=== PATIENT | female | born 1975 | race African-American/Black ===

== ENCOUNTER 2017-04-26 13:58 | Emergency (ER) | payer OTHER ==
[2017-04-26] MEDS ORDERED: amLODIPine 10 MG TAB PO STA (14:19)
[2017-04-26 14:25] VITALS: RESP 18
--- NOTE | 2017-04-26 14:42 | ED ---
General Adult HPI - General Chief complaint: Recheck/Abnormal Lab/Rx Stated complaint: High BP Time Seen by Provider: 04/26/17 14:15 Source: patient, RN notes reviewed Mode of arrival: ambulatory Limitations: no limitations - History of Present Illness Initial comments: 41-year-old female presented for dysuria and medication refill. Patient states she is out of her blood pressure medication states that she has not taken it in several weeks she states that she only takes hydrochlorothiazide, Norvasc and bends it broke. Patient denies chest pain, headache, dizziness, fever, chills. She states she developed dysuria last night with urinary frequency. She feels that she has a UTI. Denies flank pain. - Related Data Home Medications Medication Instructions Recorded Confirmed Enalapril [Vasotec] 20 mg PO DAILY 04/26/17 04/26/17 Hydrochlorothiazide 50 mg PO DAILY 04/26/17 04/26/17 Previous Rx's Medication Instructions Recorded Ciprofloxacin HCl [Cipro] 500 mg PO Q12HR #14 tablet 04/26/17 Fluconazole [Diflucan] 150 mg PO ONCE #2 tab 04/26/17 Phenazopyridine [Pyridium] 200 mg PO TID #6 tablet 04/26/17 amLODIPine [Norvasc] 10 mg PO DAILY #14 tab 04/26/17 Allergies Allergy/AdvReac Type Severity Reaction Status Date / Time No Known Allergies Allergy Verified 04/26/17 14:13 Review of Systems ROS Statement: Those systems with pertinent positive or pertinent negative responses have been documented in the HPI. ROS Other: All systems not noted in ROS Statement are negative. Past Medical History Past Medical History: Hypertension History of Any Multi-Drug Resistant Organisms: None Reported Past Surgical History: No Surgical Hx Reported Past Psychological History: No Psychological Hx Reported Smoking Status: Current every day smoker Past Alcohol Use History: Occasional Past Drug Use History: None Reported General Exam Limitations: no limitations General appearance: alert, in no apparent distress Head exam: Present: atraumatic, normocephalic, normal inspection Eye exam: Present: normal appearance, PERRL, EOMI. Absent: scleral icterus, conjunctival injection, periorbital swelling Neck exam: Present: normal inspection. Absent: tenderness, meningismus, lymphadenopathy Respiratory exam: Present: normal lung sounds bilaterally. Absent: respiratory distress, wheezes, rales, rhonchi, stridor Cardiovascular Exam: Present: regular rate, normal rhythm, normal heart sounds. Absent: systolic murmur, diastolic murmur, rubs, gallop, clicks GI/Abdominal exam: Present: soft, normal bowel sounds. Absent: distended, tenderness, guarding, rebound, rigid Back exam: Absent: CVA tenderness (L) Course Vital Signs 04/26/17 04/26/17 14:02 14:22 Temperature 97.4 F L Pulse Rate 96 89 Respiratory 17 18 Rate Blood Pressure 185/100 162/103 O2 Sat by Pulse 100 98 Oximetry Medical Decision Making - Medical Decision Making 41-year-old female presented emergency department for UTI symptoms and medication refill. He is mentally refill patient be treated for UTI with ciprofloxacin, Diflucan and Pyridium. Return parameters were discussed. Patient has a follow-up appointment in 8 days for medications. - Lab Data Lab Results 04/26/17 04/26/17 Range/Units 14:19 14:19 Urine Color Yellow Urine Appearance Turbid H (Clear) Urine pH 6.0 (5.0-8.0) Ur Specific [place] 1.025 (1.001-1.035) Urine Protein 1+ H (Negative) Urine Glucose (UA) Negative (Negative) Urine Ketones Negative (Negative) Urine Blood Negative (Negative) Urine Nitrite Negative (Negative) Urine Bilirubin Negative (Negative) Urine Urobilinogen 3.0 (<2.0) mg/dL Ur Leukocyte Esterase Large H (Negative) Urine RBC 7 H (0-5) /hpf Urine WBC 152 H (0-5) /hpf Ur Squamous Epith Cells 24 H (0-4) /hpf Urine Mucus Many H (None) /hpf Urine HCG, Qual Not Detected (Not Detectd) Disposition Clinical Impression: Hypertension, Encounter for medication refill, UTI (urinary tract infection) Disposition: HOME SELF-CARE Condition: Stable Instructions: Urinary Tract Infection in Women (ED) Additional Instructions: Please return to the Emergency Department if symptoms worsen or any other concerns. Prescriptions: amLODIPine [Norvasc] 10 mg PO DAILY #14 tab Ciprofloxacin HCl [Cipro] 500 mg PO Q12HR #14 tablet Fluconazole [Diflucan] 150 mg PO ONCE #2 tab Phenazopyridine [Pyridium] 200 mg PO TID #6 tablet Referrals: None,Stated [REFERRING] - 1-2 days Time of Disposition: 15:05
[2017-04-26 14:59] LABS: Appearance,Urine Turbid (Clear); Bilirubin,Urine Negative (Negative); Glucose,Urine (UA) Negative (Negative); Ketones,Urine Negative (Negative); Leukocyte Esterase,Urine Large (Negative); Mucus,Urine Many /hpf; Nitrite,Urine Negative (Negative); Particle Count 16674; Protein,Urine 1+ (Negative); RBC,Urine 7 /hpf (0-5); Specific Gravity,Urine 1.025 (1.001-1.035); Squamous Epithelial Cell,Urine 24 /hpf (0-4); UA Billing (MACRO vs. MICRO) MICRO; WBC,Urine 152 /hpf (0-5)
[2017-04-26 15:28] VITALS: BP 144/88; PULSE 81; TEMP 97.8
== END 2017-04-26 15:29 | disposition home or self-care (01) ==
LOC: EC 13:58
DX: I10 Essential (primary) hypertension (principal); N39.0 Urinary tract infection, site not specified; Z76.0 Encounter for issue of repeat prescription; F17.200 Nicotine dependence, unspecified, uncomplicated; Z79.899 Other long term (current) drug therapy
CPT/HCPCS: 81001; 81025; 87077; 87086; 87186; 99283

== ENCOUNTER 2017-06-07 20:22 | Emergency (ER) | payer SELFPAY ==
[2017-06-07] MEDS ORDERED: diphenhydrAMINE 25 MG CAP PO STA ×2 (20:30→20:41)
--- NOTE | 2017-06-07 20:47 | ED ---
Allergic Reaction HPI - General Chief complaint: Allergic Reaction Stated complaint: Allergic reaction/Tongue Time Seen by Provider: 06/07/17 20:29 Source: patient, RN notes reviewed Mode of arrival: ambulatory Limitations: no limitations - History of Present Illness Initial Comments: This is a 41-year-old female who presents to the emergency department with chief complaint of ALLERGIC reaction. Patient states that prior to arrival she ate a piece of shrimp. She says that she has a shellfish ALLERGY. She normally will eat shellfish and has Benadryl at home that she takes to prevent an ALLERGIC reaction. When she went to get her Benadryl the box was empty. Patient stated that it was closer to come to the emergency department than to her friend's house or the pharmacy. Patient states that she has some tingling of her lips and tongue. Denies any swelling or difficulty breathing. Denies any fevers or chills. - Related Data Home Medications Medication Instructions Recorded Confirmed Enalapril [Vasotec] 20 mg PO DAILY 04/26/17 04/26/17 Hydrochlorothiazide 50 mg PO DAILY 04/26/17 04/26/17 Previous Rx's Medication Instructions Recorded Ciprofloxacin HCl [Cipro] 500 mg PO Q12HR #14 tablet 04/26/17 Fluconazole [Diflucan] 150 mg PO ONCE #2 tab 04/26/17 Phenazopyridine [Pyridium] 200 mg PO TID #6 tablet 04/26/17 amLODIPine [Norvasc] 10 mg PO DAILY #14 tab 04/26/17 Allergies Allergy/AdvReac Type Severity Reaction Status Date / Time shellfish derived [Shellfish] Allergy Unknown Verified 06/07/17 20:27 Review of Systems ROS Statement: Those systems with pertinent positive or pertinent negative responses have been documented in the HPI. ROS Other: All systems not noted in ROS Statement are negative. Past Medical History Past Medical History: Hypertension History of Any Multi-Drug Resistant Organisms: None Reported Past Surgical History: No Surgical Hx Reported Past Psychological History: No Psychological Hx Reported Smoking Status: Current every day smoker Past Alcohol Use History: Occasional Past Drug Use History: None Reported General Exam - General Exam Comments Initial Comments: General: Awake and alert, well-developed; in no apparent distress. HEENT: Head atraumatic, normocephalic. No facial swelling noted. Pupils are equal, round and reactive to light. Extraocular movements intact. Oropharynx moist without erythema or exudate. No swelling of the tongue, lips or oropharynx. Neck: Supple. Normal ROM. Cardiovascular: Regular rate and rhythm. No murmurs, rubs or gallops. Chest symmetrical. Respiratory: Lungs clear to auscultation bilaterally. No wheezes, rales or rhonchi. Normal respiratory effort with no use of accessory muscles. Musculoskeletal: Normal ROM, no tenderness bilateral upper and lower extremities. Ambulating normally. Skin: [place], warm and dry without rashes or lesions. Neurological: Alert and oriented x3. CN II-XII grossly intact. Speech is fluent and answers are appropriate. No focal neuro deficits. Psychiatric: Normal mood and affect. No overt signs of depression or anxiety noted. Limitations: no limitations Course Vital Signs 06/07/17 20:24 Temperature 97.6 F Pulse Rate 101 H Respiratory 18 Rate Blood Pressure 194/99 O2 Sat by Pulse 99 Oximetry Medical Decision Making - Medical Decision Making This is a 41-year-old female who presents to the emergency department with request for Benadryl. Patient has a shellfish ALLERGY and ate a piece of shrimp prior to arrival. She did not have any Benadryl at home so presented to the emergency department. Informed patient that she should not be eating foods that she is ALLERGIC to. Patient denies any swelling or difficulty breathing. She is in no acute distress at this time. Patient will be discharged home. Disposition Clinical Impression: Food allergy Disposition: HOME SELF-CARE Condition: Good Instructions: Food Allergy (ED) Additional Instructions: Please do not continue to eat foods you're ALLERGIC to. Please follow up with primary care provider within 1-2 days. Return to emergency department if symptoms should worsen or any concerns arise. Referrals: Lico Bañuelos MD [Primary Care Provider] - 1-2 days Time of Disposition: 20:47
[2017-06-07 23:37] VITALS: BP 194/99; PULSE 101; RESP 18; TEMP 97.6
== END 2017-06-07 20:53 | disposition home or self-care (01) ==
LOC: EC 20:22
DX: L27.2 Dermatitis due to ingested food (principal); I10 Essential (primary) hypertension; F17.200 Nicotine dependence, unspecified, uncomplicated; Z79.899 Other long term (current) drug therapy; Z91.013 Allergy to seafood
CPT/HCPCS: 99282

== ENCOUNTER 2017-08-27 10:16 | Emergency (ER) | payer OTHER ==
[2017-08-27 10:28] VITALS: TEMP 98
[2017-08-27 11:31] LABS: Basophils % (A) 0 %; Eosinophils # (A) 0.2 k/uL (0-0.7); Eosinophils % (A) 2 %; HCT 36.1 % (34.0-46.0); HGB 11.6 gm/dL (11.4-16.0); Hypochromasia Slight; Lymphocytes # (A) 1.6 k/uL (1.0-4.8); Lymphocytes % (A) 14 %; MCH 25.8 pg (25.0-35.0); MCHC 32.2 g/dL (31.0-37.0); MCV 80.1 fL (80.0-100.0); Mean Platelet Volume 6.3; Monocytes # (A) 0.3 k/uL (0-1.0); Monocytes % (A) 3 %; Neutrophils # (A) 9.2 k/uL (1.3-7.7); Neutrophils % (A) 79 %; Platelet Count 290 k/uL (150-450); RDW 15.5 % (11.5-15.5); WBC 11.7 k/uL (3.8-10.6)
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
[2017-08-27 11:43] LABS: ALT 29 U/L (9-52); AST 20 U/L (14-36); Acetaminophen <10.0 ug/mL; Albumin 4.5 g/dL (3.5-5.0); Alkaline Phosphatase 51 U/L (38-126); Amylase 111 U/L (30-110); Anion Gap 18 mmol/L; Blood Urea Nitrogen 16 mg/dL (7-17); Calcium 9.6 mg/dL (8.4-10.2); Carbon Dioxide 19 mmol/L (22-30); Chloride 111 mmol/L (98-107); Cholesterol 184 mg/dL (<200); Glucose 63 mg/dL (74-99); HDL Cholesterol 78 mg/dL (40-60); LDL Cholesterol,Calculated 92 mg/dL (0-99); Lipase 435 U/L (23-300); Magnesium 1.9 mg/dL (1.6-2.3); Potassium 4.4 mmol/L (3.5-5.1); Sodium 148 mmol/L (137-145); Total Bilirubin 0.3 mg/dL (0.2-1.3); Triglycerides 71 mg/dL (<150)
--- NOTE | 2017-08-27 11:49 | XR ---
EXAMINATION TYPE: XR chest 2V DATE OF EXAM ORDERED: 08/27/2017 HISTORY: cough. REFERENCE: None. FINDINGS: The lungs are clear. Pleural spaces are clear. Heart size is normal. IMPRESSION: NORMAL CHEST.
[2017-08-27 11:58] LABS: Creatine Kinase MB 0.4 ng/mL (0.0-2.4)
--- NOTE | 2017-08-27 11:58 | CT ---
EXAMINATION TYPE: CT brain wo con DATE OF EXAM: 08/27/2017 COMPARISON: Previous study dated 04/29/2017 HISTORY: Dizziness, DOE CT DLP: 1106 mGycm Automated exposure control for dose reduction was used. FINDINGS: Central structures are midline. There is no evidence of hydrocephalus. No acute focal lesion, mass ef fect or midline shift is seen. I do not see evidence of intracranial blood. The visualized portions of the paranasal sinuses and mastoids are clear. The bony calvarium is intact . IMPRESSION: NO ACUTE INTRACRANIAL ABNORMALITY.
[2017-08-27 11:59] LABS: Alcohol 294 mg/dL
[2017-08-27 12:02] LABS: Ammonia <9 umol/L (<30)
[2017-08-27 12:05] LABS: Lactic Acid, Venous 2.8 mmol/L (0.7-2.0)
[2017-08-27] MEDS ORDERED: SODIUM CHLORIDE 0.9% 1,000 ML IV STA (12:14)
[2017-08-27 13:06] VITALS: RESP 18
[2017-08-27 14:09] VITALS: BP 118/68; PULSE 95
== END 2017-08-27 14:08 | disposition home or self-care (01) ==
LOC: EC 10:16
DX: F10.120 Alcohol abuse with intoxication, uncomplicated (principal); E86.0 Dehydration; R00.0 Tachycardia, unspecified; M54.5 Low back pain; G89.29 Other chronic pain; F17.200 Nicotine dependence, unspecified, uncomplicated; Z91.013 Allergy to seafood
CPT/HCPCS: 36415; 70450; 71046; 80053; 80061; 80320; 82140; 82150; 82550; 82553; 83520; 83605; 83690; 83735; 84443; 85025; 85379; 93005; 96360; 99285

== ENCOUNTER 2017-10-16 21:52 | Emergency (ER) | payer OTHER ==
--- NOTE | 2017-10-16 22:25 | ED ---
Chest Pain HPI - General Chief Complaint: Chest Pain Stated Complaint: chest pain Time Seen by Provider: 10/16/17 22:14 Source: patient, family Mode of arrival: ambulatory Limitations: no limitations - History of Present Illness Initial Comments: This patient's a 41-year-old woman who presents to be evaluated for substernal chest pain. She states the symptom is started this morning. She indicates the substernal area, and states that it feels like a squeezing. The pain is intermittent and she states when it comes on it lasts for about 10 seconds at a time before resolving. Earlier today she bought some aspirin, took that but states that it made no difference in the pain. She has not noted any other worsening or relieving factors. She states the pain gets up to moderate intensity when it is there. Is currently not there. She also did have some vomiting earlier today. Patient reports that she has been somewhat anxious related to the symptoms, and she has some tingling in both of her hands now. She does have history of anxiety. Denies any other associated symptoms. MD Complaint: chest pain -: hour(s) Onset: during rest Pain Location: substernal Pain Radiation: none Severity: moderate Quality: tightness Consistency: intermittent Improves With: nothing Worsens With: nothing Anginal Symptoms: vomiting Treatments Prior to Arrival: none - Related Data Home Medications Medication Instructions Recorded Confirmed Hydrochlorothiazide [Hydrodiuril] 25 mg PO DAILY 10/16/17 10/16/17 amLODIPine BESYLATE [Norvasc] 2.5 mg PO DAILY 10/16/17 10/16/17 Previous Rx's Medication Instructions Recorded Magnesium Oxide [Mag-Ox] 400 mg PO DAILY #20 tablet 10/16/17 Allergies Allergy/AdvReac Type Severity Reaction Status Date / Time shellfish derived [Shellfish] Allergy Unknown Verified 10/16/17 22:38 Review of Systems ROS Statement: Those systems with pertinent positive or pertinent negative responses have been documented in the HPI. ROS Other: All systems not noted in ROS Statement are negative. Constitutional: Denies: fever, chills Respiratory: Denies: cough, dyspnea Cardiovascular: Reports: as per HPI, chest pain. Denies: palpitations, orthopnea, edema, syncope Gastrointestinal: Reports: as per HPI, nausea, vomiting. Denies: abdominal pain , diarrhea, constipation, hematemesis Genitourinary: Denies: dysuria, hematuria Musculoskeletal: Denies: back pain Skin: Denies: rash Neurological: Reports: as per HPI, paresthesias. Denies: headache, weakness, numbness EKG Findings - EKG Results: EKG: interpreted by BELKYS BURNHAM, sinus rhythm (With sinus arrhythmia, rate 89 bpm) , normal axis, normal QRS, normal ST/T, no acute changes - OR, Pacemaker, Normal: Normal tracing: normal tracing Past Medical History Past Medical History: Hypertension History of Any Multi-Drug Resistant Organisms: None Reported Past Surgical History: No Surgical Hx Reported Past Psychological History: Anxiety Smoking Status: Current every day smoker Past Alcohol Use History: Occasional Past Drug Use History: None Reported General Exam Limitations: no limitations General appearance: alert, in no apparent distress Head exam: Present: atraumatic, normocephalic Eye exam: Present: normal appearance. Absent: scleral icterus, conjunctival injection Respiratory exam: Present: normal lung sounds bilaterally. Absent: respiratory distress, wheezes, rales, rhonchi, stridor, chest wall tenderness, accessory muscle use, decreased breath sounds, prolonged expiratory Cardiovascular Exam: Present: regular rate, normal rhythm, normal heart sounds. Absent: systolic murmur, diastolic murmur, rubs, gallop GI/Abdominal exam: Present: soft. Absent: distended, tenderness, guarding, rebound, rigid, mass, pulsatile mass, hernia Extremities exam: Present: normal inspection, normal capillary refill. Absent: pedal edema, calf tenderness Back exam: Present: normal inspection. Absent: CVA tenderness (R), CVA tenderness (L) Neurological exam: Present: alert Skin exam: Present: warm, dry, intact, normal color. Absent: rash Course Vital Signs 10/16/17 22:02 Temperature 100.4 F H Pulse Rate 104 H Respiratory 20 Rate Blood Pressure 155/67 O2 Sat by Pulse 100 Oximetry Disposition Clinical Impression: Chest pain, Hypomagnesemia Disposition: HOME SELF-CARE Condition: Good Instructions: Chest Pain (ED), Hypomagnesemia (ED) Prescriptions: Magnesium Oxide [Mag-Ox] 400 mg PO DAILY #20 tablet Is patient prescribed a controlled substance at d/c from ED?: No Referrals: Lico Bañuelos MD [Primary Care Provider] - 1-2 days
--- NOTE | 2017-10-16 23:19 | XR ---
EXAMINATION TYPE: XR chest 2V DATE OF EXAM: 10/16/2017 COMPARISON: 08/27/2017 HISTORY: Chest pain TECHNIQUE: Frontal and lateral views of the chest are obtained. FINDINGS: Heart and mediastinum are normal. Lungs are clear. Diaphragm is normal. Bony thorax is nor mal. There are chest leads. IMPRESSION: Normal chest. No change.
[2017-10-16 23:26] LABS: Basophils % (A) 0 %; Eosinophils # (A) 0.2 k/uL (0-0.7); Eosinophils % (A) 3 %; HCT 34.1 % (34.0-46.0); HGB 10.6 gm/dL (11.4-16.0); Hypochromasia Slight; Lymphocytes # (A) 0.9 k/uL (1.0-4.8); Lymphocytes % (A) 15 %; MCH 25.1 pg (25.0-35.0); MCV 80.7 fL (80.0-100.0); Mean Platelet Volume 7.5; Monocytes # (A) 0.3 k/uL (0-1.0); Monocytes % (A) 5 %; Neutrophils # (A) 4.8 k/uL (1.3-7.7); Neutrophils % (A) 75 %; Platelet Count 231 k/uL (150-450); RBC 4.23 m/uL (3.80-5.40); RDW 14.9 % (11.5-15.5); WBC 6.4 k/uL (3.8-10.6)
[2017-10-16 23:40] LABS: ALT 61 U/L (9-52); AST 54 U/L (14-36); Albumin 4.5 g/dL (3.5-5.0); Alkaline Phosphatase 52 U/L (38-126); Anion Gap 15 mmol/L; Blood Urea Nitrogen 18 mg/dL (7-17); Calcium 9.6 mg/dL (8.4-10.2); Carbon Dioxide 26 mmol/L (22-30); Chloride 96 mmol/L (98-107); Glucose 78 mg/dL (74-99); Magnesium 1.2 mg/dL (1.6-2.3); Potassium 3.8 mmol/L (3.5-5.1); Sodium 137 mmol/L (137-145); Total Bilirubin 0.7 mg/dL (0.2-1.3); Total Protein 7.6 g/dL (6.3-8.2)
[2017-10-16] MEDS ORDERED: MAGNESIUM SULFATE-D5W PMX 1 GM in DEXTROSE/WATER 1 100ML.BAG IVPB ONE (23:58)
[2017-10-17 00:31] VITALS: RESP 18
[2017-10-17 01:43] VITALS: BP 142/87; PULSE 87; TEMP 98
== END 2017-10-17 01:43 | disposition home or self-care (01) ==
LOC: EC 21:52
DX: E83.42 Hypomagnesemia (principal); R07.2 Precordial pain; R11.10 Vomiting, unspecified; I10 Essential (primary) hypertension; F17.200 Nicotine dependence, unspecified, uncomplicated; Z79.899 Other long term (current) drug therapy; Z91.013 Allergy to seafood
CPT/HCPCS: 36415; 93005; 80053; 83735; 84484; 85025; 71046; 99285; 96365; J3475

== ENCOUNTER 2017-12-19 12:36 | Emergency (ER) | payer OTHER ==
[2017-12-19] MEDS ORDERED: MAG HYDROX/AL HYDROX/SIMETH 30 ML CUP PO STA (14:12)
[2017-12-19] MEDS ORDERED: SODIUM CHLORIDE 0.9% 500 ML IV STA (14:12)
--- NOTE | 2017-12-19 14:20 | ED ---
General Adult HPI - General Chief complaint: Chest Pain Stated complaint: chest pain/NVD Time Seen by Provider: 12/19/17 14:03 Source: patient, EMS Mode of arrival: EMS Limitations: no limitations - History of Present Illness Initial comments: Cindi female with past medical history of hypertension who presents to the emergency department today for evaluation of nausea, vomiting and development of epigastric and retrosternal discomfort. Patient reports that she was in her usual state of health yesterday, she made cheeseburgers for dinner which her and her family ate. She reports that she slept well throughout the night but woke this morning feeling nauseated. Patient reports that she had 6 episodes of nonbloody nonbilious emesis. Patient subsequently developed some discomfort in the epigstrum and retrosternal area. Patient reports she told her friend of her discomfort and was told to come to the ER for evaluation. Patient states that symptoms began approximately 2 hours prior to coming to the ER and resolved completely prior to arrival. Patient denies any lightheadedness, diaphoresis or shortness of breath associated with the chest pressure sensation. She denies any known cardiac history. She denies any family history of early cardiac disease. Upon initial evaluation in the ER the patient states that her primary cause of discomfort is that she is very thirsty and hasn't had anything to eat or drink since she vomited this morning. - Related Data Home Medications Medication Instructions Recorded Confirmed Hydrochlorothiazide [Hydrodiuril] 25 mg PO DAILY 10/16/17 12/19/17 amLODIPine [Norvasc] 10 mg PO DAILY 12/19/17 12/19/17 Previous Rx's Medication Instructions Recorded Ondansetron Odt [Zofran Odt] 4 mg PO Q8HR PRN #12 tab 12/19/17 Allergies Allergy/AdvReac Type Severity Reaction Status Date / Time shellfish derived [Shellfish] Allergy Unknown Verified 12/19/17 13:33 Review of Systems ROS Statement: Those systems with pertinent positive or pertinent negative responses have been documented in the HPI. ROS Other: All systems not noted in ROS Statement are negative. Constitutional: Reports: fever (subjective warmness yesterda) ENT: Denies: throat pain Respiratory: Denies: cough, dyspnea Cardiovascular: Reports: chest pain (pressure in retrosternal area after vomiting). Denies: palpitations, dyspnea on exertion, orthopnea, edema, syncope Endocrine: Denies: fatigue Gastrointestinal: Reports: nausea, vomiting. Denies: abdominal pain, diarrhea, constipation Genitourinary: Denies: urgency, dysuria, abnormal menses (LMP last week) Musculoskeletal: Denies: back pain Skin: Denies: rash Neurological: Denies: headache, weakness Psychiatric: Denies: anxiety Hematological/Lymphatic: Denies: easy bleeding, easy bruising Past Medical History Past Medical History: Hypertension History of Any Multi-Drug Resistant Organisms: None Reported Past Surgical History: No Surgical Hx Reported Past Psychological History: Anxiety Smoking Status: Current some day smoker Past Alcohol Use History: Occasional Past Drug Use History: None Reported General Exam Limitations: no limitations General appearance: alert, in no apparent distress Head exam: Present: atraumatic, normocephalic Eye exam: Present: normal appearance, PERRL ENT exam: Present: normal exam, mucous membranes dry Neck exam: Present: normal inspection Respiratory exam: Absent: respiratory distress Cardiovascular Exam: Present: regular rate, normal rhythm GI/Abdominal exam: Present: soft. Absent: distended, tenderness, guarding, rebound, rigid Rectal exam: Present: deferred Back exam: Present: normal inspection Neurological exam: Present: alert, oriented X3 Psychiatric exam: Present: normal affect, normal mood Skin exam: Present: warm, dry Course Vital Signs 12/19/17 12/19/17 12/19/17 12:46 14:26 16:28 Temperature 98.1 F Pulse Rate 62 80 85 Respiratory 18 17 18 Rate Blood Pressure 132/83 160/103 160/96 O2 Sat by Pulse 97 100 100 Oximetry 12/19/17 18:04 Temperature 97.9 F Pulse Rate 80 Respiratory 16 Rate Blood Pressure 159/92 O2 Sat by Pulse 96 Oximetry - Reevaluation(s) Reevaluation #1: The patient was reevaluated, still complaining of some discomfort in her abdomen , declined any pain medications, states she feels somewhat woozy but does not want any nausea medication. Patient was updated on plan for ultrasound to evaluate gallbladder pathology. 12/19/17 16:02 EKG Findings - EKG Comments: EKG Findings:: EKG at 1440 rate is 83, sinus rhythm, normal axis, prolonged QTC , there are no acute ST elevations or depressions. There is no evidence of acute ischemia or infarction. Medical Decision Making - Medical Decision Making The patient was seen and evaluated, history was obtained from the patient Patient woke with nausea and had 6 episodes of nonbloody nonbilious emesis, subsequently developed discomfort in the epigastrium and retrosternal area described as a pressure and burning. The sensation resolved prior to arrival. Heart score is 1 for risk factors of hypertension and smoking Labs and imaging were ordered Maalox was ordered Labs with elvated lipase and transaminases, US of gallbladder was ordered for evaluation Patient continued to have mild nausea and generalized feeling of being unwell but declined any medications or further intervention. IV fluids were infusing. Ultrasound with no acute abnormalities Results were discussed with the patient who expresses relief that there is no abnormalities identified. At this time patient states she like to be discharged home. I will prescribe by mouth Zofran. I do suspect that the patient's lab abnormalities are secondary to excessive vomiting this morning. I advised follow-up with primary care physician. I discussed with the patient that if she does not feel like eating solid foods it is okay but she needs to maintain oral hydration with either water or a sugar salt solution such as Gatorade or Powerade. Patient expressed understanding of this. Patient was advised that she has any worsening pain or discomfort call 911 or return to the ER for reevaluation. All questions pertaining to care were answered best my ability patient was discharged home in stable condition. - Lab Data Result diagrams: 12/19/17 13:35 12/19/17 13:35 Lab Results 12/19/17 12/19/17 12/19/17 Range/Units 13:35 13:35 13:35 WBC 6.1 (3.8-10.6) k/uL RBC 4.24 (3.80-5.40) m/uL Hgb 10.6 L (11.4-16.0) gm/dL Hct 33.9 L (34.0-46.0) % MCV 80.0 (80.0-100.0) fL MCH 25.0 (25.0-35.0) pg MCHC 31.2 (31.0-37.0) g/dL RDW 16.4 H (11.5-15.5) % Plt Count 265 (150-450) k/uL Neutrophils % 86 % Lymphocytes % 8 % Monocytes % 3 % Eosinophils % 1 % Basophils % 0 % Neutrophils # 5.2 (1.3-7.7) k/uL Lymphocytes # 0.5 L (1.0-4.8) k/uL Monocytes # 0.2 (0-1.0) k/uL Eosinophils # 0.1 (0-0.7) k/uL Basophils # 0.0 (0-0.2) k/uL Hypochromasia Moderate Anisocytosis Slight PT 10.2 (9.0-12.0) sec INR 1.0 (<1.2) APTT 20.4 L (22.0-30.0) sec Sodium 139 (137-145) mmol/L Potassium 3.8 (3.5-5.1) mmol/L Chloride 101 (98-107) mmol/L Carbon Dioxide 21 L (22-30) mmol/L Anion Gap 17 mmol/L BUN 10 (7-17) mg/dL Creatinine 0.70 (0.52-1.04) mg/dL Est GFR (CKD-EPI)AfAm >90 (>60 ml/min/1.73 sqM) Est GFR (CKD-EPI)NonAf >90 (>60 ml/min/1.73 sqM) Glucose 61 L (74-99) mg/dL Calcium 8.8 (8.4-10.2) mg/dL Magnesium 1.4 L (1.6-2.3) mg/dL Total Bilirubin 0.7 (0.2-1.3) mg/dL AST 239 H (14-36) U/L ALT 103 H (9-52) U/L Alkaline Phosphatase 74 (38-126) U/L Troponin I (0.000-0.034) ng/mL Total Protein 7.6 (6.3-8.2) g/dL Albumin 4.5 (3.5-5.0) g/dL Lipase 334 H (23-300) U/L // Range/Units 13:35 WBC (3.8-10.6) k/uL RBC (3.80-5.40) m/uL Hgb (11.4-16.0) gm/dL Hct (34.0-46.0) % MCV (80.0-100.0) fL MCH (25.0-35.0) pg MCHC (31.0-37.0) g/dL RDW (11.5-15.5) % Plt Count (150-450) k/uL Neutrophils % % Lymphocytes % % Monocytes % % Eosinophils % % Basophils % % Neutrophils # (1.3-7.7) k/uL Lymphocytes # (1.0-4.8) k/uL Monocytes # (0-1.0) k/uL Eosinophils # (0-0.7) k/uL Basophils # (0-0.2) k/uL Hypochromasia Anisocytosis PT (9.0-12.0) sec INR (<1.2) APTT (22.0-30.0) sec Sodium (137-145) mmol/L Potassium (3.5-5.1) mmol/L Chloride (98-107) mmol/L Carbon Dioxide (22-30) mmol/L Anion Gap mmol/L BUN (7-17) mg/dL Creatinine (0.52-1.04) mg/dL Est GFR (CKD-EPI)AfAm (>60 ml/min/1.73 sqM) Est GFR (CKD-EPI)NonAf (>60 ml/min/1.73 sqM) Glucose (74-99) mg/dL Calcium (8.4-10.2) mg/dL Magnesium (1.6-2.3) mg/dL Total Bilirubin (0.2-1.3) mg/dL AST (14-36) U/L ALT (9-52) U/L Alkaline Phosphatase (38-126) U/L Troponin I <0.012 (0.000-0.034) ng/mL Total Protein (6.3-8.2) g/dL Albumin (3.5-5.0) g/dL Lipase (23-300) U/L Disposition Clinical Impression: Nausea and vomiting, Elevated transaminase level, Elevated lipase Disposition: HOME SELF-CARE Condition: Good Instructions: Acute Nausea and Vomiting (ED) Prescriptions: Ondansetron Odt [Zofran Odt] 4 mg PO Q8HR PRN #12 tab PRN Reason: Nausea Is patient prescribed a controlled substance at d/c from ED?: No Referrals: Jackelin Gallagher DO [Primary Care Provider] - 1-2 days Time of Disposition: 17:45
[2017-12-19 14:42] LABS: Anisocytosis Slight; Basophils % (A) 0 %; Eosinophils # (A) 0.1 k/uL (0-0.7); Eosinophils % (A) 1 %; HCT 33.9 % (34.0-46.0); HGB 10.6 gm/dL (11.4-16.0); Hypochromasia Moderate; Lymphocytes # (A) 0.5 k/uL (1.0-4.8); Lymphocytes % (A) 8 %; MCHC 31.2 g/dL (31.0-37.0); Mean Platelet Volume 7.6; Monocytes # (A) 0.2 k/uL (0-1.0); Monocytes % (A) 3 %; Neutrophils # (A) 5.2 k/uL (1.3-7.7); Neutrophils % (A) 86 %; Platelet Count 265 k/uL (150-450); RBC 4.24 m/uL (3.80-5.40); RDW 16.4 % (11.5-15.5); WBC 6.1 k/uL (3.8-10.6)
[2017-12-19 14:58] LABS: ALT 103 U/L (9-52); AST 239 U/L (14-36); Albumin 4.5 g/dL (3.5-5.0); Alkaline Phosphatase 74 U/L (38-126); Anion Gap 17 mmol/L; Blood Urea Nitrogen 10 mg/dL (7-17); Calcium 8.8 mg/dL (8.4-10.2); Carbon Dioxide 21 mmol/L (22-30); Chloride 101 mmol/L (98-107); Glucose 61 mg/dL (74-99); Lipase 334 U/L (23-300); Magnesium 1.4 mg/dL (1.6-2.3); Potassium 3.8 mmol/L (3.5-5.1); Sodium 139 mmol/L (137-145); Total Bilirubin 0.7 mg/dL (0.2-1.3); Total Protein 7.6 g/dL (6.3-8.2)
--- NOTE | 2017-12-19 15:03 | XR ---
EXAMINATION TYPE: XR chest 2V DATE OF EXAM: 12/19/2017 COMPARISON: Prior chest 10/16/2017 HISTORY: Substernal chest pain, vomiting and nausea TECHNIQUE: Frontal and lateral views of the chest are obtained. FINDINGS: There is no focal air space opacity, pleural effusion, or pneumothorax seen. The cardiac silhouette size is within normal limits. There are overlying cardiac leads. The osseous structures a re intact. IMPRESSION: No acute cardiopulmonary process.
[2017-12-19 15:04] LABS: Prothrombin Time 10.2 sec (9.0-12.0)
[2017-12-19 15:15] LABS: Partial Thromboplastin Time 20.4 sec (22.0-30.0)
--- NOTE | 2017-12-19 16:44 | US ---
EXAMINATION TYPE: US gallbladder DATE OF EXAM: 12/19/2017 COMPARISON: NONE CLINICAL HISTORY: Pain. EXAM MEASUREMENTS: Liver Length: 15.8 cm Gallbladder Wall: 0.2 cm CBD: 0.2 cm Right Kidney: 9.9 x 4.0 x 5.3 cm Pancreas: wnl Liver: mild increased attenuation Gallbladder: wnl Evidence for sonographic Rutledge's sign: no CBD: wnl Right Kidney: wnl IMPRESSION: No gallstones or dilated ducts. There is probably some fatty infiltration of the liver.
[2017-12-19 18:05] VITALS: BP 159/92; PULSE 80; RESP 16; TEMP 97.9
== END 2017-12-19 18:04 | disposition home or self-care (01) ==
LOC: EC 12:36
DX: R11.2 Nausea with vomiting, unspecified (principal); R74.0 Nonspecific elevation of levels of transaminase and lactic acid dehydrogenase [LDH]; R74.8 Abnormal levels of other serum enzymes; I10 Essential (primary) hypertension; F17.200 Nicotine dependence, unspecified, uncomplicated; Z79.899 Other long term (current) drug therapy; Z91.013 Allergy to seafood
CPT/HCPCS: 36415; 71046; 76705; 80053; 83690; 83735; 84484; 85025; 85610; 85730; 93005; 96360; 99285

== ENCOUNTER 2018-05-02 00:10 | Emergency (ER) | payer OTHER ==
[2018-05-02 00:20] VITALS: TEMP 98.2
[2018-05-02] MEDS ORDERED: MORPHINE SULFATE 2 MG/ML SYRINGE IVP STA (01:36)
[2018-05-02] MEDS ORDERED: KETOROLAC 30 MG/ML 1 ML VIAL IVP STA (01:36)
[2018-05-02 01:55] LABS: Anisocytosis Slight; Basophils % (A) 0 %; Eosinophils # (A) 0.3 k/uL (0-0.7); Eosinophils % (A) 3 %; HCT 32.8 % (34.0-46.0); HGB 10.3 gm/dL (11.4-16.0); Hypochromasia Moderate; Lymphocytes # (A) 1.9 k/uL (1.0-4.8); Lymphocytes % (A) 20 %; MCH 23.8 pg (25.0-35.0); MCHC 31.4 g/dL (31.0-37.0); MCV 75.9 fL (80.0-100.0); Mean Platelet Volume 6.5; Microcytosis Slight; Monocytes # (A) 0.5 k/uL (0-1.0); Monocytes % (A) 5 %; Neutrophils # (A) 6.7 k/uL (1.3-7.7); Neutrophils % (A) 69 %; Platelet Count 273 k/uL (150-450); RBC 4.32 m/uL (3.80-5.40); RDW 16.2 % (11.5-15.5); WBC 9.7 k/uL (3.8-10.6)
[2018-05-02 02:05] LABS: ALT 23 U/L (9-52); AST 26 U/L (14-36); Albumin 4.1 g/dL (3.5-5.0); Alkaline Phosphatase 83 U/L (38-126); Anion Gap 12 mmol/L; Blood Urea Nitrogen 22 mg/dL (7-17); Carbon Dioxide 18 mmol/L (22-30); Chloride 107 mmol/L (98-107); Creatine Kinase 98 U/L (30-135); Glucose 90 mg/dL (74-99); Sodium 137 mmol/L (137-145); Total Bilirubin 0.4 mg/dL (0.2-1.3); Total Protein 7.6 g/dL (6.3-8.2)
[2018-05-02 02:12] LABS: Potassium 4.1 mmol/L (3.5-5.1)
--- NOTE | 2018-05-02 03:12 | US ---
EXAMINATION TYPE: US venous doppler duplex LE LT DATE OF EXAM: 05/02/2018 2:48 AM COMPARISON: NONE CLINICAL HISTORY: Pain. Left calf pain and swelling. SIDE PERFORMED: Left TECHNIQUE: The lower extremity deep venous system is examined utilizing real time linear array sonog wagner with graded compression, doppler sonography and color-flow sonography. VESSELS IMAGED: External Iliac Vein (EIV) Common Femoral Vein Deep Femoral Vein Greater Saphenous Vein * Femoral Vein Popliteal Vein Small Saphenous Vein * Proximal Calf Veins (* superficial vessels) Left Leg: Negative for DVT Fluid seen posterior medial and lateral around the knee. Largest pocket lateral 5.1 x 1.4 x 2.1cm. At calf area of pain medial a hypoechoic area seen measuring 5.2 x 1.3 x 3.9cm. IMPRESSION: No evidence of deep venous thrombosis. There is a popliteal cyst. There is a oval-shaped complex mass in the calf that could be an intramuscular hematoma with blood c lot..
--- NOTE | 2018-05-02 03:50 | ED ---
Lower Extremity Injury HPI - General Chief Complaint: Extremity Injury, Lower Stated Complaint: Knee Swelling/Pain Time Seen by Provider: 05/02/18 01:04 Source: patient Mode of arrival: ambulatory Limitations: no limitations - History of Present Illness Initial Comments: 42-year-old female patient presents to the emergency department today for evaluation of bilateral lower extremity swelling. Patient states this is worse on the left side. Patient states she is also having left knee pain especially to the posterior knee into the proximal calf. Patient states that this started approximately one week ago over the last 24 hours the pain and swelling in the left leg has worsened significantly. Patient states she did take ibuprofen but it did not seem to help. Patient denies any numbness or tingling to the legs. She denies any shortness of breath, chest pain, or palpitations. She states that she does have a history of hypertension but denies any other chronic medical conditions. Denies any hematuria, dysuria, urinary frequency, urinary urgency. Denies any injury to the legs or new physical regimen. She denies any recent travel, use of oral contraceptives, or oral hormone therapy. Patient denies any recent rash, fever, chills, nausea, vomiting, diarrhea, constipation, back pain, dizziness, weakness, hematuria, dysuria, headache, visual changes, or any other complaints. - Related Data Home Medications Medication Instructions Recorded Confirmed Hydrochlorothiazide [Hydrodiuril] 25 mg PO DAILY 10/16/17 12/19/17 amLODIPine [Norvasc] 10 mg PO DAILY 12/19/17 12/19/17 Previous Rx's Medication Instructions Recorded Ondansetron Odt [Zofran Odt] 4 mg PO Q8HR PRN #12 tab 12/19/17 Hydrocodone/Acetaminophen [Menan 1 tab PO Q6HR PRN #12 tab 05/02/18 5-325] Allergies Allergy/AdvReac Type Severity Reaction Status Date / Time shellfish derived [Shellfish] Allergy Unknown Verified 05/02/18 00:20 Review of Systems ROS Statement: Those systems with pertinent positive or pertinent negative responses have been documented in the HPI. ROS Other: All systems not noted in ROS Statement are negative. Past Medical History Past Medical History: Hypertension History of Any Multi-Drug Resistant Organisms: None Reported Past Surgical History: No Surgical Hx Reported Past Psychological History: Anxiety Smoking Status: Current some day smoker Past Alcohol Use History: Occasional Past Drug Use History: None Reported General Exam Limitations: no limitations General appearance: alert, in no apparent distress, other (This is a well- developed, well-nourished adult female patient in no acute distress. Vital signs upon presentation are temperature 98.2F, pulse 86, respirations 18, blood pressure 163/103, pulse ox 98% on room air.) Respiratory exam: Present: normal lung sounds bilaterally. Absent: respiratory distress, wheezes, rales, rhonchi, stridor Cardiovascular Exam: Present: regular rate, normal rhythm, normal heart sounds. Absent: systolic murmur, diastolic murmur, rubs, gallop, clicks GI/Abdominal exam: Present: soft, normal bowel sounds. Absent: distended, tenderness, guarding, rebound, rigid Extremities exam: Present: full ROM, tenderness (Tenderness over the left posterior knee and proximal calf), normal capillary refill, other (Patient has nonpitting edema to the bilateral lower extremities. This is worse over the left. Patient has swelling surrounding the left knee joint particularly to the posterior knee and over the proximal calf. Skin is warm and dry. Cap refills less than 3 seconds. Pedal pulses are 2+ and equal bilaterally.). Absent: normal inspection, pedal edema, joint swelling, calf tenderness Neurological exam: Present: alert, oriented X3, CN II-XII intact Psychiatric exam: Present: normal affect, normal mood Skin exam: Present: warm, dry, intact, normal color. Absent: rash Course Vital Signs 05/02/18 05/02/18 00:16 04:06 Temperature 98.2 F 98.2 F Pulse Rate 86 89 Respiratory 18 16 Rate Blood Pressure 163/103 156/97 O2 Sat by Pulse 98 89 L Oximetry Medical Decision Making - Medical Decision Making 42-year-old female patient presents to the emergency department today for complaints of lower extremity swelling and significant pain to the left knee and calf. Physical examination did reveal nonpitting edema to the bilateral lower extremities, this is worse on the left. Labs reviewed and are unremarkable. White blood cell count is normal. Renal function is normal. Ultrasound of the left leg was obtained and did show swelling surrounding the left knee as well as a fluid collection to the proximal calf is a hypoechoic area consistent with hematoma possible clot. There is concerned for ruptured Bakers cyst. Patient will be given Rajesh wrap. She'll be given pain medication. She is instructed to follow-up with orthopedics for recheck as soon as possible. She'll be provided with a recommendation. Return parameters discussed in detail. She verbalizes understanding and agrees with this plan. - Lab Data Result diagrams: 05/02/18 01:40 05/02/18 01:40 Lab Results 05/02/18 05/02/18 05/02/18 Range/Units 01:40 01:40 01:40 WBC 9.7 (3.8-10.6) k/uL RBC 4.32 (3.80-5.40) m/uL Hgb 10.3 L (11.4-16.0) gm/dL Hct 32.8 L (34.0-46.0) % MCV 75.9 L (80.0-100.0) fL MCH 23.8 L (25.0-35.0) pg MCHC 31.4 (31.0-37.0) g/dL RDW 16.2 H (11.5-15.5) % Plt Count 273 (150-450) k/uL Neutrophils % 69 % Lymphocytes % 20 % Monocytes % 5 % Eosinophils % 3 % Basophils % 0 % Neutrophils # 6.7 (1.3-7.7) k/uL Lymphocytes # 1.9 (1.0-4.8) k/uL Monocytes # 0.5 (0-1.0) k/uL Eosinophils # 0.3 (0-0.7) k/uL Basophils # 0.0 (0-0.2) k/uL Hypochromasia Moderate Anisocytosis Slight Microcytosis Slight Sodium 137 (137-145) mmol/L Potassium 4.1 (3.5-5.1) mmol/L Chloride 107 (98-107) mmol/L Carbon Dioxide 18 L (22-30) mmol/L Anion Gap 12 mmol/L BUN 22 H (7-17) mg/dL Creatinine 0.64 (0.52-1.04) mg/dL Est GFR (CKD-EPI)AfAm >90 (>60 ml/min/1.73 sqM) Est GFR (CKD-EPI)NonAf >90 (>60 ml/min/1.73 sqM) Glucose 90 (74-99) mg/dL Calcium 10.0 (8.4-10.2) mg/dL Total Bilirubin 0.4 (0.2-1.3) mg/dL AST 26 (14-36) U/L ALT 23 (9-52) U/L Alkaline Phosphatase 83 (38-126) U/L Creatine Kinase 98 (30-135) U/L NT-Pro-B Natriuret Pep 42 pg/mL Total Protein 7.6 (6.3-8.2) g/dL Albumin 4.1 (3.5-5.0) g/dL - Radiology Data Radiology results: report reviewed US venous Doppler duplex of the left lower extremity was obtained. Report was reviewed in its entirety. The left leg is negative for DVT. There is fluid seen posterior to the medial lateral around the knee. The largest pocket laterally is 5.1 x 1.4 x 2.1 cm. At the Area of pain medial a hypoechoic area seen measuring 5.2 x 1.3 x 3.[address] Sapp shows no evidence of deep venous thrombosis. There is popliteal cyst. There is an oval- shaped complex mass in the Could be an intramuscular hematoma with blood clot. Disposition Clinical Impression: Knee swelling, Intramuscular hematoma Disposition: HOME SELF-CARE Condition: Good Instructions: Leg Edema (ED), Hematoma (ED) Additional Instructions: Take medication as directed. Follow up with orthopedics for recheck as soon as possible. Return immediately for any new, worsening, or concerning symptoms. Prescriptions: Hydrocodone/Acetaminophen [Menan 5-325] 1 tab PO Q6HR PRN #12 tab PRN Reason: Pain Is patient prescribed a controlled substance at d/c from ED?: Yes When asked, does pt state using other controlled substances?: No If prescribed controlled substance>3 days was MAPS reviewed?: Prescribed <3 Days If opioid is for acute pain is fill amount 7 days or less?: Yes If Rx opioid, was Start Talking consent form obtained?: Yes Referrals: Lico Bañuelos MD [Primary Care Provider] - 1-2 days Mahendra Padron DO [Doctor of Osteopathic Medicine] - 1-2 days Time of Disposition: 03:49
[2018-05-02 04:08] VITALS: BP 156/97; PULSE 89; RESP 16
== END 2018-05-02 04:06 | disposition home or self-care (01) ==
LOC: EC 00:10
DX: M25.462 Effusion, left knee (principal); M25.461 Effusion, right knee; M79.81 Nontraumatic hematoma of soft tissue; I10 Essential (primary) hypertension; F17.200 Nicotine dependence, unspecified, uncomplicated; Z79.899 Other long term (current) drug therapy; Z91.013 Allergy to seafood
CPT/HCPCS: 36415; 83880; 80053; 82550; 85025; 93971; 99284; 96374; 96375; J1885; J2270

== ENCOUNTER 2019-05-28 15:25 | Emergency (ER) | payer OTHER ==
--- NOTE | 2019-05-28 16:23 | ED ---
General Adult HPI - General Chief complaint: Arrhythmia/Palpitations Stated complaint: Heart palpations Time Seen by Provider: 05/28/19 15:52 Source: patient Mode of arrival: ambulatory Limitations: no limitations - History of Present Illness Initial comments: Patient presents to the ED complaining of having rapid heart palpitations since about noon today. Patient states her palpitations have currently improved. Patient states that she has also had associated nausea, and she states that she has vomited once. Patient states that she has had a mild headache as well. Patient states that she "partied hard" last night, and she states that she may have drank too much. She denies drinking any alcohol today, and she denies any illicit drug use or medication abuse/overdose. Patient denies trauma or injury, sudden onset of headache, LOC, neck pain or stiffness, fever or chills, focal numbness/weakness/neuro deficit, visual changes, speech difficulty, chest pain, dyspnea, dizziness, syncope, abdominal pain, diarrhea, bloody or melanotic stool, hematemesis, dysuria or urinary symptoms, leg or calf swelling or pain, or any other symptoms or complaints. - Related Data Home Medications Medication Instructions Recorded Confirmed Hydrochlorothiazide [Hydrodiuril] 25 mg PO DAILY 10/16/17 12/19/17 amLODIPine [Norvasc] 10 mg PO DAILY 12/19/17 12/19/17 Previous Rx's Medication Instructions Recorded Ondansetron Odt [Zofran Odt] 4 mg PO Q8HR PRN #12 tab 12/19/17 Hydrocodone/Acetaminophen [[place] 1 tab PO Q6HR PRN #12 tab 05/02/18 5-325] Allergies Allergy/AdvReac Type Severity Reaction Status Date / Time shellfish derived [Shellfish] Allergy Unknown Verified 05/02/18 00:20 Review of Systems ROS Statement: Those systems with pertinent positive or pertinent negative responses have been documented in the HPI. ROS Other: All systems not noted in ROS Statement are negative. Past Medical History Past Medical History: Hypertension History of Any Multi-Drug Resistant Organisms: None Reported Past Surgical History: No Surgical Hx Reported Past Psychological History: Anxiety Smoking Status: Current some day smoker Past Alcohol Use History: Occasional Past Drug Use History: None Reported General Exam Limitations: no limitations General appearance: alert, in no apparent distress Head exam: Present: atraumatic, normocephalic Eye exam: Present: normal appearance, PERRL, EOMI ENT exam: Present: mucous membranes moist Neck exam: Present: other (Trachea is in midline). Absent: tenderness, meningismus Respiratory exam: Present: normal lung sounds bilaterally. Absent: respiratory distress, wheezes, rales, rhonchi Cardiovascular Exam: Present: regular rate, normal rhythm, normal heart sounds, other (Normal radial pulses bilaterally) GI/Abdominal exam: Present: soft. Absent: distended, tenderness, guarding Extremities exam: Absent: tenderness, pedal edema, calf tenderness Neurological exam: Present: alert, oriented X3, CN II-XII intact. 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 ] Respiratory 18 20 16 Rate Blood Pressure 194/119 184/124 173/113 O2 Sat by Pulse 99 100 99 Oximetry 05/28/19 05/28/19 05/28/19 16:39 17:12 17:46 Temperature 98.4 F Pulse Rate 96 96 84 Pulse Rate [ Facing Cutting Machine Operator ] Respiratory 16 16 16 Rate Blood Pressure 175/112 180/107 166/90 O2 Sat by Pulse 99 100 97 Oximetry 05/28/19 18:44 Temperature 98 F Pulse Rate 85 Pulse Rate [ Facing Cutting Machine Operator ] Respiratory 16 Rate Blood Pressure 174/112 O2 Sat by Pulse 100 Oximetry - Reevaluation(s) Reevaluation #1: 05/28/19 20:16 Patient states that she is now feeling better, and she states that her nausea and palpitations have now improved. Patient denies development of any new symptoms while in the ED. Patient remains alert and breathing comfortably with a normal room air oxygen saturation. Patient's blood pressure remains elevated, but patient reports that she has not taken her blood pressure medication yet today, and she states that she will be certain to take them when she gets home tonight. Pt denies having a severe headache, chest pain, dyspnea, dizziness or focal neuro deficit. I do not feel that acutely lowering the patient's blood pressure is indicated at this time. Patient is aware of her test results, and she feels comfortable going home at this time. Patient states that she will get a ride home from the ED tonight. Patient was counseled about palpitations, vomiting, hypomagnesemia and hypertension. She was clearly explained return and follow-up instructions, and she was instructed to follow up closely with her primary care provider. She was instructed to return to the ED should she develop new or worsening symptoms. She feels comfortable with this plan. EKG Findings - EKG Comments: EKG Findings:: Borderline sinus tachycardia, ventricular rate of 100 bpm, no ectopy, normal [place] and QRS intervals, normal QT interval, normal axis, no ST or T-wave abnormality Medical Decision Making - Lab Data Result diagrams: 05/28/19 15:56 05/28/19 15:56 Lab Results 05/28/19 05/28/19 05/28/19 Range/Units 15:56 15:56 15:56 WBC 10.1 (3.8-10.6) k/uL RBC 4.82 (3.80-5.40) m/uL Hgb 11.3 L (11.4-16.0) gm/dL Hct 36.3 (34.0-46.0) % MCV 75.3 L (80.0-100.0) fL MCH 23.4 L (25.0-35.0) pg MCHC 31.1 (31.0-37.0) g/dL RDW 16.1 H (11.5-15.5) % Plt Count 377 (150-450) k/uL Neutrophils % 78 % Lymphocytes % 14 % Monocytes % 4 % Eosinophils % 1 % Basophils % 0 % Neutrophils # 7.9 H (1.3-7.7) k/uL Lymphocytes # 1.4 (1.0-4.8) k/uL Monocytes # 0.4 (0-1.0) k/uL Eosinophils # 0.1 (0-0.7) k/uL Basophils # 0.0 (0-0.2) k/uL Hypochromasia Marked Anisocytosis Slight Microcytosis Slight PT (9.0-12.0) sec INR (<1.2) APTT (22.0-30.0) sec Sodium 138 (137-145) mmol/L Potassium 4.1 (3.5-5.1) mmol/L Chloride 102 (98-107) mmol/L Carbon Dioxide 21 L (22-30) mmol/L Anion Gap 15 mmol/L BUN 10 (7-17) mg/dL Creatinine 0.70 (0.52-1.04) mg/dL Est GFR (CKD-EPI)AfAm >90 (>60 ml/min/1.73 sqM) Est GFR (CKD-EPI)NonAf >90 (>60 ml/min/1.73 sqM) Glucose 87 (74-99) mg/dL Calcium 10.1 (8.4-10.2) mg/dL Magnesium 1.3 L (1.6-2.3) mg/dL Total Bilirubin 0.8 (0.2-1.3) mg/dL AST 40 H (14-36) U/L ALT 24 (4-34) U/L Alkaline Phosphatase 80 (38-126) U/L Troponin I (0.000-0.034) ng/mL NT-Pro-B Natriuret Pep 24 pg/mL Total Protein 8.6 H (6.3-8.2) g/dL Albumin 4.9 (3.5-5.0) g/dL Lipase 210 (23-300) U/L HCG, Qual Not Detected 05/28/19 05/28/19 Range/Units 15:56 15:56 WBC (3.8-10.6) k/uL RBC (3.80-5.40) m/uL Hgb (11.4-16.0) gm/dL Hct (34.0-46.0) % MCV (80.0-100.0) fL MCH (25.0-35.0) pg MCHC (31.0-37.0) g/dL RDW (11.5-15.5) % Plt Count (150-450) k/uL Neutrophils % % Lymphocytes % % Monocytes % % Eosinophils % % Basophils % % Neutrophils # (1.3-7.7) k/uL Lymphocytes # (1.0-4.8) k/uL Monocytes # (0-1.0) k/uL Eosinophils # (0-0.7) k/uL Basophils # (0-0.2) k/uL Hypochromasia Anisocytosis Microcytosis PT 10.6 (9.0-12.0) sec INR 1.0 (<1.2) APTT 21.0 L (22.0-30.0) sec Sodium (137-145) mmol/L Potassium (3.5-5.1) mmol/L Chloride (98-107) mmol/L Carbon Dioxide (22-30) mmol/L Anion Gap mmol/L BUN (7-17) mg/dL Creatinine (0.52-1.04) mg/dL Est GFR (CKD-EPI)AfAm (>60 ml/min/1.73 sqM) Est GFR (CKD-EPI)NonAf (>60 ml/min/1.73 sqM) Glucose (74-99) mg/dL Calcium (8.4-10.2) mg/dL Magnesium (1.6-2.3) mg/dL Total Bilirubin (0.2-1.3) mg/dL AST (14-36) U/L ALT (4-34) U/L Alkaline Phosphatase (38-126) U/L Troponin I <0.012 (0.000-0.034) ng/mL NT-Pro-B Natriuret Pep pg/mL Total Protein (6.3-8.2) g/dL Albumin (3.5-5.0) g/dL Lipase (23-300) U/L HCG, Qual - Radiology Data Radiology results: image reviewed (Chest x-ray is negative) Disposition Clinical Impression: Palpitations, Nausea and vomiting, Hypomagnesemia, Hypertension Disposition: HOME SELF-CARE Condition: Stable Instructions (If sedation given, give patient instructions): Heart Palpitations (ED), Hypomagnesemia (ED), Hypertension (ED), Acute Nausea and Vomiting (ED) Additional Instructions: Return to the ER immediately should you develop new or worsening pain, shortness of breath, persistent vomiting, feeling dizzy or faint, a fever, or new or worsening symptoms. Follow up closely with your primary care provider. Is patient prescribed a controlled substance at d/c from ED?: No Referrals: Lico Bañuelos MD [Primary Care Provider] - 1-2 days Time of Disposition: 20:18
[2019-05-28] MEDS ORDERED: SODIUM CHLORIDE 0.9% 1,000 ML IV ONE ×2 (16:26→18:47)
[2019-05-28] MEDS ORDERED: ONDANSETRON 4 MG/2 ML VIAL IVP STA (16:26)
[2019-05-28 16:45] LABS: ALT 24 U/L (4-34); AST 40 U/L (14-36); African American GFR (CKD) >90 (>60 ml/min/1.73 sqM); Albumin 4.9 g/dL (3.5-5.0); Alkaline Phosphatase 80 U/L (38-126); Anion Gap 15 mmol/L; Anisocytosis Slight; Basophils % (A) 0 %; Blood Urea Nitrogen 10 mg/dL (7-17); Calcium 10.1 mg/dL (8.4-10.2); Carbon Dioxide 21 mmol/L (22-30); Chloride 102 mmol/L (98-107); Eosinophils # (A) 0.1 k/uL (0-0.7); Eosinophils % (A) 1 %; Glucose 87 mg/dL (74-99); HCT 36.3 % (34.0-46.0); HGB 11.3 gm/dL (11.4-16.0); Hypochromasia Marked; Lymphocytes # (A) 1.4 k/uL (1.0-4.8); Lymphocytes % (A) 14 %; MCH 23.4 pg (25.0-35.0); MCHC 31.1 g/dL (31.0-37.0); MCV 75.3 fL (80.0-100.0); Magnesium 1.3 mg/dL (1.6-2.3); Mean Platelet Volume 7.8; Microcytosis Slight; Monocytes # (A) 0.4 k/uL (0-1.0); Monocytes % (A) 4 %; Neutrophils # (A) 7.9 k/uL (1.3-7.7); Neutrophils % (A) 78 %; Non-African American GFR(CKD) >90 (>60 ml/min/1.73 sqM); Platelet Count 377 k/uL (150-450); Potassium 4.1 mmol/L (3.5-5.1); RBC 4.82 m/uL (3.80-5.40); RDW 16.1 % (11.5-15.5); Sodium 138 mmol/L (137-145); Total Bilirubin 0.8 mg/dL (0.2-1.3); Total Protein 8.6 g/dL (6.3-8.2); WBC 10.1 k/uL (3.8-10.6)
--- NOTE | 2019-05-28 16:49 | XR ---
EXAMINATION TYPE: XR chest 2V DATE OF EXAM: 05/28/2019 COMPARISON: 12/09/2017 HISTORY: Dysrhythmia nausea. TECHNIQUE: 2 views FINDINGS: Heart and mediastinum are normal. Lungs are clear. Diaphragm is normal. Bony thorax appears normal. IMPRESSION: Normal chest. No change.
[2019-05-28 16:55] LABS: HCG,Qualitative Serum Not Detected; Prothrombin Time 10.6 sec (9.0-12.0)
[2019-05-28] MEDS ORDERED: METOPROLOL TARTRATE 5 MG/5 ML VIAL IVP STA (17:14)
[2019-05-28] MEDS: MAGNESIUM SULFATE-D5W PMX 1 GM in DEXTROSE/WATER 1 100ML.BAG IVPB SCH ×2 (17:21→18:17)
[2019-05-28 18:45] VITALS: TEMP 98
[2019-05-28] MEDS ORDERED: LORazepam 2 MG/ML INJ IV STA (18:47)
[2019-05-28 20:16] VITALS: BP 170/112
[2019-05-28 20:24] VITALS: PULSE 76; RESP 16
== END 2019-05-28 20:24 | disposition home or self-care (01) ==
LOC: EC 15:25
DX: E83.42 Hypomagnesemia (principal); I10 Essential (primary) hypertension; R00.2 Palpitations; F17.200 Nicotine dependence, unspecified, uncomplicated; Z79.899 Other long term (current) drug therapy; Z91.013 Allergy to seafood
CPT/HCPCS: 36415; 93005; 83880; 80053; 83690; 83735; 84484; 85025; 85610; 85730; 84703; 71046; 99285; 96365; 96366; 96375 ×3; 96361 ×2; J2060; J2405; J3475

== ENCOUNTER 2019-08-18 | Emergency (ER) | payer OTHER | END 2019-08-18 23:30 | disposition home or self-care (01) | CPT/HCPCS: 36415; 80053; 85025; 71046; 99285; 96374; 96361; G0480; J2405; 80320 ==

== ENCOUNTER 2019-09-26 18:02 | Observation (INO) | payer OTHER ==
[2019-09-26] MEDS ORDERED: SODIUM CHLORIDE 0.9% 1,000 ML IV STA (18:41)
[2019-09-26] MEDS ORDERED: ACETAMINOPHEN TAB 325 MG TAB PO STA (18:41)
[2019-09-26] MEDS ORDERED: LORazepam 2 MG/ML INJ IV PRN ×3 (18:53)
[2019-09-26] MEDS ORDERED: THIAMINE 100 MG/ML 2 ML VIAL IM STA (18:53)
[2019-09-26 19:18] LABS: ALT 30 U/L (4-34); AST 47 U/L (14-36); African American GFR (CKD) >90 (>60 ml/min/1.73 sqM); Albumin 4.9 g/dL (3.5-5.0); Alkaline Phosphatase 88 U/L (38-126); Anion Gap 19 mmol/L; Anisocytosis Slight; Basophils % (A) 0 %; Blood Urea Nitrogen 5 mg/dL (7-17); Calcium 9.8 mg/dL (8.4-10.2); Carbon Dioxide 19 mmol/L (22-30); Chloride 108 mmol/L (98-107); Eosinophils # (A) 0.1 k/uL (0-0.7); Eosinophils % (A) 2 %; Glucose 88 mg/dL (74-99); HGB 12.4 gm/dL (11.4-16.0); Hypochromasia Marked; Lymphocytes # (A) 1.6 k/uL (1.0-4.8); Lymphocytes % (A) 27 %; MCH 24.7 pg (25.0-35.0); MCHC 30.3 g/dL (31.0-37.0); MCV 81.2 fL (80.0-100.0); Mean Platelet Volume 7.7; Microcytosis Slight; Monocytes # (A) 0.3 k/uL (0-1.0); Monocytes % (A) 4 %; Neutrophils # (A) 3.8 k/uL (1.3-7.7); Neutrophils % (A) 63 %; Non-African American GFR(CKD) >90 (>60 ml/min/1.73 sqM); Platelet Count 312 k/uL (150-450); Potassium 4.1 mmol/L (3.5-5.1); RBC 5.04 m/uL (3.80-5.40); RDW 17.7 % (11.5-15.5); Sodium 146 mmol/L (137-145); Total Bilirubin 0.3 mg/dL (0.2-1.3); Total Protein 8.7 g/dL (6.3-8.2); WBC 6.1 k/uL (3.8-10.6)
[2019-09-26 19:20] LABS: Alcohol 298 mg/dL
--- NOTE | 2019-09-26 19:39 | XR ---
EXAMINATION TYPE: XR chest 2V DATE OF EXAM: 09/26/2019 COMPARISON: 08/18/2019 HISTORY: Chest. Seizure TECHNIQUE: Frontal and lateral views of the chest are obtained. FINDINGS: There is no focal air space opacity, pleural effusion, or pneumothorax seen. The cardiac silhouette size is within normal limits. The osseous structures are intact. IMPRESSION: No acute cardiopulmonary process.
[2019-09-26] MEDS ORDERED: MORPHINE SULFATE 4 MG/ML SYRINGE IV STA (19:45)
[2019-09-26] MEDS ORDERED: NALOXONE 0.4 MG/ML 1 ML VIAL IV PRN (20:11)
[2019-09-26 20:15] LABS: Appearance,Urine Clear (Clear); Bilirubin,Urine Negative (Negative); Blood,Urine Negative (Negative); Color,Urine Yellow; Glucose,Urine (UA) Negative (Negative); Ketones,Urine Negative (Negative); Leukocyte Esterase,Urine Negative (Negative); Nitrite,Urine Negative (Negative); PH, Urine 5.5 (5.0-8.0); Protein,Urine Trace (Negative); Specific Gravity,Urine 1.009 (1.001-1.035); Urobilinogen,Urine <2.0 mg/dL (<2.0)
--- NOTE | 2019-09-26 20:15 | ED ---
General Adult HPI - General Chief complaint: Seizure Stated complaint: seizure Time Seen by Provider: 09/26/19 18:23 Source: patient, EMS, RN notes reviewed, old records reviewed Mode of arrival: EMS - History of Present Illness Initial comments: 43-year-old female patient comes to ED for evaluation of seizure. Patient reports that on the she went to [facility] for visual seizure. Patient reports that she had the seizures on 09/13. At the time she is reportedly evaluated [facility] and discharged. Patient reports that she had a seizure approximately 3 hours prior to presenting the hospital. Patient reports that she did not lose consciousness but fell to the ground, and was shaking for several minutes. Reports this was witnessed by her son. Denies any significant trauma to head or neck. Denies any neck pain. Patient has reportedly is a generalized headache since. Patient denies any antiepileptic medication. Patient does report that she does use a significant amount of alcohol. Patient was drinking today. Patient also reports that since her initial seizure she has had some substernal chest pain was reproducible upon palpation. Systemic: Pt denies fatigue, fever/chills, rash. Pt denies weakness, night sweats, weight loss. Neuro: Pt denies visual disturbances, syncope or pre-syncope. HEENT: Pt denies ocular discharge or irritation, otalgia, rhinorrhea, pharyngitis or notable lymphadenopathy. Cardiopulmonary: Pt denies chest pain, SOB, heart palpitations, dyspnea on exertion. Abdominal/GI: Pt denies abdominal pain, n/v/d. : Pt denies dysuria, burning w/ urination, frequency/urgency. Denies new onset urinary or bowel incontinence. MSK: Pt denies myalgia, loss of strength or function in extremities. Neuro: Pt denies new onset weakness, paresthesias. - Related Data Home Medications Medication Instructions Recorded Confirmed Hydrochlorothiazide [Hydrodiuril] 25 mg PO DAILY 10/16/17 12/19/17 amLODIPine [Norvasc] 10 mg PO DAILY 12/19/17 12/19/17 Previous Rx's Medication Instructions Recorded Ondansetron Odt [Zofran Odt] 4 mg PO Q8HR PRN #12 tab 12/19/17 Hydrocodone/Acetaminophen [[place] 1 tab PO Q6HR PRN #12 tab 05/02/18 5-325] Allergies Allergy/AdvReac Type Severity Reaction Status Date / Time shellfish derived [Shellfish] Allergy Unknown Verified 08/18/19 21:20 tramadol Allergy Unknown Verified 09/26/19 18:21 Review of Systems ROS Statement: Those systems with pertinent positive or pertinent negative responses have been documented in the HPI. ROS Other: All systems not noted in ROS Statement are negative. Past Medical History Past Medical History: Hypertension, Seizure Disorder History of Any Multi-Drug Resistant Organisms: None Reported Past Surgical History: No Surgical Hx Reported Past Psychological History: Anxiety Smoking Status: Current some day smoker Past Alcohol Use History: Occasional Past Drug Use History: None Reported General Exam - General Exam Comments Initial Comments: Constitutional: NAD, AOX3, Pt has pleasant affect. HEENT: NC/AT, trachea midline, neck supple, no lymphadenopathy. Posterior pha rynx non erythematous, without exudates. External ears appear normal, without discharge. Mucous membranes moist. Eyes PERRLA, EOM intact. There is no scleral icterus. No pallor noted. Cardiopulmonary: RRR, no murmurs, rubs or gallops, no JVD noted. Lungs CTAB in anterior and posterior hawkins. No peripheral edema. Abdominal exam: Abdomen soft and non-distended. Abdomen non-tender to palpation in all 4 quadrants. Bowel sounds active in LLQ. No hepatosplenomegaly. No ecchymosis Neuro: CN II-XII intact. No nuchal rigidity. No raccon eyes, no delgadillo sign, no hemotympanum. No cervical spinal tenderness. NIH 0. MSK: No posterior calf tenderness bilaterally, homans sign negative bilaterally. Posterior tibialis and radial pulse +2 bilaterally. Sensation intact in upper and lower extremities. Full active ROM in upper and lower extremities, 5/5 stregnth. Course Vital Signs 09/26/19 09/26/19 18:17 19:12 Temperature 98.8 F Pulse Rate 117 H 110 H Respiratory 18 18 Rate Blood Pressure 147/102 140/98 O2 Sat by Pulse 98 99 Oximetry Medical Decision Making - Medical Decision Making 43-year-old female patient comes to ED for evaluation of seizure. Patient reports that on the she went to [facility] for visual sei zure. Patient reports that she had the seizures on 09/13. At the time she is reportedly evaluated [facility] and discharged. Patient reports that she had a seizure approximately 3 hours prior to presenting the hospital. Patient reports that she did not lose consciousness but fell to the ground, and was shaking for several minutes. Reports this was witnessed by her son. Denies any significant trauma to head or neck. Denies any neck pain. Patient has reportedly is a generalized headache since. Patient denies any antiepileptic medication. Patient does report that she does use a significant amount of alcohol. Patient was drinking today. Patient also reports that since her ini tial seizure she has had some substernal chest pain was reproducible upon palpation. Patient vital signs are stable, afebrile. Physical exam displayed chest pain reproducible upon palpation. Laboratory investigations are pain significant for a serum alcohol of 298. EKG is nonischemic. Troponin negative. Patient be admitted for serial troponins, neurology evaluation. Case discussed with Dr. Khan. - Lab Data Result diagrams: 09/26/19 19:00 09/26/19 19:00 Lab Results 09/26/19 09/26/19 09/26/19 Range/Units 19:00 19:00 19:00 WBC 6.1 (3.8-10.6) k/uL RBC 5.04 (3.80-5.40) m/uL Hgb 12.4 (11.4-16.0) gm/dL Hct 41.0 (34.0-46.0) % MCV 81.2 (80.0-100.0) fL MCH 24.7 L (25.0-35.0) pg MCHC 30.3 L (31.0-37.0) g/dL RDW 17.7 H (11.5-15.5) % Plt Count 312 (150-450) k/uL Neutrophils % 63 % Lymphocytes % 27 % Monocytes % 4 % Eosinophils % 2 % Basophils % 0 % Neutrophils # 3.8 (1.3-7.7) k/uL Lymphocytes # 1.6 (1.0-4.8) k/uL Monocytes # 0.3 (0-1.0) k/uL Eosinophils # 0.1 (0-0.7) k/uL Basophils # 0.0 (0-0.2) k/uL Hypochromasia Marked Anisocytosis Slight Microcytosis Slight Sodium 146 H (137-145) mmol/L Potassium 4.1 (3.5-5.1) mmol/L Chloride 108 H (98-107) mmol/L Carbon Dioxide 19 L (22-30) mmol/L Anion Gap 19 mmol/L BUN 5 L (7-17) mg/dL Creatinine 0.74 (0.52-1.04) mg/dL Est GFR (CKD-EPI)AfAm >90 (>60 ml/min/1.73 sqM) Est GFR (CKD-EPI)NonAf >90 (>60 ml/min/1.73 sqM) Glucose 88 (74-99) mg/dL Calcium 9.8 (8.4-10.2) mg/dL Total Bilirubin 0.3 (0.2-1.3) mg/dL AST 47 H (14-36) U/L ALT 30 (4-34) U/L Alkaline Phosphatase 88 (38-126) U/L Troponin I <0.012 (0.000-0.034) ng/mL Total Protein 8.7 H (6.3-8.2) g/dL Albumin 4.9 (3.5-5.0) g/dL Serum Alcohol 298 H* mg/dL - EKG Data -: EKG Interpreted by Me (and Dr. Khan ) EKG Comments: Ventricular rate 108, CT interval 158, QRS 80, QT/QTC 350/469. Sinus tachycardia, possible left atrialenlargement, borderline ekg, no concern for acute ischemia at this time. Disposition Clinical Impression: Seizure, Chest pain Disposition: ADMITTED IP TO THIS HOSP Condition: Serious Is patient prescribed a controlled substance at d/c from ED?: No Referrals: Lico Bañuelos MD [Primary Care Provider] - 1-2 days
[2019-09-26 20:22] LABS: Amphetamine Screen,Urine Not Detected (NotDetected); Barbiturate Screen,Urine Not Detected (NotDetected); Benzodiazepines Screen,Urine Detected (NotDetected); Cocaine Screen,Urine Detected (NotDetected); Methadone Screen, Urine Not Detected (NotDetected); Opiate Screen,Urine Not Detected (NotDetected); Oxycodone Screen, Urine Not Detected (NotDetected); Phencyclidine Screen,Urine Not Detected (NotDetected); Tricyclic Antidepressant,Urine Not Detected (NotDetected); Urn Cannabinoid Scrn Not Detected (NotDetected)
[2019-09-26] MEDS ORDERED: ALBUTEROL NEBULIZED 2.5 MG/3 ML INHALATION PRN (23:13)
[2019-09-26] MEDS: SODIUM CHLORIDE 0.9% 1,000 ML IV SCH (23:30)
[2019-09-26] MEDS: ACETAMINOPHEN TAB 325 MG TAB PO PRN (23:31)
--- NOTE | 2019-09-26 23:58 | CT ---
EXAMINATION TYPE: CT brain wo con DATE OF EXAM: 09/26/2019 COMPARISON: 07/13/2019 INDICATION: headache DLP: 1099.4 mGycm, Automated exposure control for dose reduction was used. CONTRAST: None CT of the brain is performed utilizing 3 mm thick sections through the posterior fossa and 3 mm thick sections through the remaining calvarium. Study is performed within 24 hours of arrival to the hosp ital. No abnormal hyperdensity is present to suggest an acute intracranial hemorrhage. No mass lesion is evident. No acute infarcts are evident. Ventricles and sulci are appropriate for the patient age. Paranasal sinuses and mastoid air cells within the [id number] are clear. IMPRESSIONS: 1. No acute intracranial process.
[2019-09-27] MEDS ORDERED: levETIRAcetam IV 500 MG in SODIUM CHLORIDE 0.9% 100 ML IVPB STA (01:23)
[2019-09-27] MEDS: ACETAMINOPHEN TAB 325 MG TAB PO PRN ×3 (05:20→17:02)
[2019-09-27] MEDS: THIAMINE 100 MG TAB PO SCH ×2 (05:21→17:03)
[2019-09-27] MEDS: POTASSIUM CHLORIDE ER 20 MEQ TAB.ER PO SCH (09:53)
[2019-09-27] MEDS: levETIRAcetam IV 500 MG in SODIUM CHLORIDE 0.9% 100 ML IVPB SCH ×2 (11:08→21:47)
--- NOTE | 2019-09-27 16:54 | PN ---
PROGRESS NOTE CHIEF COMPLAINT: Acute alcohol intoxication. HISTORY OF PRESENT ILLNESS: This lady remains intoxicated. She denies diplopia, chest pain, abdominal pain, and there has apparently been no seizure activity. PHYSICAL EXAMINATION: Gaze is conjugate and pupils are equal and round. Chest is clear. Cardiac exam demonstrates sinus tachycardia. Abdomen is soft, nontender. Extremities are normal. She has not given any evidence of any seizure activity or DTs. IMPRESSION: 1. Acute alcohol intoxication. 2. Possible seizure disorder. PLAN: Continue with IV fluids and CIWA protocol and possibly discharge tomorrow. MMODL / IJN: [id number] /
--- NOTE | 2019-09-27 16:54 | HP ---
HISTORY AND PHYSICAL CHIEF COMPLAINT: Acute alcohol intoxication. HISTORY OF PRESENT ILLNESS: This lady was brought to the emergency room toxic and was complaining of chest pain. She also may have had a seizure. She cannot give a history except to state that she was drinking heavily because it was "her son's birthday." From our records, we know that she is ALLERGIC to ULTRAM and takes: 1. Lisinopril 40 once a day. 2. Amlodipine 10 mg once a day. 3. Hydrochlorothiazide 50 mg a day. 4. Potassium 20 mEq once a day. 5. Xanax 1 mg t.i.d. p.r.n. 6. Vitamin D. Remainder of her history is unremarkable. She used to smoke. PHYSICAL EXAMINATION: Blood pressure 144/78 with a pulse of 106, respirations of 35, and she is afebrile. In general she appeared to be intoxicated. Skin color is normal. Skin is warm and dry. Lymph nodes are not enlarged. Head, ears, eyes, nose, mouth and throat were normal. Neck veins not distended. Thyroid was not enlarged. Chest is clear. Cardiac exam demonstrates sinus tachycardia. Abdomen is soft, nontender and there are no masses. Bowel sounds present. Extremities normal. Neurologically she is intact. She is admitted to the hospital with diagnoses: 1. Acute alcohol intoxication. 2. Chest pain. 3. Possible seizure disorder. PLAN: 1. Bed rest. 2. IV fluids. 3. Seizure precautions. 4. Watch for DTs. MMODL / IJN: [id number] /
[2019-09-27] MEDS: SODIUM CHLORIDE 0.9% 1,000 ML IV SCH ×2 (17:03→21:43)
[2019-09-27] MEDS: IBUPROFEN 800 MG TAB PO PRN (20:13)
[2019-09-27] MEDS: HYDROCHLOROTHIAZIDE 25 MG TAB PO SCH (21:40)
[2019-09-27] MEDS: LISINOPRIL 20 MG TAB PO SCH (21:41)
[2019-09-27] MEDS: traZODone HCL 50 MG TAB PO SCH (21:41)
[2019-09-27] MEDS: amLODIPine 10 MG TAB PO SCH (21:41)
--- NOTE | 2019-09-28 02:26 | CONS ---
CONSULTATION This is a new neurology consult requested for further advice and recommendations for a 43-year-old female, right-handed, who has presented with several episodes of generalized tonic-clonic seizures starting least 2 weeks prior to admission. The patient is a good historian and provides an adequate history. She describes the first episode occurred 2 weeks prior to admission while lying in bed with her watching TV. She said suddenly she found herself being shaken and awoken by her stating that she was confused and had had a seizure. She also reports having had tongue biting during the episode. She refused to seek medical attention but she does report a clear postictal state, fatigue and muscle aches following the episode. After this initial seizure approximately two days later she had a second seizure that occurred at her family's house while watching TV. Her stepfather witnessed this. This seizure again was generalized tonoclonic but without tongue-biting and shorter duration. This week she had another 2 seizures that occurred when she was at a family gathering for her son's birthday. She was brought to the emergency room by her family as a result of this. Pertinent lab findings on admission included a positive urine drug screen for both cocaine and benzodiazepines and alcohol level is 298. PAST MEDICAL HISTORY: Unremarkable for any prior hospitalizations. SURGICAL HISTORY: Unremarkable. The patient does report this past winter that she fell on the ice, slipped and hit her head and cannot recall any loss of consciousness but she did suffer from mild postconcussive syndrome for several days. PAST MEDICAL HISTORY: Significant for hypertension. Generalized anxiety disorder. The patient was diagnosed with supraventricular tachycardia. The patient underwent evaluation by Cardiology and was recommended to undergo ablation therapy and was placed on verapamil. She was on this for approximately 6-7 months and then discontinued it on her own and had no further followup with Cardiology. FAMILY HISTORY: Significant on the maternal side for a grandmother with schizophrenia. A sister with bipolar disease, diabetes and hypertension. Paternal side of the family is significant for two first cousins with epilepsy. SOCIAL HISTORY: The patient is currently unemployed since the virus outbreak. 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 The patient rarely smokes. She denies using any drugs, but does report drinking alcohol, using on the weekends, primarily gin. REVIEW OF SYSTEMS: A 10-point review of systems was obtained with positive pertinents and negatives related to the History of Present Illness. HEENT: Blurred vision over the past 6 months. RESPIRATORY: Denies any nonproductive or productive cough but does have some dyspnea on exertion when walking up stairs. CARDIAC: The patient does report irregular heart rate. This is related to her history of SVT. GASTROINTESTINAL, EXTREMITIES, SKIN: Unremarkable. PSYCHIATRIC: Patient denies any suicidal ideation, but does have significant anxiety. 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 She reports her notes very loud snoring and she is often awakened herself from snoring. Symptoms suspicious for sleep disordered breathing. GENERAL EXAMINATION: Well dressed, well mannered, no acute distress. However, patient is complaining of cramps due to her menstrual cycle. HEENT: Broad-based tongue. Flat nasal bridge. Mallampati grade 3. NECK: Supple. Clear sclera. EXTREMITIES: No edema noted in the hands or feet, or clubbing of the digits. SKIN: No rash, bruising or petechia noted. NEUROLOGICAL EXAM: Patient is awake, alert, oriented x3. Speech fluent. Affect appropriate. Pupils are 2 mm, equally reactive to light and accommodation. CRANIAL NERVE EXAMINATION: Cranial nerves 3-12 are intact. MOTOR EXAMINATION: Normal muscle bulk and tone throughout. Strength is 5/5 throughout. Pronator drift negative. No tremors noted. No fasciculations noted. No distal wasting of the hands or legs. DEEP TENDON REFLEXES: +2 over biceps, brachioradialis. Patellar reflexes are +2 bilaterally. Ankle jerks are intact bilaterally. Plantar responses are flexor bilaterally. No ankle clonus is elicited. SENSORY EXAMINATION: Grossly intact to light touch throughout. COORDINATION TESTING: Intact llkhwz-au-ebxw testing with eyes open and eyes closed. Rapid sequential finger tapping is intact. Heel tapping and toe tapping alternating movements are intact and symmetric. No dysmetria noted. Gait examination deferred. ASSESSMENT: This is a 43-year-old female who presents now within the last month with three unprovoked generalized tonic-clonic seizures. This patient, based on her review of lab tests, has a substance abuse problem with both cocaine and alcohol ( though she denies this ). The patient also has a significant cardiac history for SVT and refused ablation therapy. The etiology of her seizures is unclear. With cocaine on board surely could be a factor to trigger as well as on these prior seizures. What is concerning is the patient is denying she abuses drugs. The neurological examination today is nonfocal and the general physical examination is unremarkable. The review of systems, however, is significant for the patient reporting dyspnea on exertion, irregular heart rate, insomnia and poor sleep continuity and symptoms suspicious for sleep-disordered breathing. RECOMMENDATIONS: 1. Continue with Keppra 500 mg IV q.12. Will change to p.o. form within the next 24 hours. 2. Cardiology consult for history of supraventricular tachycardia. 3. Holter monitor to be placed. 4. Follow up with EEG study. 5. MRI of the brain with and without contrast, epilepsy protocol/rule out underlying structural mass lesion. 6. Psychological counseling on substance abuse. 7. Maintain neuro checks q.4 hours while awake. 8. Maintain aspiration precautions and seizure precautions in place. 9. If patient has prolonged seizure lasting more than 3-4 minutes, administer Ativan 1 mg IV. Contact hospitalist and on-call neurologist. This patient's prognosis remains guarded. Further recommendations will be made as this case evolves. MMAJAY / ZOEN: [id number] / ROSENDA
[2019-09-28] MEDS: IBUPROFEN 800 MG TAB PO PRN (04:05)
[2019-09-28] MEDS: THIAMINE 100 MG TAB PO SCH ×2 (06:56→17:04)
[2019-09-28] MEDS: levETIRAcetam IV 500 MG in SODIUM CHLORIDE 0.9% 100 ML IVPB SCH ×2 (08:45→21:01)
[2019-09-28] MEDS: amLODIPine 10 MG TAB PO SCH (08:45)
[2019-09-28] MEDS: LISINOPRIL 20 MG TAB PO SCH (08:45)
[2019-09-28] MEDS: HYDROCHLOROTHIAZIDE 25 MG TAB PO SCH (08:45)
[2019-09-28] MEDS: POTASSIUM CHLORIDE ER 20 MEQ TAB.ER PO SCH (08:45)
--- NOTE | 2019-09-28 12:13 | EEG ---
ELECTROENCEPHALOGRAM REPORT DATE OF SERVICE: 09/27/2019 HISTORY: This is an inpatient EEG performed on a 43-year-old female who was brought to the emergency room for new onset seizures. The patient was found to be positive for both methamphetamine and benzos on urine drug screen and an alcohol level of 298. The patient's history indicates she had had several prior generalized tonoclonic seizures over the last several weeks, but did not seek medical attention until this admission. Patient also has a cardiac history of supraventricular tachycardia. No prior EEG is available for review. TECHNICAL REPORT: This is an inpatient EEG performed on the Civo EEG monitor with electrodes placed according to the International 10-20 system and a single EKG channel. Simultaneous video EEG monitoring was performed. This EEG was reviewed in both longitudinal bipolar, common average referential and transverse montages. Photic stimulation was performed. Hyperventilation was not performed. The recording begins with a low amplitude recording, frequent eye blinking and excessive generalized beta activity is superimposed over the background. The awake posterior dominant rhythm is of low amplitude, symmetric between 9-10 hertz. The background rhythm attenuates with eye opening. Intermittent muscle and movement artifact and the patient scratching her head occurs making the recording technically difficult to interpret. Photic stimulation was performed at various flash frequencies. Photic stimulation at 10 hertz showed a well modulated synchronous 9 hertz alpha rhythm in the background. Photic stimulation at 16 hertz elicited 3 seconds of semi rhythmic sharp waves lateralized to the left occipital lobe. This again occurred at 18 hertz photic stimulation for 2 seconds duration. This was not associated with any clinical movement or clinical seizure activity. Following this, there was electrode pop artifact noted at P3 that only correlated with the patient scratching her head on the left. The patient continues to maintain a well modulated, low amplitude, 10 hertz posterior dominant rhythm consistent with wakefulness. An irregular heart rate is noted throughout the EEG recording. The patient briefly transitions into drowsiness (stage 1 sleep). At 10:23:29 a burst of high amplitude polyspike and wave discharges occurs in a generalized fashion. This is not associated with any clinical movement and occurs during drowsiness. Several minutes after this the patient resumes wakefulness and maintains a well modulated 9 hertz posterior dominant rhythm that is symmetric. Deeper stages of sleep were not achieved. IMPRESSION: This is an abnormal awake, drowsy EEG recording. The EEG is considered abnormal due to the burst episode of photic stimulation induced epileptiform activity lateralized to the left occipital lobe followed by a brief burst of generalized polyspike discharges. This EEG does seem to have a photogenic component. Her history is significant for all her seizure activity being elicited while watching the TV. 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 This patient does have an increased seizure tendency and warrants medical management. In addition, MRI imaging is recommended to rule out possibly an underlying structural mass lesion. Serial EEGs are recommended as well or if clinically indicated, a more prolonged overnight EEG could provide additional information. MMODL / IJN: [id number] /
--- NOTE | 2019-09-28 15:15 | P.CRDCN ---
History of Present Illness History of present illness: This is Dr. Cao dictating a consult on this patient The patient was interviewed and examined by me IMPRESSION / ASSESSMENT: Patient admitted with recurrent seizures Positive for cocaine and benzodiazepines and alcohol level of 298 History of hypertension History of SVT History of anxiety disorder PLAN: Continue antihypertensive therapy with amlodipine 10 mg by mouth daily and mague nopril 40 mg daily and hydrochlorothiazide Consider low-dose long-acting Inderal for management of possible future withdrawals as well as for history of SVT, If she has withdrawals Otherwise I don't think this yisel given the duration of hi an outpatient Outpatient monitoring and LV function asses Blood pressure control HPI Patient presented with recurrent seizures. She is a positive drug screen for cocaine, benzodiazepines and her alcohol level was 298 She has a history of hypertension, anxiety, she was diagnosed with SVT in the past and apparently EP study and ablation was recommended. She was placed on verapamil. According to her she hapalpitations lasti less than 15-20 seconds and she does not do this at all ROS: No fever chills or rigors, no cough, phlegm or expectoration, no nausea, vomiting or diarrhea, no hematuria, dysuria, no musculoskeletal complaints, no strokes or seizures, no skin lesions. EXAMINATION: Afebrile, pulse rate in the 70s respirations normal blood pressure 117/59 mmHg Heart sounds are normal normal S1 normal S2 No orthopnea Normal neck veins Breath sounds are clearbdomen is soft non Extremities are warm REVIEW OF LABS, ECG & MEDICAL DATA Chest x-ray normal EKG normal normal DC narrow QRS normal ST segments no delta waves CT of the brain normal Normal white count, hemoglobin 12.4, platelet count 312,000 Sodium 146 potassium 4.1 BUN 5 creatinine 0.74 Normal cardiac enzymes 3 Alcohol level 298, benzodiazepines and cocaine positive Coronavirus PCR not detected Past Medical History Past Medical History: Hypertension, Seizure Disorder Additional Past Medical History / Comment(s): had a seizure a week ago and was seen at [facility] History of Any Multi-Drug Resistant Organisms: None Reported Past Surgical History: No Surgical Hx Reported Past Psychological History: Anxiety Additional Psychological History / Comment(s): takes xanax for anxiety and sleep Smoking Status: Current some day smoker Past Alcohol Use History: Occasional Past Drug Use History: None Reported, Cocaine Additional Drug Use History / Comment(s): used cocoine for first time 2 nights a go Medications and Allergies Home Medications Medication Instructions Recorded Confirmed Type Hydrochlorothiazide [Hydrodiuril] 25 mg PO DAILY 10/16/17 09/26/19 History amLODIPine [Norvasc] 10 mg PO DAILY 12/19/17 09/26/19 History ALPRAZolam [Xanax] 1 mg PO HS PRN 09/26/19 09/26/19 History Acetaminophen Tab [Tylenol] 325 mg PO DAILY PRN 09/26/19 09/26/19 History Albuterol Inhaler [Ventolin Hfa 2 puff INHALATION RT-Q6H PRN 09/26/19 09/26/19 History Inhaler] Ergocalciferol [Vitamin D2] 50,000 unit PO Q28D 09/26/19 09/26/19 History Lisinopril 40 mg PO DAILY 09/26/19 09/26/19 History Potassium Chloride ER [K-Dur 20] 20 meq PO DAILY 09/26/19 09/26/19 History Allergies Allergy/AdvReac Type Severity Reaction Status Date / Time shellfish derived [Shellfish] Allergy Unknown Verified 09/26/19 20:29 tramadol Allergy Unknown Verified 09/26/19 20:29 Physical Exam Vitals: Vital Signs Temp Pulse Resp BP Pulse Ox 09/28/19 04:00 97.9 F 78 12 117/59 99 09/28/19 00:00 98.3 F 89 16 136/86 100 09/27/19 20:00 97.8 F 74 16 154/95 100 09/27/19 15:25 98.4 F 78 14 129/79 98 09/27/19 11:25 98.4 F 84 12 129/92 99 Intake and Output 09/27/19 09/28/19 09/28/19 22:59 06:59 14:59 Intake Total 480 Balance 480 Intake: Oral 480 Other: # Voids 2 1 Weight 72.5 kg Results 09/26/19 19:00 09/26/19 19:00 Current Medications Generic Name Dose Route Start Last Admin Trade Name Freq PRN Reason Stop Dose Admin Acetaminophen 650 mg 09/27/19 00:00 09/27/19 17:02 Tylenol Tab PO 650 mg Q6HR PRN Administration Mild Pain or Fever > 100.5 Albuterol Sulfate 2.5 mg 09/26/19 23:13 Ventolin Nebulized INHALATION RT-Q6H PRN Shortness Of Breath Amlodipine Besylate 10 mg 09/27/19 21:30 09/27/19 21:41 Norvasc PO 10 mg DAILY ROGERIO Administration Hydrochlorothiazide 25 mg 09/27/19 21:30 09/27/19 21:40 Hydrodiuril PO 25 mg DAILY ROGERIO Administration Sodium Chloride 1,000 mls @ 75 mls/hr 09/26/19 20:15 09/27/19 21:43 Saline 0.9% IV 75 mls/hr .[id number] ROGERIO Administration Levetiracetam 500 mg/ Sodium 105 mls @ 400 mls/hr 09/27/19 09:00 09/27/19 21:47 Chloride IVPB 400 mls/hr Q12HR ROGERIO Administration Ibuprofen 800 mg 09/27/19 19:26 09/28/19 04:05 Motrin PO 800 mg TID PRN Administration Pain Lisinopril 40 mg 09/27/19 21:30 09/27/19 21:41 Zestril PO 40 mg DAILY ROGERIO Administration Lorazepam 1 mg 09/26/19 18:53 Ativan IV Q2HR PRN CIWA 8 or 9 Lorazepam 1 mg 09/26/19 18:53 Ativan IV Q1HR PRN CIWA 10 to 15 Lorazepam 2 mg 09/26/19 18:53 09/27/19 21:48 Ativan IV 09/28/19 18:53 2 mg Q10M PRN Administration CIWA 16 or higher Lorazepam 2 mg 09/26/19 18:53 09/26/19 23:32 Ativan IV 2 mg Q6HR PRN Administration Seizures Naloxone HCl 0.2 mg 09/26/19 20:11 Narcan IV Q2M PRN Opioid Reversal Potassium Chloride 20 meq 09/27/19 09:00 09/27/19 09:53 K-Dur 20 PO 20 meq DAILY ROGERIO Administration Thiamine HCl 100 mg 09/27/19 07:30 09/28/19 06:56 Vitamin B-1 PO 100 mg BID-W/MEALS ROGERIO Administration Trazodone HCl 50 mg 09/27/19 21:30 09/27/19 21:41 Desyrel PO 50 mg HS ROGERIO Administration Intake and Output 09/27/19 09/28/19 09/28/19 22:59 06:59 14:59 Intake Total 480 Balance 480 Intake: Oral 480 Other: # Voids 2 1 Weight 72.5 kg 09/26/19 19:00 09/26/19 19:00
--- NOTE | 2019-09-28 16:46 | PN ---
PROGRESS NOTE CHIEF COMPLAINT: Acute alcohol intoxication and seizures with headache. HISTORY OF PRESENT ILLNESS: This lady is still complaining of a headache. She has been seen by Neurology and numerous studies been ordered. PHYSICAL EXAMINATION: Vital signs are normal. Neurologically she is intact. Awake, alert. She is not in DTs and she is not tremulous. Head, ears, eyes, nose, mouth, and throat are normal. The chest is clear. Cardiac exam reveals normal sinus rhythm. Abdomen is soft, nontender. IMPRESSION: 1. Acute alcohol intoxication. 2. Seizure. 3. Headache. PLAN: Await results of studies ordered by Neurology. MMODL / IJN: [id number] /
[2019-09-28] MEDS: ACETAMINOPHEN TAB 325 MG TAB PO PRN (19:42)
[2019-09-29] MEDS: LORazepam 2 MG/ML INJ IV PRN ×2 (01:07→23:59)
[2019-09-29] MEDS: traZODone HCL 50 MG TAB PO SCH ×2 (01:07→23:58)
[2019-09-29] MEDS: THIAMINE 100 MG TAB PO SCH ×2 (07:45→16:43)
[2019-09-29] MEDS: POTASSIUM CHLORIDE ER 20 MEQ TAB.ER PO SCH (08:36)
[2019-09-29] MEDS: HYDROCHLOROTHIAZIDE 25 MG TAB PO SCH (08:36)
[2019-09-29] MEDS: levETIRAcetam 500 MG TAB PO SCH ×2 (08:37→20:42)
[2019-09-29] MEDS: amLODIPine 10 MG TAB PO SCH (08:37)
[2019-09-29] MEDS: LISINOPRIL 20 MG TAB PO SCH (08:37)
[2019-09-29] MEDS: IBUPROFEN 800 MG TAB PO PRN (14:07)
--- NOTE | 2019-09-29 16:39 | P.PN ---
Subjective Patient is doing well She has no further episodes of palpitations No chest discomfort dizziness or lightheadedness. She's not had any seizure episodes Labs are reviewed white count 6.1, hemoglobin 12.4 His platelet count 312,000 Sodium 136 potassium 4.1 BUN 5 creatinine 0.749 and normal 3 troponins Blood pressure 122/87 mmHg pulse rate in the 70s afebrile 97.8F Normal heart sounds Breath sounds are clear and Normal S1 normal S2 Abdomen is soft Impression Recurrent palpitations in the past No recent episodes Episode of seizures Plan Continue observation No cardiac medications at this time. Follow-up with Dr Cao as an outpatient Objective - Vital Signs Vital signs: Vital Signs Temp 97.8 F 09/29/19 08:30 Pulse 72 09/29/19 11:45 Resp 16 09/29/19 11:45 BP 120/76 09/29/19 11:45 Pulse Ox 99 09/29/19 11:45 Intake & Output 09/28/19 09/29/19 09/29/19 18:59 06:59 18:59 Intake Total 980 700 Balance 980 700 Weight 68.9 kg Intake: Oral 980 700 Other: # Voids 1 3 2 - Labs CBC & Chem 7: 09/26/19 19:00 09/26/19 19:00
[2019-09-29] MEDS: SODIUM CHLORIDE 0.9% 1,000 ML IV SCH ×2 (20:38→20:39)
--- NOTE | 2019-09-30 01:20 | PN ---
PROGRESS NOTE DATE OF SERVICE: 09/29/2019 CHIEF COMPLAINT: Acute alcohol intoxication and seizure. HISTORY OF PRESENT ILLNESS: This lady is awake and alert and neurologically stable. She awaits other neurologic test to be done tomorrow. She is very agitated and upset because she is not getting Xanax. It was explained that given her history of alcohol excess and overdose, that she would not be given Xanax while she was in the hospital and also that it may interfere with any of her neurologic studies. PHYSICAL EXAMINATION: Chest is clear. Cardiac exam is normal. Abdomen is soft, nontender. IMPRESSION: 1. Acute alcohol intoxication. 2. Seizure disorder. PLAN: Await MRI and any other studies that are pending and, hopefully, discharge tomorrow. MMODL / IJN: [id number] /
[2019-09-30] MEDS: SODIUM CHLORIDE 0.9% 1,000 ML IV SCH (05:06)
[2019-09-30] MEDS: THIAMINE 100 MG TAB PO SCH (06:20)
[2019-09-30] MEDS: POTASSIUM CHLORIDE ER 20 MEQ TAB.ER PO SCH (09:18)
[2019-09-30] MEDS: levETIRAcetam 500 MG TAB PO SCH (09:18)
[2019-09-30] MEDS: LISINOPRIL 20 MG TAB PO SCH (09:18)
[2019-09-30] MEDS: HYDROCHLOROTHIAZIDE 25 MG TAB PO SCH (09:18)
[2019-09-30] MEDS: amLODIPine 10 MG TAB PO SCH (09:18)
[2019-09-30 09:29] VITALS: BP 117/68; PULSE 80; RESP 18; TEMP 97.9
[2019-09-30] MEDS: LORazepam 2 MG/ML INJ IV PRN (12:46)
--- NOTE | 2019-09-30 13:58 | MR ---
EXAMINATION TYPE: MR angio head/neck wo con DATE OF EXAM: 09/30/2019 COMPARISON: Correlation CT brain 09/26/2019 HISTORY: 43-year-old female New onset seizure, headache TECHNIQUE: High-resolution 3-D [id number]-asxyjl imaging of the [place]. 3-D reconstructions ge nerated on a dedicated independent workstation. 2-D and 3-D [id number]-[id number] imaging of the carotid and vertebral arteries of the neck. Again, 3-D aaron nstructions generated on a dedicated independent workstation FINDINGS: HEAD: Tiny 1 mm infundibulum along the anterior margin at the P1/P2 junction of the left posterior cerebral artery at the expected insertion of the posterior communicating artery. Vertebral, basilar, and internal carotid arteries are patent. Anterior and posterior circulations are patent without significant stenosis seen. Otherwise, no aneurysmal change identified. NECK: There are codominant vertebral arteries. Preserved flow related enhancement within the vertebral, common, and bilateral internal carotid arter ies. IMPRESSION: 1. HEAD: Tiny 1 mm infundibulum along the anterior margin at the P1/P2 junction of the left WATER PURIFIER. Cons ider one-year follow-up exam to reassess. Otherwise, no intracranial arterial occlusion, significant stenosis, or aneurysmal change is seen. 2. NECK: Preserved flow related enhancement within the carotid and vertebral arteries of the neck. No evident narrowing.
[2019-09-30 15:10] VITALS: BMI 27.8
--- NOTE | 2019-09-30 16:17 | MR ---
EXAMINATION TYPE: MR brain wo/w con DATE OF EXAM: 09/30/2019 COMPARISON: NONE HISTORY: 43-year-old female New onset seizure, headache TECHNIQUE: Multiplanar, multisequence images of the brain and brainstem were acquired before and aft er administration of 7 mL IV Gadavist. Diffusion weighted imaging is performed. FINDINGS: No evidence for acute infarction, hemorrhage, mass effect, midline shift, herniation, effacement of b thu cisterns, or extra-axial fluid collection. Homogeneously enhancing extra-axial lesion along the midline floor of the anterior cranial fossa hanane ures 1.5 x 1.2 x 0.7 cm. Dural tails are suggested. The ventricles and sulci are age-appropriate. Major intracranial flow voids are intact. T2/FLAIR weighted sequences show mild scattered white matter foci in the subcortical and deep white m atter regions of both cerebral hemispheres, numbering approximately 5-10 in each cerebral hemisphere. Midline structures demonstrate normal morphology. The craniocervical junction is normal. Post contrast images demonstrate no evidence of pathologic enhancement. Dural venous sinuses are pat ent. Chea-xn-ufbkjffu mucosal thickening ethmoid air cells and maxillary sinuses. Globes are intact. IMPRESSION: 1. No acute intracranial abnormality seen. 2. A 1.5 x 1.2 x 0.7 cm enhancing extra-axial lesion along the midline floor of the anterior cranial fossa. A meningioma is suspected. Follow-up recommended to determine stability. 3. Mild scattered burden of bright white matter change. Nonspecific and probably related to early qiana nges of small vessel ischemic disease. Chronic migraines, vasculitis, Lyme's disease, or demyelinatin g disease are some additional differential considerations. Clinically correlate.
--- NOTE | 2019-09-30 16:50 | DS ---
DISCHARGE SUMMARY CHIEF COMPLAINT: Acute alcohol intoxication. HISTORY OF PRESENT ILLNESS AND PHYSICAL EXAM: Details of this lady's history and physical can be found in the initial workup. COURSE IN THE HOSPITAL: After admission, she was placed on bedrest, started on intravenous fluids and started on CIWA protocol. She had no further seizure activity. She was seen by Neurology and various studies ordered. MRI was done the date of discharge. She is doing well. It was felt she could go home on 09/29 and she will go home on her usual activity, diet and medication and she will be on Depakote 500 mg twice a day. During her hospitalization, and on the day of discharge, she continually demanded Xanax and she was told that given her alcohol overdose, this would not be prescribed for her at this time. She will be seen in the office in several days. FINAL DIAGNOSES: 1. Acute alcohol intoxication. 2. Grand mal seizure disorder. 3. Alcohol and substance abuse. OPERATIONS: None. CONSULTATIONS: Neurology. She is improved. MMAJAY / ZOEN: [id number] /
--- NOTE | 2019-10-01 01:20 | PN ---
PROGRESS NOTE DATE OF SERVICE: September 30, 2019 The patient left before being seen today for discharge. The patient was notified that Dr. Mario would be there within 30 to 40 minutes. By the time of my arrival, the patient had already left. Neurology service plan was to discuss the importance of continuing with the seizure medication, Keppra 500 mg orally twice daily and to establish care with an outpatient neurologist. In addition, neurology plan was to discuss further the importance of adhering to [place]'s driving restrictions after seizure activity. Also, there was plan today to discuss and address her substance abuse with cocaine and the impact this can have on increasing her risk for seizures as well as further complicating her underlying cardiac condition of supraventricular tachycardia. It is important to note that this patient's diagnosis of SVT was made within the last year and she refused ablation therapy and then became noncompliant with verapamil therapy. RECOMMENDATIONS: 1. The patient to establish outpatient care with neurologist, close monitoring of seizure medication. 2. Seek mental health program counselor for substance abuse addiction. 3. Adhere to [place]'s driving restrictions after seizures. I will be planning to notify this patient by phone of these recommendations. DARRYL / ZOEN: [id number] / ROSENDA
--- NOTE | 2019-10-02 10:09 | CDI ---
Documentation Clarification Form Date: 10/02/19 From: Anne Maddox Phone: If you have a question about this query, please contact Lora Guevara, Dry Janitor at [phone] between 8am and 5pm. Admit Date: 09/28/19 Discharge Date: 09/30/19 Patient Name: KARYN DOWLING Visit Number: [id number] ATTENTION: The Clinical Documentation Specialists (CDI) and [facility] Coding Staff appreciate your assistance in clarifying documentation. Please respond to the clarification below the line at the bottom and electronically sign. The CDI & [facility] Coding staff will review the response and follow-up if needed. Please note: Queries are made part of the Legal Health Record. If you have any questions, please contact the author of this message via ITS. Dear Dr. Lico Bañuelos, Acute alcohol intoxication with seizures is the documented in: H&P, DS and your progess notes. History/Risk Factors: HTN, generalized anxiety disorder, SVT Clinical Indicators: Patient reports that she did not lose consciousness but fell to the ground, and was shaking for several minutes.Reports this was witnessed by her son. Patient has reportedly is a generalized headache since. Labs: Serum alcohol 298 CIWA SCALE: 3, 1, 1, 1, 1, 7, Treatment: Ativan 1mg IV Q1HR then 2mg IV Q10M, & 2mg IV Q6hr (all prn), Thiamine 100 mg PO BID w meals, IV Keppra 500 mg w Saline 0.9% 100 ml Q12HR In your professional opinion, can you please clarify if the above clinical indicators and treatment signify any of the following? Alcohol overdose Alcohol withdrawal Alcohol withdrawal with withdrawal delirium Alcohol delirium Delirium tremens Impending delirium tremens Alcohol dependence with impending delirium tremens Alcohol dependence Alcohol abuse Alcohol abuse with preventative treatment for tremors Other, please specify Unable to determine AND Evidence of thiamine deficiency due to chronic alcohol use/alcoholism Prophylactic treatment of potential thiamine deficiency associated with alcohol use/alcoholism Unable to determine Other, please specify MTDD
--- NOTE | 2019-10-07 21:43 | MISC ---
MISCELLANOUS REPORT QUERY: Alcohol overdose, alcohol withdrawal. Thiamine deficiency unable to determine. MMODL / IJN: [id number] /
== END 2019-09-30 19:01 | disposition home or self-care (01) ==
LOC: EC 18:02 → 3SCARD 19:57 → OBSVTOIN 09-28 14:37 → INTOOBSV 09-28 14:37 → UNDODISIN 09-30 19:01
PROVIDERS: ADMIT Family Medicine; ATTEND Family Medicine
DX: T51.0X1A Toxic effect of ethanol, accidental (unintentional), initial encounter (principal); G40.409 Other generalized epilepsy and epileptic syndromes, not intractable, without status epilepticus; F10.129 Alcohol abuse with intoxication, unspecified; F14.10 Cocaine abuse, uncomplicated; I47.1 Supraventricular tachycardia; Y90.8 Blood alcohol level of 240 mg/100 ml or more; F41.1 Generalized anxiety disorder; G47.00 Insomnia, unspecified; R07.89 Other chest pain; I10 Essential (primary) hypertension; Z91.14 Patient's other noncompliance with medication regimen; F17.200 Nicotine dependence, unspecified, uncomplicated; Z79.899 Other long term (current) drug therapy; W19.XXXA Unspecified fall, initial encounter; Z91.81 History of falling; Z88.5 Allergy status to narcotic agent; Z91.013 Allergy to seafood; Z81.8 Family history of other mental and behavioral disorders; Z83.3 Family history of diabetes mellitus; Z82.49 Family history of ischemic heart disease and other diseases of the circulatory system; Z82.0 Family history of epilepsy and other diseases of the nervous system
CPT/HCPCS: 96376 ×4; 96361 ×3; 96365; 96375 ×2; 93005 ×2; 96372; 99285; 36415; 94640; 95816; 80053; 80177; 84484 ×2; 85025; 81003; 80306; 87635; 71046; 70450; 70544; 70547; 70553; G0378 ×5; G0480; J2060 ×4; J2270; J3411; J1953 ×2; A9585; 80320; 96374

== ENCOUNTER 2019-10-12 03:45 | Emergency (ER) | payer OTHER ==
--- NOTE | 2019-10-12 04:13 | ED ---
Seizure HPI - General Chief Complaint: Seizure Stated Complaint: SEIZURE Time Seen by Provider: 10/12/19 03:51 Source: EMS, RN notes reviewed, old records reviewed Mode of arrival: EMS Limitations: no limitations - History of Present Illness Initial Comments: This is a 43-year-old female D to the ER F for evaluation patient did have a seizure today, she was on the phone with her boyfriend has history of seizures history of substance abuse. She became unresponsive on the boyfriend was unable to lie and he recognized unresponsiveness called EMS and EMS picked patient to the emergency department. Patient suffers no current complaints no headache chest pain shortness breath or abdominal pain. She states she's been taking medications as prescribed does admit alcohol use today MD Complaint: seizure -: minutes(s) Description of Episode: loss of consciousness, tonic-clonic movement -: second(s), minutes(s) Witnessed: no Seizure History: known seizure disorder Place: home Possible Precipitating Event: none Associated Symptoms: denies other symptoms Treatments Prior to Arrival: none - Related Data Home Medications Medication Instructions Recorded Confirmed Hydrochlorothiazide [Hydrodiuril] 25 mg PO DAILY 10/16/17 09/26/19 amLODIPine [Norvasc] 10 mg PO DAILY 12/19/17 09/26/19 ALPRAZolam [Xanax] 1 mg PO HS PRN 09/26/19 09/26/19 Acetaminophen Tab [Tylenol] 325 mg PO DAILY PRN 09/26/19 09/26/19 Albuterol Inhaler [Ventolin Hfa 2 puff INHALATION RT-Q6H PRN 09/26/19 09/26/19 Inhaler] Ergocalciferol [Vitamin D2 50,000 unit PO Q28D 09/26/19 09/26/19 (DRISDOL)] Lisinopril 40 mg PO DAILY 09/26/19 09/26/19 Potassium Chloride ER [K-Dur 20] 20 meq PO DAILY 09/26/19 09/26/19 Previous Rx's Medication Instructions Recorded Thiamine [Vitamin B-1] 100 mg PO BID-W/MEALS #60 tab 09/30/19 levETIRAcetam [Keppra] 500 mg PO Q12HR #20 tab 09/30/19 Allergies Allergy/AdvReac Type Severity Reaction Status Date / Time shellfish derived [Shellfish] Allergy Unknown Verified 10/12/19 04:00 tramadol Allergy Unknown Verified 10/12/19 04:00 wheat Allergy Unknown Verified 10/12/19 04:00 Review of Systems ROS Statement: Those systems with pertinent positive or pertinent negative responses have been documented in the HPI. ROS Other: All systems not noted in ROS Statement are negative. Past Medical History Past Medical History: Hypertension, Seizure Disorder Additional Past Medical History / Comment(s): had a seizure a week ago and was seen at [facility] History of Any Multi-Drug Resistant Organisms: None Reported Past Surgical History: No Surgical Hx Reported Past Psychological History: Anxiety Smoking Status: Current every day smoker Past Alcohol Use History: Occasional Past Drug Use History: Cocaine General Exam Limitations: no limitations General appearance: alert, in no apparent distress, anxious Head exam: Present: atraumatic, normocephalic, normal inspection Eye exam: Present: normal appearance, PERRL, EOMI. Absent: scleral icterus, conjunctival injection, periorbital swelling ENT exam: Present: normal exam, mucous membranes moist Neck exam: Present: normal inspection. Absent: tenderness, meningismus, lymphadenopathy Respiratory exam: Present: normal lung sounds bilaterally. Absent: respiratory distress, wheezes, rales, rhonchi, stridor Cardiovascular Exam: Present: regular rate, normal rhythm, normal heart sounds. Absent: systolic murmur, diastolic murmur, rubs, gallop, clicks GI/Abdominal exam: Present: soft, normal bowel sounds. Absent: distended, tenderness, guarding, rebound, rigid Extremities exam: Present: normal inspection, full ROM, normal capillary refill. Absent: tenderness, pedal edema, joint swelling, calf tenderness Back exam: Present: normal inspection Neurological exam: Present: alert, oriented X3, CN II-XII intact Psychiatric exam: Present: normal affect, normal mood Skin exam: Present: warm, dry, intact, normal color. Absent: rash Course Vital Signs 10/12/19 10/12/19 10/12/19 03:46 04:19 04:40 Temperature 97.8 F 98 F Pulse Rate 101 H 99 80 Respiratory 20 16 18 Rate Blood Pressure 180/122 147/109 135/89 O2 Sat by Pulse 100 100 99 Oximetry - Reevaluation(s) Reevaluation #1: Medical records reviewed During evaluation patient refuses any more evaluation or treatment would like discharge home no recurrent seizure-like activity here in the ER Patient is intoxicated but able to make medical decisions Medical Decision Making - Medical Decision Making 43 female DEL with recurrent seizure, patient doesn't smoke or use tonight, patient was talking to boyfriend who called a month she did have the unresponsive.. Patient is awake and alert has no complaints currently would like discharged home - Lab Data Lab Results 10/12/19 10/12/19 10/12/19 Range/Units 04:08 04:08 04:14 Urine Color Light Yellow Urine Appearance Clear (Clear) Urine pH 5.5 (5.0-8.0) Ur Specific [place] 1.006 (1.001-1.035) Urine Protein Negative (Negative) Urine Glucose (UA) Negative (Negative) Urine Ketones Negative (Negative) Urine Blood Negative (Negative) Urine Nitrite Negative (Negative) Urine Bilirubin Negative (Negative) Urine Urobilinogen <2.0 (<2.0) mg/dL Ur Leukocyte Esterase Negative (Negative) Levetiracetam <1.0 (3.0-60.0) ug/mL Serum Alcohol 293 H* mg/dL Disposition Clinical Impression: Seizure, Epileptic seizure, generalized Disposition: HOME SELF-CARE Condition: Fair Instructions (If sedation given, give patient instructions): Recurrent Seizures in Adults (ED) Is patient prescribed a controlled substance at d/c from ED?: No Referrals: Lico Bañuelos MD [Primary Care Provider] - 1-2 days
[2019-10-12 04:27] LABS: Appearance,Urine Clear (Clear); Bilirubin,Urine Negative (Negative); Blood,Urine Negative (Negative); Color,Urine Light Yellow; Glucose,Urine (UA) Negative (Negative); Ketones,Urine Negative (Negative); Leukocyte Esterase,Urine Negative (Negative); Nitrite,Urine Negative (Negative); PH, Urine 5.5 (5.0-8.0); Protein,Urine Negative (Negative); Specific Gravity,Urine 1.006 (1.001-1.035); Urobilinogen,Urine <2.0 mg/dL (<2.0)
[2019-10-12 04:41] VITALS: BP 135/89; PULSE 80; RESP 18; TEMP 98
== END 2019-10-12 04:46 | disposition home or self-care (01) ==
LOC: EC 03:45
DX: G40.401 Other generalized epilepsy and epileptic syndromes, not intractable, with status epilepticus (principal); F17.200 Nicotine dependence, unspecified, uncomplicated; I10 Essential (primary) hypertension; F41.9 Anxiety disorder, unspecified; Z79.899 Other long term (current) drug therapy; Z91.013 Allergy to seafood; Z88.6 Allergy status to analgesic agent; Z91.018 Allergy to other foods
CPT/HCPCS: 36415; 80177; 99285; 81003; G0480; 80320

== ENCOUNTER 2019-11-01 17:49 | Emergency (ER) | payer OTHER ==
[2019-11-01] MEDS ORDERED: SODIUM CHLORIDE 0.9% 1,000 ML IV ONE (18:06)
[2019-11-01] MEDS ORDERED: SODIUM CHLORIDE 0.9% 1,000 ML IV SCH (18:15)
--- NOTE | 2019-11-01 18:17 | ED ---
Seizure HPI - General Chief Complaint: Seizure Stated Complaint: Seizure Time Seen by Provider: 11/01/19 17:53 Source: EMS, RN notes reviewed, old records reviewed Mode of arrival: EMS Limitations: no limitations - History of Present Illness Initial Comments: Jennifer a 43-year-old female with a known history of seizures, was recently admitted and had full evaluation including EEG. She presents today with 2 seizures this afternoon. She reports she did have wake up from the seizure with complaints of an abrasion over her right cheek. She does not know how long the seizures lasted. She does report drinking alcohol today. She denies any other recent drug use. Patient states that she has been compliant with her Keppra. - Related Data Home Medications Medication Instructions Recorded Confirmed Hydrochlorothiazide [Hydrodiuril] 25 mg PO DAILY 10/16/17 09/26/19 amLODIPine [Norvasc] 10 mg PO DAILY 12/19/17 09/26/19 ALPRAZolam [Xanax] 1 mg PO HS PRN 09/26/19 09/26/19 Acetaminophen Tab [Tylenol] 325 mg PO DAILY PRN 09/26/19 09/26/19 Albuterol Inhaler [Ventolin Hfa 2 puff INHALATION RT-Q6H PRN 09/26/19 09/26/19 Inhaler] Ergocalciferol [Vitamin D2 50,000 unit PO Q28D 09/26/19 09/26/19 (DRISDOL)] Lisinopril 40 mg PO DAILY 09/26/19 09/26/19 Potassium Chloride ER [K-Dur 20] 20 meq PO DAILY 09/26/19 09/26/19 Previous Rx's Medication Instructions Recorded Thiamine [Vitamin B-1] 100 mg PO BID-W/MEALS #60 tab 09/30/19 levETIRAcetam [Keppra] 500 mg PO Q12HR #20 tab 09/30/19 Allergies Allergy/AdvReac Type Severity Reaction Status Date / Time shellfish derived [Shellfish] Allergy Unknown Verified 10/12/19 04:00 tramadol Allergy Unknown Verified 10/12/19 04:00 wheat Allergy Unknown Verified 10/12/19 04:00 Review of Systems ROS Statement: Those systems with pertinent positive or pertinent negative responses have been documented in the HPI. ROS Other: All systems not noted in ROS Statement are negative. Past Medical History Past Medical History: Hypertension, Seizure Disorder Additional Past Medical History / Comment(s): had a seizure a week ago and was seen at [facility] History of Any Multi-Drug Resistant Organisms: None Reported Past Surgical History: No Surgical Hx Reported Past Psychological History: Anxiety Smoking Status: Current every day smoker Past Alcohol Use History: Occasional Past Drug Use History: Cocaine General Exam - General Exam Comments Initial Comments: Patient is a 43-year-old female, somewhat intoxicated. Mildly postictal tired. Limitations: no limitations General appearance: alert, in no apparent distress Head exam: Present: atraumatic, normocephalic, normal inspection Eye exam: Present: normal appearance, PERRL, EOMI. Absent: scleral icterus, conjunctival injection, periorbital swelling ENT exam: Present: normal exam, mucous membranes moist Neck exam: Present: normal inspection. Absent: tenderness, meningismus, lymphadenopathy Respiratory exam: Present: normal lung sounds bilaterally. Absent: respiratory distress, wheezes, rales, rhonchi, stridor Cardiovascular Exam: Present: regular rate, normal rhythm, normal heart sounds. Absent: systolic murmur, diastolic murmur, rubs, gallop, clicks GI/Abdominal exam: Present: soft, normal bowel sounds. Absent: distended, tenderness, guarding, rebound, rigid Extremities exam: Present: normal inspection, full ROM, normal capillary refill. Absent: tenderness, pedal edema, joint swelling, calf tenderness Back exam: Present: normal inspection Neurological exam: Present: alert, oriented X3, CN II-XII intact Psychiatric exam: Present: normal affect, normal mood Skin exam: Present: warm Course Vital Signs 11/01/19 11/01/19 11/01/19 17:53 18:52 19:33 Temperature 98.0 F Pulse Rate 87 102 H 86 Respiratory 16 16 18 Rate Blood Pressure 144/108 131/99 115/72 O2 Sat by Pulse 100 99 99 Oximetry Medical Decision Making - Medical Decision Making 43-year-old female with history of seizure disorder and recent evaluation and admission including MRIs and EEGs. She was started on Keppra. Patient does report that she has been compliant. However Patient did have soup 2 seizures today that were apparently unwitnessed. She ran emergency Department post ictal and intoxicated. Alcohol level 243. Patient is given IV hydration and reevaluated. Patient is resting comfortably in bed. I discussed the Patient to be taking her Keppra, voiding alcohol with this. I discussed the Patient to follow up with outpatient neurology and labs are otherwise unremarkable. Patient is agreeable this time and she is able to ambulate. Walk to the bathroom without any difficulty. Patient stable for discharge. - Lab Data Result diagrams: 11/01/19 18:16 11/01/19 18:16 Lab Results 11/01/19 11/01/19 11/01/19 Range/Units 18:16 18:16 18:16 WBC 4.8 (3.8-10.6) k/uL RBC 4.55 (3.80-5.40) m/uL Hgb 10.7 L (11.4-16.0) gm/dL Hct 35.6 (34.0-46.0) % MCV 78.3 L (80.0-100.0) fL MCH 23.5 L (25.0-35.0) pg MCHC 30.0 L (31.0-37.0) g/dL RDW 17.5 H (11.5-15.5) % Plt Count 347 (150-450) k/uL Neutrophils % 50 % Lymphocytes % 38 % Monocytes % 5 % Eosinophils % 3 % Basophils % 1 % Neutrophils # 2.4 (1.3-7.7) k/uL Lymphocytes # 1.8 (1.0-4.8) k/uL Monocytes # 0.2 (0-1.0) k/uL Eosinophils # 0.2 (0-0.7) k/uL Basophils # 0.0 (0-0.2) k/uL Hypochromasia Moderate Anisocytosis Slight Microcytosis Slight Sodium 141 (137-145) mmol/L Potassium 4.4 (3.5-5.1) mmol/L Chloride 106 (98-107) mmol/L Carbon Dioxide 26 (22-30) mmol/L Anion Gap 9 mmol/L BUN 11 (7-17) mg/dL Creatinine 0.57 (0.52-1.04) mg/dL Est GFR (CKD-EPI)AfAm >90 (>60 ml/min/1.73 sqM) Est GFR (CKD-EPI)NonAf >90 (>60 ml/min/1.73 sqM) Glucose 88 (74-99) mg/dL Calcium 9.7 (8.4-10.2) mg/dL Total Bilirubin 0.5 (0.2-1.3) mg/dL AST 40 H (14-36) U/L ALT 24 (4-34) U/L Alkaline Phosphatase 55 (38-126) U/L Total Protein 8.2 (6.3-8.2) g/dL Albumin 4.5 (3.5-5.0) g/dL Urine Color Light Yellow Urine Appearance Clear (Clear) Urine pH 7.0 (5.0-8.0) Ur Specific [place] 1.005 (1.001-1.035) Urine Protein Negative (Negative) Urine Glucose (UA) Negative (Negative) Urine Ketones Negative (Negative) Urine Blood Negative (Negative) Urine Nitrite Negative (Negative) Urine Bilirubin Negative (Negative) Urine Urobilinogen <2.0 (<2.0) mg/dL Ur Leukocyte Esterase Negative (Negative) Urine Opiates Screen Not Detected (NotDetected) Ur Oxycodone Screen Not Detected (NotDetected) Urine Methadone Screen Not Detected (NotDetected) Ur Propoxyphene Screen Not Detected (NotDetected) Ur Barbiturates Screen Not Detected (NotDetected) U Tricyclic Antidepress Not Detected (NotDetected) Ur Phencyclidine Scrn Not Detected (NotDetected) Ur Amphetamines Screen Not Detected (NotDetected) U Methamphetamines Scrn Not Detected (NotDetected) U Benzodiazepines Scrn Detected H (NotDetected) Urine Cocaine Screen Not Detected (NotDetected) U Marijuana (THC) Screen Not Detected (NotDetected) Serum Alcohol 242 H* mg/dL 11/01/19 19:02 EKG performed at 1822 shows normal sinus rhythm normal EKG. Ventricular rate of 93 beats were minute. Was 182 ms. QS duration is 80 ms. QT QTc is 380/[address] elevation. Disposition Clinical Impression: Seizure, Alcohol intoxication Disposition: HOME SELF-CARE Condition: Good Instructions (If sedation given, give patient instructions): Recurrent Seizures in Adults (ED) Additional Instructions: Patient should continue Keppra. Avoid alcohol use with taking his medications. Patient to follow up with outpatient neurology. Return to the ED if any alarming signs or symptoms occur. Is patient prescribed a controlled substance at d/c from ED?: No Referrals: Lico Bañuelos MD [Primary Care Provider] - 1-2 days Time of Disposition: 20:21
[2019-11-01 18:51] LABS: Anisocytosis Slight; Basophils % (A) 1 %; Eosinophils # (A) 0.2 k/uL (0-0.7); Eosinophils % (A) 3 %; HCT 35.6 % (34.0-46.0); HGB 10.7 gm/dL (11.4-16.0); Hypochromasia Moderate; Lymphocytes # (A) 1.8 k/uL (1.0-4.8); Lymphocytes % (A) 38 %; MCH 23.5 pg (25.0-35.0); MCV 78.3 fL (80.0-100.0); Mean Platelet Volume 7.7; Microcytosis Slight; Monocytes # (A) 0.2 k/uL (0-1.0); Monocytes % (A) 5 %; Neutrophils # (A) 2.4 k/uL (1.3-7.7); Neutrophils % (A) 50 %; Platelet Count 347 k/uL (150-450); RBC 4.55 m/uL (3.80-5.40); RDW 17.5 % (11.5-15.5); WBC 4.8 k/uL (3.8-10.6)
[2019-11-01 18:52] LABS: Appearance,Urine Clear (Clear); Bilirubin,Urine Negative (Negative); Blood,Urine Negative (Negative); Color,Urine Light Yellow; Glucose,Urine (UA) Negative (Negative); Ketones,Urine Negative (Negative); Leukocyte Esterase,Urine Negative (Negative); Nitrite,Urine Negative (Negative); Protein,Urine Negative (Negative); Specific Gravity,Urine 1.005 (1.001-1.035); Urobilinogen,Urine <2.0 mg/dL (<2.0)
[2019-11-01 18:55] LABS: ALT 24 U/L (4-34); AST 40 U/L (14-36); African American GFR (CKD) >90 (>60 ml/min/1.73 sqM); Albumin 4.5 g/dL (3.5-5.0); Alkaline Phosphatase 55 U/L (38-126); Anion Gap 9 mmol/L; Blood Urea Nitrogen 11 mg/dL (7-17); Calcium 9.7 mg/dL (8.4-10.2); Carbon Dioxide 26 mmol/L (22-30); Chloride 106 mmol/L (98-107); Glucose 88 mg/dL (74-99); Non-African American GFR(CKD) >90 (>60 ml/min/1.73 sqM); Sodium 141 mmol/L (137-145); Total Bilirubin 0.5 mg/dL (0.2-1.3); Total Protein 8.2 g/dL (6.3-8.2)
[2019-11-01 18:56] LABS: Alcohol 242 mg/dL; Potassium 4.4 mmol/L (3.5-5.1)
[2019-11-01 19:01] LABS: Amphetamine Screen,Urine Not Detected (NotDetected); Barbiturate Screen,Urine Not Detected (NotDetected); Benzodiazepines Screen,Urine Detected (NotDetected); Cocaine Screen,Urine Not Detected (NotDetected); Methadone Screen, Urine Not Detected (NotDetected); Opiate Screen,Urine Not Detected (NotDetected); Oxycodone Screen, Urine Not Detected (NotDetected); Phencyclidine Screen,Urine Not Detected (NotDetected); Tricyclic Antidepressant,Urine Not Detected (NotDetected); Urn Cannabinoid Scrn Not Detected (NotDetected)
[2019-11-01] MEDS ORDERED: levETIRAcetam IV 1,000 MG in SALINE 1 100ML.BAG IVPB STA (19:17)
[2019-11-01 19:35] VITALS: RESP 18
[2019-11-01 21:18] VITALS: BP 120/72; PULSE 70; TEMP 98.2
== END 2019-11-01 20:25 | disposition home or self-care (01) ==
LOC: EC 17:49
DX: G40.909 Epilepsy, unspecified, not intractable, without status epilepticus (principal); F10.129 Alcohol abuse with intoxication, unspecified; S00.81XA Abrasion of other part of head, initial encounter; I10 Essential (primary) hypertension; F17.200 Nicotine dependence, unspecified, uncomplicated; Y90.8 Blood alcohol level of 240 mg/100 ml or more; Z79.899 Other long term (current) drug therapy; Z91.013 Allergy to seafood; Z91.018 Allergy to other foods; Z88.5 Allergy status to narcotic agent
CPT/HCPCS: 99284; 96374; 96361; 36415; 93005; 80053; 85025; 81003; 80306; G0480; J1953; 80320

== ENCOUNTER 2019-11-02 17:29 | Observation (INO) | payer OTHER ==
[2019-11-02] MEDS ORDERED: SODIUM CHLORIDE 0.9% 500 ML 500 ML IV STA (17:38)
[2019-11-02 17:41] LABS: Glucose,Whole Blood 73 mg/dL (75-99)
[2019-11-02 18:03] LABS: Anisocytosis Slight; Basophils % (A) 1 %; Eosinophils # (A) 0.2 k/uL (0-0.7); Eosinophils % (A) 3 %; HCT 34.3 % (34.0-46.0); HGB 10.4 gm/dL (11.4-16.0); Hypochromasia Moderate; Lymphocytes # (A) 1.9 k/uL (1.0-4.8); Lymphocytes % (A) 27 %; MCH 24.1 pg (25.0-35.0); MCHC 30.3 g/dL (31.0-37.0); MCV 79.6 fL (80.0-100.0); Mean Platelet Volume 7.5; Microcytosis Slight; Monocytes # (A) 0.3 k/uL (0-1.0); Monocytes % (A) 4 %; Neutrophils # (A) 4.4 k/uL (1.3-7.7); Neutrophils % (A) 63 %; Platelet Count 364 k/uL (150-450); RBC 4.31 m/uL (3.80-5.40); RDW 17.1 % (11.5-15.5); WBC 6.9 k/uL (3.8-10.6)
[2019-11-02 18:14] LABS: ALT 21 U/L (4-34); AST 27 U/L (14-36); Acetaminophen <10.0 ug/mL; African American GFR (CKD) >90 (>60 ml/min/1.73 sqM); Albumin 4.2 g/dL (3.5-5.0); Alkaline Phosphatase 62 U/L (38-126); Anion Gap 12 mmol/L; Blood Urea Nitrogen 12 mg/dL (7-17); Calcium 9.4 mg/dL (8.4-10.2); Carbon Dioxide 23 mmol/L (22-30); Chloride 103 mmol/L (98-107); Glucose 71 mg/dL (74-99); Non-African American GFR(CKD) >90 (>60 ml/min/1.73 sqM); Potassium 3.4 mmol/L (3.5-5.1); Salicylate <1.0 mg/dL; Sodium 138 mmol/L (137-145); Total Bilirubin 0.4 mg/dL (0.2-1.3); Total Protein 7.5 g/dL (6.3-8.2)
[2019-11-02 18:21] LABS: Alcohol 158 mg/dL
--- NOTE | 2019-11-02 18:55 | CT ---
EXAMINATION TYPE: CT brain cspine wo con DATE OF EXAM: 11/02/2019 COMPARISON: CT brain 09/26/2019 HISTORY: Seizure activity today with injury CT DLP: 1315.2 mGycm Automated exposure control for dose reduction was used. Ventricles and sulci appear normal. There is no mass effect nor midline shift. There is no sign of in tracranial hemorrhage. The calvarium is intact. There is no evidence of cerebral edema. Cervical vertebra show some straightening. There is minor spurring anteriorly at C4-5 C5-6. Posterior elements are intact. Facet joints appear normal. The skull base is intact. IMPRESSION: Negative CT scan of the brain. No change. Negative CT scan cervical spine.
--- NOTE | 2019-11-02 19:10 | ED ---
Seizure HPI - General Chief Complaint: Seizure Stated Complaint: Seizure Time Seen by Provider: 11/02/19 17:35 Source: patient, EMS Mode of arrival: EMS Limitations: no limitations - History of Present Illness Initial Comments: The patient is a 43-year-old female past medical history of seizure disorder who presents to the emergency department with reported seizures at home. She states that she had one seizure at home where she fell and hit her head. Family member called EMS. Upon EMS arrival she was alert and oriented. During her transfer to the hospital she did have 2 additional seizures. After the second seizure EMS did provide her with 5 mg of Versed. She arrives to me able to answer questions. States that she has had multiple seizures daily for the past week. She was seen in our emergency Department yesterday for same complaint however patient cannot remember this. She was seen in her hospital at the end of September where EEG and MRI were completed. She was discharged home and stated that her medications were changed 2 days ago by her primary care physician. She takes Keppra twice daily 500 mg. States she has not missed any doses. Does report that she has been drinking alcohol daily she does feel she has more seizures wh en she drinks. She denies any headaches or visual changes. No neck pain or back pain. No chest pain or difficulty breathing. Denies any abdominal pain. No concern for . Denies any fevers or chills. No bowel or bladder incontinence. There are no alleviating, precipitating or modifying factors - Related Data Home Medications Medication Instructions Recorded Confirmed amLODIPine [Norvasc] 10 mg PO DAILY 12/19/17 11/02/19 ALPRAZolam [Xanax] 1 mg PO TID PRN 09/26/19 11/02/19 Acetaminophen Tab [Tylenol] 325 mg PO DAILY PRN 09/26/19 11/02/19 Albuterol Inhaler [Ventolin Hfa 2 puff INHALATION RT-Q4H PRN 09/26/19 11/02/19 Inhaler] Ergocalciferol [Vitamin D2 50,000 unit PO Q28D 09/26/19 11/02/19 (DRISDOL)] Lisinopril 40 mg PO DAILY 09/26/19 11/02/19 Potassium Chloride ER [K-Dur 20] 20 meq PO DAILY 09/26/19 11/02/19 Doxycycline Hyclate 100 mg PO BID 11/02/19 11/02/19 Hydrochlorothiazide 50 mg PO DAILY 11/02/19 11/02/19 Mometasone Furoate [Elocon 1 applic TOPICAL BID 11/02/19 11/02/19 Ointment] Polyethylene Glycol 3350 [Miralax] 17 gm PO DIRECTED PRN 11/02/19 11/02/19 metroNIDAZOLE [Flagyl] 500 mg PO BID 11/02/19 11/02/19 traZODone HCL [Desyrel] 50 - 100 mg PO HS PRN 11/02/19 11/02/19 Previous Rx's Medication Instructions Recorded Thiamine [Vitamin B-1] 100 mg PO BID-W/MEALS #60 tab 09/30/19 levETIRAcetam [Keppra] 500 mg PO Q12HR #20 tab 09/30/19 Allergies Allergy/AdvReac Type Severity Reaction Status Date / Time shellfish derived [Shellfish] Allergy Unknown Verified 11/03/19 21:45 tramadol Allergy Unknown Verified 11/03/19 21:45 wheat Allergy Unknown Verified 11/03/19 21:45 Review of Systems ROS Statement: Those systems with pertinent positive or pertinent negative responses have been documented in the HPI. ROS Other: All systems not noted in ROS Statement are negative. Past Medical History Past Medical History: Hypertension, Seizure Disorder Additional Past Medical History / Comment(s): had a seizure a week ago and was seen at [facility] History of Any Multi-Drug Resistant Organisms: None Reported Past Surgical History: No Surgical Hx Reported Past Psychological History: Anxiety Smoking Status: Current some day smoker Past Alcohol Use History: Occasional Past Drug Use History: Cocaine General Exam Limitations: no limitations General appearance: alert, in no apparent distress, appears intoxicated Head exam: Present: atraumatic, normocephalic, normal inspection Eye exam: Present: normal appearance, PERRL, EOMI. Absent: scleral icterus, conjunctival injection, periorbital swelling ENT exam: Present: normal exam, mucous membranes moist Neck exam: Present: normal inspection. Absent: tenderness, meningismus, lymphadenopathy Respiratory exam: Present: normal lung sounds bilaterally. Absent: respiratory distress, wheezes, rales, rhonchi, stridor Cardiovascular Exam: Present: regular rate, normal rhythm, normal heart sounds. Absent: systolic murmur, diastolic murmur, rubs, gallop, clicks GI/Abdominal exam: Present: soft, normal bowel sounds. Absent: distended, tend erness, guarding, rebound, rigid Extremities exam: Present: normal inspection, full ROM, normal capillary refill. Absent: tenderness, pedal edema, joint swelling, calf tenderness Back exam: Present: normal inspection Neurological exam: Present: alert, oriented X3, CN II-XII intact Psychiatric exam: Present: normal affect, normal mood Skin exam: Present: warm, dry, intact, normal color. Absent: rash Course Vital Signs 11/02/19 11/02/19 11/02/19 17:34 18:38 21:14 Temperature 98.3 F 98.3 F Pulse Rate 83 81 81 Respiratory 16 16 16 Rate Blood Pressure 125/87 123/86 O2 Sat by Pulse 97 98 98 Oximetry Medical Decision Making - Medical Decision Making Upon arrival the patient is placed into room 2. A thorough history and physical exam was performed. Patient is a poor historian and does not remember her emergency department visit yesterday. States she's been compliant with her seizure medications and they have not been well-controlled. She is visibly intoxicated. Does admit to drinking. The patient is reporting head trauma I did recommend a CT of the patient's brain. Laboratory studies were conducted. Keppra level was drawn. CMP shows a potassium of 3.4. Glucose is 71. Patient's potassium is replaced and she was given something to eat. Urinalysis is negative. UDS is positive for benzodiazepines. Alcohol level elevated at 158. CT is negative for any acute intracranial process. I discussed diagnosis, differential and treatment options. As the patient has had multiple seizures with diagnosis of status epilepticus at this time I did recommend hospital admission for further observation and management. I did recommend transfer to a facility with neurologic capabilities however the patient adamantly refused. Patient states that she did not want to be transferred to any other facility but did agree to hospital admission. She is aware of the risks of staying in a facility without the specialist present. I called and discussed the case with Dr. Conklin who did agree to admit the patient. He is requesting outpatient be placed on 750 mg twice daily. I did alter the patient's Keppra dose. Bridging orders are placed on the patient and she is currently being transferred to the floor in stable condition - Lab Data Result diagrams: 11/03/19 08:11 11/03/19 08:11 Lab Results 11/02/19 11/02/19 11/02/19 Range/Units 17:39 17:50 17:50 WBC 6.9 (3.8-10.6) k/uL RBC 4.31 (3.80-5.40) m/uL Hgb 10.4 L (11.4-16.0) gm/dL Hct 34.3 (34.0-46.0) % MCV 79.6 L (80.0-100.0) fL MCH 24.1 L (25.0-35.0) pg MCHC 30.3 L (31.0-37.0) g/dL RDW 17.1 H (11.5-15.5) % Plt Count 364 (150-450) k/uL Neutrophils % 63 % Lymphocytes % 27 % Monocytes % 4 % Eosinophils % 3 % Basophils % 1 % Neutrophils # 4.4 (1.3-7.7) k/uL Lymphocytes # 1.9 (1.0-4.8) k/uL Monocytes # 0.3 (0-1.0) k/uL Eosinophils # 0.2 (0-0.7) k/uL Basophils # 0.0 (0-0.2) k/uL Hypochromasia Moderate Anisocytosis Slight Microcytosis Slight Sodium 138 (137-145) mmol/L Potassium 3.4 L (3.5-5.1) mmol/L Chloride 103 (98-107) mmol/L Carbon Dioxide 23 (22-30) mmol/L Anion Gap 12 mmol/L BUN 12 (7-17) mg/dL Creatinine 0.70 (0.52-1.04) mg/dL Est GFR (CKD-EPI)AfAm >90 (>60 ml/min/1.73 sqM) Est GFR (CKD-EPI)NonAf >90 (>60 ml/min/1.73 sqM) Glucose 71 L (74-99) mg/dL POC Glucose (mg/dL) 73 L (75-99) mg/dL POC Glu Key Maker ID Kandice Hazel Calcium 9.4 (8.4-10.2) mg/dL Total Bilirubin 0.4 (0.2-1.3) mg/dL AST 27 (14-36) U/L ALT 21 (4-34) U/L Alkaline Phosphatase 62 (38-126) U/L Total Protein 7.5 (6.3-8.2) g/dL Albumin 4.2 (3.5-5.0) g/dL Urine Color Urine Appearance (Clear) Urine pH (5.0-8.0) Ur Specific Stopover (1.001-1.035) Urine Protein (Negative) Urine Glucose (UA) (Negative) Urine Ketones (Negative) Urine Blood (Negative) Urine Nitrite (Negative) Urine Bilirubin (Negative) Urine Urobilinogen (<2.0) mg/dL Ur Leukocyte Esterase (Negative) Urine HCG, Qual (Not Detectd) Salicylates <1.0 mg/dL Urine Opiates Screen (NotDetected) Ur Oxycodone Screen (NotDetected) Urine Methadone Screen (NotDetected) Ur Propoxyphene Screen (NotDetected) Acetaminophen <10.0 ug/mL Ur Barbiturates Screen (NotDetected) U Tricyclic Antidepress (NotDetected) Levetiracetam (3.0-60.0) ug/mL Ur Phencyclidine Scrn (NotDetected) Ur Amphetamines Screen (NotDetected) U Methamphetamines Scrn (NotDetected) U Benzodiazepines Scrn (NotDetected) Urine Cocaine Screen (NotDetected) U Marijuana (THC) Screen (NotDetected) Serum Alcohol 158 mg/dL 11/02/19 11/02/19 11/02/19 Range/Units 17:50 19:15 19:15 WBC (3.8-10.6) k/uL RBC (3.80-5.40) m/uL Hgb (11.4-16.0) gm/dL Hct (34.0-46.0) % MCV (80.0-100.0) fL MCH (25.0-35.0) pg MCHC (31.0-37.0) g/dL RDW (11.5-15.5) % Plt Count (150-450) k/uL Neutrophils % % Lymphocytes % % Monocytes % % Eosinophils % % Basophils % % Neutrophils # (1.3-7.7) k/uL Lymphocytes # (1.0-4.8) k/uL Monocytes # (0-1.0) k/uL Eosinophils # (0-0.7) k/uL Basophils # (0-0.2) k/uL Hypochromasia Anisocytosis Microcytosis Sodium (137-145) mmol/L Potassium (3.5-5.1) mmol/L Chloride (98-107) mmol/L Carbon Dioxide (22-30) mmol/L Anion Gap mmol/L BUN (7-17) mg/dL Creatinine (0.52-1.04) mg/dL Est GFR (CKD-EPI)AfAm (>60 ml/min/1.73 sqM) Est GFR (CKD-EPI)NonAf (>60 ml/min/1.73 sqM) Glucose (74-99) mg/dL POC Glucose (mg/dL) (75-99) mg/dL POC Glu Key Maker ID Calcium (8.4-10.2) mg/dL Total Bilirubin (0.2-1.3) mg/dL AST (14-36) U/L ALT (4-34) U/L Alkaline Phosphatase (38-126) U/L Total Protein (6.3-8.2) g/dL Albumin (3.5-5.0) g/dL Urine Color Light Yellow Urine Appearance Clear (Clear) Urine pH 6.5 (5.0-8.0) Ur Specific Stopover 1.005 (1.001-1.035) Urine Protein Negative (Negative) Urine Glucose (UA) Negative (Negative) Urine Ketones Negative (Negative) Urine Blood Negative (Negative) Urine Nitrite Negative (Negative) Urine Bilirubin Negative (Negative) Urine Urobilinogen <2.0 (<2.0) mg/dL Ur Leukocyte Esterase Negative (Negative) Urine HCG, Qual Not Detected (Not Detectd) Salicylates mg/dL Urine Opiates Screen Not Detected (NotDetected) Ur Oxycodone Screen Not Detected (NotDetected) Urine Methadone Screen Not Detected (NotDetected) Ur Propoxyphene Screen Not Detected (NotDetected) Acetaminophen ug/mL Ur Barbiturates Screen Not Detected (NotDetected) U Tricyclic Antidepress Not Detected (NotDetected) Levetiracetam 13.4 (3.0-60.0) ug/mL Ur Phencyclidine Scrn Not Detected (NotDetected) Ur Amphetamines Screen Not Detected (NotDetected) U Methamphetamines Scrn Not Detected (NotDetected) U Benzodiazepines Scrn Detected H (NotDetected) Urine Cocaine Screen Not Detected (NotDetected) U Marijuana (THC) Screen Not Detected (NotDetected) Serum Alcohol mg/dL - EKG Data EKG Comments: EKG demonstrates a normal sinus rhythm with a ventricular rate of 90. TX interval 182. QRS 90. QTC of 41. Prolonged QT. No acute ST segment e levations or depressions. No signs of Pcswp-Bglivdpni-Ppiqq or Brugada Disposition Clinical Impression: Seizure, Alcohol intoxication, Status epilepticus Disposition: ADMITTED IP TO THIS [facility] Condition: Stable Is patient prescribed a controlled substance at d/c from ED?: No Decision to Admit Reason: Admit from EC Decision Date: 11/02/19 Decision Time: 20:41
[2019-11-02 19:31] LABS: Appearance,Urine Clear (Clear); Bilirubin,Urine Negative (Negative); Blood,Urine Negative (Negative); Color,Urine Light Yellow; Glucose,Urine (UA) Negative (Negative); Ketones,Urine Negative (Negative); Leukocyte Esterase,Urine Negative (Negative); Nitrite,Urine Negative (Negative); PH, Urine 6.5 (5.0-8.0); Protein,Urine Negative (Negative); Specific Gravity,Urine 1.005 (1.001-1.035); Urobilinogen,Urine <2.0 mg/dL (<2.0)
[2019-11-02 19:36] LABS: Amphetamine Screen,Urine Not Detected (NotDetected); Barbiturate Screen,Urine Not Detected (NotDetected); Benzodiazepines Screen,Urine Detected (NotDetected); Cocaine Screen,Urine Not Detected (NotDetected); Methadone Screen, Urine Not Detected (NotDetected); Opiate Screen,Urine Not Detected (NotDetected); Oxycodone Screen, Urine Not Detected (NotDetected); Phencyclidine Screen,Urine Not Detected (NotDetected); Tricyclic Antidepressant,Urine Not Detected (NotDetected); Urn Cannabinoid Scrn Not Detected (NotDetected)
[2019-11-02] MEDS ORDERED: POTASSIUM CHLORIDE ER 20 MEQ TAB.ER PO STA (20:23)
[2019-11-02] MEDS ORDERED: NALOXONE 0.4 MG/ML 1 ML VIAL IV PRN (20:41)
[2019-11-02] MEDS ORDERED: ALBUTEROL NEBULIZED 2.5 MG/3 ML INHALATION PRN (20:43)
[2019-11-02] MEDS ORDERED: ACETAMINOPHEN TAB 325 MG TAB PO PRN (20:43)
[2019-11-02] MEDS ORDERED: LORazepam 2 MG/ML INJ IV PRN ×3 (20:44)
[2019-11-02] MEDS: levETIRAcetam 250 MG TAB PO SCH (21:19)
[2019-11-02] MEDS: SODIUM CHLORIDE 0.9% 1,000 ML IV SCH (22:03)
[2019-11-03 05:59] VITALS: BP 93/57; PULSE 76; RESP 18; TEMP 97.9
[2019-11-03] MEDS ORDERED: THIAMINE 100 MG TAB PO SCH (07:30)
[2019-11-03 08:37] LABS: Anisocytosis Slight; Basophils % (A) 0 %; Eosinophils # (A) 0.2 k/uL (0-0.7); Eosinophils % (A) 3 %; HCT 34.1 % (34.0-46.0); HGB 10.1 gm/dL (11.4-16.0); Hypochromasia Marked; Lymphocytes # (A) 1.5 k/uL (1.0-4.8); Lymphocytes % (A) 27 %; MCH 23.8 pg (25.0-35.0); MCHC 29.6 g/dL (31.0-37.0); MCV 80.2 fL (80.0-100.0); Mean Platelet Volume 7.4; Microcytosis Slight; Monocytes # (A) 0.3 k/uL (0-1.0); Monocytes % (A) 5 %; Neutrophils # (A) 3.4 k/uL (1.3-7.7); Neutrophils % (A) 61 %; Platelet Count 346 k/uL (150-450); RBC 4.25 m/uL (3.80-5.40); RDW 17.3 % (11.5-15.5); WBC 5.5 k/uL (3.8-10.6)
[2019-11-03 08:46] LABS: African American GFR (CKD) >90 (>60 ml/min/1.73 sqM); Anion Gap 8 mmol/L; Blood Urea Nitrogen 20 mg/dL (7-17); Calcium 9.3 mg/dL (8.4-10.2); Carbon Dioxide 23 mmol/L (22-30); Chloride 104 mmol/L (98-107); Glucose 118 mg/dL (74-99); Non-African American GFR(CKD) >90 (>60 ml/min/1.73 sqM); Potassium 4.2 mmol/L (3.5-5.1); Sodium 135 mmol/L (137-145)
[2019-11-03] MEDS ORDERED: LISINOPRIL 20 MG TAB PO SCH (09:00)
[2019-11-03] MEDS ORDERED: HYDROCHLOROTHIAZIDE 50 MG TAB PO SCH (09:00)
[2019-11-03] MEDS ORDERED: amLODIPine 10 MG TAB PO SCH (09:00)
[2019-11-03] MEDS: SODIUM CHLORIDE 0.9% 1,000 ML IV SCH (09:29)
[2019-11-03] MEDS: levETIRAcetam 250 MG TAB PO SCH (09:31)
--- NOTE | 2019-11-03 23:16 | HP ---
HISTORY AND PHYSICAL DATE OF ADMISSION: 11/02/2019 CHIEF COMPLAINT: Seizure. HISTORY OF PRESENT ILLNESS: This is another admission for this 43-year-old female. She came into the emergency room after she apparently had had 2 seizures. She was postictal. She also was intoxicated. No other history was available. She signed out before she was seen. REVIEW OF SYSTEMS: Review of systems was not obtained. Past medical history, family history, and personal and social histories were obtained to the extent that it is known that she is on Keppra, Norvasc, lisinopril, hydrochlorothiazide, albuterol, Vibramycin, and Flagyl. PHYSICAL EXAMINATION: Physical exam included blood pressure 125/87 with a pulse of 83, respirations 16. She is afebrile. The remainder of the examination could not be performed. She was admitted to the hospital with diagnoses: 1. Grand mal seizure disorder. 2. Postictal depression. 3. Alcohol intoxication. 4. Chronic alcoholism. 5. Hypertension. She was admitted and to be started on seizure precautions. She then signed herself out AGAINST MEDICAL ADVICE. MMODL / IJN: [id number] /
--- NOTE | 2019-11-04 03:12 | DS ---
DISCHARGE SUMMARY DATE OF ADMISSION: 11/02/2019 DATE OF DISCHARGE: 11/03/2019 CHIEF COMPLAINT: Seizure and alcohol intoxication. HISTORY OF PRESENT ILLNESS AND PHYSICAL EXAM: Details of this lady's history and physical can be found in the initial workup. LABORATORY STUDIES: While she was in the hospital she had laboratory studies, details of which can be found in the laboratory section of her chart. COURSE IN HOSPITAL: After admission she was placed on bedrest, started on intravenous fluids and was placed at bedrest with seizure precautions. She subsequently signed herself out AGAINST MEDICAL ADVICE. We will contact her for followup in the office. FINAL DIAGNOSES: 1. Grand mal seizure disorder. 2. Acute alcohol intoxication. 3. Alcoholism. 4. Hypertension. 5. Unknown seizure disorder. OPERATIONS: None. CONSULTATION: None. DARRYL / NICHOLAS: [id number] /
== END 2019-11-03 12:53 | disposition left against medical advice (07) ==
LOC: EC 17:29 → 5NMEDONC 20:43
PROVIDERS: ADMIT Family Medicine; ATTEND Family Medicine
DX: G40.901 Epilepsy, unspecified, not intractable, with status epilepticus (principal); F10.229 Alcohol dependence with intoxication, unspecified; F32.89 Other specified depressive episodes; I10 Essential (primary) hypertension; F41.9 Anxiety disorder, unspecified; F17.200 Nicotine dependence, unspecified, uncomplicated; S09.90XA Unspecified injury of head, initial encounter; W19.XXXA Unspecified fall, initial encounter; Z11.59 Encounter for screening for other viral diseases; Z79.2 Long term (current) use of antibiotics; Z79.899 Other long term (current) drug therapy; Z88.5 Allergy status to narcotic agent; Z91.013 Allergy to seafood; Z91.018 Allergy to other foods; Y90.6 Blood alcohol level of 120-199 mg/100 ml; Z53.29 Procedure and treatment not carried out because of patient's decision for other reasons
CPT/HCPCS: 96374; 99284; 99285; 36415; 93005; 80053; 80048; 80177; 85025 ×2; 81003; 81025; 80306; 83520; 72072; 72125 ×2; 70450 ×2; G0378 ×2; G0480 ×2; U0003; J2060; 80320; 80329

== ENCOUNTER 2019-11-03 21:37 | Emergency (ER) | payer OTHER ==
[2019-11-03 21:45] VITALS: TEMP 98.1
--- NOTE | 2019-11-03 22:34 | CT ---
EXAMINATION TYPE: CT brain cspine wo con DATE OF EXAM: 11/03/2019 COMPARISON: Yesterday HISTORY: Seizure today Neck pain. Headache. CT DLP: 1273.7 mGycm Automated exposure control for dose reduction was used. Ventricles and sulci appear normal. There is no mass effect nor midline shift. There is no sign of in tracranial hemorrhage. Calvarium is intact. There is no evidence of cerebral edema. There is mild straightening of the cervical spine. Disc spaces are normal. Posterior elements are int act. There is no evidence of a fracture. Skull base appears intact. IMPRESSION: Negative CT scan of the brain. No change. Negative CT scan cervical spine. No change.
--- NOTE | 2019-11-03 23:00 | XR ---
EXAMINATION TYPE: XR thoracic spine complete DATE OF EXAM: 11/03/2019 COMPARISON: Chest x-ray 09/26/2019 HISTORY: Back pain TECHNIQUE: FINDINGS: 3 views were obtained and show normal alignment of the vertebra. Posterior elements are int act. There is no paraspinal mass. There is no compression fracture. Disc spaces are normal. IMPRESSION: Normal thoracic spine. No change.
--- NOTE | 2019-11-03 23:09 | ED ---
Seizure HPI - General Source: patient Mode of arrival: wheelchair Limitations: no limitations <Dina Moulton - Last Filed: 11/04/19 00:27> <Alessio Pryorah Kevin - Last Filed: 11/05/19 23:14> - General Chief Complaint: Seizure Stated Complaint: Seizure Time Seen by Provider: 11/03/19 21:52 - History of Present Illness Initial Comments: 43yo presenting for seizure. States she had another break through seizure after leaving hospital AMA. She states she doesnt feel she needs to be inpatient. She states she hasnt increased her keppra as instructed by her PCP and feels this in combination with occasional drinking has caused the break through seizures. Denies new features of seizures, states they are head to toe shaking. Denies chst pain, SOB. Denies any DOE, nausea, vomiting. Denies weakness of the UE or LE. States denies shoulder pain. But states she did hit her head, back. She states she simply wants to be evaluated for fall and go home. NO additional complaints. Upon arrival patient appears well there is no signs of acute distress. (Dina Moulton) - Related Data Home Medications Medication Instructions Recorded Confirmed amLODIPine [Norvasc] 10 mg PO DAILY 12/19/17 11/02/19 ALPRAZolam [Xanax] 1 mg PO TID PRN 09/26/19 11/02/19 Acetaminophen Tab [Tylenol] 325 mg PO DAILY PRN 09/26/19 11/02/19 Albuterol Inhaler [Ventolin Hfa 2 puff INHALATION RT-Q4H PRN 09/26/19 11/02/19 Inhaler] Ergocalciferol [Vitamin D2 50,000 unit PO Q28D 09/26/19 11/02/19 (DRISDOL)] Lisinopril 40 mg PO DAILY 09/26/19 11/02/19 Potassium Chloride ER [K-Dur 20] 20 meq PO DAILY 09/26/19 11/02/19 Doxycycline Hyclate 100 mg PO BID 11/02/19 11/02/19 Hydrochlorothiazide 50 mg PO DAILY 11/02/19 11/02/19 Mometasone Furoate [Elocon 1 applic TOPICAL BID 11/02/19 11/02/19 Ointment] Polyethylene Glycol 3350 [Miralax] 17 gm PO DIRECTED PRN 11/02/19 11/02/19 metroNIDAZOLE [Flagyl] 500 mg PO BID 11/02/19 11/02/19 traZODone HCL [Desyrel] 50 - 100 mg PO HS PRN 11/02/19 11/02/19 Previous Rx's Medication Instructions Recorded Thiamine [Vitamin B-1] 100 mg PO BID-W/MEALS #60 tab 09/30/19 levETIRAcetam [Keppra] 500 mg PO Q12HR #20 tab 09/30/19 Allergies Allergy/AdvReac Type Severity Reaction Status Date / Time shellfish derived [Shellfish] Allergy Unknown Verified 11/03/19 21:45 tramadol Allergy Unknown Verified 11/03/19 21:45 wheat Allergy Unknown Verified 11/03/19 21:45 Review of Systems ROS Other: All systems not noted in ROS Statement are negative. <Dina Moulton - Last Filed: 11/04/19 00:27> ROS Other: All systems not noted in ROS Statement are negative. <Lynn Pryor - Last Filed: 11/05/19 23:14> ROS Statement: Those systems with pertinent positive or pertinent negative responses have been documented in the HPI. Past Medical History Past Medical History: Hypertension, Seizure Disorder Additional Past Medical History / Comment(s): had a seizure a week ago and was seen at [facility] History of Any Multi-Drug Resistant Organisms: None Reported Past Surgical History: No Surgical Hx Reported Past Anesthesia/Blood Transfusion Reactions: No Reported Reaction Past Psychological History: Anxiety Smoking Status: Current every day smoker Past Alcohol Use History: Occasional Past Drug Use History: None Reported <Dina Moulton - Last Filed: 11/04/19 00:27> General Exam Limitations: no limitations <Dina Moulton - Last Filed: 11/04/19 00:27> - General Exam Comments Initial Comments: General: The patient is awake and alert, in no distress Eye: +3 mm pupils are equal, round and reactive to light, extra-ocular movements are intact. No nystagmus. There is normal conjunctiva bilaterally. No signs of icterus. Ears, nose, mouth and throat: There are moist mucous membranes and no oral lesions. Neck: The neck is supple, there is no tenderness or JVD. No midline cervical spine pain.Some midline/ paravertebral tenderness of the thoracic spine. No lumbar pain. Cardiovascular: There is a regular rate and rhythm. No murmur, rub or gallop is appreciated. Respiratory: Lungs are clear to auscultation, respirations are non-labored, breath sounds are equal. No wheezes, stridor, rales, or rhonchi. Gastrointestinal: Soft, non-distended, non-tender abdomen without masses or organomegaly noted. There is no rebound or guarding present. Musculoskeletal: Normal ROM, no tenderness. Strength 5/5. Sensation intact. Radial pulses equal bilaterally 2+. Neurological: A&O x 3. CN II-XII intact, There are no obvious motor or sensory deficits. Coordination appears grossly intact. Speech is normal. Skin: Skin is warm and dry and no rashes or lesions are noted. Psychiatric: Cooperative, appropriate mood & affect, normal judgment. (Dina Moulton) Course Vital Signs 11/03/19 11/03/19 21:42 23:08 Temperature 98.1 F Pulse Rate 111 H 65 Respiratory 14 20 Rate Blood Pressure 137/94 138/75 O2 Sat by Pulse 100 99 Oximetry Medical Decision Making <Dina Moulton - Last Filed: 11/04/19 00:27> <Lynn Pryor - Last Filed: 11/05/19 23:14> - Medical Decision Making CT (-) XR (-) neurovascularly intact. Patient has history of seizures. Denies prolonged seizure this evening. No focal neurological symptoms. I discussed proper dosing keppra importance of neurology f/u. Patient requesting discharge. Discussed case with Dr. Pryor who is agreeable to discharge of patient with PCP f/u. (Dina Moulton) I was available for consultation in the emergency department. The history and physical exam were done by the midlevel provider. I was consulted for this patients care. I reviewed the case with the midlevel provider and based on their presentation of the patient, I agree with the assessment, medical decision making and plan of care as documented. Chart was dictated using Verafin dictation software. Attempts were made to correct any dictation errors however some typographical errors may persist. Patient was seen during a national state of emergency due to the Covid-19 pandemic. (Lynn Pryor) Disposition Is patient prescribed a controlled substance at d/c from ED?: No Time of Disposition: 23:08 <Dina Moulton Ha - Last Filed: 11/04/19 00:27> <Alessio Pryorah Kevin - Last Filed: 11/05/19 23:14> Clinical Impression: Recurrent seizures Disposition: HOME SELF-CARE Condition: Good Instructions (If sedation given, give patient instructions): Recurrent Seizures in Adults (ED) Additional Instructions: Please use medication as discussed. Please follow-up with family doctor in the next 2 days, please follow his initial recommendation of increasing the keppra to 1000mg in the AM and 500mg at night. Refrain from alcohol use. Please follow-up with your neurologist. Please return to emergency room if the symptoms increase or worsen or for any other concerns. Referrals: Lico Bañuelos MD [Primary Care Provider] - 1-2 days Rock Vaughan MD [REFERRING] - 1-2 days
[2019-11-03 23:11] VITALS: BP 138/75; PULSE 65; RESP 20
== END 2019-11-03 23:29 | disposition home or self-care (01) ==
LOC: EC 21:37
DX: G40.909 Epilepsy, unspecified, not intractable, without status epilepticus (principal); I10 Essential (primary) hypertension; F17.200 Nicotine dependence, unspecified, uncomplicated; Z79.52 Long term (current) use of systemic steroids; Z79.899 Other long term (current) drug therapy; Z91.013 Allergy to seafood; Z88.5 Allergy status to narcotic agent; Z91.018 Allergy to other foods
CPT/HCPCS: 70450; 72072; 72125; 99284

== ENCOUNTER → 2019-11-11 | Outpatient (CLI) | payer OTHER ==
--- NOTE | 2019-11-11 15:03 | US ---
EXAMINATION TYPE: US pelvic complete DATE OF EXAM: 11/11/2019 COMPARISON: NONE CLINICAL HISTORY: N81.10 Systolic Cystocele, R10.2 pelvic pain. Pain TECHNIQUE: Transabdominal (TA). Transabdominal sonographic images of the pelvis were acquired. Date of LMP: 10/24/2019 EXAM MEASUREMENTS: Uterus: 15.6 x 10.5 x 9.6 cm Endometrial Stripe: Unable to visualize due to possible leiomyomas. 1. Uterus: Anteverted bulky contour with multiple possible leiomyomas visualized largest measuring 5.6 x 6.4 x 5.9 cm. 2. Endometrium: Not visualized 3. Right Ovary: Obscured by overlying bowel gas 4. Left Ovary: Obscured by overlying bowel gas 5. Bilateral Adnexa: wnl 6. Posterior cul-de-sac: wnl IMPRESSION: Enlarged and lobular contour of the uterus possibly due to multiple leiomyomas although g iven the nonspecific ultrasound findings leiomyosarcoma remains possible. Endometrium and ovaries wer e not visualized.
== END | disposition home or self-care (01) ==
LOC: RADUSWWP 14:27
PROVIDERS: ATTEND Family Medicine
DX: N85.2 Hypertrophy of uterus (principal); Z91.018 Allergy to other foods; Z91.013 Allergy to seafood; Z88.6 Allergy status to analgesic agent
CPT/HCPCS: 76856

== ENCOUNTER 2019-11-21 14:34 | Inpatient (IN) | payer OTHER ==
[2019-11-21] MEDS ORDERED: LORazepam 2 MG/ML INJ IV PRN (15:05)
[2019-11-21] MEDS ORDERED: THIAMINE 100 MG/ML 2 ML VIAL IM STA (15:05)
--- NOTE | 2019-11-21 15:10 | ED ---
Alcohol HPI - General Chief Complaint: Alcohol Stated Complaint: Alcohol Detox Time Seen by Provider: 11/21/19 14:50 Source: patient Mode of arrival: ambulatory Limitations: no limitations - History of Present Illness Initial Comments: Patient is a 43-year-old female with history of alcohol abuse presenting to the emergency department with chief complaint of alcohol intoxication. Patient states she is an occasional binge drinker but about 1.5 weeks ago she was diagnosed with uterine fibroids and there is a possibility for hysterectomy which she is upset about. Patient reports since her diagnosis, she has been drinking more unusual. Patient states drinking about 2 pints of gin daily. States over the last 2 days any time she goes and withdrawal, she continues to drink again and then ends up vomiting. States she went to her PCP, DR cantu, who advised her to come to emergency department for further medical management. Patient does report drinking today as well. States she can feel the withdrawal symptoms are starting to begin. She denies suicidal thoughts or ideations. - Related Data Home Medications Medication Instructions Recorded Confirmed amLODIPine [Norvasc] 10 mg PO DAILY 12/19/17 11/21/19 ALPRAZolam [Xanax] 1 mg PO TID PRN 09/26/19 11/21/19 Acetaminophen Tab [Tylenol] 325 mg PO DAILY PRN 09/26/19 11/21/19 Albuterol Inhaler [Ventolin Hfa 2 puff INHALATION RT-Q4H PRN 09/26/19 11/21/19 Inhaler] Ergocalciferol [Vitamin D2 50,000 unit PO Q28D 09/26/19 11/21/19 (DRISDOL)] Lisinopril 40 mg PO DAILY 09/26/19 11/21/19 Potassium Chloride ER [K-Dur 20] 20 meq PO DAILY 09/26/19 11/21/19 Hydrochlorothiazide 50 mg PO DAILY 11/02/19 11/21/19 Mometasone Furoate [Elocon 1 applic TOPICAL BID 11/02/19 11/21/19 Ointment] Polyethylene Glycol 3350 [Miralax] 17 gm PO DIRECTED PRN 11/02/19 11/21/19 Amitriptyline HCl 50 mg PO HS 11/21/19 11/21/19 busPIRone HCL 15 mg PO TID PRN 11/21/19 11/21/19 traMADol HCL [Ultram] 50 mg PO Q6H PRN 11/21/19 11/21/19 Previous Rx's Medication Instructions Recorded Thiamine [Vitamin B-1] 100 mg PO BID-W/MEALS #60 tab 09/30/19 levETIRAcetam [Keppra] 500 mg PO Q12HR #20 tab 09/30/19 Allergies Allergy/AdvReac Type Severity Reaction Status Date / Time shellfish derived [Shellfish] Allergy Anaphylaxis Verified 11/21/19 16:13 wheat Allergy Anaphylaxis Verified 11/21/19 16:13 tramadol AdvReac Seizure Verified 11/21/19 16:15 Review of Systems ROS Statement: Those systems with pertinent positive or pertinent negative responses have been documented in the HPI. ROS Other: All systems not noted in ROS Statement are negative. Past Medical History Past Medical History: Hypertension, Seizure Disorder Additional Past Medical History / Comment(s): had a seizure a week ago and was seen at [facility] History of Any Multi-Drug Resistant Organisms: None Reported Past Surgical History: No Surgical Hx Reported Past Anesthesia/Blood Transfusion Reactions: No Reported Reaction Past Psychological History: Anxiety Smoking Status: Current every day smoker Past Alcohol Use History: Abuse Past Drug Use History: None Reported General Exam Limitations: no limitations General appearance: alert, in no apparent distress Head exam: Present: atraumatic, normocephalic, normal inspection Eye exam: Present: normal appearance, PERRL, EOMI Pupils: Present: normal accommodation ENT exam: Present: normal exam, normal oropharynx, mucous membranes moist Neck exam: Present: normal inspection, full ROM. Absent: tenderness Respiratory exam: Present: normal lung sounds bilaterally. Absent: respiratory distress, wheezes, rales Cardiovascular Exam: Present: regular rate, normal rhythm, normal heart sounds Extremities exam: Present: normal inspection, full ROM. Absent: tenderness Back exam: Present: normal inspection, full ROM. Absent: tenderness Neurological exam: Present: alert, oriented X3 Psychiatric exam: Present: normal affect, normal mood Skin exam: Present: warm, dry, intact, normal color Course Vital Signs 11/21/19 14:43 Temperature 98.2 F Pulse Rate 116 H Respiratory 18 Rate Blood Pressure 160/99 O2 Sat by Pulse 98 Oximetry Medical Decision Making - Medical Decision Making Patient is a 43-year-old female with history of alcohol abuse presenting to the emergency room with a chief complaint of alcohol intoxication. Patient is alert and oriented in the emergency department. She has a serum alcohol level of 0.220. Mild hypokalemia 3.2. Magnesium pending. Mild elevation in lipase. Patient started on banana bag. LUZMA assessed. Ativan protocol. Patient will be admitted for alcohol intoxication. Case discussed with Dr. Khan. Admitted physician is - Lab Data Result diagrams: 11/21/19 15:05 11/21/19 15:05 Lab Results 11/21/19 11/21/19 11/21/19 Range/Units 15:05 15:05 15:05 WBC 5.1 (3.8-10.6) k/uL RBC 4.33 (3.80-5.40) m/uL Hgb 10.6 L (11.4-16.0) gm/dL Hct 34.4 (34.0-46.0) % MCV 79.5 L (80.0-100.0) fL MCH 24.4 L (25.0-35.0) pg MCHC 30.7 L (31.0-37.0) g/dL RDW 17.5 H (11.5-15.5) % Plt Count 232 (150-450) k/uL Neutrophils % 71 % Lymphocytes % 20 % Monocytes % 5 % Eosinophils % 2 % Basophils % 0 % Neutrophils # 3.6 (1.3-7.7) k/uL Lymphocytes # 1.0 (1.0-4.8) k/uL Monocytes # 0.2 (0-1.0) k/uL Eosinophils # 0.1 (0-0.7) k/uL Basophils # 0.0 (0-0.2) k/uL Hypochromasia Slight Anisocytosis Slight Microcytosis Slight PT 10.3 (9.0-12.0) sec INR 1.0 (<1.2) Sodium 138 (137-145) mmol/L Potassium 3.2 L (3.5-5.1) mmol/L Chloride 99 (98-107) mmol/L Carbon Dioxide 22 (22-30) mmol/L Anion Gap 17 mmol/L BUN 5 L (7-17) mg/dL Creatinine 0.58 (0.52-1.04) mg/dL Est GFR (CKD-EPI)AfAm >90 (>60 ml/min/1.73 sqM) Est GFR (CKD-EPI)NonAf >90 (>60 ml/min/1.73 sqM) Glucose 72 L (74-99) mg/dL Calcium 8.7 (8.4-10.2) mg/dL Magnesium (1.6-2.3) mg/dL Total Bilirubin 0.5 (0.2-1.3) mg/dL AST 178 H (14-36) U/L ALT 85 H (4-34) U/L Alkaline Phosphatase 80 (38-126) U/L Total Protein 7.8 (6.3-8.2) g/dL Albumin 4.6 (3.5-5.0) g/dL Lipase 492 H (23-300) U/L Serum Alcohol 220 H* mg/dL / Range/Units 15:05 WBC (3.8-10.6) k/uL RBC (3.80-5.40) m/uL Hgb (11.4-16.0) gm/dL Hct (34.0-46.0) % MCV (80.0-100.0) fL MCH (25.0-35.0) pg MCHC (31.0-37.0) g/dL RDW (11.5-15.5) % Plt Count (150-450) k/uL Neutrophils % % Lymphocytes % % Monocytes % % Eosinophils % % Basophils % % Neutrophils # (1.3-7.7) k/uL Lymphocytes # (1.0-4.8) k/uL Monocytes # (0-1.0) k/uL Eosinophils # (0-0.7) k/uL Basophils # (0-0.2) k/uL Hypochromasia Anisocytosis Microcytosis PT (9.0-12.0) sec INR (<1.2) Sodium (137-145) mmol/L Potassium (3.5-5.1) mmol/L Chloride (98-107) mmol/L Carbon Dioxide (22-30) mmol/L Anion Gap mmol/L BUN (7-17) mg/dL Creatinine (0.52-1.04) mg/dL Est GFR (CKD-EPI)AfAm (>60 ml/min/1.73 sqM) Est GFR (CKD-EPI)NonAf (>60 ml/min/1.73 sqM) Glucose (74-99) mg/dL Calcium (8.4-10.2) mg/dL Magnesium 1.6 (1.6-2.3) mg/dL Total Bilirubin (0.2-1.3) mg/dL AST (14-36) U/L ALT (4-34) U/L Alkaline Phosphatase (38-126) U/L Total Protein (6.3-8.2) g/dL Albumin (3.5-5.0) g/dL Lipase (23-300) U/L Serum Alcohol mg/dL Disposition Clinical Impression: Alcohol intoxication Disposition: ADMITTED IP TO THIS HOSP Condition: Stable Instructions (If sedation given, give patient instructions): Alcohol Withdrawal (ED) Additional Instructions: Patient will be admitted Is patient prescribed a controlled substance at d/c from ED?: No Referrals: Lico Cantu MD [Primary Care Provider] - 1-2 days Time of Disposition: 16:31
[2019-11-21] MEDS: LORazepam 2 MG/ML INJ IV PRN ×4 (15:27→22:56)
[2019-11-21 15:47] LABS: ALT 85 U/L (4-34); AST 178 U/L (14-36); African American GFR (CKD) >90 (>60 ml/min/1.73 sqM); Albumin 4.6 g/dL (3.5-5.0); Alkaline Phosphatase 80 U/L (38-126); Anion Gap 17 mmol/L; Blood Urea Nitrogen 5 mg/dL (7-17); Calcium 8.7 mg/dL (8.4-10.2); Carbon Dioxide 22 mmol/L (22-30); Chloride 99 mmol/L (98-107); Glucose 72 mg/dL (74-99); Non-African American GFR(CKD) >90 (>60 ml/min/1.73 sqM); Potassium 3.2 mmol/L (3.5-5.1); Sodium 138 mmol/L (137-145); Total Bilirubin 0.5 mg/dL (0.2-1.3); Total Protein 7.8 g/dL (6.3-8.2)
[2019-11-21 15:54] LABS: Prothrombin Time 10.3 sec (9.0-12.0)
[2019-11-21 15:58] LABS: Anisocytosis Slight; Basophils % (A) 0 %; Eosinophils # (A) 0.1 k/uL (0-0.7); Eosinophils % (A) 2 %; HCT 34.4 % (34.0-46.0); HGB 10.6 gm/dL (11.4-16.0); Hypochromasia Slight; Lymphocytes % (A) 20 %; MCH 24.4 pg (25.0-35.0); MCHC 30.7 g/dL (31.0-37.0); MCV 79.5 fL (80.0-100.0); Mean Platelet Volume 7.8; Microcytosis Slight; Monocytes # (A) 0.2 k/uL (0-1.0); Monocytes % (A) 5 %; Neutrophils # (A) 3.6 k/uL (1.3-7.7); Neutrophils % (A) 71 %; Platelet Count 232 k/uL (150-450); RBC 4.33 m/uL (3.80-5.40); RDW 17.5 % (11.5-15.5); WBC 5.1 k/uL (3.8-10.6)
[2019-11-21 16:02] LABS: Alcohol 220 mg/dL
[2019-11-21] MEDS ORDERED: POTASSIUM CHLORIDE ER 20 MEQ TAB.ER PO STA (16:11)
[2019-11-21] MEDS ORDERED: NALOXONE 0.4 MG/ML 1 ML VIAL IV PRN (16:42)
[2019-11-21] MEDS ORDERED: ONDANSETRON 4 MG/2 ML VIAL IVP PRN (16:42)
[2019-11-21] MEDS ORDERED: ALPRAZolam 0.25 MG TAB PO PRN (16:42)
[2019-11-21] MEDS ORDERED: amLODIPine 10 MG TAB PO STA (16:53)
[2019-11-21] MEDS ORDERED: LISINOPRIL 20 MG TAB PO STA (16:53)
[2019-11-21] MEDS ORDERED: POLYETHYLENE GLYCOL 3350 17 GM POWD.PACK PO PRN (19:32)
[2019-11-21] MEDS ORDERED: traMADol 50 MG TAB PO PRN (19:32)
[2019-11-21] MEDS ORDERED: ALBUTEROL HFA INHALER INHALATION PRN (19:32)
[2019-11-21] MEDS ORDERED: TRIAMCINOLONE 0.1% CREAM 80 GM TUBE TOPICAL PRN (19:34)
[2019-11-21] MEDS: AMITRIPTYLINE HCL 50 MG TAB PO SCH (21:09)
[2019-11-21] MEDS: levETIRAcetam 500 MG TAB PO SCH (21:09)
[2019-11-21] MEDS: 0.9% NACL WITH KCL 20 MEQ/L 1,000 ML with MVI, ADULT NO.4 WITH VIT K 10 ML, THIAMINE 10... IV SCH ×4 (21:33)
[2019-11-21] MEDS: ACETAMINOPHEN TAB 325 MG TAB PO PRN (23:00)
[2019-11-22] MEDS: LORazepam 2 MG/ML INJ IV PRN ×6 (02:01→20:35)
[2019-11-22] MEDS: ACETAMINOPHEN TAB 325 MG TAB PO PRN (04:30)
[2019-11-22] MEDS ORDERED: THIAMINE 100 MG TAB PO SCH (07:30)
[2019-11-22] MEDS: THIAMINE 100 MG TAB PO SCH ×2 (08:16→17:35)
[2019-11-22] MEDS: levETIRAcetam 500 MG TAB PO SCH ×2 (08:16→20:14)
[2019-11-22] MEDS ORDERED: LISINOPRIL 20 MG TAB PO SCH (09:00)
[2019-11-22] MEDS ORDERED: amLODIPine 10 MG TAB PO SCH (09:00)
[2019-11-22] MEDS ORDERED: HYDROCHLOROTHIAZIDE 50 MG TAB PO SCH (09:00)
[2019-11-22] MEDS ORDERED: POTASSIUM CHLORIDE ER 20 MEQ TAB.ER PO SCH (09:00)
--- NOTE | 2019-11-22 16:43 | HP ---
HISTORY AND PHYSICAL CHIEF COMPLAINT: Acute alcohol intoxication and chronic alcoholism with impending DTs. HISTORY OF PRESENT ILLNESS: This is another admission this 43-year-old -Citizen Of [place] female who has been a very heavy drinker. She has also had some emotional problems. She recently has been having a lot of lower abdominal pain which has been determined to be due to a large of fibroid. She uses the fibroid pain as another excuse to drink alcohol. She was in the office and requested admission for detox. REVIEW OF SYSTEMS: She has not had any diplopia, seizures, blackouts, chest pain, shortness of breath, abdominal pain, jaundice, hematemesis, melena, hematochezia, renal failure, hematuria, frequency, urgency, dysuria, diabetes, etc. She does have a seizure disorder. Past medical history, family history, and personal and social histories are otherwise unremarkable except for the medications that she has been on. She is ALLERGIC TO ULTRAM, which caused her to have a seizure. She is on Vicodin 5 one a day p.r.n., amitriptyline 50 mg at bedtime, BuSpar 15 mg t.i.d., Diflucan 150 mg once a day for one day, Flagyl 500 mg twice a day, MiraLAX, Keppra 500 mg twice a day, amlodipine 10 mg once a day, lisinopril 40 mg once a day, KCl 20 mEq once a day. The remainder of her past history is unremarkable except for her drinking history. She also does smoke. She is unemployed. PHYSICAL EXAMINATION: Blood pressure 142/90 with a pulse of 100, respirations of 35, and she is afebrile. In general she appeared to be in no acute distress. Skin was dry. Head, ears, eyes, nose, mouth and throat were normal. There is no icterus. Neck veins were not distended. Chest was clear to auscultation. Cardiac exam demonstrated normal sinus rhythm with tachycardia. Abdomen is soft, nontender without visceromegaly or masses. Bowel sounds are present. Extremities are normal. Neurologically she is intact. She is admitted to the hospital with diagnoses: 1. Acute alcohol intoxication. 2. Chronic alcoholism. 3. Impending delirium tremens. 4. History of seizure disorder. 5. Hypertension. PLAN: 1. Bed rest. 2. IV fluids. 3. CIWA protocol. MMODL / IJN: [id number] /
--- NOTE | 2019-11-22 16:47 | PN ---
PROGRESS NOTE CHIEF COMPLAINT: Acute alcohol intoxication. HISTORY OF PRESENT ILLNESS: This lady is still lethargic and still intoxicated. She is still complaining of her lower abdominal pain. PHYSICAL EXAMINATION: Vital signs are normal. Chest is clear. Cardiac exam is normal and the abdomen is soft and tender over the suprapubic area. IMPRESSION: 1. Acute alcohol intoxication. 2. Delirium tremens. 3. Chronic alcoholism. 4. Large fibroid uterus. PLAN: Continue with [facility] protocol. DARRYL / ZOEN: [id number] /
[2019-11-22] MEDS: AMITRIPTYLINE HCL 50 MG TAB PO SCH (20:14)
[2019-11-22 20:29] VITALS: BP 110/68; PULSE 95; RESP 14; TEMP 97.1
[2019-11-22] MEDS: 0.9% NACL WITH KCL 20 MEQ/L 1,000 ML with MVI, ADULT NO.4 WITH VIT K 10 ML, THIAMINE 10... IV SCH ×4 (22:04)
--- NOTE | 2019-11-23 10:02 | DS ---
DISCHARGE SUMMARY CHIEF COMPLAINT: Acute alcohol intoxication, impending DTs. HISTORY OF PRESENT ILLNESS AND PHYSICAL EXAM: Details of this lady's history and physical can be found in the initial workup. LABORATORY STUDIES: While she was in the hospital, she had laboratory studies, details of which can be found in the laboratory section of her chart. COURSE IN HOSPITAL: After admission, she was placed on bedrest, started on intravenous fluids and CIWA protocol. She seemed to be stable, doing well, then she suddenly signed herself out AGAINST MEDICAL ADVICE late in the evening on the . FINAL DIAGNOSES: 1. Acute alcohol intoxication. 2. Chronic alcoholism. 3. Impending DTs. 4. Uterine fibroid. OPERATIONS: None. CONSULTATION: None. MMODL / IJN: [id number] /
== END 2019-11-22 23:36 | disposition left against medical advice (07) | DRG 894 ==
LOC: EC 14:34 → 5NMEDONC 16:26
PROVIDERS: ADMIT Family Medicine; ATTEND Family Medicine
DX: F10.231 Alcohol dependence with withdrawal delirium (principal); F17.200 Nicotine dependence, unspecified, uncomplicated; G40.909 Epilepsy, unspecified, not intractable, without status epilepticus; I10 Essential (primary) hypertension; E87.6 Hypokalemia; D25.9 Leiomyoma of uterus, unspecified; F41.9 Anxiety disorder, unspecified; Y90.7 Blood alcohol level of 200-239 mg/100 ml; Z90.710 Acquired absence of both cervix and uterus; Z11.59 Encounter for screening for other viral diseases; Z79.899 Other long term (current) drug therapy; Z88.5 Allergy status to narcotic agent; Z91.013 Allergy to seafood; Z91.018 Allergy to other foods
CPT/HCPCS: 36415; 80053; 80320; 83690; 83735; 85025; 85610; 96372; 96374; 99284

== ENCOUNTER 2019-11-25 23:44 | Emergency (ER) | payer OTHER ==
[2019-11-26] MEDS ORDERED: levETIRAcetam 500 MG TAB PO STA (00:15)
[2019-11-26] MEDS ORDERED: IBUPROFEN 600 MG TAB PO STA (00:22)
--- NOTE | 2019-11-26 00:23 | ED ---
Seizure HPI - General Chief Complaint: Seizure Stated Complaint: Seizure Time Seen by Provider: 11/26/19 00:11 Source: patient Mode of arrival: ambulatory Limitations: no limitations - History of Present Illness Initial Comments: This patient is a 43-year-old woman who presents to be evaluated after she had a seizure. The patient was diagnosed with seizure disorder approximately 2 months ago. She was prescribed Keppra but has not been taking the medication. She states she also did not have the neurology follow-up yet. Patient had a seizure tonight and states that during seizure she had bitten the right side of her tongue and also her lower lip. She denies any other injury. MD Complaint: seizure Onset/Timin -: hour(s) Description of Episode: loss of consciousness, tonic-clonic movement -: second(s) Trauma: No Seizure History: known seizure disorder Place: home Possible Precipitating Event: none Associated Symptoms: denies other symptoms - Related Data Home Medications Medication Instructions Recorded Confirmed amLODIPine [Norvasc] 10 mg PO DAILY 12/19/17 11/21/19 ALPRAZolam [Xanax] 1 mg PO TID PRN 09/26/19 11/21/19 Acetaminophen Tab [Tylenol] 325 mg PO DAILY PRN 09/26/19 11/21/19 Albuterol Inhaler [Ventolin Hfa 2 puff INHALATION RT-Q4H PRN 09/26/19 11/21/19 Inhaler] Ergocalciferol [Vitamin D2 50,000 unit PO Q28D 09/26/19 11/21/19 (DRISDOL)] Lisinopril 40 mg PO DAILY 09/26/19 11/21/19 Potassium Chloride ER [K-Dur 20] 20 meq PO DAILY 09/26/19 11/21/19 Hydrochlorothiazide 50 mg PO DAILY 11/02/19 11/21/19 Mometasone Furoate [Elocon 1 applic TOPICAL BID 11/02/19 11/21/19 Ointment] Polyethylene Glycol 3350 [Miralax] 17 gm PO DIRECTED PRN 11/02/19 11/21/19 Amitriptyline HCl 50 mg PO HS 11/21/19 11/21/19 busPIRone HCL 15 mg PO TID PRN 11/21/19 11/21/19 traMADol HCL [Ultram] 50 mg PO Q6H PRN 11/21/19 11/21/19 Previous Rx's Medication Instructions Recorded Thiamine [Vitamin B-1] 100 mg PO BID-W/MEALS #60 tab 09/30/19 levETIRAcetam [Keppra] 500 mg PO Q12HR #20 tab 09/30/19 levETIRAcetam [Keppra] 500 mg PO Q12HR #30 tab 11/26/19 Allergies Allergy/AdvReac Type Severity Reaction Status Date / Time shellfish derived [Shellfish] Allergy Anaphylaxis Verified 11/25/19 23:58 wheat Allergy Anaphylaxis Verified 11/25/19 23:58 tramadol AdvReac Seizure Verified 11/25/19 23:58 Review of Systems ROS Statement: Those systems with pertinent positive or pertinent negative responses have been documented in the HPI. ROS Other: All systems not noted in ROS Statement are negative. Constitutional: Denies: fever, chills Respiratory: Denies: cough, dyspnea Cardiovascular: Denies: chest pain, palpitations, syncope Gastrointestinal: Denies: abdominal pain, vomiting, diarrhea Genitourinary: Denies: dysuria, hematuria Musculoskeletal: Denies: back pain Skin: Denies: rash Neurological: Denies: headache, weakness, numbness, paresthesias Past Medical History Past Medical History: Hypertension, Seizure Disorder Additional Past Medical History / Comment(s): had a seizure approx 2 weeks ago History of Any Multi-Drug Resistant Organisms: None Reported Past Surgical History: Tubal Ligation Past Anesthesia/Blood Transfusion Reactions: No Reported Reaction Past Psychological History: Anxiety Smoking Status: Current some day smoker Past Alcohol Use History: Abuse Past Drug Use History: None Reported General Exam Limitations: no limitations General appearance: alert, in no apparent distress Head exam: Present: atraumatic, normocephalic Eye exam: Present: normal appearance. Absent: scleral icterus, conjunctival injection ENT exam: Present: other (Contusion and swelling of the right portion of the lower lip. There is abrasion and swelling to the right margin of the tongue.) Neck exam: Present: normal inspection, full ROM Respiratory exam: Present: normal lung sounds bilaterally. Absent: respiratory distress, wheezes, rales, rhonchi, stridor Cardiovascular Exam: Present: regular rate, normal rhythm, normal heart sounds. Absent: systolic murmur, diastolic murmur, rubs, gallop GI/Abdominal exam: Present: soft. Absent: distended, tenderness, guarding, rebound, rigid Extremities exam: Present: normal inspection, normal capillary refill. Absent: pedal edema Back exam: Present: normal inspection. Absent: CVA tenderness (R), CVA tenderness (L), vertebral tenderness Neurological exam: Present: alert, oriented X3, CN II-XII intact. Absent: motor sensory deficit Skin exam: Present: warm, dry, intact, normal color. Absent: rash Course Vital Signs 11/25/19 11/26/19 11/26/19 23:53 00:18 01:13 Temperature 98.1 F 99.2 F 98.7 F Pulse Rate 98 89 89 Respiratory 18 15 19 Rate Blood Pressure 134/91 136/92 O2 Sat by Pulse 98 100 100 Oximetry Medical Decision Making - Lab Data Result diagrams: 11/26/19 00:15 11/26/19 00:15 Lab Results 11/26/19 11/26/19 Range/Units 00:15 00:15 WBC 6.8 (3.8-10.6) k/uL RBC 3.98 (3.80-5.40) m/uL Hgb 10.0 L (11.4-16.0) gm/dL Hct 32.9 L (34.0-46.0) % MCV 82.5 (80.0-100.0) fL MCH 25.0 (25.0-35.0) pg MCHC 30.3 L (31.0-37.0) g/dL RDW 17.9 H (11.5-15.5) % Plt Count 182 (150-450) k/uL Neutrophils % 80 % Lymphocytes % 12 % Monocytes % 5 % Eosinophils % 2 % Basophils % 0 % Neutrophils # 5.5 (1.3-7.7) k/uL Lymphocytes # 0.8 L (1.0-4.8) k/uL Monocytes # 0.3 (0-1.0) k/uL Eosinophils # 0.1 (0-0.7) k/uL Basophils # 0.0 (0-0.2) k/uL Hypochromasia Marked Anisocytosis Slight Sodium 135 L (137-145) mmol/L Potassium 3.8 (3.5-5.1) mmol/L Chloride 101 (98-107) mmol/L Carbon Dioxide 25 (22-30) mmol/L Anion Gap 9 mmol/L BUN 12 (7-17) mg/dL Creatinine 0.64 (0.52-1.04) mg/dL Est GFR (CKD-EPI)AfAm >90 (>60 ml/min/1.73 sqM) Est GFR (CKD-EPI)NonAf >90 (>60 ml/min/1.73 sqM) Glucose 129 H (74-99) mg/dL Calcium 10.0 (8.4-10.2) mg/dL Total Bilirubin 0.3 (0.2-1.3) mg/dL AST 83 H (14-36) U/L ALT 62 H (4-34) U/L Alkaline Phosphatase 52 (38-126) U/L Total Protein 7.5 (6.3-8.2) g/dL Albumin 4.3 (3.5-5.0) g/dL Disposition Clinical Impression: Recurrent seizures Disposition: HOME SELF-CARE Condition: Good Instructions (If sedation given, give patient instructions): Recurrent Seizures in Adults (ED) Prescriptions: levETIRAcetam [Keppra] 500 mg PO Q12HR #30 tab Is patient prescribed a controlled substance at d/c from ED?: No Referrals: Lico Bañuelos MD [Primary Care Provider] - 1-2 days Rock Vaughan MD [REFERRING] - 1-2 days
[2019-11-26 00:43] LABS: Anisocytosis Slight; Basophils % (A) 0 %; Eosinophils # (A) 0.1 k/uL (0-0.7); Eosinophils % (A) 2 %; HCT 32.9 % (34.0-46.0); Hypochromasia Marked; Lymphocytes # (A) 0.8 k/uL (1.0-4.8); Lymphocytes % (A) 12 %; MCHC 30.3 g/dL (31.0-37.0); MCV 82.5 fL (80.0-100.0); Mean Platelet Volume 7.9; Monocytes # (A) 0.3 k/uL (0-1.0); Monocytes % (A) 5 %; Neutrophils # (A) 5.5 k/uL (1.3-7.7); Neutrophils % (A) 80 %; Platelet Count 182 k/uL (150-450); RBC 3.98 m/uL (3.80-5.40); RDW 17.9 % (11.5-15.5); WBC 6.8 k/uL (3.8-10.6)
[2019-11-26 00:51] LABS: ALT 62 U/L (4-34); AST 83 U/L (14-36); African American GFR (CKD) >90 (>60 ml/min/1.73 sqM); Albumin 4.3 g/dL (3.5-5.0); Alkaline Phosphatase 52 U/L (38-126); Anion Gap 9 mmol/L; Blood Urea Nitrogen 12 mg/dL (7-17); Carbon Dioxide 25 mmol/L (22-30); Chloride 101 mmol/L (98-107); Glucose 129 mg/dL (74-99); Non-African American GFR(CKD) >90 (>60 ml/min/1.73 sqM); Potassium 3.8 mmol/L (3.5-5.1); Sodium 135 mmol/L (137-145); Total Bilirubin 0.3 mg/dL (0.2-1.3); Total Protein 7.5 g/dL (6.3-8.2)
[2019-11-26 01:15] VITALS: RESP 19
[2019-11-26] MEDS ORDERED: ACET/COD 300 MG/30 MG STARTER PACK 6 TAB BTL PO STA (02:29)
[2019-11-26 02:53] VITALS: BP 136/88; PULSE 84; TEMP 98.6
== END 2019-11-26 02:52 | disposition home or self-care (01) ==
LOC: EC 23:44
DX: G40.909 Epilepsy, unspecified, not intractable, without status epilepticus (principal); I10 Essential (primary) hypertension; F41.9 Anxiety disorder, unspecified; F17.200 Nicotine dependence, unspecified, uncomplicated; Z79.52 Long term (current) use of systemic steroids; Z79.899 Other long term (current) drug therapy; Z88.5 Allergy status to narcotic agent; Z91.018 Allergy to other foods; Z91.013 Allergy to seafood
CPT/HCPCS: 36415; 80053; 80177; 85025; 99284

== ENCOUNTER 2020-01-09 00:34 | Emergency (ER) | payer OTHER ==
[2020-01-09 00:40] VITALS: TEMP 98.5
[2020-01-09] MEDS ORDERED: SODIUM CHLORIDE 0.9% 1,000 ML IV ONE (01:03)
[2020-01-09] MEDS ORDERED: LORazepam 2 MG/ML INJ IV STA (01:03)
[2020-01-09] MEDS ORDERED: MORPHINE SULFATE 4 MG/ML SYRINGE IV STA ×2 (01:03→02:22)
--- NOTE | 2020-01-09 01:30 | ED ---
Abdominal Pain HPI - General Chief Complaint: Abdominal Pain Stated Complaint: abd pain Time Seen by Provider: 01/09/20 00:38 Source: patient, EMS Mode of arrival: EMS Limitations: no limitations - History of Present Illness Initial Comments: This patient is a 44-year-old woman with a large uterine fibroids who presents for an exacerbation of the pain she has been having related to the knees. Patient states that she is scheduled to have surgery towards the end of this month with Dr. Burton, over at [facility]. Patient states that the fibroid pain seems to be much worse tonight and she is concerned that something else may be going on. She states that she did have a bit of gin tonight but that has not relieved the pain. No change in urination or bowel movements. No vomiting. MD Complaint: abdominal pain -: week(s) Location: LLQ, RLQ Radiation: none Migration to: no migration Severity: severe Quality: cramping, aching Consistency: intermittent Improves With: nothing Worsens With: nothing Associated Symptoms: denies other symptoms - Related Data Home Medications Medication Instructions Recorded Confirmed amLODIPine [Norvasc] 10 mg PO DAILY 12/19/17 11/21/19 ALPRAZolam [Xanax] 1 mg PO TID PRN 09/26/19 11/21/19 Acetaminophen Tab [Tylenol] 325 mg PO DAILY PRN 09/26/19 11/21/19 Albuterol Inhaler [Ventolin Hfa 2 puff INHALATION RT-Q4H PRN 09/26/19 11/21/19 Inhaler] Ergocalciferol [Vitamin D2 50,000 unit PO Q28D 09/26/19 11/21/19 (DRISDOL)] Potassium Chloride ER [K-Dur 20] 20 meq PO DAILY 09/26/19 11/21/19 lisinopriL 40 mg PO DAILY 09/26/19 11/21/19 Mometasone Furoate [Elocon 1 applic TOPICAL BID 11/02/19 11/21/19 Ointment] Polyethylene Glycol 3350 [Miralax] 17 gm PO DIRECTED PRN 11/02/19 11/21/19 hydroCHLOROthiazide 50 mg PO DAILY 11/02/19 11/21/19 Amitriptyline HCl 50 mg PO HS 11/21/19 11/21/19 busPIRone HCL 15 mg PO TID PRN 11/21/19 11/21/19 traMADol HCL [Ultram] 50 mg PO Q6H PRN 11/21/19 11/21/19 Previous Rx's Medication Instructions Recorded Thiamine [Vitamin B-1] 100 mg PO BID-W/MEALS #60 tab 09/30/19 levETIRAcetam [Keppra] 500 mg PO Q12HR #20 tab 09/30/19 levETIRAcetam [Keppra] 500 mg PO Q12HR #30 tab 11/26/19 Hydrocodone/Acetaminophen [[place] 1 each PO Q6HR PRN #20 tab 01/09/20 5-325] Allergies Allergy/AdvReac Type Severity Reaction Status Date / Time shellfish derived [Shellfish] Allergy Anaphylaxis Verified 01/09/20 00:41 wheat Allergy Anaphylaxis Verified 01/09/20 00:41 tramadol AdvReac Seizure Verified 01/09/20 00:41 Review of Systems ROS Statement: Those systems with pertinent positive or pertinent negative responses have been documented in the HPI. ROS Other: All systems not noted in ROS Statement are negative. Constitutional: Denies: fever, chills Respiratory: Denies: cough, dyspnea Cardiovascular: Denies: chest pain, palpitations, edema Gastrointestinal: Reports: as per HPI, abdominal pain. Denies: nausea, vomiting, diarrhea, constipation, melena, hematochezia Genitourinary: Reports: abnormal menses. Denies: dysuria, hematuria, discharge Musculoskeletal: Denies: back pain Skin: Denies: rash Neurological: Denies: headache Hematological/Lymphatic: Denies: easy bleeding Past Medical History Past Medical History: Hypertension, Seizure Disorder Additional Past Medical History / Comment(s): had a seizure approx 2 weeks ago History of Any Multi-Drug Resistant Organisms: None Reported Past Surgical History: Tubal Ligation Past Anesthesia/Blood Transfusion Reactions: No Reported Reaction Past Psychological History: Anxiety Past Alcohol Use History: Abuse Past Drug Use History: None Reported General Exam Limitations: no limitations General appearance: alert, in no apparent distress Head exam: Present: atraumatic, normocephalic Eye exam: Present: normal appearance. Absent: scleral icterus, conjunctival in jection Neck exam: Present: normal inspection Respiratory exam: Present: normal lung sounds bilaterally. Absent: respiratory distress, wheezes, rales, rhonchi, stridor Cardiovascular Exam: Present: regular rate, normal rhythm, normal heart sounds. Absent: systolic murmur, diastolic murmur, rubs, gallop GI/Abdominal exam: Present: soft, normal bowel sounds. Absent: distended, tenderness, guarding, rebound, rigid, mass, pulsatile mass, hernia Extremities exam: Present: normal inspection, normal capillary refill. Absent: pedal edema, calf tenderness Back exam: Present: normal inspection. Absent: CVA tenderness (R), CVA tenderness (L) Neurological exam: Present: alert Skin exam: Present: warm, dry, intact, normal color. Absent: rash Course Vital Signs 01/09/20 01/09/20 01/09/20 00:36 02:44 03:32 Temperature 98.5 F Pulse Rate 130 H 110 H 101 H Respiratory 20 18 Rate Blood Pressure 149/111 137/95 O2 Sat by Pulse 96 97 100 Oximetry Medical Decision Making - Medical Decision Making Patient is 44-year-old woman with exacerbation of chronic pelvic pain. Workup does not reveal torsion. The patient has had good relief of symptoms with medication here. I will add hydrocodone to the management regimen. Discussed return parameters and the patient is to follow-up with Dr. Burton to see if the date of her surgery may be moved up. - Lab Data Result diagrams: 01/09/20 01:26 01/09/20 01:26 Lab Results 01/09/20 01/09/20 01/09/20 Range/Units 01:26 01:26 01:26 WBC 7.9 (3.8-10.6) k/uL RBC 4.77 (3.80-5.40) m/uL Hgb 11.3 L (11.4-16.0) gm/dL Hct 37.6 (34.0-46.0) % MCV 78.9 L (80.0-100.0) fL MCH 23.7 L (25.0-35.0) pg MCHC 30.0 L (31.0-37.0) g/dL RDW 17.5 H (11.5-15.5) % Plt Count 403 D (150-450) k/uL Neutrophils % 65 % Lymphocytes % 25 % Monocytes % 4 % Eosinophils % 3 % Basophils % 0 % Neutrophils # 5.1 (1.3-7.7) k/uL Lymphocytes # 2.0 (1.0-4.8) k/uL Monocytes # 0.3 (0-1.0) k/uL Eosinophils # 0.2 (0-0.7) k/uL Basophils # 0.0 (0-0.2) k/uL Hypochromasia Marked Anisocytosis Slight Microcytosis Slight Sodium 139 (137-145) mmol/L Potassium 4.9 (3.5-5.1) mmol/L Chloride 108 H (98-107) mmol/L Carbon Dioxide 20 L (22-30) mmol/L Anion Gap 11 mmol/L BUN 11 (7-17) mg/dL Creatinine 0.61 (0.52-1.04) mg/dL Est GFR (CKD-EPI)AfAm >90 (>60 ml/min/1.73 sqM) Est GFR (CKD-EPI)NonAf >90 (>60 ml/min/1.73 sqM) Glucose 108 H (74-99) mg/dL Calcium 10.8 H (8.4-10.2) mg/dL Total Bilirubin 0.5 (0.2-1.3) mg/dL AST 42 H (14-36) U/L ALT 19 (4-34) U/L Alkaline Phosphatase 60 (38-126) U/L Total Protein 8.5 H (6.3-8.2) g/dL Albumin 4.8 (3.5-5.0) g/dL Urine Color Colorless Urine Appearance Clear (Clear) Urine pH 7.0 (5.0-8.0) Ur Specific [place] 1.002 (1.001-1.035) Urine Protein Negative (Negative) Urine Glucose (UA) Negative (Negative) Urine Ketones Negative (Negative) Urine Blood Negative (Negative) Urine Nitrite Negative (Negative) Urine Bilirubin Negative (Negative) Urine Urobilinogen <2.0 (<2.0) mg/dL Ur Leukocyte Esterase Negative (Negative) Urine HCG, Qual (Not Detectd) 01/09/20 Range/Units 01:26 WBC (3.8-10.6) k/uL RBC (3.80-5.40) m/uL Hgb (11.4-16.0) gm/dL Hct (34.0-46.0) % MCV (80.0-100.0) fL MCH (25.0-35.0) pg MCHC (31.0-37.0) g/dL RDW (11.5-15.5) % Plt Count (150-450) k/uL Neutrophils % % Lymphocytes % % Monocytes % % Eosinophils % % Basophils % % Neutrophils # (1.3-7.7) k/uL Lymphocytes # (1.0-4.8) k/uL Monocytes # (0-1.0) k/uL Eosinophils # (0-0.7) k/uL Basophils # (0-0.2) k/uL Hypochromasia Anisocytosis Microcytosis Sodium (137-145) mmol/L Potassium (3.5-5.1) mmol/L Chloride (98-107) mmol/L Carbon Dioxide (22-30) mmol/L Anion Gap mmol/L BUN (7-17) mg/dL Creatinine (0.52-1.04) mg/dL Est GFR (CKD-EPI)AfAm (>60 ml/min/1.73 sqM) Est GFR (CKD-EPI)NonAf (>60 ml/min/1.73 sqM) Glucose (74-99) mg/dL Calcium (8.4-10.2) mg/dL Total Bilirubin (0.2-1.3) mg/dL AST (14-36) U/L ALT (4-34) U/L Alkaline Phosphatase (38-126) U/L Total Protein (6.3-8.2) g/dL Albumin (3.5-5.0) g/dL Urine Color Urine Appearance (Clear) Urine pH (5.0-8.0) Ur Specific [place] (1.001-1.035) Urine Protein (Negative) Urine Glucose (UA) (Negative) Urine Ketones (Negative) Urine Blood (Negative) Urine Nitrite (Negative) Urine Bilirubin (Negative) Urine Urobilinogen (<2.0) mg/dL Ur Leukocyte Esterase (Negative) Urine HCG, Qual Not Detected (Not Detectd) - EKG Data -: EKG Interpreted by [facility] EKG shows normal: sinus rhythm, axis (Normal), intervals (Normal), ST-T waves (Normal) Rate: tachycardia (Rate 118.) Disposition Clinical Impression: Pelvic pain, Fibroid Disposition: HOME SELF-CARE Condition: Good Instructions (If sedation given, give patient instructions): Pelvic Pain in Women (ED) Prescriptions: Hydrocodone/Acetaminophen [[place] 5-325] 1 each PO Q6HR PRN #20 tab PRN Reason: Pain Is patient prescribed a controlled substance at d/c from ED?: Yes When asked, does pt state using other controlled substances?: No If prescribed controlled substance>3 days was MAPS reviewed?: Prescribed <3 Days If opioid is for acute pain is fill amount 7 days or less?: Yes If Rx opioid, was Start Talking consent form obtained?: Yes Referrals: Lico Bañuelos MD [Primary Care Provider] - 1-2 days
[2020-01-09 01:35] LABS: Anisocytosis Slight; Basophils % (A) 0 %; Eosinophils # (A) 0.2 k/uL (0-0.7); Eosinophils % (A) 3 %; HCT 37.6 % (34.0-46.0); HGB 11.3 gm/dL (11.4-16.0); Hypochromasia Marked; Lymphocytes % (A) 25 %; MCH 23.7 pg (25.0-35.0); MCV 78.9 fL (80.0-100.0); Mean Platelet Volume 6.9; Microcytosis Slight; Monocytes # (A) 0.3 k/uL (0-1.0); Monocytes % (A) 4 %; Neutrophils # (A) 5.1 k/uL (1.3-7.7); Neutrophils % (A) 65 %; RBC 4.77 m/uL (3.80-5.40); RDW 17.5 % (11.5-15.5); WBC 7.9 k/uL (3.8-10.6)
[2020-01-09 01:40] LABS: Platelet Count 403 k/uL (150-450)
[2020-01-09 01:43] LABS: ALT 19 U/L (4-34); AST 42 U/L (14-36); African American GFR (CKD) >90 (>60 ml/min/1.73 sqM); Albumin 4.8 g/dL (3.5-5.0); Alkaline Phosphatase 60 U/L (38-126); Anion Gap 11 mmol/L; Blood Urea Nitrogen 11 mg/dL (7-17); Calcium 10.8 mg/dL (8.4-10.2); Carbon Dioxide 20 mmol/L (22-30); Chloride 108 mmol/L (98-107); Glucose 108 mg/dL (74-99); Non-African American GFR(CKD) >90 (>60 ml/min/1.73 sqM); Potassium 4.9 mmol/L (3.5-5.1); Sodium 139 mmol/L (137-145); Total Bilirubin 0.5 mg/dL (0.2-1.3); Total Protein 8.5 g/dL (6.3-8.2)
[2020-01-09 02:00] LABS: Appearance,Urine Clear (Clear); Bilirubin,Urine Negative (Negative); Blood,Urine Negative (Negative); Color,Urine Colorless; Glucose,Urine (UA) Negative (Negative); Ketones,Urine Negative (Negative); Leukocyte Esterase,Urine Negative (Negative); Nitrite,Urine Negative (Negative); Protein,Urine Negative (Negative); Specific Gravity,Urine 1.002 (1.001-1.035); Urobilinogen,Urine <2.0 mg/dL (<2.0)
--- NOTE | 2020-01-09 02:20 | US ---
EXAMINATION TYPE: US transvaginal DATE OF EXAM: 01/09/2020 COMPARISON: US CLINICAL HISTORY: pelvic pain. Pelvic pain since September 04, 2019. . TECHNIQUE: Transvaginal (TV). Date of LMP: Unknown EXAM MEASUREMENTS: Uterus: 9.3 x 9.4 x 6.3 cm. Limited measurement due to masses measured that are mentioned below. Endometrial Stripe: 0.89 cm Right Ovary: 3.6 x 1.9 x 2.4 cm Left Ovary: 2.9 x 1.8 x 1.3 cm 1. Uterus: Retroverted Multiple heterogeneous, solid-appearing areas seen within uterus. Largest 2 m easure- #1 inferior: 6.2 x 6.5 x 7.0 cm. #2 fundal: 3.9 x 4.2 x 3.7 cm. Subcentimeter anechoic area s een in cervix. 2. Endometrium: Measures 0.89 cm. 3. Right Ovary: Measures upper limits of normal. Area of mixed echogenicity and peripheral vasculari ty seen measurin.6 x 1.2 x 1.6 cm. 4. Left Ovary: Follicles seen. Spectral, color and waveform doppler imaging shows arterial and venous flow within the ovaries. 5. Bilateral Adnexa: Appear wnl 6. Posterior cul-de-sac: Appears wnl IMPRESSION: Multiple uterine fibroids. The largest fibroid measures 7 x 6 cm. Normal endometrium. No evidence of ovarian torsion. No solid adnexal mass.
[2020-01-09 02:45] VITALS: BP 137/95; RESP 18
[2020-01-09 03:33] VITALS: PULSE 101
== END 2020-01-09 03:32 | disposition home or self-care (01) ==
LOC: EC 00:34
DX: D25.9 Leiomyoma of uterus, unspecified (principal); F41.9 Anxiety disorder, unspecified; I10 Essential (primary) hypertension; G40.909 Epilepsy, unspecified, not intractable, without status epilepticus; Z79.899 Other long term (current) drug therapy; Z88.6 Allergy status to analgesic agent; Z91.013 Allergy to seafood; Z91.018 Allergy to other foods; Z98.51 Tubal ligation status
CPT/HCPCS: 36415; 93005; 80053; 85025; 81003; 81025; 93975; 76830; 99285; 96374; 96375; 96376; 96361 ×2; J2060; J2270

== ENCOUNTER 2020-02-09 04:18 | Emergency (ER) | payer OTHER ==
[2020-02-09 04:28] VITALS: TEMP 98.1
[2020-02-09] MEDS ORDERED: MORPHINE SULFATE 4 MG/ML SYRINGE IM STA (04:39)
--- NOTE | 2020-02-09 06:24 | ED ---
Abdominal Pain HPI <Emma Duque - Last Filed: 02/09/20 06:27> - General Source: patient, EMS Mode of arrival: EMS - History of Present Illness MD Complaint: abdominal pain -: hour(s) Location: suprapubic ( ) Migration to: no migration Severity: severe Quality: sharp Consistency: intermittent Improves With: nothing Worsens With: nothing Associated Symptoms: denies other symptoms <Blayne Tavarez - Last Filed: 02/13/20 07:06> - General Chief Complaint: Abdominal Pain Stated Complaint: Abdominal Pain Time Seen by Provider: 02/09/20 04:28 - History of Present Illness Initial Comments: This patient is 44-year-old woman who presents to be evaluated for pain along her incision line. The patient did have a hysterectomy recently. He states it feels like a pulling type of pain, sharp, worse when she tries to stand. Patient states that her pain was adequately controlled with the postoperative medication but she has run out of now. No fever or chills. No change in urination or bowel movements. No nausea or vomiting. (lBayne Tavarez) - Related Data Home Medications Medication Instructions Recorded Confirmed amLODIPine [Norvasc] 10 mg PO DAILY 12/19/17 11/21/19 ALPRAZolam [Xanax] 1 mg PO TID PRN 09/26/19 11/21/19 Acetaminophen Tab [Tylenol] 325 mg PO DAILY PRN 09/26/19 11/21/19 Albuterol Inhaler [Ventolin Hfa 2 puff INHALATION RT-Q4H PRN 09/26/19 11/21/19 Inhaler] Ergocalciferol [Vitamin D2 50,000 unit PO Q28D 09/26/19 11/21/19 (DRISDOL)] Potassium Chloride ER [K-Dur 20] 20 meq PO DAILY 09/26/19 11/21/19 lisinopriL 40 mg PO DAILY 09/26/19 11/21/19 Mometasone Furoate [Elocon 1 applic TOPICAL BID 11/02/19 11/21/19 Ointment] Polyethylene Glycol 3350 [Miralax] 17 gm PO DIRECTED PRN 11/02/19 11/21/19 hydroCHLOROthiazide 50 mg PO DAILY 11/02/19 11/21/19 Amitriptyline HCl 50 mg PO HS 11/21/19 11/21/19 busPIRone HCL 15 mg PO TID PRN 11/21/19 11/21/19 traMADol HCL [Ultram] 50 mg PO Q6H PRN 11/21/19 11/21/19 Previous Rx's Medication Instructions Recorded Thiamine [Vitamin B-1] 100 mg PO BID-W/MEALS #60 tab 09/30/19 levETIRAcetam [Keppra] 500 mg PO Q12HR #20 tab 09/30/19 levETIRAcetam [Keppra] 500 mg PO Q12HR #30 tab 11/26/19 Hydrocodone/Acetaminophen [[place] 1 each PO Q6HR PRN #20 tab 01/09/20 5-325] Allergies Allergy/AdvReac Type Severity Reaction Status Date / Time shellfish derived [Shellfish] Allergy Anaphylaxis Verified 02/09/20 04:28 wheat Allergy Anaphylaxis Verified 02/09/20 04:28 tramadol AdvReac Seizure Verified 02/09/20 04:28 Review of Systems ROS Other: All systems not noted in ROS Statement are negative. <Emma Duque - Last Filed: 02/09/20 06:27> ROS Other: All systems not noted in ROS Statement are negative. Constitutional: Denies: fever, chills Respiratory: Denies: cough, dyspnea Cardiovascular: Denies: chest pain, palpitations Gastrointestinal: Reports: as per HPI, abdominal pain. Denies: nausea, vomiting, diarrhea, constipation Genitourinary: Denies: dysuria, frequency, hematuria, discharge Musculoskeletal: Denies: back pain Skin: Denies: rash <Blayne Tavarez - Last Filed: 02/13/20 07:06> ROS Statement: Those systems with pertinent positive or pertinent negative responses have been documented in the HPI. Past Medical History Past Medical History: Hypertension, Seizure Disorder Additional Past Medical History / Comment(s): had a seizure approx 2 weeks ago History of Any Multi-Drug Resistant Organisms: None Reported Past Surgical History: Hysterectomy, Tubal Ligation Past Anesthesia/Blood Transfusion Reactions: No Reported Reaction Past Psychological History: Anxiety Smoking Status: Current every day smoker Past Alcohol Use History: Abuse Past Drug Use History: None Reported <Blayne Tavarez - Last Filed: 02/13/20 07:06> General Exam General appearance: alert, in no apparent distress Head exam: Present: atraumatic, normocephalic Eye exam: Present: normal appearance. Absent: scleral icterus, conjunctival injection Respiratory exam: Present: normal lung sounds bilaterally. Absent: respiratory distress, wheezes, rales, rhonchi, stridor Cardiovascular Exam: Present: regular rate, normal rhythm, normal heart sounds. Absent: systolic murmur, diastolic murmur, rubs, gallop GI/Abdominal exam: Present: soft, normal bowel sounds, other (Patient's surgical incision has normal postoperative appearance. There is no warmth, abnormal erythema, or drainage. No tenderness on the exam.). Absent: distended, tenderness, guarding, rebound, rigid, mass, pulsatile mass, hernia Extremities exam: Present: normal inspection, normal capillary refill. Absent: pedal edema, calf tenderness Neurological exam: Present: alert Skin exam: Present: warm, dry, intact, normal color. Absent: rash <Blayne Tavarez - Last Filed: 02/13/20 07:06> Course Vital Signs 02/09/20 02/09/20 04:21 06:29 Temperature 98.1 F 98.1 F Pulse Rate 107 H 98 Respiratory 19 18 Rate Blood Pressure 153/101 145/94 O2 Sat by Pulse 100 98 Oximetry Disposition Is patient prescribed a controlled substance at d/c from ED?: No <Emma Duque - Last Filed: 02/09/20 06:27> Is patient prescribed a controlled substance at d/c from ED?: No <Blayne Tavarez - Last Filed: 02/13/20 07:06> Clinical Impression: Abdominal pain Disposition: HOME SELF-CARE Condition: Stable Instructions (If sedation given, give patient instructions): Abdominal Pain (ED) Additional Instructions: Return to the ER if symptoms worsen. Follow-up with PCP. Referrals: Lico Bañuelos MD [Primary Care Provider] - 1-2 days
[2020-02-09 07:06] VITALS: BP 145/94; PULSE 98; RESP 18
== END 2020-02-09 06:29 | disposition home or self-care (01) ==
LOC: EC 04:18
DX: R10.9 Unspecified abdominal pain (principal); I10 Essential (primary) hypertension; G40.909 Epilepsy, unspecified, not intractable, without status epilepticus; F41.9 Anxiety disorder, unspecified; F17.200 Nicotine dependence, unspecified, uncomplicated; Z79.899 Other long term (current) drug therapy; Z88.5 Allergy status to narcotic agent; Z91.013 Allergy to seafood; Z91.018 Allergy to other foods; Z90.710 Acquired absence of both cervix and uterus
CPT/HCPCS: 99284; 96372; J2270

== ENCOUNTER 2020-02-25 09:10 | Emergency (ER) | payer OTHER ==
[2020-02-25 09:28] VITALS: RESP 18; TEMP 97.9
--- NOTE | 2020-02-25 09:44 | ED ---
General Adult HPI - General Stated complaint: Fall,Head injury Time Seen by Provider: 02/25/20 09:17 Source: patient, EMS, RN notes reviewed Mode of arrival: EMS Limitations: no limitations - History of Present Illness Initial comments: This a 44-year-old female presents emergency Department chief complaint of a fall. Patient fell down 3 steps her household. She states she was going too fast slipped and fell striking the right side of her head, right shoulder. Patient does admit that she took her Keppra this morning for known seizure disorder and states that she took one half of her Xanax pressure 30 minutes prior. Patient states that she takes is metastatic she also has a history of alcohol abuse. Denies any chest pain or shortness breath no back pain no neck pain currently. She states she is up-to-date on her tetanus. - Related Data Home Medications Medication Instructions Recorded Confirmed amLODIPine [Norvasc] 10 mg PO DAILY 12/19/17 11/21/19 ALPRAZolam [Xanax] 1 mg PO TID PRN 09/26/19 11/21/19 Acetaminophen Tab [Tylenol] 325 mg PO DAILY PRN 09/26/19 11/21/19 Albuterol Inhaler [Ventolin Hfa 2 puff INHALATION RT-Q4H PRN 09/26/19 11/21/19 Inhaler] Ergocalciferol [Vitamin D2 50,000 unit PO Q28D 09/26/19 11/21/19 (DRISDOL)] Potassium Chloride ER [K-Dur 20] 20 meq PO DAILY 09/26/19 11/21/19 lisinopriL 40 mg PO DAILY 09/26/19 11/21/19 Mometasone Furoate [Elocon 1 applic TOPICAL BID 11/02/19 11/21/19 Ointment] Polyethylene Glycol 3350 [Miralax] 17 gm PO DIRECTED PRN 11/02/19 11/21/19 hydroCHLOROthiazide 50 mg PO DAILY 11/02/19 11/21/19 Amitriptyline HCl 50 mg PO HS 11/21/19 11/21/19 busPIRone HCL 15 mg PO TID PRN 11/21/19 11/21/19 traMADol HCL [Ultram] 50 mg PO Q6H PRN 11/21/19 11/21/19 Previous Rx's Medication Instructions Recorded Thiamine [Vitamin B-1] 100 mg PO BID-W/MEALS #60 tab 09/30/19 levETIRAcetam [Keppra] 500 mg PO Q12HR #20 tab 09/30/19 levETIRAcetam [Keppra] 500 mg PO Q12HR #30 tab 11/26/19 Hydrocodone/Acetaminophen [[place] 1 each PO Q6HR PRN #20 tab 01/09/20 5-325] Allergies Allergy/AdvReac Type Severity Reaction Status Date / Time shellfish derived [Shellfish] Allergy Anaphylaxis Verified 02/25/20 09:25 wheat Allergy Anaphylaxis Verified 02/25/20 09:25 tramadol AdvReac Seizure Verified 02/25/20 09:25 Review of Systems ROS Statement: Those systems with pertinent positive or pertinent negative responses have been documented in the HPI. ROS Other: All systems not noted in ROS Statement are negative. Past Medical History Past Medical History: Hypertension, Seizure Disorder Additional Past Medical History / Comment(s): had a seizure approx 2 weeks ago History of Any Multi-Drug Resistant Organisms: None Reported Past Surgical History: Hysterectomy, Tubal Ligation Past Anesthesia/Blood Transfusion Reactions: No Reported Reaction Past Psychological History: Anxiety Smoking Status: Current every day smoker Past Alcohol Use History: Abuse Past Drug Use History: None Reported General Exam General appearance: alert, in no apparent distress Head exam: Present: atraumatic, normocephalic. Absent: normal inspection (Laceration to right parietal scalp region) Eye exam: Present: normal appearance, PERRL, EOMI. Absent: scleral icterus, conjunctival injection, periorbital swelling ENT exam: Present: normal exam, normal oropharynx, mucous membranes moist, TM's normal bilaterally Neck exam: Present: normal inspection. Absent: tenderness, meningismus, full ROM (Patient in c-collar), lymphadenopathy Respiratory exam: Present: normal lung sounds bilaterally. Absent: respiratory distress, wheezes, rales, rhonchi, stridor Cardiovascular Exam: Present: regular rate, normal rhythm, normal heart sounds. Absent: systolic murmur, diastolic murmur, rubs, gallop, clicks Extremities exam: Present: other (Mild tenderness the right shoulder no iris deformity no clavicle tenderness patient has full range of motion neurovascular intact remaining extremity exam within normal limits.) Back exam: Present: full ROM. Absent: tenderness, paraspinal tenderness, vertebral tenderness Neurological exam: Present: alert, oriented X3, reflexes normal. Absent: motor sensory deficit Skin exam: Present: warm, dry, intact, normal color. Absent: rash Course Vital Signs 02/25/20 02/25/20 09:13 10:25 Temperature 97.9 F Pulse Rate 92 100 Respiratory 18 18 Rate Blood Pressure 146/100 159/52 O2 Sat by Pulse 100 100 Oximetry Medical Decision Making - Medical Decision Making 44 presented for fall head injury. This a mechanical fall. She to the brain and C-spine unremarkable. Patient x-ray negative. Patient does have a scalp abrasion no closure needed. Patient will be discharged to family member return parameters were discussed. Disposition Clinical Impression: Fall, Scalp abrasion Disposition: HOME SELF-CARE Condition: Stable Instructions (If sedation given, give patient instructions): Head Injury (ED) Additional Instructions: Please return to the Emergency Department if symptoms worsen or any other concerns. Is patient prescribed a controlled substance at d/c from ED?: No Referrals: Lico Bañuelos MD [Primary Care Provider] - 1-2 days Time of Disposition: 11:25
--- NOTE | 2020-02-25 10:06 | CT ---
EXAMINATION TYPE: CT brain jah ash con DATE OF EXAM: 02/25/2020 COMPARISON: 11/03/2019 HISTORY: fall / head injury CT DLP: 1331 mGycm Automated exposure control for dose reduction was used. TECHNIQUE: CT scan of the head and cervical spine are performed without contrast. FINDINGS: There is no acute intracranial hemorrhage, mass effect, or midline shift identified. The ventricles and sulci are within normal limits in size. The globes are intact and the visualized sin uses are clear. Soft tissue density anterior to the right temporal bone could represent a small hemat lorraine. Loss of the normal cervical lordosis can be associated with muscular spasm. Odontoid intact. Slight a nterolisthesis C4 on C5 measuring 2 mm. Prevertebral soft tissue structures within normal limits. Bird g apices are clear. Left paracentral disc protrusion C6-C7 and C5-C6. Suspect a central disc bulge C4 -C5. No acute fracture. IMPRESSION: 1. There is no acute fracture or dislocation evident in the cervical spine. 2. No acute intracranial hemorrhage, mass effect, or midline shift is seen. 3. Multilevel degenerative disc disease with multilevel disc bulging as discussed above correlate wit h short-term follow-up MRI. Loss of the normal cervical lordosis can be associated with muscular spas m correlate clinically.
--- NOTE | 2020-02-25 10:59 | XR ---
Right shoulder HISTORY: Trauma and pain 3 views right shoulder There is overlying artifact. Bone mineralization, joint spaces and alignment are maintained. IMPRESSION: No fracture or dislocation.
[2020-02-25 11:12] VITALS: BP 159/52; PULSE 100
== END 2020-02-25 12:24 | disposition home or self-care (01) ==
LOC: EC 09:10
DX: S00.01XA Abrasion of scalp, initial encounter (principal); I10 Essential (primary) hypertension; F41.9 Anxiety disorder, unspecified; G40.909 Epilepsy, unspecified, not intractable, without status epilepticus; F17.200 Nicotine dependence, unspecified, uncomplicated; Z79.51 Long term (current) use of inhaled steroids; Z79.899 Other long term (current) drug therapy; Z88.5 Allergy status to narcotic agent; Z91.018 Allergy to other foods; Z91.013 Allergy to seafood; W01.10XA Fall on same level from slipping, tripping and stumbling with subsequent striking against unspecified object, initial encounter; Y92.009 Unspecified place in unspecified non-institutional (private) residence as the place of occurrence of the external cause
CPT/HCPCS: 70450; 72125; 99284

== ENCOUNTER 2020-03-03 14:35 | Emergency (ER) | payer OTHER ==
[2020-03-03 14:43] VITALS: BP 137/90; TEMP 98.6
[2020-03-03] MEDS ORDERED: ACET/COD 300 MG/30 MG STARTER PACK 6 TAB BTL PO STA (14:53)
--- NOTE | 2020-03-03 14:58 | ED ---
General Adult HPI - General Chief complaint: Extremity Injury, Upper Stated complaint: Fall, L Arm Pain Time Seen by Provider: 03/03/20 14:45 Source: patient, RN notes reviewed Mode of arrival: wheelchair Limitations: no limitations - History of Present Illness Initial comments: 44-year-old female with a past medical history of hypertension, seizure disorder presents to the emergency department for a chief complaint of left arm pain. Patient reports that yesterday she was running around with her grandchildren when she tripped and fell onto her left elbow. Patient states her forearm and elbow hurt. Injury is noted states that she also hit her head however this was about a week ago when she fell down a few stairs. She has no headache. She had no loss of consciousness at that time. She is not taking blood thinners. She does not have neck pain. She does not have any sequelae from that fall.Patient has no other complaints at this time including shortness of breath, chest pain, abdominal pain, nausea or vomiting, headache, or visual changes. - Related Data Home Medications Medication Instructions Recorded Confirmed amLODIPine [Norvasc] 10 mg PO DAILY 12/19/17 11/21/19 ALPRAZolam [Xanax] 1 mg PO TID PRN 09/26/19 11/21/19 Acetaminophen Tab [Tylenol] 325 mg PO DAILY PRN 09/26/19 11/21/19 Albuterol Inhaler [Ventolin Hfa 2 puff INHALATION RT-Q4H PRN 09/26/19 11/21/19 Inhaler] Ergocalciferol [Vitamin D2 50,000 unit PO Q28D 09/26/19 11/21/19 (DRISDOL)] Potassium Chloride ER [K-Dur 20] 20 meq PO DAILY 09/26/19 11/21/19 lisinopriL 40 mg PO DAILY 09/26/19 11/21/19 Mometasone Furoate [Elocon 1 applic TOPICAL BID 11/02/19 11/21/19 Ointment] Polyethylene Glycol 3350 [Miralax] 17 gm PO DIRECTED PRN 11/02/19 11/21/19 hydroCHLOROthiazide 50 mg PO DAILY 11/02/19 11/21/19 Amitriptyline HCl 50 mg PO HS 11/21/19 11/21/19 busPIRone HCL 15 mg PO TID PRN 11/21/19 11/21/19 traMADol HCL [Ultram] 50 mg PO Q6H PRN 11/21/19 11/21/19 Previous Rx's Medication Instructions Recorded Thiamine [Vitamin B-1] 100 mg PO BID-W/MEALS #60 tab 09/30/19 levETIRAcetam [Keppra] 500 mg PO Q12HR #20 tab 09/30/19 levETIRAcetam [Keppra] 500 mg PO Q12HR #30 tab 11/26/19 Hydrocodone/Acetaminophen [[place] 1 each PO Q6HR PRN #20 tab 01/09/20 5-325] Allergies Allergy/AdvReac Type Severity Reaction Status Date / Time shellfish derived [Shellfish] Allergy Anaphylaxis Verified 03/03/20 14:43 wheat Allergy Anaphylaxis Verified 03/03/20 14:43 tramadol AdvReac Seizure Verified 03/03/20 14:43 Review of Systems ROS Statement: Those systems with pertinent positive or pertinent negative responses have been documented in the HPI. ROS Other: All systems not noted in ROS Statement are negative. Past Medical History Past Medical History: Hypertension, Seizure Disorder Additional Past Medical History / Comment(s): had a seizure approx 2 weeks ago History of Any Multi-Drug Resistant Organisms: None Reported Past Surgical History: Hysterectomy, Tubal Ligation Past Anesthesia/Blood Transfusion Reactions: No Reported Reaction Past Psychological History: Anxiety Smoking Status: Current every day smoker Past Alcohol Use History: Daily Past Drug Use History: None Reported General Exam Limitations: no limitations General appearance: alert, in no apparent distress Head exam: Present: atraumatic, normocephalic, normal inspection Eye exam: Present: normal appearance, PERRL, EOMI. Absent: scleral icterus, conjunctival injection, periorbital swelling ENT exam: Present: normal exam, mucous membranes moist Neck exam: Present: normal inspection, full ROM. Absent: tenderness, meningismus, lymphadenopathy Respiratory exam: Present: normal lung sounds bilaterally. Absent: respiratory distress, wheezes, rales, rhonchi, stridor Cardiovascular Exam: Present: regular rate, normal rhythm, normal heart sounds. Absent: systolic murmur, diastolic murmur, rubs, gallop, clicks GI/Abdominal exam: Present: soft, normal bowel sounds. Absent: distended, tenderness, guarding, rebound, rigid Extremities exam: Present: full ROM (Full range of motion of the left shoulder elbow and wrist.), tenderness (Tenderness to the proximal forearm and left elbow. No wrist or scaphoid tenderness.), normal capillary refill (Capillary refill less than 2 seconds, radial pulse 2+ in the left upper extremity.). Absent: joint swelling Course Vital Signs 03/03/20 14:36 Temperature 98.6 F Pulse Rate 114 H Respiratory 16 Rate Blood Pressure 137/90 O2 Sat by Pulse 100 Oximetry Medical Decision Making - Medical Decision Making X-ray of the left forearm shows no evident fracture or dislocation. X-ray of the left elbow shows no evident fracture or dislocation. Neurovascular status intact left upper extremity. Patient likely has contusion. She will be wrapped with an Rajesh wrap. I did give her orthopedic follow-up if she has continued pain. Otherwise she will can return to the emergency room for any worsening symptoms. Disposition Clinical Impression: Arm pain, left Disposition: HOME SELF-CARE Condition: Good Instructions (If sedation given, give patient instructions): Arm Pain (ED) Additional Instructions: Please take Motrin and Tylenol for pain. If pain is severe take Tylenol [address] operate machinery while taking this. Follow-up with your doctor in one to 2 days. Return to the emergency room for any worsening symptoms. Is patient prescribed a controlled substance at d/c from ED?: No Referrals: Lico Bañuelos MD [Primary Care Provider] - 1-2 days Time of Disposition: 15:22
--- NOTE | 2020-03-03 15:14 | XR ---
Left elbow and left forearm HISTORY: Trauma and pain 3 views of the left elbow and 2 views left forearm are submitted On mineralization, joint spaces and alignment are maintained. No evident elbow joint effusion. IMPRESSION: No evident fracture or dislocation of the left forearm or elbow.
[2020-03-03 15:39] VITALS: PULSE 109; RESP 18
== END 2020-03-03 15:32 | disposition home or self-care (01) ==
LOC: EC 14:35
DX: M79.602 Pain in left arm (principal); I10 Essential (primary) hypertension; F41.9 Anxiety disorder, unspecified; F17.200 Nicotine dependence, unspecified, uncomplicated; Z79.899 Other long term (current) drug therapy; Z91.013 Allergy to seafood; Z88.5 Allergy status to narcotic agent; Z91.018 Allergy to other foods
CPT/HCPCS: 99283

== ENCOUNTER 2020-03-31 23:44 | Emergency (ER) | payer OTHER ==
[2020-04-01] MEDS ORDERED: HYDROcodone/APAP 5-325MG 1 EACH TAB PO STA (00:24)
[2020-04-01] MEDS ORDERED: LORazepam 2 MG/ML INJ IV STA (00:24)
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
[2020-04-01 01:02] LABS: Anisocytosis Slight; Basophils % (A) 1 %; Eosinophils # (A) 0.1 k/uL (0-0.7); Eosinophils % (A) 2 %; HCT 36.8 % (34.0-46.0); Hypochromasia Marked; Lymphocytes # (A) 1.7 k/uL (1.0-4.8); Lymphocytes % (A) 29 %; MCH 22.8 pg (25.0-35.0); MCHC 29.8 g/dL (31.0-37.0); MCV 76.5 fL (80.0-100.0); Mean Platelet Volume 7.8; Microcytosis Slight; Monocytes # (A) 0.3 k/uL (0-1.0); Monocytes % (A) 5 %; Neutrophils # (A) 3.5 k/uL (1.3-7.7); Neutrophils % (A) 60 %; Platelet Count 322 k/uL (150-450); RBC 4.81 m/uL (3.80-5.40); RDW 18.5 % (11.5-15.5); WBC 5.8 k/uL (3.8-10.6)
[2020-04-01 01:05] LABS: ALT 46 U/L (4-34); AST 63 U/L (14-36); African American GFR (CKD) >90 (>60 ml/min/1.73 sqM); Albumin 4.7 g/dL (3.5-5.0); Alkaline Phosphatase 73 U/L (38-126); Anion Gap 16 mmol/L; Blood Urea Nitrogen 8 mg/dL (7-17); Calcium 9.6 mg/dL (8.4-10.2); Carbon Dioxide 20 mmol/L (22-30); Chloride 107 mmol/L (98-107); Glucose 101 mg/dL (74-99); Non-African American GFR(CKD) >90 (>60 ml/min/1.73 sqM); Potassium 4.1 mmol/L (3.5-5.1); Sodium 143 mmol/L (137-145); Total Bilirubin 0.4 mg/dL (0.2-1.3); Total Protein 8.7 g/dL (6.3-8.2)
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
[2020-04-01 02:45] VITALS: BP 118/84; PULSE 84; RESP 16; TEMP 98
== END 2020-04-01 02:35 | disposition home or self-care (01) ==
LOC: EC 23:44
DX: S01.83XA Puncture wound without foreign body of other part of head, initial encounter (principal); R10.9 Unspecified abdominal pain; D64.9 Anemia, unspecified; R74.8 Abnormal levels of other serum enzymes; T74.11XA Adult physical abuse, confirmed, initial encounter; I10 Essential (primary) hypertension; G40.909 Epilepsy, unspecified, not intractable, without status epilepticus; F17.200 Nicotine dependence, unspecified, uncomplicated; Z79.899 Other long term (current) drug therapy; Z91.013 Allergy to seafood; Z91.018 Allergy to other foods; Z88.5 Allergy status to narcotic agent; Z98.51 Tubal ligation status; Z90.710 Acquired absence of both cervix and uterus; Y04.0XXA Assault by unarmed brawl or fight, initial encounter; Y93.89 Activity, other specified; Y07.499 Other family member, perpetrator of maltreatment and neglect
CPT/HCPCS: 36415; 80053; 85025; 70450; 74177; 96374; 99284; J2060; Q9967

== ENCOUNTER 2020-04-28 03:44 | Emergency (ER) | payer OTHER ==
[2020-04-28] MEDS ORDERED: SODIUM CHLORIDE 0.9% 1,000 ML IV STA (04:03)
[2020-04-28] MEDS ORDERED: DIAZEPAM 5 MG/ML 2 ML INJ IVP STA (04:03)
[2020-04-28] MEDS ORDERED: levETIRAcetam IV 1,000 MG in SALINE 1 100ML.BAG IVPB ONE (04:03)
--- NOTE | 2020-04-28 04:04 | ED ---
Seizure HPI - General Chief Complaint: Seizure Stated Complaint: Seizures Time Seen by Provider: 04/28/20 03:55 Source: patient, family, RN notes reviewed, old records reviewed Mode of arrival: ambulatory Limitations: no limitations - History of Present Illness Initial Comments: Is a 44-year-old female DF for evaluation patient Dese for evaluation regards to seizure with history of. Patient is a known alcoholic and severe alcoholism. Patient states she may or may not have brain tumor she was told his platelet fever now is seizures today maybe 6 seizures at home and apparently a seizure here in triage. Patient's been taking medications as directed no recent change in medications. She has admits increased drinking today MD Complaint: seizure -: hour(s) Description of Episode: loss of consciousness, tonic-clonic movement -: second(s) Witnessed: yes - by bystander Trauma: No Seizure History: known seizure disorder, history of withdrawal seizures, other (Alcoholism) Place: home Possible Precipitating Event: none Associated Symptoms: denies other symptoms Treatments Prior to Arrival: none - Related Data Home Medications Medication Instructions Recorded Confirmed amLODIPine [Norvasc] 10 mg PO DAILY 12/19/17 11/21/19 ALPRAZolam [Xanax] 1 mg PO TID PRN 09/26/19 11/21/19 Acetaminophen Tab [Tylenol] 325 mg PO DAILY PRN 09/26/19 11/21/19 Albuterol Inhaler [Ventolin Hfa 2 puff INHALATION RT-Q4H PRN 09/26/19 11/21/19 Inhaler] Ergocalciferol [Vitamin D2 50,000 unit PO Q28D 09/26/19 11/21/19 (DRISDOL)] Potassium Chloride ER [K-Dur 20] 20 meq PO DAILY 09/26/19 11/21/19 lisinopriL 40 mg PO DAILY 09/26/19 11/21/19 Mometasone Furoate [Elocon 1 applic TOPICAL BID 11/02/19 11/21/19 Ointment] Polyethylene Glycol 3350 [Miralax] 17 gm PO DIRECTED PRN 11/02/19 11/21/19 hydroCHLOROthiazide 50 mg PO DAILY 11/02/19 11/21/19 Amitriptyline HCl 50 mg PO HS 11/21/19 11/21/19 busPIRone HCL 15 mg PO TID PRN 11/21/19 11/21/19 traMADol HCL [Ultram] 50 mg PO Q6H PRN 11/21/19 11/21/19 Previous Rx's Medication Instructions Recorded Thiamine [Vitamin B-1] 100 mg PO BID-W/MEALS #60 tab 09/30/19 levETIRAcetam [Keppra] 500 mg PO Q12HR #20 tab 09/30/19 levETIRAcetam [Keppra] 500 mg PO Q12HR #30 tab 11/26/19 Hydrocodone/Acetaminophen [[place] 1 each PO Q6HR PRN #20 tab 01/09/20 5-325] Allergies Allergy/AdvReac Type Severity Reaction Status Date / Time shellfish derived [Shellfish] Allergy Anaphylaxis Verified 04/28/20 03:51 wheat Allergy Anaphylaxis Verified 04/28/20 03:51 tramadol AdvReac Seizure Verified 04/28/20 03:51 Review of Systems ROS Statement: Those systems with pertinent positive or pertinent negative responses have been documented in the HPI. ROS Other: All systems not noted in ROS Statement are negative. Past Medical History Past Medical History: Asthma, Hypertension, Seizure Disorder Additional Past Medical History / Comment(s): had a seizure approx 2 weeks ago History of Any Multi-Drug Resistant Organisms: None Reported Past Surgical History: Hysterectomy, Tubal Ligation Past Anesthesia/Blood Transfusion Reactions: No Reported Reaction Past Psychological History: Anxiety Smoking Status: Current every day smoker Past Alcohol Use History: Daily Past Drug Use History: Marijuana General Exam Limitations: no limitations General appearance: alert, in no apparent distress Head exam: Present: atraumatic, normocephalic, normal inspection Eye exam: Present: normal appearance, PERRL, EOMI. Absent: scleral icterus, conjunctival injection, periorbital swelling ENT exam: Present: normal exam, mucous membranes moist Neck exam: Present: normal inspection. Absent: tenderness, meningismus, lymphadenopathy Respiratory exam: Present: normal lung sounds bilaterally. Absent: respiratory distress, wheezes, rales, rhonchi, stridor Cardiovascular Exam: Present: regular rate, normal rhythm, normal heart sounds. Absent: systolic murmur, diastolic murmur, rubs, gallop, clicks GI/Abdominal exam: Present: soft, normal bowel sounds. Absent: distended, tenderness, guarding, rebound, rigid Extremities exam: Present: normal inspection, full ROM, normal capillary refill. Absent: tenderness, pedal edema, joint swelling, calf tenderness Back exam: Present: normal inspection Neurological exam: Present: alert, oriented X3, CN II-XII intact Psychiatric exam: Present: normal affect, normal mood Skin exam: Present: warm, dry, intact, normal color. Absent: rash Course Vital Signs 04/28/20 03:46 Temperature 98.5 F Pulse Rate 119 H Respiratory 20 Rate Blood Pressure 162/103 O2 Sat by Pulse 100 Oximetry - Reevaluation(s) Reevaluation #1: 04/28/20 04:56 Medical record is reviewed Reevaluation #2: 04/28/20 04:57 No recurrent seizure here in the ER Reevaluation #3: 04/28/20 04:57 Patient given seizure medication here in the ER Medical Decision Making - Medical Decision Making 44 female to the ER for evaluation, patient Dese for evaluation regards to recurrent seizures with alcoholism. No recurrent seizure here in the ER CT negative labwork normal patient can be discharged home - EKG Data -: EKG Interpreted by Me (EKG is sinus tach 110 VT 166 QRS 82 QTC 470) - Radiology Data Radiology results: report reviewed (CT brain negative for acute disease), image reviewed Disposition Clinical Impression: Seizure, Alcohol intoxication Disposition: HOME SELF-CARE Condition: Fair Instructions (If sedation given, give patient instructions): Recurrent Seizures in Adults (ED) Is patient prescribed a controlled substance at d/c from ED?: No Referrals: Lico Bañuelos MD [Primary Care Provider] - 1-2 days
[2020-04-28 04:46] LABS: Anisocytosis Slight; HCT 33.8 % (34.0-46.0); HGB 10.4 gm/dL (11.4-16.0); Hypochromasia Moderate; MCHC 30.8 g/dL (31.0-37.0); MCV 74.5 fL (80.0-100.0); Mean Platelet Volume 6.9; Microcytosis Moderate; Platelet Count 333 k/uL (150-450); RBC 4.54 m/uL (3.80-5.40); RDW 18.8 % (11.5-15.5); WBC 6.1 k/uL (3.8-10.6)
[2020-04-28 05:02] LABS: ALT 21 U/L (4-34); AST 26 U/L (14-36); Acetaminophen <10.0 ug/mL; African American GFR (CKD) >90 (>60 ml/min/1.73 sqM); Albumin 4.5 g/dL (3.5-5.0); Alkaline Phosphatase 60 U/L (38-126); Anion Gap 14 mmol/L; Blood Urea Nitrogen 14 mg/dL (7-17); Calcium 9.4 mg/dL (8.4-10.2); Carbon Dioxide 22 mmol/L (22-30); Chloride 109 mmol/L (98-107); Glucose 89 mg/dL (74-99); Magnesium 1.9 mg/dL (1.6-2.3); Non-African American GFR(CKD) >90 (>60 ml/min/1.73 sqM); Phosphorus 3.7 mg/dL (2.5-4.5); Potassium 3.6 mmol/L (3.5-5.1); Salicylate <1.0 mg/dL; Sodium 145 mmol/L (137-145); Total Bilirubin 0.3 mg/dL (0.2-1.3); Total Protein 8.1 g/dL (6.3-8.2)
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
[2020-04-28 05:21] LABS: Alcohol 363 mg/dL
[2020-04-28 06:08] LABS: Basophils # (M) 0.06 k/uL (0-0.2); Eosinophils # (M) 0.12 k/uL (0-0.7); Lymphocytes # (M) 2.81 k/uL (1.0-4.8); Monocytes # (M) 0.31 k/uL (0-1.0); Neutrophils # (M) 2.81 k/uL (1.3-7.7); Neutrophils % (M) 46 %; Nucleated Red Blood Cells 0 /100 WBC (0-0); Total Cells Counted 100
[2020-04-28 06:09] LABS: Ovalocytes Present; Poikilocytosis (M) Present; Target Cells Present
[2020-04-28 06:28] VITALS: BP 113/78; PULSE 89; RESP 17; TEMP 98.8
== END 2020-04-28 07:57 | disposition home or self-care (01) ==
LOC: EC 03:44
DX: G40.909 Epilepsy, unspecified, not intractable, without status epilepticus (principal); F10.129 Alcohol abuse with intoxication, unspecified; F41.9 Anxiety disorder, unspecified; J45.909 Unspecified asthma, uncomplicated; I10 Essential (primary) hypertension; F17.200 Nicotine dependence, unspecified, uncomplicated; Z90.710 Acquired absence of both cervix and uterus; Z79.899 Other long term (current) drug therapy; Z88.6 Allergy status to analgesic agent; Z91.013 Allergy to seafood; Z91.018 Allergy to other foods; Y90.8 Blood alcohol level of 240 mg/100 ml or more
CPT/HCPCS: 93005; 80053; 83735; 84100; 85025; 83520; 70450; 99285; 96365; 96375; 96361 ×3; G0480 ×2; J3360; J1953; 80320; 80329

== ENCOUNTER 2020-04-28 21:03 | Emergency (ER) | payer OTHER ==
[2020-04-28] MEDS ORDERED: SODIUM CHLORIDE 0.9% 1,000 ML IV ONE (22:10)
[2020-04-28] MEDS ORDERED: HYDROmorphone 0.5 MG/0.5 ML SYRINGE IVP STA (22:10)
[2020-04-28] MEDS ORDERED: METOCLOPRAMIDE 5 MG/ML 2 ML VIAL IVP STA (22:11)
[2020-04-28] MEDS ORDERED: diphenhydrAMINE 50 MG/ML 1 ML VIAL IVP STA (22:11)
--- NOTE | 2020-04-28 22:22 | ED ---
General Adult HPI - General Chief complaint: Headache Stated complaint: Brain tumor,Head pain Time Seen by Provider: 04/28/20 22:02 Source: patient, RN notes reviewed, old records reviewed Mode of arrival: wheelchair Limitations: no limitations - History of Present Illness Initial comments: 44-year-old female history of seizure disorder, frequent headache, meningioma presenting for evaluation of headache. She was seen in the emergency department yesterday with similar complaint. She states she got home and slept. She then began having some alcoholic beverages and subsequently developed a headache. She denies fever. She reports a mild cough. No dyspnea. No chest pain. No focal numbness or weakness. Headache is global, similar to previous headaches. She does follow with neurosurgery at [facility] regarding her meningioma. At this point there is plans for monitoring her meningioma. No plan for surgical intervention at this time. She did receive CT of the brain yesterday during her ER visit for same complaint. - Related Data Home Medications Medication Instructions Recorded Confirmed amLODIPine [Norvasc] 10 mg PO DAILY 12/19/17 11/21/19 ALPRAZolam [Xanax] 1 mg PO TID PRN 09/26/19 11/21/19 Acetaminophen Tab [Tylenol] 325 mg PO DAILY PRN 09/26/19 11/21/19 Albuterol Inhaler [Ventolin Hfa 2 puff INHALATION RT-Q4H PRN 09/26/19 11/21/19 Inhaler] Ergocalciferol [Vitamin D2 50,000 unit PO Q28D 09/26/19 11/21/19 (DRISDOL)] Potassium Chloride ER [K-Dur 20] 20 meq PO DAILY 09/26/19 11/21/19 lisinopriL 40 mg PO DAILY 09/26/19 11/21/19 Mometasone Furoate [Elocon 1 applic TOPICAL BID 11/02/19 11/21/19 Ointment] Polyethylene Glycol 3350 [Miralax] 17 gm PO DIRECTED PRN 11/02/19 11/21/19 hydroCHLOROthiazide 50 mg PO DAILY 11/02/19 11/21/19 Amitriptyline HCl 50 mg PO HS 11/21/19 11/21/19 busPIRone HCL 15 mg PO TID PRN 11/21/19 11/21/19 traMADol HCL [Ultram] 50 mg PO Q6H PRN 11/21/19 11/21/19 Previous Rx's Medication Instructions Recorded Thiamine [Vitamin B-1] 100 mg PO BID-W/MEALS #60 tab 09/30/19 levETIRAcetam [Keppra] 500 mg PO Q12HR #20 tab 09/30/19 levETIRAcetam [Keppra] 500 mg PO Q12HR #30 tab 11/26/19 Hydrocodone/Acetaminophen [[place] 1 each PO Q6HR PRN #20 tab 01/09/20 5-325] Allergies Allergy/AdvReac Type Severity Reaction Status Date / Time shellfish derived [Shellfish] Allergy Anaphylaxis Verified 04/28/20 21:08 wheat Allergy Anaphylaxis Verified 04/28/20 21:08 tramadol AdvReac Seizure Verified 04/28/20 21:08 Review of Systems ROS Statement: Those systems with pertinent positive or pertinent negative responses have been documented in the HPI. ROS Other: All systems not noted in ROS Statement are negative. Past Medical History Past Medical History: Asthma, Hypertension, Seizure Disorder Additional Past Medical History / Comment(s): had a seizure approx 2 weeks ago, brain tumor History of Any Multi-Drug Resistant Organisms: None Reported Past Surgical History: Hysterectomy, Tubal Ligation Past Anesthesia/Blood Transfusion Reactions: No Reported Reaction Past Psychological History: Anxiety Smoking Status: Current every day smoker Past Alcohol Use History: Daily Past Drug Use History: Marijuana General Exam Limitations: no limitations General appearance: alert, in no apparent distress Head exam: Present: atraumatic, normocephalic Eye exam: Present: normal appearance, PERRL ENT exam: Present: normal exam Neck exam: Present: normal inspection. Absent: tenderness, meningismus Respiratory exam: Present: normal lung sounds bilaterally. Absent: respiratory distress, wheezes Cardiovascular Exam: Present: regular rate, normal rhythm GI/Abdominal exam: Present: soft. Absent: distended, tenderness Extremities exam: Present: normal inspection, normal capillary refill. Absent: pedal edema Neurological exam: Present: alert, oriented X3, CN II-XII intact. Absent: motor sensory deficit Psychiatric exam: Present: normal affect, normal mood Skin exam: Present: warm, dry, intact. Absent: cyanosis, diaphoretic Course Vital Signs 04/28/20 04/28/20 04/28/20 21:04 21:53 22:45 Temperature 98.1 F Pulse Rate 89 97 98 Respiratory 20 18 18 Rate Blood Pressure 158/111 147/113 193/121 O2 Sat by Pulse 100 100 99 Oximetry 04/28/20 23:05 Temperature 97.8 F Pulse Rate 85 Respiratory 20 Rate Blood Pressure 178/113 O2 Sat by Pulse 100 Oximetry Medical Decision Making - Medical Decision Making 44-year-old female presenting for evaluation of headache. Images from yesterday were reviewed, showing normal nonenhanced CT. Patient has a CBC showing anemia which is stable. She has an alcohol level of 285 which I suspect is not h elping her current headache. She is accompanied by her who is driving. On reevaluation she is feeling much better, headache resolved. She will follow with her neurologist. Dr. Vaughan. - Lab Data Result diagrams: 04/28/20 22:36 04/28/20 22:36 Lab Results 04/28/20 04/28/20 04/28/20 Range/Units 22:36 22:36 22:36 WBC 4.6 (3.8-10.6) k/uL RBC 4.61 (3.80-5.40) m/uL Hgb 10.6 L (11.4-16.0) gm/dL Hct 34.2 (34.0-46.0) % MCV 74.3 L (80.0-100.0) fL MCH 23.0 L (25.0-35.0) pg MCHC 31.0 (31.0-37.0) g/dL RDW 18.8 H (11.5-15.5) % Plt Count 305 (150-450) k/uL MPV 6.6 Neutrophils % 46 % Lymphocytes % 43 % Monocytes % 4 % Eosinophils % 2 % Basophils % 1 % Neutrophils # 2.1 (1.3-7.7) k/uL Lymphocytes # 1.9 (1.0-4.8) k/uL Monocytes # 0.2 (0-1.0) k/uL Eosinophils # 0.1 (0-0.7) k/uL Basophils # 0.0 (0-0.2) k/uL Hypochromasia Slight Anisocytosis Slight Microcytosis Moderate Sodium 142 (137-145) mmol/L Potassium 4.9 (3.5-5.1) mmol/L Chloride 107 (98-107) mmol/L Carbon Dioxide 21 L (22-30) mmol/L Anion Gap 14 mmol/L BUN 11 (7-17) mg/dL Creatinine 0.62 (0.52-1.04) mg/dL Est GFR (CKD-EPI)AfAm >90 (>60 ml/min/1.73 sqM) Est GFR (CKD-EPI)NonAf >90 (>60 ml/min/1.73 sqM) Glucose 82 (74-99) mg/dL Calcium 9.2 (8.4-10.2) mg/dL Total Bilirubin 0.6 (0.2-1.3) mg/dL AST 41 H (14-36) U/L ALT 24 (4-34) U/L Alkaline Phosphatase 52 (38-126) U/L Total Protein 8.4 H (6.3-8.2) g/dL Albumin 4.6 (3.5-5.0) g/dL Urine Color Light Yellow Urine Appearance Clear (Clear) Urine pH 6.0 (5.0-8.0) Ur Specific [place] 1.008 (1.001-1.035) Urine Protein Negative (Negative) Urine Glucose (UA) Negative (Negative) Urine Ketones Negative (Negative) Urine Blood Negative (Negative) Urine Nitrite Negative (Negative) Urine Bilirubin Negative (Negative) Urine Urobilinogen <2.0 (<2.0) mg/dL Ur Leukocyte Esterase Trace H (Negative) Urine RBC 1 (0-5) /hpf Urine WBC 3 (0-5) /hpf Ur Squamous Epith Cells 6 H (0-4) /hpf Urine Bacteria Rare H (None) /hpf Urine Mucus Rare H (None) /hpf Serum Alcohol 285 H* mg/dL Disposition Clinical Impression: Alcohol intoxication, Headache Disposition: HOME SELF-CARE Condition: Fair Instructions (If sedation given, give patient instructions): Acute Headache (ED), Alcohol Intoxication (ED) Is patient prescribed a controlled substance at d/c from ED?: No Referrals: Lico Bañuelos MD [Primary Care Provider] - 1-2 days Rock Vaughan MD [REFERRING] - 1-2 days Time of Disposition: 00:00
[2020-04-28 23:01] LABS: Anisocytosis Slight; Basophils % (A) 1 %; Eosinophils # (A) 0.1 k/uL (0-0.7); Eosinophils % (A) 2 %; HCT 34.2 % (34.0-46.0); HGB 10.6 gm/dL (11.4-16.0); Hypochromasia Slight; Lymphocytes # (A) 1.9 k/uL (1.0-4.8); Lymphocytes % (A) 43 %; MCV 74.3 fL (80.0-100.0); Mean Platelet Volume 6.6; Microcytosis Moderate; Monocytes # (A) 0.2 k/uL (0-1.0); Monocytes % (A) 4 %; Neutrophils # (A) 2.1 k/uL (1.3-7.7); Neutrophils % (A) 46 %; Platelet Count 305 k/uL (150-450); RBC 4.61 m/uL (3.80-5.40); RDW 18.8 % (11.5-15.5); WBC 4.6 k/uL (3.8-10.6)
[2020-04-28 23:08] VITALS: TEMP 97.8
[2020-04-28 23:10] LABS: Appearance,Urine Clear (Clear); Bacteria,Urine Rare /hpf; Bilirubin,Urine Negative (Negative); Blood,Urine Negative (Negative); Color,Urine Light Yellow; Glucose,Urine (UA) Negative (Negative); Ketones,Urine Negative (Negative); Leukocyte Esterase,Urine Trace (Negative); Mucus,Urine Rare /hpf; Nitrite,Urine Negative (Negative); Protein,Urine Negative (Negative); RBC,Urine 1 /hpf (0-5); Specific Gravity,Urine 1.008 (1.001-1.035); Squamous Epithelial Cell,Urine 6 /hpf (0-4); Urobilinogen,Urine <2.0 mg/dL (<2.0); WBC,Urine 3 /hpf (0-5)
[2020-04-28 23:24] LABS: ALT 24 U/L (4-34); AST 41 U/L (14-36); African American GFR (CKD) >90 (>60 ml/min/1.73 sqM); Albumin 4.6 g/dL (3.5-5.0); Alkaline Phosphatase 52 U/L (38-126); Anion Gap 14 mmol/L; Blood Urea Nitrogen 11 mg/dL (7-17); Calcium 9.2 mg/dL (8.4-10.2); Carbon Dioxide 21 mmol/L (22-30); Chloride 107 mmol/L (98-107); Glucose 82 mg/dL (74-99); Non-African American GFR(CKD) >90 (>60 ml/min/1.73 sqM); Potassium 4.9 mmol/L (3.5-5.1); Sodium 142 mmol/L (137-145); Total Bilirubin 0.6 mg/dL (0.2-1.3); Total Protein 8.4 g/dL (6.3-8.2)
[2020-04-28 23:32] LABS: Alcohol 285 mg/dL
[2020-04-29 00:18] VITALS: BP 145/93; PULSE 90; RESP 16
== END 2020-04-29 00:33 | disposition home or self-care (01) ==
LOC: EC 21:03
DX: F10.129 Alcohol abuse with intoxication, unspecified (principal); R51.9 Headache, unspecified; D32.0 Benign neoplasm of cerebral meninges; D64.9 Anemia, unspecified; I10 Essential (primary) hypertension; J45.909 Unspecified asthma, uncomplicated; F41.9 Anxiety disorder, unspecified; F17.200 Nicotine dependence, unspecified, uncomplicated; Y90.8 Blood alcohol level of 240 mg/100 ml or more; Z79.51 Long term (current) use of inhaled steroids; Z79.899 Other long term (current) drug therapy; Z91.018 Allergy to other foods; Z91.013 Allergy to seafood; Z88.5 Allergy status to narcotic agent
CPT/HCPCS: 99284 ×2; 96374 ×2; 96375 ×3; 96361 ×3; 96365; 99285; 36415; 93005; 80053; 83735; 84100; 85025; 81001; 83520; 70450; G0480 ×2; J1200; J2765; J3360; J1953; J1170; 80320; 80329

== ENCOUNTER 2020-05-04 04:25 | Emergency (ER) | payer OTHER ==
[2020-05-04 04:35] VITALS: BP 143/97; PULSE 118; RESP 115; TEMP 98.1
[2020-05-04] MEDS ORDERED: LORazepam 1 MG TAB PO STA (05:10)
[2020-05-04] MEDS ORDERED: DIPH,PERTUS(ACELL)TETVAC-LF 0.5 ML VIAL IM ONE (05:10)
--- NOTE | 2020-05-04 05:25 | ED ---
Wound/Laceration HPI - General Chief Complaint: Wound/Laceration Stated Complaint: arm lac Time Seen by Provider: 05/04/20 04:30 Source: patient, police Mode of arrival: ambulatory Limitations: no limitations - History of Present Illness Initial Comments: 44-year-old female who presents to the emergency department accompanied by police with reported superficial lacerations to the right upper extremity. The patient states that she was looking for a release and therefore self-inflicted 3 superficial lacerations to the right upper extremity. She did this in front of her sons who got concerned and therefore called police. Police did not petition the patient. The patient denies that she did the self-inflicted cuts because she is suicidal. Admits that she has an alcohol problem however is not currently intoxicated. Patient grossly appears sober. She is unsure of her last tetanus vaccine. Denies any other self-inflicted injuries. No other alleviating, precipitating or modifying factors - Related Data Home Medications Medication Instructions Recorded Confirmed amLODIPine [Norvasc] 10 mg PO DAILY 12/19/17 11/21/19 ALPRAZolam [Xanax] 1 mg PO TID PRN 09/26/19 11/21/19 Acetaminophen Tab [Tylenol] 325 mg PO DAILY PRN 09/26/19 11/21/19 Albuterol Inhaler [Ventolin Hfa 2 puff INHALATION RT-Q4H PRN 09/26/19 11/21/19 Inhaler] Ergocalciferol [Vitamin D2 50,000 unit PO Q28D 09/26/19 11/21/19 (DRISDOL)] Potassium Chloride ER [K-Dur 20] 20 meq PO DAILY 09/26/19 11/21/19 lisinopriL 40 mg PO DAILY 09/26/19 11/21/19 Mometasone Furoate [Elocon 1 applic TOPICAL BID 11/02/19 11/21/19 Ointment] Polyethylene Glycol 3350 [Miralax] 17 gm PO DIRECTED PRN 11/02/19 11/21/19 hydroCHLOROthiazide 50 mg PO DAILY 11/02/19 11/21/19 Amitriptyline HCl 50 mg PO HS 11/21/19 11/21/19 busPIRone HCL 15 mg PO TID PRN 11/21/19 11/21/19 traMADol HCL [Ultram] 50 mg PO Q6H PRN 11/21/19 11/21/19 Previous Rx's Medication Instructions Recorded Thiamine [Vitamin B-1] 100 mg PO BID-W/MEALS #60 tab 09/30/19 levETIRAcetam [Keppra] 500 mg PO Q12HR #20 tab 09/30/19 levETIRAcetam [Keppra] 500 mg PO Q12HR #30 tab 11/26/19 Hydrocodone/Acetaminophen [[place] 1 each PO Q6HR PRN #20 tab 01/09/20 5-325] Allergies Allergy/AdvReac Type Severity Reaction Status Date / Time shellfish derived [Shellfish] Allergy Anaphylaxis Verified 05/04/20 04:35 wheat Allergy Anaphylaxis Verified 05/04/20 04:35 tramadol AdvReac Seizure Verified 05/04/20 04:35 Review of Systems ROS Statement: Those systems with pertinent positive or pertinent negative responses have been documented in the HPI. ROS Other: All systems not noted in ROS Statement are negative. Past Medical History Past Medical History: Asthma, Hypertension, Seizure Disorder Additional Past Medical History / Comment(s): had a seizure approx 2 weeks ago, brain tumor History of Any Multi-Drug Resistant Organisms: None Reported Past Surgical History: Hysterectomy, Tubal Ligation Past Anesthesia/Blood Transfusion Reactions: No Reported Reaction Past Psychological History: Anxiety Smoking Status: Current every day smoker Past Alcohol Use History: Daily Past Drug Use History: Marijuana General Exam Limitations: no limitations General appearance: alert, in no apparent distress, anxious Head exam: Present: atraumatic, normocephalic, normal inspection Eye exam: Present: normal appearance, PERRL, EOMI. Absent: scleral icterus, conjunctival injection, periorbital swelling ENT exam: Present: normal exam, mucous membranes moist Neck exam: Present: normal inspection. Absent: tenderness, meningismus, lymphadenopathy Respiratory exam: Present: normal lung sounds bilaterally. Absent: respiratory distress, wheezes, rales, rhonchi, stridor Cardiovascular Exam: Present: regular rate, normal rhythm, normal heart sounds. Absent: systolic murmur, diastolic murmur, rubs, gallop, clicks GI/Abdominal exam: Present: soft, normal bowel sounds. Absent: distended, tenderness, guarding, rebound, rigid Extremities exam: Present: normal inspection, full ROM, normal capillary refill. Absent: tenderness, pedal edema, joint swelling, calf tenderness Back exam: Present: normal inspection Neurological exam: Present: alert, oriented X3, CN II-XII intact Psychiatric exam: Present: normal affect, normal mood Skin exam: Present: warm, dry, intact, normal color. Absent: rash Course Vital Signs 05/04/20 04:32 Temperature 98.1 F Pulse Rate 118 H Respiratory 115 H Rate Blood Pressure 143/97 O2 Sat by Pulse 99 Oximetry Medical Decision Making - Medical Decision Making Upon arrival patient is placed in room 17. A thorough history and physical exam was performed. Patient does allow me to update her tetanus. She is requesting something for anxiety. I did give her 1 mg of Ativan. EPS does come down and evaluate the patient. We both agree that the patient is not suicidal or harm to herself at this time. Patient does understand why we are concerned about her actions. He'll be discharged home at this time. She does have a counselor that she is to follow-up with in the outpatient setting. Return to the emergency room for any new or worsening symptoms. Patient is discharged home in stable condition Disposition Clinical Impression: Arm laceration Disposition: HOME SELF-CARE Condition: Stable Instructions (If sedation given, give patient instructions): Laceration (ED), Tdap and Td Vaccines for Adults (ED) Additional Instructions: Please follow-up with your primary care doctor. Return to the emergency room for any new or worsening symptoms Is patient prescribed a controlled substance at d/c from ED?: No Referrals: Lico Bañuelos MD [Primary Care Provider] - 1-2 days Time of Disposition: 05:25
== END 2020-05-04 05:26 | disposition home or self-care (01) ==
LOC: EC 04:25
DX: S41.111A Laceration without foreign body of right upper arm, initial encounter (principal); F41.9 Anxiety disorder, unspecified; F17.200 Nicotine dependence, unspecified, uncomplicated; I10 Essential (primary) hypertension; J45.909 Unspecified asthma, uncomplicated; G40.909 Epilepsy, unspecified, not intractable, without status epilepticus; Z79.899 Other long term (current) drug therapy; Z23 Encounter for immunization; Z88.6 Allergy status to analgesic agent; Z91.013 Allergy to seafood; Z91.018 Allergy to other foods; Z90.710 Acquired absence of both cervix and uterus; Z79.51 Long term (current) use of inhaled steroids; W26.9XXA Contact with unspecified sharp object(s), initial encounter
CPT/HCPCS: 90471; 90715; 99283

== ENCOUNTER 2020-06-18 23:58 | Emergency (ER) | payer OTHER ==
[2020-06-19 00:10] VITALS: RESP 18
[2020-06-19] MEDS ORDERED: KETOROLAC 15 MG/ML 1 ML VIAL IVP STA (00:15)
[2020-06-19] MEDS ORDERED: SODIUM CHLORIDE 0.9% 1,000 ML IV STA (00:15)
[2020-06-19 01:15] LABS: Anisocytosis Slight; Basophils % (A) 1 %; Eosinophils # (A) 0.1 k/uL (0-0.7); Eosinophils % (A) 2 %; HCT 35.1 % (34.0-46.0); HGB 11.1 gm/dL (11.4-16.0); Hypochromasia Slight; Lymphocytes # (A) 1.8 k/uL (1.0-4.8); Lymphocytes % (A) 39 %; MCH 24.4 pg (25.0-35.0); MCHC 31.6 g/dL (31.0-37.0); MCV 77.3 fL (80.0-100.0); Mean Platelet Volume 6.8; Microcytosis Moderate; Monocytes # (A) 0.3 k/uL (0-1.0); Monocytes % (A) 6 %; Neutrophils # (A) 2.3 k/uL (1.3-7.7); Neutrophils % (A) 50 %; Platelet Count 323 k/uL (150-450); RBC 4.54 m/uL (3.80-5.40); RDW 18.8 % (11.5-15.5); WBC 4.6 k/uL (3.8-10.6)
[2020-06-19 01:30] LABS: ALT 26 U/L (4-34); AST 33 U/L (14-36); African American GFR (CKD) >90 (>60 ml/min/1.73 sqM); Albumin 4.7 g/dL (3.5-5.0); Alkaline Phosphatase 105 U/L (38-126); Anion Gap 12 mmol/L; Appearance,Urine Clear (Clear); Bilirubin,Urine Negative (Negative); Blood Urea Nitrogen 18 mg/dL (7-17); Blood,Urine Negative (Negative); Calcium 9.9 mg/dL (8.4-10.2); Carbon Dioxide 24 mmol/L (22-30); Chloride 107 mmol/L (98-107); Color,Urine Colorless; Glucose 86 mg/dL (74-99); Glucose,Urine (UA) Negative (Negative); Ketones,Urine Negative (Negative); Leukocyte Esterase,Urine Negative (Negative); Nitrite,Urine Negative (Negative); Non-African American GFR(CKD) 84 (>60 ml/min/1.73 sqM); PH, Urine 6.5 (5.0-8.0); Potassium 4.3 mmol/L (3.5-5.1); Protein,Urine Negative (Negative); Sodium 143 mmol/L (137-145); Specific Gravity,Urine 1.004 (1.001-1.035); Total Bilirubin 0.3 mg/dL (0.2-1.3); Total Protein 8.5 g/dL (6.3-8.2); Urobilinogen,Urine <2.0 mg/dL (<2.0)
[2020-06-19 01:40] LABS: Alcohol 320 mg/dL
[2020-06-19] MEDS ORDERED: levETIRAcetam IV 1,000 MG in SALINE 1 100ML.BAG IVPB STA (01:50)
--- NOTE | 2020-06-19 02:48 | ED ---
Headache HPI - General Chief Complaint: Headache Stated Complaint: Headache Time Seen by Provider: 06/19/20 00:09 Mode of arrival: EMS - History of Present Illness Initial Comments: 34-year-old female patient presents to the emergency department today for evaluation of headache and increased frequency of seizures. Patient states 3-4 months ago she was diagnosed with a meningioma after having a seizure for the first time. Patient states this has caused her to increase her intake of alcohol and she has been drinking on a daily basis. Patient does mid to drinking alcohol today. States she developed a headache this evening. Denies any blurred or double vision. Denies any dizziness or weakness. States she has had 2 seizures today. Denies any falls or injuries with this. She is hoping to be admitted for alcohol rehabilitation. She denies any numbness, tingling, weakness or cavities. Denies any chest pain or shortness of breath. Denies nausea, vomiting, abdominal pain, constipation, or diarrhea. States that she has not been taking her Keppra as directed. Patient denies any recent rash, cough, abdominal pain, back pain, numbness, tingling, hematuria, dysuria, urinary urgency, urinary frequency, or any other complaints. - Related Data Home Medications Medication Instructions Recorded Confirmed amLODIPine [Norvasc] 10 mg PO DAILY 12/19/17 11/21/19 ALPRAZolam [Xanax] 1 mg PO TID PRN 09/26/19 11/21/19 Acetaminophen Tab [Tylenol] 325 mg PO DAILY PRN 09/26/19 11/21/19 Albuterol Inhaler [Ventolin Hfa 2 puff INHALATION RT-Q4H PRN 09/26/19 11/21/19 Inhaler] Ergocalciferol [Vitamin D2 50,000 unit PO Q28D 09/26/19 11/21/19 (DRISDOL)] Potassium Chloride ER [K-Dur 20] 20 meq PO DAILY 09/26/19 11/21/19 lisinopriL 40 mg PO DAILY 09/26/19 11/21/19 Mometasone Furoate [[place] 1 applic TOPICAL BID 11/02/19 11/21/19 Ointment] Polyethylene Glycol 3350 [Miralax] 17 gm PO DIRECTED PRN 11/02/19 11/21/19 hydroCHLOROthiazide 50 mg PO DAILY 11/02/19 11/21/19 Amitriptyline HCl 50 mg PO HS 11/21/19 11/21/19 busPIRone HCL 15 mg PO TID PRN 11/21/19 11/21/19 traMADol HCL [Ultram] 50 mg PO Q6H PRN 11/21/19 11/21/19 Previous Rx's Medication Instructions Recorded Thiamine [Vitamin B-1] 100 mg PO BID-W/MEALS #60 tab 09/30/19 levETIRAcetam [Keppra] 500 mg PO Q12HR #20 tab 09/30/19 levETIRAcetam [Keppra] 500 mg PO Q12HR #30 tab 11/26/19 Hydrocodone/Acetaminophen [[place] 1 each PO Q6HR PRN #20 tab 01/09/20 5-325] Allergies Allergy/AdvReac Type Severity Reaction Status Date / Time shellfish derived [Shellfish] Allergy Anaphylaxis Verified 05/04/20 04:35 wheat Allergy Anaphylaxis Verified 05/04/20 04:35 tramadol AdvReac Seizure Verified 05/04/20 04:35 Review of Systems ROS Statement: Those systems with pertinent positive or pertinent negative responses have been documented in the HPI. ROS Other: All systems not noted in ROS Statement are negative. Past Medical History Past Medical History: Asthma, Hypertension, Seizure Disorder Additional Past Medical History / Comment(s): had a seizure approx 2 weeks ago, brain tumor History of Any Multi-Drug Resistant Organisms: None Reported Past Surgical History: Hysterectomy, Tubal Ligation Past Anesthesia/Blood Transfusion Reactions: No Reported Reaction Past Psychological History: Anxiety Smoking Status: Current every day smoker Past Alcohol Use History: Daily Past Drug Use History: Marijuana General Exam General appearance: alert, in no apparent distress, other (This is a well- developed, well-nourished adult female patient in no acute distress. Vital signs upon presentation are temperature 98.2F, pulse 102, respirations 18, blood pressure 132/89, pulse ox 99% on room air.) Eye exam: Present: normal appearance, PERRL, EOMI. Absent: scleral icterus, conjunctival injection, periorbital swelling ENT exam: Present: normal exam, normal oropharynx, mucous membranes moist Respiratory exam: Present: normal lung sounds bilaterally. Absent: respiratory distress, wheezes, rales, rhonchi, stridor Cardiovascular Exam: Present: regular rate, normal rhythm, normal heart sounds. Absent: systolic murmur, diastolic murmur, rubs, gallop, clicks GI/Abdominal exam: Present: soft, normal bowel sounds. Absent: distended, tenderness, guarding, rebound, rigid Neurological exam: Present: alert, oriented X3, CN II-XII intact Psychiatric exam: Present: normal affect, normal mood Skin exam: Present: warm, dry, intact, normal color. Absent: rash Course Vital Signs 06/19/20 06/19/20 06/19/20 00:00 01:00 02:00 Temperature 98.0 F Pulse Rate 102 H 80 79 Respiratory 18 18 18 Rate Blood Pressure 132/89 131/99 132/90 O2 Sat by Pulse 99 100 100 Oximetry 06/19/20 03:00 Temperature Pulse Rate 78 Respiratory 18 Rate Blood Pressure 134/86 O2 Sat by Pulse 100 Oximetry Medical Decision Making - Medical Decision Making 44-year-old female patient presents to the emergency department today for evaluation of headache and increase in seizure activity. Physical examination is unremarkable. She is neurologically intact with no focal deficits. Patient is intoxicated with alcohol level of 320. Other labs are unremarkable. She did admit to not taking her Keppra as prescribed. She is given 1 g loading dose. She will be discharged to follow-up with her neurologist and her primary care kristi phillips for recheck as soon as possible. She is instructed to call Dr. Bañuelos in the morning and discussed placement at her alcohol rehab facility. Return parameters discussed in detail. She verbalizes understanding and agrees with this plan. - Lab Data Result diagrams: 06/19/20 01:06 06/19/20 01:06 Lab Results 06/19/20 06/19/20 06/19/20 Range/Units 01:06 01:06 01:06 WBC 4.6 (3.8-10.6) k/uL RBC 4.54 (3.80-5.40) m/uL Hgb 11.1 L (11.4-16.0) gm/dL Hct 35.1 (34.0-46.0) % MCV 77.3 L (80.0-100.0) fL MCH 24.4 L (25.0-35.0) pg MCHC 31.6 (31.0-37.0) g/dL RDW 18.8 H (11.5-15.5) % Plt Count 323 (150-450) k/uL MPV 6.8 Neutrophils % 50 % Lymphocytes % 39 % Monocytes % 6 % Eosinophils % 2 % Basophils % 1 % Neutrophils # 2.3 (1.3-7.7) k/uL Lymphocytes # 1.8 (1.0-4.8) k/uL Monocytes # 0.3 (0-1.0) k/uL Eosinophils # 0.1 (0-0.7) k/uL Basophils # 0.0 (0-0.2) k/uL Hypochromasia Slight Anisocytosis Slight Microcytosis Moderate Sodium 143 (137-145) mmol/L Potassium 4.3 (3.5-5.1) mmol/L Chloride 107 (98-107) mmol/L Carbon Dioxide 24 (22-30) mmol/L Anion Gap 12 mmol/L BUN 18 H (7-17) mg/dL Creatinine 0.85 (0.52-1.04) mg/dL Est GFR (CKD-EPI)AfAm >90 (>60 ml/min/1.73 sqM) Est GFR (CKD-EPI)NonAf 84 (>60 ml/min/1.73 sqM) Glucose 86 (74-99) mg/dL Calcium 9.9 (8.4-10.2) mg/dL Total Bilirubin 0.3 (0.2-1.3) mg/dL AST 33 (14-36) U/L ALT 26 (4-34) U/L Alkaline Phosphatase 105 (38-126) U/L Total Protein 8.5 H (6.3-8.2) g/dL Albumin 4.7 (3.5-5.0) g/dL Urine Color Colorless Urine Appearance Clear (Clear) Urine pH 6.5 (5.0-8.0) Ur Specific [place] 1.004 (1.001-1.035) Urine Protein Negative (Negative) Urine Glucose (UA) Negative (Negative) Urine Ketones Negative (Negative) Urine Blood Negative (Negative) Urine Nitrite Negative (Negative) Urine Bilirubin Negative (Negative) Urine Urobilinogen <2.0 (<2.0) mg/dL Ur Leukocyte Esterase Negative (Negative) Serum Alcohol 320 H* mg/dL - EKG Data -: EKG Interpreted by Me EKG Comments: EKG obtained at 03 100 shows normal sinus rhythm with a ventricular rate of 84, NE interval 196, QRS duration 82, QT 394, QTC 465. No evidence of ST elevation or depression. Disposition Clinical Impression: Headache, Seizures, Alcohol intoxication Disposition: HOME SELF-CARE Condition: Good Instructions (If sedation given, give patient instructions): Alcohol Intoxication (ED), Acute Headache (ED), Recurrent Seizures in Adults (ED) Additional Instructions: Follow-up with Dr. Bañuelos and discuss placement in rehab facility. Return to the emergency department for any new, worsening, or concerning symptoms. Is patient prescribed a controlled substance at d/c from ED?: No Referrals: Lico Bañuelos MD [Primary Care Provider] - 1-2 days Time of Disposition: 03:22
[2020-06-19 04:44] VITALS: BP 123/81; PULSE 82; TEMP 97.9
== END 2020-06-19 03:45 | disposition home or self-care (01) ==
LOC: EC 23:58
DX: F10.129 Alcohol abuse with intoxication, unspecified (principal); I10 Essential (primary) hypertension; G40.909 Epilepsy, unspecified, not intractable, without status epilepticus; F41.9 Anxiety disorder, unspecified; F17.200 Nicotine dependence, unspecified, uncomplicated; Z79.899 Other long term (current) drug therapy; Z88.6 Allergy status to analgesic agent; Z91.013 Allergy to seafood; Z91.018 Allergy to other foods; Y90.8 Blood alcohol level of 240 mg/100 ml or more
CPT/HCPCS: 36415; 93005; 80053; 80177; 85025; 81003; 99284; 96374; 96361; G0480; J1885; J1953; 80320

== ENCOUNTER 2020-06-19 15:56 | Inpatient (IN) | payer OTHER ==
[2020-06-19] MEDS ORDERED: LORazepam 2 MG/ML INJ IV PRN ×2 (16:23)
[2020-06-19] MEDS ORDERED: THIAMINE 100 MG/ML 2 ML VIAL IM STA (16:23)
--- NOTE | 2020-06-19 16:35 | ED ---
Recheck HPI - General Chief Complaint: Recheck/Abnormal Lab/Rx Stated Complaint: Detox Time Seen by Provider: 06/19/20 16:07 Source: patient Mode of arrival: ambulatory Limitations: no limitations - History of Present Illness Initial Comments: Patient is a 44-year-old female with history of alcohol abuse presenting to the emergency department for alcohol detox. Patient states she was seen here yesterday after drinking a lot and thought she was having seizures. Patient states she spoke with her PCP, Dr. Bañuelos today and she wants to detox from alc ohol so Dr. Bañuelos recommended coming into the ER for evaluation and admission. She states her last alcohol was yesterday approximately 4 PM. She is complaining of some mild nausea, very mild tremors and some palpitations. She denies any chest pain or shortness of breath, no vomiting no fever or chills. Patient denies any other drug use. She does take Keppra for seizures, she did take that today. She has no further complaints at this time. Upon arrival to the ER, her vital signs are stable. - Related Data Home Medications Medication Instructions Recorded Confirmed amLODIPine [Norvasc] 10 mg PO DAILY 12/19/17 06/19/20 Ergocalciferol [Vitamin D2 50,000 unit PO Q28D 09/26/19 06/19/20 (ELADIA)] lisinopriL 40 mg PO DAILY 09/26/19 06/19/20 levETIRAcetam [Keppra] 750 mg PO BID 06/19/20 06/19/20 Allergies Allergy/AdvReac Type Severity Reaction Status Date / Time shellfish derived [Shellfish] Allergy Anaphylaxis Verified 06/19/20 17:24 wheat Allergy Anaphylaxis Verified 06/19/20 17:24 tramadol AdvReac Seizure Verified 06/19/20 17:24 Review of Systems ROS Statement: Those systems with pertinent positive or pertinent negative responses have been documented in the HPI. ROS Other: All systems not noted in ROS Statement are negative. Past Medical History Past Medical History: Asthma, Hypertension, Seizure Disorder Additional Past Medical History / Comment(s): had a seizure approx 2 weeks ago, brain tumor History of Any Multi-Drug Resistant Organisms: None Reported Past Surgical History: Hysterectomy, Tubal Ligation Past Anesthesia/Blood Transfusion Reactions: No Reported Reaction Past Psychological History: Anxiety Smoking Status: Current every day smoker Past Alcohol Use History: Abuse, Daily Past Drug Use History: Marijuana General Exam - General Exam Comments Initial Comments: GENERAL: Patient is well-developed and well-nourished. Patient is nontoxic and in no acute distress. HEAD: Atraumatic, normocephalic. EYES: Pupils equal round and reactive to light, extraocular movements intact, sclera anicteric, conjunctiva are normal. Eyelids were unremarkable. ENT: TMs normal, nares patent, oropharynx clear without exudates. Moist mucous membr anes. NECK: Normal range of motion, supple without lymphadenopathy or JVD. LUNGS: Unlabored respirations. Breath sounds clear to auscultation bilaterally and equal. No wheezes rales or rhonchi. HEART: Regular rate and rhythm without murmurs, rubs or gallops. ABDOMEN: Soft, nontender, normoactive bowel sounds. No guarding, no rebound. No masses appreciated. : Deferred MUSCULOSKELETAL: Normal extremities with adequate strength and normal range of motion, no pitting or edema. No clubbing or cyanosis. NEUROLOGICAL: Patient is alert and oriented x 3. Motor and sensory are also intact. Cranial nerves II through XII grossly intact. Symmetrical smile. Normal speech, normal gait. PSYCH: Normal mood, normal affect. SKIN: Warm, Dry, normal turgor, no rashes or lesions noted. Limitations: no limitations Course Vital Signs 06/19/20 06/19/20 16:01 17:59 Temperature 98.9 F Pulse Rate 94 88 Respiratory 20 18 Rate Blood Pressure 138/88 123/82 O2 Sat by Pulse 99 99 Oximetry Medical Decision Making - Medical Decision Making Patient is a 44-year-old female here for alcohol detox. She doesn't history of alcohol abuse, last drink was yesterday. She does have a history of seizures as well, takes Keppra, she did take this this morning. Her vital signs are stable upon arrival, her exam is unremarkable. Labs are stable, no acute process, serum alcohol is less than 10. Patient will be admitted for alcohol withdrawal, patient accepted by Dr. Bañuelos. [facility] protocol in place. Case discussed with Dr. Way. - Lab Data Result diagrams: 06/19/20 16:51 06/19/20 16:51 Lab Results 01/15/21 01/15/21 01/15/21 Range/Units 16:51 16:51 16:51 WBC 4.0 (3.8-10.6) k/uL RBC 4.10 (3.80-5.40) m/uL Hgb 10.0 L (11.4-16.0) gm/dL Hct 31.7 L (34.0-46.0) % MCV 77.2 L (80.0-100.0) fL MCH 24.5 L (25.0-35.0) pg MCHC 31.7 (31.0-37.0) g/dL RDW 18.3 H (11.5-15.5) % Plt Count 266 (150-450) k/uL MPV 6.6 Neutrophils % 60 % Lymphocytes % 30 % Monocytes % 4 % Eosinophils % 3 % Basophils % 1 % Neutrophils # 2.4 (1.3-7.7) k/uL Lymphocytes # 1.2 (1.0-4.8) k/uL Monocytes # 0.2 (0-1.0) k/uL Eosinophils # 0.1 (0-0.7) k/uL Basophils # 0.0 (0-0.2) k/uL Hypochromasia Slight Anisocytosis Slight Microcytosis Slight Sodium 135 L (137-145) mmol/L Potassium 3.7 (3.5-5.1) mmol/L Chloride 104 (98-107) mmol/L Carbon Dioxide 23 (22-30) mmol/L Anion Gap 8 mmol/L BUN 15 (7-17) mg/dL Creatinine 0.71 (0.52-1.04) mg/dL Est GFR (CKD-EPI)AfAm >90 (>60 ml/min/1.73 sqM) Est GFR (CKD-EPI)NonAf >90 (>60 ml/min/1.73 sqM) Glucose 116 H (74-99) mg/dL Calcium 9.2 (8.4-10.2) mg/dL Magnesium 1.4 L (1.6-2.3) mg/dL Total Bilirubin 0.6 (0.2-1.3) mg/dL AST 28 (14-36) U/L ALT 21 (4-34) U/L Alkaline Phosphatase 56 (38-126) U/L Total Protein 7.3 (6.3-8.2) g/dL Albumin 4.1 (3.5-5.0) g/dL Urine Color Yellow Urine Appearance Cloudy H (Clear) Urine pH 5.5 (5.0-8.0) Ur Specific [place] 1.027 (1.001-1.035) Urine Protein Trace H (Negative) Urine Glucose (UA) Trace H (Negative) Urine Ketones Negative (Negative) Urine Blood Negative (Negative) Urine Nitrite Negative (Negative) Urine Bilirubin Negative (Negative) Urine Urobilinogen <2.0 (<2.0) mg/dL Ur Leukocyte Esterase Negative (Negative) Urine RBC <1 (0-5) /hpf Urine WBC 4 (0-5) /hpf Ur Squamous Epith Cells 26 H (0-4) /hpf Urine Bacteria Rare H (None) /hpf Urine Mucus Few H (None) /hpf Urine Opiates Screen Not Detected (NotDetected) Ur Oxycodone Screen Not Detected (NotDetected) Urine Methadone Screen Not Detected (NotDetected) Ur Propoxyphene Screen Not Detected (NotDetected) Ur Barbiturates Screen Not Detected (NotDetected) U Tricyclic Antidepress Not Detected (NotDetected) Ur Phencyclidine Scrn Not Detected (NotDetected) Ur Amphetamines Screen Not Detected (NotDetected) U Methamphetamines Scrn Not Detected (NotDetected) U Benzodiazepines Scrn Detected H (NotDetected) Urine Cocaine Screen Not Detected (NotDetected) U Marijuana (THC) Screen Not Detected (NotDetected) Serum Alcohol <10 mg/dL Disposition Clinical Impression: Alcohol withdrawal Disposition: ADMITTED IP TO THIS [facility] Condition: Stable Decision Date: 06/19/20 Decision Time: 17:36
[2020-06-19] MEDS: LORazepam 2 MG/ML INJ IV PRN ×2 (16:59→20:18)
[2020-06-19 17:07] LABS: Anisocytosis Slight; Basophils % (A) 1 %; Eosinophils # (A) 0.1 k/uL (0-0.7); Eosinophils % (A) 3 %; HCT 31.7 % (34.0-46.0); Hypochromasia Slight; Lymphocytes # (A) 1.2 k/uL (1.0-4.8); Lymphocytes % (A) 30 %; MCH 24.5 pg (25.0-35.0); MCHC 31.7 g/dL (31.0-37.0); MCV 77.2 fL (80.0-100.0); Mean Platelet Volume 6.6; Microcytosis Slight; Monocytes # (A) 0.2 k/uL (0-1.0); Monocytes % (A) 4 %; Neutrophils # (A) 2.4 k/uL (1.3-7.7); Neutrophils % (A) 60 %; Platelet Count 266 k/uL (150-450); RDW 18.3 % (11.5-15.5)
[2020-06-19 17:14] LABS: Chloride 104 mmol/L (98-107)
[2020-06-19 17:17] LABS: ALT 21 U/L (4-34); AST 28 U/L (14-36); African American GFR (CKD) >90 (>60 ml/min/1.73 sqM); Albumin 4.1 g/dL (3.5-5.0); Alcohol <10 mg/dL; Alkaline Phosphatase 56 U/L (38-126); Anion Gap 8 mmol/L; Blood Urea Nitrogen 15 mg/dL (7-17); Calcium 9.2 mg/dL (8.4-10.2); Carbon Dioxide 23 mmol/L (22-30); Glucose 116 mg/dL (74-99); Magnesium 1.4 mg/dL (1.6-2.3); Non-African American GFR(CKD) >90 (>60 ml/min/1.73 sqM); Potassium 3.7 mmol/L (3.5-5.1); Sodium 135 mmol/L (137-145); Total Bilirubin 0.6 mg/dL (0.2-1.3); Total Protein 7.3 g/dL (6.3-8.2)
[2020-06-19 17:21] LABS: Amphetamine Screen,Urine Not Detected (NotDetected); Appearance,Urine Cloudy (Clear); Bacteria,Urine Rare /hpf; Barbiturate Screen,Urine Not Detected (NotDetected); Benzodiazepines Screen,Urine Detected (NotDetected); Bilirubin,Urine Negative (Negative); Blood,Urine Negative (Negative); Cocaine Screen,Urine Not Detected (NotDetected); Color,Urine Yellow; Glucose,Urine (UA) Trace (Negative); Ketones,Urine Negative (Negative); Leukocyte Esterase,Urine Negative (Negative); Methadone Screen, Urine Not Detected (NotDetected); Mucus,Urine Few /hpf; Nitrite,Urine Negative (Negative); Opiate Screen,Urine Not Detected (NotDetected); Oxycodone Screen, Urine Not Detected (NotDetected); PH, Urine 5.5 (5.0-8.0); Phencyclidine Screen,Urine Not Detected (NotDetected); Protein,Urine Trace (Negative); RBC,Urine <1 /hpf (0-5); Specific Gravity,Urine 1.027 (1.001-1.035); Squamous Epithelial Cell,Urine 26 /hpf (0-4); Tricyclic Antidepressant,Urine Not Detected (NotDetected); Urn Cannabinoid Scrn Not Detected (NotDetected); Urobilinogen,Urine <2.0 mg/dL (<2.0); WBC,Urine 4 /hpf (0-5)
[2020-06-19] MEDS ORDERED: NALOXONE 0.4 MG/ML 1 ML VIAL IV PRN (17:34)
[2020-06-19] MEDS ORDERED: IBUPROFEN 400 MG TAB PO PRN (17:34)
[2020-06-19] MEDS ORDERED: ACETAMINOPHEN TAB 325 MG TAB PO PRN (17:34)
[2020-06-19] MEDS: ONDANSETRON 4 MG/2 ML VIAL IVP PRN (20:56)
[2020-06-20] MEDS: LORazepam 2 MG/ML INJ IV PRN ×7 (00:53→21:09)
[2020-06-20] MEDS: ONDANSETRON 4 MG/2 ML VIAL IVP PRN (07:25)
[2020-06-20] MEDS: THIAMINE 100 MG TAB PO SCH ×2 (09:29→18:07)
[2020-06-20] MEDS: lisinopriL 20 MG TAB PO SCH (18:07)
[2020-06-20] MEDS: amLODIPine 10 MG TAB PO SCH (18:07)
--- NOTE | 2020-06-20 18:25 | HP ---
HISTORY AND PHYSICAL CHIEF COMPLAINT: Acute alcohol intoxication and chronic alcoholism requiring detoxication. HISTORY OF PRESENT ILLNESS: This is the first known admission for this 44-year-old female. She came to the office requesting admission for detox. REVIEW OF SYSTEMS: She has had no seizures, blackouts, difficulty with vision, hearing, chest pain, shortness of breath, cough, hemoptysis, orthopnea, PND, fever and chills, etc. She does have a history of seizure activity, probably related to alcohol and she also has a history of hypertension. She has had no abdominal pain, hematemesis, melena, hematochezia, jaundice, renal failure, hematuria, dysuria, frequency, urgency, incontinence, diabetes, etc. Past medical history, family history, personal and social histories reveal that she is ALLERGIC TO ULTRAM which can trigger her seizures. MEDICATIONS: Include Levetiracetam 750 mg twice a day, KCl 20 mEq once a day, lisinopril 40 mg once a day, hydrochlorothiazide 50 mg once a day, Vicodin 5 q.4h p.r.n., carvedilol 3.125 twice a day, amlodipine 10 mg once a day. She is a steady and heavy drinker. She does smoke. PHYSICAL EXAMINATION: Blood pressure is 140/90 with a pulse of 96, respirations of 32, and she is afebrile. In general, she appeared to be overweight and she was intoxicated. HEENT: Head, ears, eyes, nose, mouth, and throat were normal. CHEST is clear. CARDIAC exam is normal. ABDOMEN is soft and nontender. EXTREMITIES: Normal. NEUROLOGIC: She is intact. IMPRESSION: She is admitted to the hospital with diagnoses: 1. Acute alcohol intoxication. 2. Chronic alcoholism. 3. History of seizures. 4. Hypertension. PLAN: 1. Bed rest. 2. IV fluids. 3. Watch for seizure activity. MMODL / IJN: [id number] /
--- NOTE | 2020-06-20 18:31 | PN ---
PROGRESS NOTE DATE OF SERVICE: 06/20/2020. CHIEF COMPLAINT: Chronic alcoholism. HISTORY OF PRESENT ILLNESS: This lady is doing fairly well. She has had no seizure activity. She is feeling tremulous. PHYSICAL EXAMINATION: Chest is clear. Cardiac exam is normal. Abdomen is soft, nontender. VITAL SIGNS: Normal. IMPRESSION: 1. Chronic alcoholism. 2. Delirium tremens. PLAN: Continue with [facility] protocol. MMODL / IJN: [id number] /
[2020-06-20] MEDS: DOXYCYCLINE 100 MG CAP PO SCH (21:10)
[2020-06-20 23:01] VITALS: RESP 16
[2020-06-21] MEDS: LORazepam 2 MG/ML INJ IV PRN (02:42)
[2020-06-21] MEDS: lisinopriL 20 MG TAB PO SCH (08:33)
[2020-06-21] MEDS: THIAMINE 100 MG TAB PO SCH ×2 (08:33→16:44)
[2020-06-21] MEDS: amLODIPine 10 MG TAB PO SCH (08:33)
[2020-06-21] MEDS: DOXYCYCLINE 100 MG CAP PO SCH (08:33)
[2020-06-21] MEDS: LORazepam 1 MG TAB PO PRN ×2 (10:31→16:44)
[2020-06-21 10:56] VITALS: BP 120/82; PULSE 70; TEMP 98.8
--- NOTE | 2020-06-21 23:24 | DS ---
DISCHARGE SUMMARY DATE OF DISCHARGE: 06/21/2020. CHIEF COMPLAINT: Chronic alcoholism, acute alcohol intoxication and DTs. HISTORY OF PRESENT ILLNESS AND PHYSICAL EXAMINATION: Details of this lady's history and physical can be found in the initial workup. LABORATORY STUDIES: While she was in the hospital, she had laboratory studies, details of which can be found in the laboratory section of her chart. COURSE IN THE HOSPITAL: After admission, she was placed on bedrest, started on intravenous fluids and CIWA protocol. She seemed to be doing fairly well and was well controlled, but then she suddenly signed out AGAINST MEDICAL ADVICE on the evening of the . We will contact her through the office for followup. FINAL DIAGNOSES: 1. Chronic alcoholism. 2. Acute alcohol intoxication. 3. DTs. OPERATIONS: None. CONSULTATION: None. She signed out AMA. DARRYL / NICHOLAS: [id number] /
== END 2020-06-21 18:24 | disposition left against medical advice (07) | DRG 894 ==
LOC: EC 15:56 → 5NMEDONC 17:36 → 6NMEDSUR 18:53
PROVIDERS: ADMIT Family Medicine; ATTEND Family Medicine
DX: F10.231 Alcohol dependence with withdrawal delirium (principal); D49.6 Neoplasm of unspecified behavior of brain; F10.220 Alcohol dependence with intoxication, uncomplicated; G40.909 Epilepsy, unspecified, not intractable, without status epilepticus; I10 Essential (primary) hypertension; J45.909 Unspecified asthma, uncomplicated; F41.9 Anxiety disorder, unspecified; F17.200 Nicotine dependence, unspecified, uncomplicated; Y90.0 Blood alcohol level of less than 20 mg/100 ml; Z79.899 Other long term (current) drug therapy; Z90.710 Acquired absence of both cervix and uterus; Z91.013 Allergy to seafood; Z88.8 Allergy status to other drugs, medicaments and biological substances; Z91.018 Allergy to other foods
CPT/HCPCS: 36415; 80053; 80177; 80306; 80320; 81001; 81003; 83735; 85025; 93005; 96361; 96372; 96374; 99284; 99285

== ENCOUNTER 2020-07-07 14:47 | Emergency (ER) | payer OTHER ==
[2020-07-07] MEDS ORDERED: SODIUM CHLORIDE 0.9% 500 ML 500 ML IV STA (15:04)
[2020-07-07] MEDS ORDERED: ACETAMINOPHEN TAB 500 MG TAB PO STA (15:05)
--- NOTE | 2020-07-07 15:31 | ED ---
SOB HPI - General Chief Complaint: Shortness of Breath Stated Complaint: SOB, sent by pcp Time Seen by Provider: 07/07/20 14:55 Source: patient, RN notes reviewed Mode of arrival: ambulatory Limitations: no limitations - History of Present Illness Initial Comments: This is a 44-year-old female presents emergency Department chief complaint cough congestion shortness of breath. Patient states started 4-5 days ago. Patient states progressively getting worse. She does have a history of asthma states that she used her inhaler did not have any relief. She states she has essentially a nonproductive cough. She has minimal to mild nasal congestion, brandyn dy aches and which she states that she did have some chills no noted fever. Patient called PCP who recommended go to emergency department. Patient is went to chest pain no pleuritic pain. Patient denies any GI symptoms including nausea and diarrhea constipation denies any leg pain and swelling no history of PE or DVT. - Related Data Home Medications Medication Instructions Recorded Confirmed amLODIPine [Norvasc] 10 mg PO DAILY 12/19/17 06/19/20 Ergocalciferol [Vitamin D2 50,000 unit PO Q28D 09/26/19 06/19/20 (DRISDOL)] lisinopriL 40 mg PO DAILY 09/26/19 06/19/20 levETIRAcetam [Keppra] 750 mg PO BID 06/19/20 06/19/20 Previous Rx's Medication Instructions Recorded Azithromycin [Zithromax Z-pack (6 0 mg PO DIRECTED #1 pack 07/07/20 tabs)] predniSONE 50 mg PO DAILY #5 tab 07/07/20 Allergies Allergy/AdvReac Type Severity Reaction Status Date / Time shellfish derived [Shellfish] Allergy Anaphylaxis Verified 07/07/20 14:54 wheat Allergy Anaphylaxis Verified 07/07/20 14:54 tramadol AdvReac Seizure Verified 07/07/20 14:54 Review of Systems ROS Statement: Those systems with pertinent positive or pertinent negative responses have been documented in the HPI. ROS Other: All systems not noted in ROS Statement are negative. Past Medical History Past Medical History: Asthma, Hypertension, Seizure Disorder Additional Past Medical History / Comment(s): had a seizure approx 2 weeks ago, brain tumor History of Any Multi-Drug Resistant Organisms: None Reported Past Surgical History: Hysterectomy, Tubal Ligation Past Anesthesia/Blood Transfusion Reactions: No Reported Reaction Past Psychological History: Anxiety Smoking Status: Current every day smoker Past Alcohol Use History: Abuse, Daily Past Drug Use History: Marijuana General Exam Limitations: no limitations General appearance: alert, in no apparent distress Head exam: Present: atraumatic, normocephalic, normal inspection Eye exam: Present: normal appearance, PERRL, EOMI. Absent: scleral icterus, conjunctival injection, periorbital swelling ENT exam: Present: normal exam, normal oropharynx, mucous membranes moist, TM's normal bilaterally, normal external ear exam Neck exam: Present: normal inspection, full ROM. Absent: tenderness, meningismus, lymphadenopathy Respiratory exam: Present: normal lung sounds bilaterally. Absent: respiratory distress, wheezes, rales, rhonchi, stridor Cardiovascular Exam: Present: normal rhythm, tachycardia, normal heart sounds. Absent: systolic murmur, diastolic murmur, rubs, gallop, clicks GI/Abdominal exam: Present: soft, normal bowel sounds. Absent: distended, tenderness, guarding, rebound, rigid Extremities exam: Absent: pedal edema, calf tenderness Neurological exam: Present: alert, oriented X3, CN II-XII intact Skin exam: Present: warm, dry, intact, normal color. Absent: rash Course Vital Signs 07/07/20 07/07/20 07/07/20 14:52 16:00 17:19 Temperature 98.7 F 98.4 F 98.3 F Pulse Rate 125 H 113 H 105 H Respiratory 20 18 18 Rate Blood Pressure 178/109 184/121 O2 Sat by Pulse 96 99 99 Oximetry Medical Decision Making - Medical Decision Making 44-year-old female presented from for cough congestion shortness breath. CT shows no evidence of PE no evidence of pneumonia. Patient is hypertensive though has not taken her medications. Patient given medications and symptoms have improved. Patient labs review shows mild lactic acidosis related to her alcohol abuse. Patient will be discharged in stable condition she does have a ride home. Patient was given prescription for steroids. - Lab Data Result diagrams: 07/07/20 15:23 07/07/20 15:23 Lab Results 07/07/20 07/07/20 07/07/20 Range/Units 15:23 15:23 15:23 WBC 8.6 (3.8-10.6) k/uL RBC 4.67 (3.80-5.40) m/uL Hgb 11.4 (11.4-16.0) gm/dL Hct 36.2 (34.0-46.0) % MCV 77.5 L (80.0-100.0) fL MCH 24.4 L (25.0-35.0) pg MCHC 31.5 (31.0-37.0) g/dL RDW 17.7 H (11.5-15.5) % Plt Count 333 (150-450) k/uL MPV 7.3 Neutrophils % 79 % Lymphocytes % 14 % Monocytes % 3 % Eosinophils % 2 % Basophils % 0 % Neutrophils # 6.9 (1.3-7.7) k/uL Lymphocytes # 1.2 (1.0-4.8) k/uL Monocytes # 0.3 (0-1.0) k/uL Eosinophils # 0.2 (0-0.7) k/uL Basophils # 0.0 (0-0.2) k/uL Hypochromasia Slight Anisocytosis Slight Microcytosis Slight PT 9.8 (9.0-12.0) sec INR 0.9 (<1.2) APTT 22.0 (22.0-30.0) sec D-Dimer 1.11 H (<0.60) mg/L FEU Sodium 143 (137-145) mmol/L Potassium 3.8 (3.5-5.1) mmol/L Chloride 101 (98-107) mmol/L Carbon Dioxide 24 (22-30) mmol/L Anion Gap 18 mmol/L BUN 11 (7-17) mg/dL Creatinine 0.62 (0.52-1.04) mg/dL Est GFR (CKD-EPI)AfAm >90 (>60 ml/min/1.73 sqM) Est GFR (CKD-EPI)NonAf >90 (>60 ml/min/1.73 sqM) Glucose 90 (74-99) mg/dL Plasma Lactic Acid Regan (0.7-2.0) mmol/L Calcium 9.3 (8.4-10.2) mg/dL Magnesium 1.7 (1.6-2.3) mg/dL Total Bilirubin 0.4 (0.2-1.3) mg/dL AST 67 H (14-36) U/L ALT 46 H (4-34) U/L Alkaline Phosphatase 87 (38-126) U/L Troponin I (0.000-0.034) ng/mL C-Reactive Protein <5.0 (<10.0) mg/L NT-Pro-B Natriuret Pep pg/mL Total Protein 8.2 (6.3-8.2) g/dL Albumin 4.6 (3.5-5.0) g/dL Coronavirus (PCR) (Not Detectd) 07/07/20 07/07/20 07/07/20 Range/Units 15:23 15:23 15:23 WBC (3.8-10.6) k/uL RBC (3.80-5.40) m/uL Hgb (11.4-16.0) gm/dL Hct (34.0-46.0) % MCV (80.0-100.0) fL MCH (25.0-35.0) pg MCHC (31.0-37.0) g/dL RDW (11.5-15.5) % Plt Count (150-450) k/uL MPV Neutrophils % % Lymphocytes % % Monocytes % % Eosinophils % % Basophils % % Neutrophils # (1.3-7.7) k/uL Lymphocytes # (1.0-4.8) k/uL Monocytes # (0-1.0) k/uL Eosinophils # (0-0.7) k/uL Basophils # (0-0.2) k/uL Hypochromasia Anisocytosis Microcytosis PT (9.0-12.0) sec INR (<1.2) APTT (22.0-30.0) sec D-Dimer (<0.60) mg/L FEU Sodium (137-145) mmol/L Potassium (3.5-5.1) mmol/L Chloride (98-107) mmol/L Carbon Dioxide (22-30) mmol/L Anion Gap mmol/L BUN (7-17) mg/dL Creatinine (0.52-1.04) mg/dL Est GFR (CKD-EPI)AfAm (>60 ml/min/1.73 sqM) Est GFR (CKD-EPI)NonAf (>60 ml/min/1.73 sqM) Glucose (74-99) mg/dL Plasma Lactic Acid Regan 4.5 H* (0.7-2.0) mmol/L Calcium (8.4-10.2) mg/dL Magnesium (1.6-2.3) mg/dL Total Bilirubin (0.2-1.3) mg/dL AST (14-36) U/L ALT (4-34) U/L Alkaline Phosphatase (38-126) U/L Troponin I <0.012 (0.000-0.034) ng/mL C-Reactive Protein (<10.0) mg/L NT-Pro-B Natriuret Pep <11 pg/mL Total Protein (6.3-8.2) g/dL Albumin (3.5-5.0) g/dL Coronavirus (PCR) (Not Detectd) 07/07/20 Range/Units 15:23 WBC (3.8-10.6) k/uL RBC (3.80-5.40) m/uL Hgb (11.4-16.0) gm/dL Hct (34.0-46.0) % MCV (80.0-100.0) fL MCH (25.0-35.0) pg MCHC (31.0-37.0) g/dL RDW (11.5-15.5) % Plt Count (150-450) k/uL MPV Neutrophils % % Lymphocytes % % Monocytes % % Eosinophils % % Basophils % % Neutrophils # (1.3-7.7) k/uL Lymphocytes # (1.0-4.8) k/uL Monocytes # (0-1.0) k/uL Eosinophils # (0-0.7) k/uL Basophils # (0-0.2) k/uL Hypochromasia Anisocytosis Microcytosis PT (9.0-12.0) sec INR (<1.2) APTT (22.0-30.0) sec D-Dimer (<0.60) mg/L FEU Sodium (137-145) mmol/L Potassium (3.5-5.1) mmol/L Chloride (98-107) mmol/L Carbon Dioxide (22-30) mmol/L Anion Gap mmol/L BUN (7-17) mg/dL Creatinine (0.52-1.04) mg/dL Est GFR (CKD-EPI)AfAm (>60 ml/min/1.73 sqM) Est GFR (CKD-EPI)NonAf (>60 ml/min/1.73 sqM) Glucose (74-99) mg/dL Plasma Lactic Acid Regan (0.7-2.0) mmol/L Calcium (8.4-10.2) mg/dL Magnesium (1.6-2.3) mg/dL Total Bilirubin (0.2-1.3) mg/dL AST (14-36) U/L ALT (4-34) U/L Alkaline Phosphatase (38-126) U/L Troponin I (0.000-0.034) ng/mL C-Reactive Protein (<10.0) mg/L NT-Pro-B Natriuret Pep pg/mL Total Protein (6.3-8.2) g/dL Albumin (3.5-5.0) g/dL Coronavirus (PCR) Not Detected (Not Detectd) Disposition Clinical Impression: Alcohol intoxication, Asthmatic bronchitis Disposition: HOME SELF-CARE Condition: Stable Instructions (If sedation given, give patient instructions): Acute Bronchitis (ED), Asthma (ED) Additional Instructions: Please return to the Emergency Department if symptoms worsen or any other concerns. Prescriptions: predniSONE 50 mg PO DAILY #5 tab Azithromycin [Zithromax Z-pack (6 tabs)] 0 mg PO DIRECTED #1 pack Is patient prescribed a controlled substance at d/c from ED?: No Referrals: Lico Bañuelos MD [Primary Care Provider] - 1-2 days Time of Disposition: 17:55
[2020-07-07 15:51] LABS: Anisocytosis Slight; Basophils % (A) 0 %; Eosinophils # (A) 0.2 k/uL (0-0.7); Eosinophils % (A) 2 %; HCT 36.2 % (34.0-46.0); HGB 11.4 gm/dL (11.4-16.0); Hypochromasia Slight; Lymphocytes # (A) 1.2 k/uL (1.0-4.8); Lymphocytes % (A) 14 %; MCH 24.4 pg (25.0-35.0); MCHC 31.5 g/dL (31.0-37.0); MCV 77.5 fL (80.0-100.0); Mean Platelet Volume 7.3; Microcytosis Slight; Monocytes # (A) 0.3 k/uL (0-1.0); Monocytes % (A) 3 %; Neutrophils # (A) 6.9 k/uL (1.3-7.7); Neutrophils % (A) 79 %; Platelet Count 333 k/uL (150-450); RBC 4.67 m/uL (3.80-5.40); RDW 17.7 % (11.5-15.5); WBC 8.6 k/uL (3.8-10.6)
[2020-07-07 16:02] VITALS: RESP 18
[2020-07-07 16:04] LABS: ALT 46 U/L (4-34); AST 67 U/L (14-36); African American GFR (CKD) >90 (>60 ml/min/1.73 sqM); Albumin 4.6 g/dL (3.5-5.0); Alkaline Phosphatase 87 U/L (38-126); Anion Gap 18 mmol/L; Blood Urea Nitrogen 11 mg/dL (7-17); C Reactive Protein <5.0 mg/L (<10.0); Calcium 9.3 mg/dL (8.4-10.2); Carbon Dioxide 24 mmol/L (22-30); Chloride 101 mmol/L (98-107); Glucose 90 mg/dL (74-99); INR 0.9 (<1.2); Magnesium 1.7 mg/dL (1.6-2.3); Non-African American GFR(CKD) >90 (>60 ml/min/1.73 sqM); Potassium 3.8 mmol/L (3.5-5.1); Prothrombin Time 9.8 sec (9.0-12.0); Sodium 143 mmol/L (137-145); Total Bilirubin 0.4 mg/dL (0.2-1.3); Total Protein 8.2 g/dL (6.3-8.2)
[2020-07-07 16:09] LABS: D-Dimer 1.11 mg/L FEU (<0.60)
--- NOTE | 2020-07-07 16:41 | XR ---
EXAMINATION TYPE: XR chest 2V DATE OF EXAM: 07/07/2020 COMPARISON: 09/26/2019 INDICATION: Difficulty breathing history of asthma TECHNIQUE: Frontal and lateral views of the chest are obtained. FINDINGS: The heart size is normal. The pulmonary vasculature is normal. The lungs are clear. IMPRESSION: 1. No acute pulmonary process.
--- NOTE | 2020-07-07 16:46 | CT ---
EXAMINATION TYPE: CT chest angio for PE DATE OF EXAM: 07/07/2020 COMPARISON: None HISTORY: Shortness of breath, cough, elevated d-dimer CT DLP: 225.8 mGycm Automated exposure control for dose reduction was used. CONTRAST: Performed with IV Contrast, patient injected with 100, wasted 35 mL of Isovue 370. There are 3-D post processed images. The lungs are clear of consolidation. There is no evidence of a pulmonary mass. There is no mediastin al adenopathy. There are no hilar masses. Thoracic aorta is intact. There is no aneurysm or dissectio n. Ascending aorta measures 3 cm. There is no pericardial effusion. There is no pleural effusion. There is normal contrast opacification of the pulmonary arteries. There are no filling defects. The bony thorax is intact. There is no compression fracture. Exam limited slightly by motion. IMPRESSION: Negative exam. No evidence of pulmonary embolism.
[2020-07-07] MEDS ORDERED: SODIUM CHLORIDE 0.9% 500 ML 500 ML IV ONE (16:52)
[2020-07-07] MEDS ORDERED: ENALAPRILAT 1.25 MG/ML 1 ML VIAL IVP STA (17:13)
[2020-07-07] MEDS ORDERED: levETIRAcetam 250 MG TAB PO STA (17:14)
[2020-07-07] MEDS ORDERED: amLODIPine 10 MG TAB PO STA (17:14)
[2020-07-07 17:20] VITALS: TEMP 98.3
[2020-07-07] MEDS ORDERED: methylPREDNISolone SOD SUCCI 125 MG/2 ML VIAL IV STA (17:53)
[2020-07-07 18:05] VITALS: BP 156/104; PULSE 98
== END 2020-07-07 18:12 | disposition home or self-care (01) ==
LOC: EC 14:47
DX: J45.909 Unspecified asthma, uncomplicated (principal); F10.129 Alcohol abuse with intoxication, unspecified; G40.909 Epilepsy, unspecified, not intractable, without status epilepticus; I10 Essential (primary) hypertension; F17.200 Nicotine dependence, unspecified, uncomplicated; Z79.899 Other long term (current) drug therapy; Z91.013 Allergy to seafood; Z91.018 Allergy to other foods; Z88.5 Allergy status to narcotic agent
CPT/HCPCS: 36415; 93005; 85379; 83880; 80053; 83605; 83735; 84484; 85025; 85610; 85730; 86140; 87635; 71046; 71275; 99285; 96374; 96375; J2930; Q9967

== ENCOUNTER 2020-07-22 01:05 | Emergency (ER) | payer OTHER ==
[2020-07-22 01:13] VITALS: PULSE 114; TEMP 98.6
[2020-07-22] MEDS ORDERED: HYDROcodone/APAP 10-325MG 1 EACH TAB PO ONE (01:13)
--- NOTE | 2020-07-22 01:46 | ED ---
Fall HPI - General Chief Complaint: Fall Stated Complaint: fall Time Seen by Provider: 07/22/20 01:10 Source: patient, EMS Mode of arrival: EMS - History of Present Illness Initial Comments: 44[facility] pt states she was in her socks and she slipped down two steps near the door inside of her home due to it being wet. she states that she is unsure if she had LOC. Denies nausea, vomiting, visual changes, speech changes, weakness of the uE or LE/sensation deficits. Patient states that the back of her head hurts very bad and that is why she called EMS. She states she is suprised that she didnt "crack her head open". Patient denies extremity pain, denies back pain> She admits to some neck pain and is in c- collar in arrival. Patient refuses to wear the c-collar ripping it off in addition pt refused IV access- pt does not appear acutely intoxicated, answering questions appropriately. Patient has no additional complaints. No acute distress on arrival. - Related Data Home Medications Medication Instructions Recorded Confirmed amLODIPine [Norvasc] 10 mg PO DAILY 12/19/17 06/19/20 Ergocalciferol [Vitamin D2 50,000 unit PO Q28D 09/26/19 06/19/20 (DRISDOL)] lisinopriL 40 mg PO DAILY 09/26/19 06/19/20 levETIRAcetam [Keppra] 750 mg PO BID 06/19/20 06/19/20 Previous Rx's Medication Instructions Recorded Azithromycin [Zithromax Z-pack (6 0 mg PO DIRECTED #1 pack 07/07/20 tabs)] predniSONE 50 mg PO DAILY #5 tab 07/07/20 Allergies Allergy/AdvReac Type Severity Reaction Status Date / Time shellfish derived [Shellfish] Allergy Anaphylaxis Verified 07/22/20 01:12 wheat Allergy Anaphylaxis Verified 07/22/20 01:12 tramadol AdvReac Seizure Verified 07/22/20 01:12 Review of Systems ROS Statement: Those systems with pertinent positive or pertinent negative responses have been documented in the HPI. ROS Other: All systems not noted in ROS Statement are negative. Past Medical History Past Medical History: Asthma, Hypertension, Seizure Disorder Additional Past Medical History / Comment(s): had a seizure approx 2 weeks ago, brain tumor History of Any Multi-Drug Resistant Organisms: None Reported Past Surgical History: Hysterectomy, Tubal Ligation Past Anesthesia/Blood Transfusion Reactions: No Reported Reaction Past Psychological History: Anxiety Smoking Status: Current every day smoker Past Alcohol Use History: Abuse, Daily Past Drug Use History: Marijuana General Exam - General Exam Comments Initial Comments: General: The patient is awake and alert, in no distress Eye: +3 mm pupils are equal, round and reactive to light, extra-ocular movements are intact. No nystagmus. There is normal conjunctiva bilaterally. No signs of icterus. Ears, nose, mouth and throat: There are moist mucous membranes and no oral lesions. Neck: The neck is supple, there is no tenderness or JVD. paraspinal tenderness of cervical spine no midline tenderness, Cardiovascular: There is a regular rate and rhythm. No murmur, rub or gallop is appreciated. Respiratory: Lungs are clear to auscultation, respirations are non-labored, breath sounds are equal. No wheezes, stridor, rales, or rhonchi. Gastrointestinal: Soft, non-distended, non-tender abdomen without masses or organomegaly noted. There is no rebound or guarding present. Musculoskeletal: Normal ROM, no tenderness. Strength 5/5 of the UE and LE b/l. Sensation intact of the UE and LE b/l. Radial pulses equal bilaterally 2+. Neurological: A&O x 3. CN II-XII intact grossly, There are no obvious motor or sensory deficits. Coordination appears grossly intact. Speech is normal. Skin: Skin is warm and dry and no rashes or lesions are noted. Psychiatric: Cooperative, appropriate mood & affect, normal judgment. Course Vital Signs 07/22/20 07/22/20 01:07 02:00 Temperature 98.6 F Pulse Rate 114 H Respiratory 16 18 Rate Blood Pressure 182/119 165/109 O2 Sat by Pulse 100 Oximetry Medical Decision Making - Medical Decision Making 44yo female presenting for cc of fall, head pain. CT brain, c-spine (-). Patient has paraspinal tenderness. Patient has no focal neurological deficits. no r adicular symptoms. no weakness or sensation deficits of the UE b/l. patient took off c-collar, requesting discharge, discussed case with Dr. Vences who is agreeable to dishcarge with pcp f/u. Disposition Clinical Impression: Fall, Head pain Disposition: HOME SELF-CARE Condition: Good Instructions (If sedation given, give patient instructions): Fall Prevention (ED) Additional Instructions: Please use medication as discussed. Please follow-up with family doctor in the next 2 days.Please return to emergency room if the symptoms increase or worsen or for any other concerns. Is patient prescribed a controlled substance at d/c from ED?: No Referrals: Lico Bañuelos MD [Primary Care Provider] - 1-2 days Time of Disposition: 02:27
[2020-07-22 02:09] VITALS: BP 165/109; RESP 18
--- NOTE | 2020-07-22 02:13 | CT ---
EXAM: CT Head Without Intravenous Contrast CLINICAL HISTORY: ITS.REASON CT Reason: fall TECHNIQUE: Axial computed tomography images of the head/brain without intravenous contrast. CTDI is 27.03 mGy and DLP is 594.95 mGy-cm. This CT exam was performed using one or more of the following dose reduction techniques: automated exposure control, adjustment of the mA and/or kV according to patient size, and/or use of iterative reconstruction technique. Coronal and sagittal reconstructions are performed COMPARISON: None FINDINGS: Brain: Unremarkable. No hemorrhage. No significant white matter disease. No edema. Ventricles: Unremarkable. No ventriculomegaly. Bones/joints: Unremarkable. No acute fracture. Soft tissues: Unremarkable. Sinuses: Mild sinus disease. Mastoid air cells: Unremarkable as visualized. No mastoid effusion. IMPRESSION: No acute intracranial findings EXAM: CT Cervical Spine Without Intravenous Contrast CLINICAL HISTORY: ITS.REASON CT Reason: fall TECHNIQUE: Axial computed tomography images of the cervical spine without intravenous contrast. CTDI is 27.03 mGy and DLP is 594.95 mGy-cm. This CT exam was performed using one or more of the following dose reduction techniques: automated exposure control, adjustment of the mA and/or kV according to patient size, and/or use of iterative reconstruction technique. Coronal and sagittal reconstructions are performed COMPARISON: No relevant prior studies available. FINDINGS: Vertebrae: Unremarkable. No fracture. Discs/spinal canal/neural foramina: Prominent posterior disc extrusion at C4-5, best seen on series 3 image 47, without significant thecal sac compression. Mild degenerative disc disease. Soft tissues: Unremarkable. IMPRESSION: No fracture or subluxation
== END 2020-07-22 02:30 | disposition home or self-care (01) ==
LOC: EC 01:05
DX: S09.90XA Unspecified injury of head, initial encounter (principal); F17.200 Nicotine dependence, unspecified, uncomplicated; F10.10 Alcohol abuse, uncomplicated; I10 Essential (primary) hypertension; G40.909 Epilepsy, unspecified, not intractable, without status epilepticus; Z79.899 Other long term (current) drug therapy; Z91.013 Allergy to seafood; Z91.018 Allergy to other foods; Z88.6 Allergy status to analgesic agent; W10.9XXA Fall (on) (from) unspecified stairs and steps, initial encounter; Y92.009 Unspecified place in unspecified non-institutional (private) residence as the place of occurrence of the external cause
CPT/HCPCS: 70450; 72125; 99284

== ENCOUNTER 2020-09-03 07:29 | Inpatient (IN) | payer OTHER ==
[2020-09-03] MEDS ORDERED: ONDANSETRON 4 MG/2 ML VIAL IVP STA (07:43)
[2020-09-03] MEDS ORDERED: SODIUM CHLORIDE 0.9% 1,000 ML IV ONE ×2 (07:47→09:41)
--- NOTE | 2020-09-03 07:49 | ED ---
General Adult HPI - General Chief complaint: Seizure Stated complaint: Seizure Time Seen by Provider: 09/03/20 07:30 Source: patient, RN notes reviewed, old records reviewed Mode of arrival: ambulatory Limitations: no limitations - History of Present Illness Initial comments: This is a 44-year-old female who presents emergency Department complaining of having had a seizure this morning. Patient states she's been on a drinking binge for the last 3 days thinks she stopped drinking about midnight last night. Patient states she's on Keppra. Patient states she has more seizures when she stops drinking. Patient states she's been vomiting as well this morning. Patient denies any chest pain difficulty breathing shortness of breath. Patient denies any headache patient denies numbness weakness. Patient denies abdominal pain patient denies any diarrhea. Patient denies any injury or trauma. - Related Data Home Medications Medication Instructions Recorded Confirmed amLODIPine [Norvasc] 10 mg PO DAILY 12/19/17 06/19/20 Ergocalciferol [Vitamin D2 50,000 unit PO Q28D 09/26/19 06/19/20 (DRISDOL)] lisinopriL 40 mg PO DAILY 09/26/19 06/19/20 levETIRAcetam [Keppra] 750 mg PO BID 06/19/20 06/19/20 Previous Rx's Medication Instructions Recorded Azithromycin [Zithromax Z-pack (6 0 mg PO DIRECTED #1 pack 07/07/20 tabs)] predniSONE 50 mg PO DAILY #5 tab 07/07/20 Allergies Allergy/AdvReac Type Severity Reaction Status Date / Time shellfish derived [Shellfish] Allergy Anaphylaxis Verified 09/03/20 07:32 wheat Allergy Anaphylaxis Verified 09/03/20 07:32 tramadol AdvReac Seizure Verified 09/03/20 07:32 Review of Systems ROS Statement: Those systems with pertinent positive or pertinent negative responses have been documented in the HPI. ROS Other: All systems not noted in ROS Statement are negative. Past Medical History Past Medical History: Asthma, Hypertension, Seizure Disorder Additional Past Medical History / Comment(s): had a seizure approx 2 weeks ago, brain tumor History of Any Multi-Drug Resistant Organisms: None Reported Past Surgical History: Hysterectomy, Tubal Ligation Past Anesthesia/Blood Transfusion Reactions: No Reported Reaction Past Psychological History: Anxiety Smoking Status: Current every day smoker Past Alcohol Use History: Abuse, Daily Past Drug Use History: Marijuana General Exam - General Exam Comments Initial Comments: GENERAL: Patient is well-developed and well-nourished. Patient is nontoxic and well- hydrated and is in mild distress. ENT: Neck is soft and supple. No significant lymphadenopathy is noted. Oropharynx is clear. Moist mucous membranes. Neck has full range of motion without el iciting any pain. EYES: The sclera were anicteric and conjunctiva were pink and moist. Extraocular movements were intact and pupils were equal round and reactive to light. Eyelids were unremarkable. PULMONARY: Unlabored respirations. Good breath sounds bilaterally. No audible rales rhonchi or wheezing was noted. CARDIOVASCULAR: There is a regular rate and rhythm without any murmurs gallops or rubs. ABDOMEN: Soft and nontender with normal bowel sounds. SKIN: Skin is clear with no lesions or rashes and otherwise unremarkable. NEUROLOGIC: Patient is alert and oriented x3. Cranial nerves II through XII are grossly intact. Motor and sensory are also intact. Normal speech, volume and content. Symmetrical smile. MUSCULOSKELETAL: Normal extremities with adequate strength and full range of motion. LYMPHATICS: No significant lymphadenopathy is noted PSYCHIATRIC: Normal psychiatric evaluation. Limitations: no limitations (Normal) Course Vital Signs 09/03/20 09/03/20 07:33 08:44 Temperature 98.6 F Pulse Rate 99 89 Respiratory 18 18 Rate Blood Pressure 194/104 145/95 O2 Sat by Pulse 100 99 Oximetry Medical Decision Making - Medical Decision Making EKG shows normal sinus rhythm at 93 bpm NV interval is 162 QRS is 78 QT interval 392 QTC is 487. EKG shows no ST segment elevation or depression. Patient received magnesium sulfate and K Dur in the emergency department. - Lab Data Result diagrams: 09/03/20 07:51 09/03/20 07:51 Lab Results 09/03/20 09/03/20 09/03/20 Range/Units 07:51 07:51 07:51 WBC 7.7 (3.8-10.6) k/uL RBC 4.54 (3.80-5.40) m/uL Hgb 11.4 (11.4-16.0) gm/dL Hct 35.2 (34.0-46.0) % MCV 77.5 L (80.0-100.0) fL MCH 25.1 (25.0-35.0) pg MCHC 32.4 (31.0-37.0) g/dL RDW 16.4 H (11.5-15.5) % Plt Count 308 (150-450) k/uL MPV 7.2 Neutrophils % 74 % Lymphocytes % 17 % Monocytes % 6 % Eosinophils % 2 % Basophils % 0 % Neutrophils # 5.7 (1.3-7.7) k/uL Lymphocytes # 1.3 (1.0-4.8) k/uL Monocytes # 0.4 (0-1.0) k/uL Eosinophils # 0.1 (0-0.7) k/uL Basophils # 0.0 (0-0.2) k/uL Anisocytosis Slight Microcytosis Slight Sodium 135 L (137-145) mmol/L Potassium 3.4 L (3.5-5.1) mmol/L Chloride 96 L (98-107) mmol/L Carbon Dioxide 22 (22-30) mmol/L Anion Gap 17 mmol/L BUN 7 (7-17) mg/dL Creatinine 0.56 (0.52-1.04) mg/dL Est GFR (CKD-EPI)AfAm >90 (>60 ml/min/1.73 sqM) Est GFR (CKD-EPI)NonAf >90 (>60 ml/min/1.73 sqM) Glucose 88 (74-99) mg/dL Calcium 9.3 (8.4-10.2) mg/dL Magnesium 1.4 L (1.6-2.3) mg/dL Total Bilirubin 0.7 (0.2-1.3) mg/dL AST 68 H (14-36) U/L ALT 41 H (4-34) U/L Alkaline Phosphatase 71 (38-126) U/L Total Protein 8.5 H (6.3-8.2) g/dL Albumin 5.0 (3.5-5.0) g/dL Urine HCG, Qual Not Detected (Not Detectd) Urine Opiates Screen (NotDetected) Ur Oxycodone Screen (NotDetected) Urine Methadone Screen (NotDetected) Ur Propoxyphene Screen (NotDetected) Ur Barbiturates Screen (NotDetected) U Tricyclic Antidepress (NotDetected) Ur Phencyclidine Scrn (NotDetected) Ur Amphetamines Screen (NotDetected) U Methamphetamines Scrn (NotDetected) U Benzodiazepines Scrn (NotDetected) Urine Cocaine Screen (NotDetected) U Marijuana (THC) Screen (NotDetected) Serum Alcohol 71 mg/dL 09/03/20 Range/Units 07:51 WBC (3.8-10.6) k/uL RBC (3.80-5.40) m/uL Hgb (11.4-16.0) gm/dL Hct (34.0-46.0) % MCV (80.0-100.0) fL MCH (25.0-35.0) pg MCHC (31.0-37.0) g/dL RDW (11.5-15.5) % Plt Count (150-450) k/uL MPV Neutrophils % % Lymphocytes % % Monocytes % % Eosinophils % % Basophils % % Neutrophils # (1.3-7.7) k/uL Lymphocytes # (1.0-4.8) k/uL Monocytes # (0-1.0) k/uL Eosinophils # (0-0.7) k/uL Basophils # (0-0.2) k/uL Anisocytosis Microcytosis Sodium (137-145) mmol/L Potassium (3.5-5.1) mmol/L Chloride (98-107) mmol/L Carbon Dioxide (22-30) mmol/L Anion Gap mmol/L BUN (7-17) mg/dL Creatinine (0.52-1.04) mg/dL Est GFR (CKD-EPI)AfAm (>60 ml/min/1.73 sqM) Est GFR (CKD-EPI)NonAf (>60 ml/min/1.73 sqM) Glucose (74-99) mg/dL Calcium (8.4-10.2) mg/dL Magnesium (1.6-2.3) mg/dL Total Bilirubin (0.2-1.3) mg/dL AST (14-36) U/L ALT (4-34) U/L Alkaline Phosphatase (38-126) U/L Total Protein (6.3-8.2) g/dL Albumin (3.5-5.0) g/dL Urine HCG, Qual (Not Detectd) Urine Opiates Screen Not Detected (NotDetected) Ur Oxycodone Screen Not Detected (NotDetected) Urine Methadone Screen Not Detected (NotDetected) Ur Propoxyphene Screen Not Detected (NotDetected) Ur Barbiturates Screen Not Detected (NotDetected) U Tricyclic Antidepress Not Detected (NotDetected) Ur Phencyclidine Scrn Not Detected (NotDetected) Ur Amphetamines Screen Not Detected (NotDetected) U Methamphetamines Scrn Not Detected (NotDetected) U Benzodiazepines Scrn Not Detected (NotDetected) Urine Cocaine Screen Not Detected (NotDetected) U Marijuana (THC) Screen Not Detected (NotDetected) Serum Alcohol mg/dL Disposition Clinical Impression: Alcohol withdrawal seizure, Alcohol intoxication, Hypomagnesemia, Hypokalemia Disposition: ADMITTED IP TO THIS HOSP Referrals: Lico Bañuelos MD [Primary Care Provider] - 1-2 days Time of Disposition: 09:41
[2020-09-03] MEDS ORDERED: LORazepam 2 MG/ML INJ IV STA ×2 (07:50→12:17)
[2020-09-03 08:02] LABS: Anisocytosis Slight; Basophils % (A) 0 %; Eosinophils # (A) 0.1 k/uL (0-0.7); Eosinophils % (A) 2 %; HCT 35.2 % (34.0-46.0); HGB 11.4 gm/dL (11.4-16.0); Lymphocytes # (A) 1.3 k/uL (1.0-4.8); Lymphocytes % (A) 17 %; MCH 25.1 pg (25.0-35.0); MCHC 32.4 g/dL (31.0-37.0); MCV 77.5 fL (80.0-100.0); Mean Platelet Volume 7.2; Microcytosis Slight; Monocytes # (A) 0.4 k/uL (0-1.0); Monocytes % (A) 6 %; Neutrophils # (A) 5.7 k/uL (1.3-7.7); Neutrophils % (A) 74 %; Platelet Count 308 k/uL (150-450); RBC 4.54 m/uL (3.80-5.40); RDW 16.4 % (11.5-15.5); WBC 7.7 k/uL (3.8-10.6)
[2020-09-03 08:16] LABS: Amphetamine Screen,Urine Not Detected (NotDetected); Barbiturate Screen,Urine Not Detected (NotDetected); Benzodiazepines Screen,Urine Not Detected (NotDetected); Cocaine Screen,Urine Not Detected (NotDetected); Methadone Screen, Urine Not Detected (NotDetected); Opiate Screen,Urine Not Detected (NotDetected); Oxycodone Screen, Urine Not Detected (NotDetected); Phencyclidine Screen,Urine Not Detected (NotDetected); Tricyclic Antidepressant,Urine Not Detected (NotDetected); Urn Cannabinoid Scrn Not Detected (NotDetected)
[2020-09-03 08:17] LABS: ALT 41 U/L (4-34); AST 68 U/L (14-36); African American GFR (CKD) >90 (>60 ml/min/1.73 sqM); Alcohol 71 mg/dL; Alkaline Phosphatase 71 U/L (38-126); Anion Gap 17 mmol/L; Blood Urea Nitrogen 7 mg/dL (7-17); Calcium 9.3 mg/dL (8.4-10.2); Carbon Dioxide 22 mmol/L (22-30); Chloride 96 mmol/L (98-107); Glucose 88 mg/dL (74-99); Magnesium 1.4 mg/dL (1.6-2.3); Non-African American GFR(CKD) >90 (>60 ml/min/1.73 sqM); Potassium 3.4 mmol/L (3.5-5.1); Sodium 135 mmol/L (137-145); Total Bilirubin 0.7 mg/dL (0.2-1.3); Total Protein 8.5 g/dL (6.3-8.2)
[2020-09-03] MEDS ORDERED: POTASSIUM CHLORIDE ER 20 MEQ TAB.ER PO STA (08:52)
[2020-09-03] MEDS ORDERED: MAGNESIUM SULFATE-D5W PMX 1 GM in DEXTROSE/WATER 1 100ML.BAG IVPB ONE (08:52)
[2020-09-03] MEDS ORDERED: THIAMINE 100 MG in SODIUM CHLORIDE 0.9% 50 ML IVPB SCH (11:45)
[2020-09-03] MEDS ORDERED: THIAMINE 100 MG/ML 2 ML VIAL IVP SCH (12:00)
[2020-09-03] MEDS ORDERED: levETIRAcetam IV 1,500 MG in SALINE 1 100ML.BAG IVPB STA (12:22)
--- NOTE | 2020-09-03 12:33 | P.CNNES ---
History of Present Illness Consult date: 09/03/20 Requesting physician: Owen Khan Reason for Consult: seizure History of Present Illness: This is a 44-year-old woman with history of epilepsy, meningioma (midline floor of the anterior cranial fossa) and chronic alcohol use that presented to the emergency department on 09/03/2020 for a seizure episode this morning. Patient stated that today early in the in the morning she was found on the floor by her son with that shaken of her arms. She's not sure of how long the episode lasted for but she said it was not that long. She said that she didn't have any urinary or bowel incontinence or tongue bite with this episode. She said that she has been binge drinking for last 3 days and has not been taking her seizure medication which is Keppra 750 minute gram one tablet twice a day since she was at the [facility]. She said that she drinks about a pint a day when she binge drinks. She currently she feels back to baseline. She said that she's been having seizure for at least 1 year and but she is not aware of her seizure by stated that the she was told that she has shaking of her arms as well as the her arms go up in the air that what she was told. She said that sometimes she would have the tongue bite. Denies any urinary or bowel incontinence with these episodes. Regarding her oral she said sometimes she'll have brain fog or sometimes she'll have euphoria prior to the seizures. She said that she hasn't had a seizure prior to today's event for last couple months because he is compliant with her medication but when she demonstrated she does not take her medication. She follows up with Dr. Henrietta Vaughan regarding her management of seizures. And she said that she had multiple EEGs in the past. Regarding her meningioma she said that she follows up with a neurosurgeon over at the [facility] (Dr. Galvan) and has serial MRIs and the last one was about 4 month ago. She does not want surgery at this moment and Workup in the ED consisted of: Initial vitals his blood pressure of 194/104, heart rate of 99, respiratory of 18, temperature of 98.6 Fahrenheit and the pulse ox of hypertension room air. Initial white blood cell is 7.7 which is normal. Sodium is 135 which minimally low. The serum glucose is 88 which is normal. Calcium is 9.3 which is normal. AST of 68 and the ALT of 41 which are elevated. Serum alcohol level is 71 and that is considered toxic. Otherwise the urine drug screen is negative Upon reviewing the patient's medical record that seems that the patient had an EEG done in our facility on 09/27/2019 for new onset seizure. It is reported in the impression that this is an abnormal awake, drowsy EEG recording. The EEG is considered abnormal due to the burst episode of photic stimulation induced epileptiform activity lateralized to the left occipital lobe followed by brief bursts of generalized polyspike discharges. The EEG does seem to have photoge shanti component. Her history is significant for all her seizure activity being elicited while watching TV. Seizures are elicited by photic some R under the constitutional primary generalized epilepsy. The patient does have increased seizure tendency and warrants medical management. In addition MRI imaging is recommended to rule out possibly underlying structural mass lesion. Serial EEGs are recommended as well or if clinically indicated, a more prolonged overnight EEG could be provide visual i nformation. Patient had MRI of the brain on 09/30/2019 and it's reported as no acute intracranial abnormality seen. A 1.5 x 1.2 5.7 cm enhancing extra axial lesion along the midline floor of the anterior cranial fossa. Meningioma suspected. Follow up recommended to determine stability. Mild scattered burden of bright white matter change. Nonspecific and probably related to early changes of small vessel ischemic disease. MRA of the head and neck on 09/30/2019 is reported as tiny 1 mm infundibulum along the anterior margin at the P1/P2 junction of the left BOLT SORTER. Consider one- year follow-up exam to reassess. Otherwise no intracranial arterial occlusion, significant stenosis or aneurysm changes seen. While the neck seems no evidence of narrowing. Review of Systems Review of system: The 12 point system was reviewed and apparent positive and negative per HPI. Past Medical History Past Medical History: Asthma, Hypertension, Seizure Disorder Additional Past Medical History / Comment(s): had a seizure approx 2 weeks ago, brain tumor History of Any Multi-Drug Resistant Organisms: None Reported Past Surgical History: Hysterectomy, Tubal Ligation Past Anesthesia/Blood Transfusion Reactions: No Reported Reaction Past Psychological History: Anxiety Smoking Status: Current every day smoker Past Alcohol Use History: Abuse, Daily Past Drug Use History: Marijuana Medications and Allergies Home Medications Medication Instructions Recorded Confirmed Type amLODIPine [Norvasc] 10 mg PO DAILY 12/19/17 09/03/20 History Ergocalciferol [Vitamin D2 50,000 unit PO QMONTHLY 09/26/19 09/03/20 History (DRISDOL)] lisinopriL 40 mg PO DAILY 09/26/19 09/03/20 History levETIRAcetam [Keppra] 750 mg PO BID 06/19/20 09/03/20 History Allergies Allergy/AdvReac Type Severity Reaction Status Date / Time shellfish derived [Shellfish] Allergy Anaphylaxis Verified 09/03/20 09:46 wheat Allergy Anaphylaxis Verified 09/03/20 09:46 tramadol AdvReac Seizure Verified 09/03/20 09:46 Physical Examination - Vital Signs Vital Signs: Vital Signs Temp Pulse Resp BP Pulse Ox 09/03/20 10:00 102 H 20 152/94 100 09/03/20 08:44 89 18 145/95 99 09/03/20 07:33 98.6 F 99 18 194/104 100 Intake and Output 09/02/20 09/03/20 09/03/20 22:59 06:59 14:59 Other: Weight 68.039 kg GENERAL: The patient is lying in bed and is not in acute distress. CHEST: The heart rate is regular rate rhythm. No murmurs to auscultation. No carotid bruit bilaterally. LUNG: Clear to auscultation bilaterally no wheezing noted throughout. Not labored breathing. ABDOMEN/GI: Bowel sounds present in all 4 quadrants. No tenderness to palpation throughout. NEUROLOGICAL: Higher mental function: The patient is awake, alert, oriented to self, place and time. Patient is following commands. No aphasia and no neglect. Cranial nerves: The pupils are round, equal and reactive to light and accommodation. Visual hawkins are full to confrontation throughout. Extraocular movement is intact no nystagmus is noted. Facial sensation is normal to touch throughout. The facial strength is normal throughout. Hearing is normal bilaterally to hand rub. Tongue is midline and moved [id number] without any difficulty. No dysarthria is noted. Shoulder shrug is normal bilaterally. Motor: Gait is deferred. The strength is 5 over 5 throughout. Normal tone and bulk. Cerebellum: Normal finger to nose bilaterally. Sensation: Sensation is normal to touch throughout. Reflexes (right/left): 2+ throughout. Plantars are downgoing bilaterally. Results Walker virus PCR is nondetected Urine HCG: Not detected. - Laboratory Findings CBC and BMP: 09/03/20 07:51 09/03/20 07:51 Abnormal Lab Findings: Abnormal Labs 09/03/20 09/03/20 07:51 07:51 MCV 77.5 L RDW 16.4 H Sodium 135 L Potassium 3.4 L Chloride 96 L Magnesium 1.4 L AST 68 H ALT 41 H Total Protein 8.5 H Assessment and Plan Assessment: This is a 44-year-old woman that presented to the emergency department on 09/03/2020 for a seizure episode this morning. She has been binge drinking for the last 3 days and has not been taking her medication She has history of seizure as well. Breakthrough seizure (medication non-compliance (not taking her medication for last 3 days) and alcohol use). History of epilepsy Meningioma: 1.5 x 1.2 5.7 cm enhancing extra axial lesion along the midline floor of the anterior cranial fossa. Follows-up with Neurosurgeon at [facility] 1 mm infundibulum along the anterior margin at the P1/P2 junction of the left BOLT SORTER (per MRA report on 09/2019) Chronic alcohol use with current alcohol level of 71 Tobacco use Plan: I ordered a CT of the head since the patient stated that she had a seizure as well as the head trauma: Reported as no acute intracranial processes seen at this time. Keppra level is ordered by the ED team and is pending. Patient was given 1 mg of Ativan in the ED. I will give the patient another 1 mg of Ativan since she feels currently jittery I loaded the patient with Keppra 1500 mg once. I'll restart the patient on her Keppra 750 [place] 1 tablet twice a day I started the patient on thiamine 100 mg IV every 12 hours. An EEG is not warranted since the patient is noted to have history of seizures. The patient was counseled on the alcohol cessation. Regarding CIWA protocol defer the management to the primary team. The patient was counseled on alcohol cessation as well as the tobacco cessation. The patient was notified to follow up with her neurologist (Dr. Henrietta Vaughan) and neurosurgeon (Dr. Cole blanco at [facility]) as an outpatient. She stated that she has surveillance imaging regarding her meningioma. Regarding any further MRI/MRA or CTA imaging will defer that as an outpatient since she follows up with a neurologist and neurosurgeon as an outpatient. There is no further neurological workup is needed and from a neurological perspective she is clear for discharge. Thank you for the consultation. Praveen Lopez M.D. Neuro-hospitalist Time with Patient: Greater than 30
--- NOTE | 2020-09-03 12:41 | CT ---
EXAMINATION TYPE: CT brain wo con DATE OF EXAM: 09/03/2020 COMPARISON: 07/22/2020 HISTORY: Seizure CT DLP: 1067.[address] of the brain was performed. The ventricles, basal cisterns and sulci overlying the cerebral convexities demonstrate a normal appe arance. There is no evidence for intracranial hemorrhage or sulcal effacement. No mass effects are seen. Osseous calvarium is intact. If symptoms persist consider MRI as clinically warranted. IMPRESSION: 1. No acute intracranial process is seen at this time.
[2020-09-03 12:44] VITALS: PULSE 90
[2020-09-03] MEDS: MAGNESIUM SULFATE-D5W PMX 1 GM in DEXTROSE/WATER 1 100ML.BAG IVPB SCH ×2 (14:55→15:15)
--- NOTE | 2020-09-03 15:49 | P.HPIM ---
History of Present Illness 44-year-old pleasant female with history of epilepsy in many him in the past came in after she had a seizure which was witnessed by her son. Patient didn't have any bowel or bladder incontinence. Patient was evaluated by neurology. Patient admits to not taking her Keppra on regular basis. Patient has been binge drinking lately although patient denies drinking on daily basis. Patient has only been drinking for last 3 days about the 1-2 pints of hard liquor she is trying to quit. Before this 3 days last alcohol drink was more than 2 weeks ago. Patient was evaluated by neurology was loaded with Keppra and patient was started back on Keppra and patient was asked to resume her home dose of Keppra and the patient was cleared for discharge. As I do not expect any withdrawals considering that she started drinking again only for 3 days I believe patient can be discharged. Patient does have aura before seizures and she did have aura yesterday. Review of Systems REVIEW OF SYSTEMS: CONSTITUTIONAL: No fever, no malaise, no fatigue. HEENT: No recent visual problems or hearing problems. Denied any sore throat. CARDIOVASCULAR: No chest pain, orthopnea, PND, no palpitations, no syncope. PULMONARY: No shortness of breath, no cough, no hemoptysis. GASTROINTESTINAL: No diarrhea, no nausea, no vomiting, no abdominal pain. NEUROLOGICAL: No headaches, no weakness, no numbness. HEMATOLOGICAL: Denies any bleeding or petechiae. GENITOURINARY: Denies any burning micturition, frequency, or urgency. MUSCULOSKELETAL/RHEUMATOLOGICAL: Denies any joint pain, swelling, or any muscle pain. ENDOCRINE: Denies any polyuria or polydipsia. The rest of the 14-point review of systems is negative. Past Medical History Past Medical History: Asthma, Hypertension, Seizure Disorder Additional Past Medical History / Comment(s): had a seizure approx 2 weeks ago, brain tumor History of Any Multi-Drug Resistant Organisms: None Reported Past Surgical History: Hysterectomy, Tubal Ligation Past Anesthesia/Blood Transfusion Reactions: No Reported Reaction Past Psychological History: Anxiety Smoking Status: Current every day smoker Past Alcohol Use History: Abuse, Daily Past Drug Use History: Marijuana Medications and Allergies Home Medications Medication Instructions Recorded Confirmed Type amLODIPine [Norvasc] 10 mg PO DAILY 12/19/17 09/03/20 History Ergocalciferol [Vitamin D2 50,000 unit PO QMONTHLY 09/26/19 09/03/20 History (DRISDOL)] levETIRAcetam [Keppra] 750 mg PO BID 06/19/20 09/03/20 History Thiamine [Vitamin B-1] 100 mg PO DAILY #30 tablet 09/03/20 Rx lisinopriL 20 mg PO DAILY #0 09/03/20 09/03/20 Rx Allergies Allergy/AdvReac Type Severity Reaction Status Date / Time shellfish derived [Shellfish] Allergy Anaphylaxis Verified 09/03/20 09:46 wheat Allergy Anaphylaxis Verified 09/03/20 09:46 tramadol AdvReac Seizure Verified 09/03/20 09:46 Physical Exam Vitals: Vital Signs Temp Pulse Resp BP Pulse Ox 09/03/20 12:43 98.7 F 90 20 143/77 100 09/03/20 10:00 102 H 20 152/94 100 09/03/20 08:44 89 18 145/95 99 09/03/20 07:33 98.6 F 99 18 194/104 100 Intake and Output 09/03/20 09/03/20 09/03/20 06:59 14:59 22:59 Other: Weight 68.039 kg PHYSICAL EXAMINATION: GENERAL: The patient is alert and oriented x3, not in any acute distress. Well developed, well nourished. HEENT: Pupils are round and equally reacting to light. EOMI. No scleral icterus. No conjunctival pallor. Normocephalic, atraumatic. No pharyngeal erythema. No thyromegaly. CARDIOVASCULAR: S1 and S2 present. No murmurs, rubs, or gallops. PULMONARY: Chest is clear to auscultation, no wheezing or crackles. ABDOMEN: Soft, nontender, nondistended, normoactive bowel sounds. No palpable organomegaly. MUSCULOSKELETAL: No joint swelling or deformity. EXTREMITIES: No cyanosis, clubbing, or pedal edema. NEUROLOGICAL: Gross neurological examination did not reveal any focal deficits. SKIN: No rashes. Results CBC & Chem 7: 09/03/20 07:51 09/03/20 07:51 Labs: Abnormal Lab Results - Last 24 Hours (Table) 09/03/20 09/03/20 Range/Units 07:51 07:51 MCV 77.5 L (80.0-100.0) fL RDW 16.4 H (11.5-15.5) % Sodium 135 L (137-145) mmol/L Potassium 3.4 L (3.5-5.1) mmol/L Chloride 96 L (98-107) mmol/L Magnesium 1.4 L (1.6-2.3) mg/dL AST 68 H (14-36) U/L ALT 41 H (4-34) U/L Total Protein 8.5 H (6.3-8.2) g/dL Assessment and Plan Plan: -Breakthrough seizures secondary to noncompliance with her medication, patient will be resumed back on her home dose of Keppra after loading her with Keppra -History of meningioma follow-up with neurosurgery as an outpatient -Nicotine use -Alcohol abuse: Counseling was provided, I do not expect any withdrawal symptoms at this time patient will be discharged today -Hypertension -Asthma -Seizure disorder
--- NOTE | 2020-09-03 15:50 | P.DS ---
Providers Date of admission: 09/03/20 09:41 Attending physician: Bautista Milton MD Consults: 09/03/20 09:41 Consult Physician Urgent Consulting Provider: Praveen Lopez Consult Reason/Comments: Withdrawal seizures Do you want consulting provider notified?: Yes Primary care physician: Lico Bañuelos [facility] Course: Please refer to my history of present illness for further details Plan - Discharge Summary New Discharge Prescriptions: New Thiamine [Vitamin B-1] 100 mg PO DAILY #30 tablet Continue amLODIPine [Norvasc] 10 mg PO DAILY Ergocalciferol [Vitamin D2 (DRISDOL)] 50,000 unit PO QMONTHLY levETIRAcetam [Keppra] 750 mg PO BID Changed lisinopriL 20 mg PO DAILY #0 Discharge Medication List amLODIPine [Norvasc] 10 mg PO DAILY 12/19/17 [History] Ergocalciferol [Vitamin D2 (DRISDOL)] 50,000 unit PO QMONTHLY 09/26/19 [History] levETIRAcetam [Keppra] 750 mg PO BID 06/19/20 [History] Thiamine [Vitamin B-1] 100 mg PO DAILY #30 tablet 09/03/20 [Rx] lisinopriL 20 mg PO DAILY #0 09/03/20 [Rx] Follow up Appointment(s)/Referral(s): Lico Bañuelos MD [Primary Care Provider] - 3 Days Discharge Disposition: HOME SELF-CARE
[2020-09-03 16:25] VITALS: BP 156/102; RESP 18; TEMP 98
--- NOTE | 2020-09-03 22:34 | CONS ---
CONSULTATION CHIEF COMPLAINT: Acute alcohol intoxication. HISTORY OF PRESENT ILLNESS: This lady was apparently admitted to another physician. She has been a long-time patient of my practice. She was intoxicated. She does have a history of hypertension, seizure disorder and alcoholism. REVIEW OF SYSTEMS: Could not be obtained. Past medical history, family history, personal and social histories are otherwise unremarkable except as already mentioned. She is ALLERGIC to Ultram. She has been on Keppra 750 mg twice a day, amlodipine 10 mg once a day, lisinopril 40 mg once a day, Fiorinal p.r.n., Xanax 0.25 q.h.s., Vicodin, Coreg 3.125. She does continue to smoke and is an active alcoholic. PHYSICAL EXAMINATION: Blood pressure is 142/92 with a pulse of 86, respirations 34. In general, she appeared to be intoxicated. Skin was dry. Head, ears, eyes, nose, mouth and throat were normal. Chest is clear. Cardiac exam demonstrated tachycardia. Abdomen is soft and there are no masses or visceromegaly. Extremities: Normal. IMPRESSION: 1. Acute alcohol intoxication. 2. History of hypertension. 3. Major depression. PLAN: The patient was being discharged and will follow up after she leaves the hospital. MMODL / IJN: [id number] /
[2020-09-04] MEDS ORDERED: levETIRAcetam 250 MG TAB PO SCH
== END 2020-09-03 16:30 | disposition home or self-care (01) | DRG 101 ==
LOC: EC 07:29 → 6NMEDSUR 09:41
PROVIDERS: ADMIT Internal Medicine; ATTEND Internal Medicine
DX: G40.409 Other generalized epilepsy and epileptic syndromes, not intractable, without status epilepticus (principal); D32.9 Benign neoplasm of meninges, unspecified; E83.42 Hypomagnesemia; E87.6 Hypokalemia; F10.229 Alcohol dependence with intoxication, unspecified; T42.6X6A Underdosing of other antiepileptic and sedative-hypnotic drugs, initial encounter; Z91.128 Patient's intentional underdosing of medication regimen for other reason; Z71.41 Alcohol abuse counseling and surveillance of alcoholic; F17.210 Nicotine dependence, cigarettes, uncomplicated; Z20.822 Contact with and (suspected) exposure to COVID-19; F32.9 Major depressive disorder, single episode, unspecified; F41.9 Anxiety disorder, unspecified; I10 Essential (primary) hypertension; J45.909 Unspecified asthma, uncomplicated; Y90.3 Blood alcohol level of 60-79 mg/100 ml; Z79.899 Other long term (current) drug therapy; Z86.011 Personal history of benign neoplasm of the brain; Z90.710 Acquired absence of both cervix and uterus; Z98.51 Tubal ligation status; Z88.5 Allergy status to narcotic agent; Z91.013 Allergy to seafood
CPT/HCPCS: 36415; 70450; 80053; 80177; 80306; 80320; 81025; 83735; 85025; 87635; 93005; 96361; 96374; 96375; 99285

== ENCOUNTER 2020-09-05 04:56 | Inpatient (IN) | payer OTHER ==
[2020-09-05] MEDS ORDERED: LORazepam 2 MG/ML INJ IV STA (05:18)
[2020-09-05] MEDS ORDERED: SODIUM CHLORIDE 0.9% 500 ML 500 ML IV STA (05:19)
[2020-09-05 05:34] VITALS: BP 158/100; PULSE 113; RESP 18; TEMP 98.9
[2020-09-05 05:40] LABS: Anisocytosis Slight; Basophils % (A) 1 %; Eosinophils # (A) 0.2 k/uL (0-0.7); Eosinophils % (A) 4 %; HCT 35.9 % (34.0-46.0); HGB 11.7 gm/dL (11.4-16.0); Lymphocytes # (A) 1.8 k/uL (1.0-4.8); Lymphocytes % (A) 31 %; MCH 25.4 pg (25.0-35.0); MCHC 32.5 g/dL (31.0-37.0); MCV 77.9 fL (80.0-100.0); Mean Platelet Volume 7.3; Microcytosis Slight; Monocytes # (A) 0.2 k/uL (0-1.0); Monocytes % (A) 4 %; Neutrophils # (A) 3.4 k/uL (1.3-7.7); Neutrophils % (A) 59 %; Platelet Count 296 k/uL (150-450); RDW 16.3 % (11.5-15.5); WBC 5.7 k/uL (3.8-10.6)
--- NOTE | 2020-09-05 05:44 | ED ---
Seizure HPI - General Chief Complaint: Seizure Stated Complaint: poss seizure Time Seen by Provider: 09/05/20 05:05 Source: patient, EMS Mode of arrival: EMS Limitations: no limitations - History of Present Illness Initial Comments: This patient is a 44-year-old woman with history of previous seizure disorder. She reportedly had seizure at home tonight. The patient states she has been drinking tonight and she didn't take her Keppra. Patient had been admitted in the hospital on September 03 for same condition, being discharged on the second. She states that she went drinking, she did not take her medication, and then she ended up having a seizure. The patient denies any trauma as a result of the seizure. She did not hit her head or neck. Patient states she is feeling somewhat anxious. Denies other complaints. MD Complaint: seizure -: hour(s) Description of Episode: tonic-clonic movement -: second(s) Witnessed: yes - by bystander Trauma: No Seizure History: known seizure disorder Place: home Possible Precipitating Event: alcohol withdrawal Associated Symptoms: denies other symptoms Treatments Prior to Arrival: none - Related Data Home Medications Medication Instructions Recorded Confirmed amLODIPine [Norvasc] 10 mg PO DAILY 12/19/17 09/03/20 Ergocalciferol [Vitamin D2 50,000 unit PO QMONTHLY 09/26/19 09/03/20 (DRISDOL)] levETIRAcetam [Keppra] 750 mg PO BID 06/19/20 09/03/20 Previous Rx's Medication Instructions Recorded Thiamine [Vitamin B-1] 100 mg PO DAILY #30 tablet 09/03/20 lisinopriL 20 mg PO DAILY #0 09/03/20 Allergies Allergy/AdvReac Type Severity Reaction Status Date / Time shellfish derived [Shellfish] Allergy Anaphylaxis Verified 09/03/20 09:46 wheat Allergy Anaphylaxis Verified 09/03/20 09:46 tramadol AdvReac Seizure Verified 09/03/20 09:46 Review of Systems ROS Statement: Those systems with pertinent positive or pertinent negative responses have been documented in the HPI. ROS Other: All systems not noted in ROS Statement are negative. Constitutional: Denies: fever, chills Eyes: Denies: vision change ENT: Denies: hearing loss Respiratory: Denies: cough, dyspnea Cardiovascular: Denies: chest pain, palpitations, edema Gastrointestinal: Denies: abdominal pain, vomiting, diarrhea Genitourinary: Denies: dysuria, hematuria Musculoskeletal: Denies: back pain Skin: Denies: rash Neurological: Denies: headache, weakness, numbness Psychiatric: Reports: anxiety. Denies: depression, homicidal thoughts, suicidal thoughts Past Medical History Past Medical History: Asthma, Hypertension, Seizure Disorder Additional Past Medical History / Comment(s): had a seizure approx 2 weeks ago, brain tumor History of Any Multi-Drug Resistant Organisms: None Reported Past Surgical History: Hysterectomy, Tubal Ligation Past Anesthesia/Blood Transfusion Reactions: No Reported Reaction Past Psychological History: Anxiety Smoking Status: Current every day smoker Past Alcohol Use History: Abuse, Daily Past Drug Use History: Marijuana General Exam Limitations: no limitations General appearance: alert, in no apparent distress, appears intoxicated Head exam: Present: atraumatic, normocephalic Eye exam: Present: normal appearance, PERRL, EOMI, nystagmus. Absent: scleral icterus, conjunctival injection ENT exam: Present: normal oropharynx Neck exam: Present: normal inspection, full ROM. Absent: tenderness Respiratory exam: Present: normal lung sounds bilaterally. Absent: respiratory distress, wheezes, rales, rhonchi, stridor Cardiovascular Exam: Present: normal rhythm, tachycardia, normal heart sounds. Absent: systolic murmur, diastolic murmur, rubs, gallop GI/Abdominal exam: Present: soft. Absent: distended, tenderness, guarding, rebound, rigid Extremities exam: Present: normal inspection, normal capillary refill. Absent: pedal edema, calf tenderness Back exam: Present: normal inspection. Absent: CVA tenderness (R), CVA tenderne ss (L), vertebral tenderness Neurological exam: Present: alert, oriented X3, CN II-XII intact. Absent: motor sensory deficit Psychiatric exam: Present: anxious. Absent: depressed, agitated, flat affect, manic, homicidal ideation, suicidal ideation Skin exam: Present: warm, dry, intact, normal color. Absent: rash Course Vital Signs 09/05/20 05:00 Temperature 98.9 F Pulse Rate 113 H Respiratory 18 Rate Blood Pressure 158/100 O2 Sat by Pulse 95 Oximetry Medical Decision Making - Lab Data Result diagrams: 09/05/20 05:31 09/05/20 05:31 Lab Results 09/05/20 09/05/20 Range/Units 05:31 05:31 WBC 5.7 (3.8-10.6) k/uL RBC 4.60 (3.80-5.40) m/uL Hgb 11.7 (11.4-16.0) gm/dL Hct 35.9 (34.0-46.0) % MCV 77.9 L (80.0-100.0) fL MCH 25.4 (25.0-35.0) pg MCHC 32.5 (31.0-37.0) g/dL RDW 16.3 H (11.5-15.5) % Plt Count 296 (150-450) k/uL MPV 7.3 Neutrophils % 59 % Lymphocytes % 31 % Monocytes % 4 % Eosinophils % 4 % Basophils % 1 % Neutrophils # 3.4 (1.3-7.7) k/uL Lymphocytes # 1.8 (1.0-4.8) k/uL Monocytes # 0.2 (0-1.0) k/uL Eosinophils # 0.2 (0-0.7) k/uL Basophils # 0.0 (0-0.2) k/uL Anisocytosis Slight Microcytosis Slight Sodium 143 (137-145) mmol/L Potassium 4.0 (3.5-5.1) mmol/L Chloride 108 H (98-107) mmol/L Carbon Dioxide 22 (22-30) mmol/L Anion Gap 13 mmol/L BUN 7 (7-17) mg/dL Creatinine 0.61 (0.52-1.04) mg/dL Est GFR (CKD-EPI)AfAm >90 (>60 ml/min/1.73 sqM) Est GFR (CKD-EPI)NonAf >90 (>60 ml/min/1.73 sqM) Glucose 111 H (74-99) mg/dL Calcium 9.9 (8.4-10.2) mg/dL Total Bilirubin 0.3 (0.2-1.3) mg/dL AST 66 H (14-36) U/L ALT 49 H (4-34) U/L Alkaline Phosphatase 46 (38-126) U/L Total Protein 8.0 (6.3-8.2) g/dL Albumin 4.6 (3.5-5.0) g/dL Serum Alcohol 278 H* mg/dL Disposition Clinical Impression: Alcohol withdrawal seizure, Alcohol abuse Disposition: ADMITTED IP TO THIS HOSP Condition: Fair Referrals: Lico Bañuelos MD [Primary Care Provider] - 1-2 days
[2020-09-05 05:50] LABS: ALT 49 U/L (4-34); AST 66 U/L (14-36); African American GFR (CKD) >90 (>60 ml/min/1.73 sqM); Albumin 4.6 g/dL (3.5-5.0); Alkaline Phosphatase 46 U/L (38-126); Anion Gap 13 mmol/L; Blood Urea Nitrogen 7 mg/dL (7-17); Calcium 9.9 mg/dL (8.4-10.2); Carbon Dioxide 22 mmol/L (22-30); Chloride 108 mmol/L (98-107); Glucose 111 mg/dL (74-99); Non-African American GFR(CKD) >90 (>60 ml/min/1.73 sqM); Sodium 143 mmol/L (137-145); Total Bilirubin 0.3 mg/dL (0.2-1.3)
[2020-09-05 05:54] LABS: Alcohol 278 mg/dL
[2020-09-05] MEDS ORDERED: NALOXONE 0.4 MG/ML 1 ML VIAL IV PRN (06:44)
[2020-09-05] MEDS ORDERED: SODIUM CHLORIDE 0.9% 1,000 ML IV SCH (06:45)
[2020-09-05] MEDS ORDERED: LORazepam 2 MG/ML INJ IV PRN ×3 (06:46)
[2020-09-05] MEDS ORDERED: THIAMINE 100 MG/ML 2 ML VIAL IM STA (06:46)
[2020-09-05] MEDS ORDERED: amLODIPine 10 MG TAB PO SCH (09:00)
[2020-09-05] MEDS ORDERED: FAMOTIDINE 20 MG TAB PO SCH (09:00)
[2020-09-05] MEDS ORDERED: lisinopriL 20 MG TAB PO SCH (09:00)
[2020-09-05] MEDS ORDERED: THIAMINE 100 MG TAB PO SCH ×2 (09:00→17:30)
--- NOTE | 2020-09-05 17:18 | HP ---
HISTORY AND PHYSICAL CHIEF COMPLAINT: Acute alcohol intoxication and seizure. HISTORY OF PRESENT ILLNESS: This is another recent admission for this 44-year-old -[place] female. She was in the hospital 48 hours ago for alcoholism. She came back in in the middle of the night after having had a seizure. REVIEW OF SYSTEMS: Could not be obtained. Past medical history, family history and personal and social histories are all otherwise unremarkable and noncontributory. She has chronic major depression and alcoholism. She signed out before she could be evaluated. PHYSICAL EXAM: Deferred. She is admitted to the hospital with diagnoses. 1. Alcohol withdrawal seizure. 2. Chronic alcoholism. 3. Acute alcohol intoxication. PLAN: Plan was to have put her at bedrest with [facility] protocol. MMAJAY / ZOEN: [id number] /
--- NOTE | 2020-09-05 23:00 | DS ---
DISCHARGE SUMMARY CHIEF COMPLAINT: Acute alcohol intoxication and alcohol induced seizure. HISTORY OF PRESENT ILLNESS AND PHYSICAL EXAMINATION: Details of this lady's history and physical can be found in the initial workup. LABORATORY STUDIES: While she was in the hospital, she had laboratory studies, details of which can be found in the laboratory section of her chart. COURSE IN THE HOSPITAL: After admission, she was placed on bedrest and started on intravenous fluids and was to be admitted and placed on [facility] protocol and she signed out AMA. FINAL DIAGNOSES: 1. Alcohol related grand mal seizure. 2. Chronic alcoholism. 3. Acute alcohol intoxication. OPERATIONS: None. CONSULTATION: None. She signed out AMA. MMAJAY / ZOEN: [id number] /
== END 2020-09-05 10:40 | disposition left against medical advice (07) | DRG 894 ==
LOC: EC 04:56 → 6NMEDSUR 06:44
PROVIDERS: ADMIT Family Medicine; ATTEND Family Medicine
DX: F10.239 Alcohol dependence with withdrawal, unspecified (principal); G40.409 Other generalized epilepsy and epileptic syndromes, not intractable, without status epilepticus; D49.6 Neoplasm of unspecified behavior of brain; F10.229 Alcohol dependence with intoxication, unspecified; Y90.8 Blood alcohol level of 240 mg/100 ml or more; F32.9 Major depressive disorder, single episode, unspecified; I10 Essential (primary) hypertension; J45.909 Unspecified asthma, uncomplicated; F41.9 Anxiety disorder, unspecified; F17.200 Nicotine dependence, unspecified, uncomplicated; Z53.29 Procedure and treatment not carried out because of patient's decision for other reasons; Z79.899 Other long term (current) drug therapy; Z90.710 Acquired absence of both cervix and uterus; Z98.51 Tubal ligation status; Z87.42 Personal history of other diseases of the female genital tract; Z88.5 Allergy status to narcotic agent; Z91.013 Allergy to seafood; Z91.018 Allergy to other foods
CPT/HCPCS: 36415; 80053; 80177; 80320; 85025; 96374; 99285

== ENCOUNTER 2020-09-07 03:37 | Observation (INO) | payer OTHER ==
[2020-09-07 03:52] VITALS: TEMP 98.5
[2020-09-07] MEDS ORDERED: MAG HYDROX/AL HYDROX/SIMETH 30 ML, HYOSCYAMINE ELIXIR 10 ML, LIDOCAINE VISCOUS 2% 10 ML PO STA ×3 (05:00)
--- NOTE | 2020-09-07 05:19 | CT ---
EXAM: CT Head Without Intravenous Contrast CLINICAL HISTORY: ITS.REASON CT Reason: trauma TECHNIQUE: Axial computed tomography images of the head/brain without intravenous contrast. CTDI is 49.27 mGy and DLP is 1036.4 mGy-cm. This CT exam was performed using one or more of the following dose reduction techniques: automated exposure control, adjustment of the mA and/or kV according to patient size, and/or use of iterative reconstruction technique. COMPARISON: September 03, 2020 FINDINGS: Brain: Unremarkable. No hemorrhage. No significant white matter disease. No edema. Ventricles: Unremarkable. No ventriculomegaly. Bones/joints: Unremarkable. No acute fracture. Soft tissues: Unremarkable. Sinuses: Unremarkable as visualized. No acute sinusitis. Mastoid air cells: Unremarkable as visualized. No mastoid effusion. IMPRESSION: Normal head/brain CT.
[2020-09-07 05:20] LABS: Anisocytosis Slight; Basophils % (A) 1 %; Eosinophils # (A) 0.1 k/uL (0-0.7); Eosinophils % (A) 2 %; HCT 34.7 % (34.0-46.0); Lymphocytes # (A) 2.3 k/uL (1.0-4.8); Lymphocytes % (A) 33 %; MCH 24.8 pg (25.0-35.0); MCHC 31.8 g/dL (31.0-37.0); MCV 78.1 fL (80.0-100.0); Mean Platelet Volume 6.8; Microcytosis Slight; Monocytes # (A) 0.4 k/uL (0-1.0); Monocytes % (A) 6 %; Neutrophils # (A) 3.9 k/uL (1.3-7.7); Neutrophils % (A) 56 %; Platelet Count 312 k/uL (150-450); RBC 4.44 m/uL (3.80-5.40); RDW 16.7 % (11.5-15.5)
--- NOTE | 2020-09-07 05:27 | ED ---
Seizure HPI - General Chief Complaint: Seizure Stated Complaint: Seizure Time Seen by Provider: 09/07/20 03:59 Source: patient, EMS Mode of arrival: EMS Limitations: no limitations - History of Present Illness Initial Comments: This patient is a 44-year-old woman who presents after she had another seizure. The patient and that she had been drinking. Not sure if she took her anticonvulsant medicines. The patient states that when the seizure occurred she struck the back of her head against furniture. MD Complaint: seizure -: minutes(s) Description of Episode: loss of consciousness, tonic-clonic movement -: second(s) Trauma: Yes Seizure History: known seizure disorder Place: home Possible Precipitating Event: head injury Associated Symptoms: denies other symptoms Treatments Prior to Arrival: none - Related Data Home Medications Medication Instructions Recorded Confirmed amLODIPine [Norvasc] 10 mg PO DAILY 12/19/17 09/05/20 Ergocalciferol [Vitamin D2 50,000 unit PO QMONTHLY 09/26/19 09/05/20 (DRISDOL)] levETIRAcetam [Keppra] 750 mg PO BID 06/19/20 09/05/20 lisinopriL 40 mg PO DAILY 09/05/20 09/05/20 Previous Rx's Medication Instructions Recorded Thiamine [Vitamin B-1] 100 mg PO DAILY #30 tablet 09/03/20 Allergies Allergy/AdvReac Type Severity Reaction Status Date / Time shellfish derived [Shellfish] Allergy Anaphylaxis Verified 09/05/20 08:59 wheat Allergy Anaphylaxis Verified 09/05/20 08:59 tramadol AdvReac Seizure Verified 09/05/20 08:59 Review of Systems ROS Statement: Those systems with pertinent positive or pertinent negative responses have been documented in the HPI. ROS Other: All systems not noted in ROS Statement are negative. Constitutional: Denies: fever, chills Respiratory: Denies: cough, dyspnea Cardiovascular: Denies: chest pain, palpitations Gastrointestinal: Denies: abdominal pain, nausea, vomiting Genitourinary: Denies: dysuria, hematuria Musculoskeletal: Denies: back pain Neurological: Denies: headache, weakness, numbness Past Medical History Past Medical History: Asthma, Hypertension, Seizure Disorder Additional Past Medical History / Comment(s): had a seizure approx 2 weeks ago, brain tumor History of Any Multi-Drug Resistant Organisms: None Reported Past Surgical History: Hysterectomy, Tubal Ligation Past Anesthesia/Blood Transfusion Reactions: No Reported Reaction Past Psychological History: Anxiety Smoking Status: Current every day smoker Past Alcohol Use History: Abuse, Daily Past Drug Use History: Marijuana General Exam Limitations: no limitations General appearance: alert, in no apparent distress Head exam: Present: normocephalic, other (Occipital scalp contusion. Mild tenderness. No evident deformity) Eye exam: Present: normal appearance, PERRL, EOMI, nystagmus. Absent: scleral icterus, conjunctival injection ENT exam: Present: normal oropharynx Neck exam: Present: normal inspection, full ROM. Absent: tenderness Respiratory exam: Present: normal lung sounds bilaterally. Absent: respiratory distress, wheezes, rales, rhonchi, stridor Cardiovascular Exam: Present: normal rhythm, tachycardia, normal heart sounds. Absent: systolic murmur, diastolic murmur, rubs, gallop GI/Abdominal exam: Present: soft. Absent: distended, tenderness, guarding, rebound, rigid Extremities exam: Present: normal inspection, normal capillary refill. Absent: pedal edema, calf tenderness Back exam: Present: normal inspection. Absent: CVA tenderness (R), CVA tenderness (L), vertebral tenderness Neurological exam: Present: alert Skin exam: Present: warm, dry, intact, normal color. Absent: rash Course Vital Signs 09/07/20 09/07/20 03:42 06:38 Temperature 98.5 F Pulse Rate 115 H 108 H Respiratory 18 17 Rate Blood Pressure 158/112 113/87 O2 Sat by Pulse 99 98 Oximetry Medical Decision Making - Lab Data Result diagrams: 09/07/20 04:32 09/07/20 04:32 Lab Results 09/07/20 09/07/20 Range/Units 04:32 04:32 WBC 7.0 (3.8-10.6) k/uL RBC 4.44 (3.80-5.40) m/uL Hgb 11.0 L (11.4-16.0) gm/dL Hct 34.7 (34.0-46.0) % MCV 78.1 L (80.0-100.0) fL MCH 24.8 L (25.0-35.0) pg MCHC 31.8 (31.0-37.0) g/dL RDW 16.7 H (11.5-15.5) % Plt Count 312 (150-450) k/uL MPV 6.8 Neutrophils % 56 % Lymphocytes % 33 % Monocytes % 6 % Eosinophils % 2 % Basophils % 1 % Neutrophils # 3.9 (1.3-7.7) k/uL Lymphocytes # 2.3 (1.0-4.8) k/uL Monocytes # 0.4 (0-1.0) k/uL Eosinophils # 0.1 (0-0.7) k/uL Basophils # 0.0 (0-0.2) k/uL Anisocytosis Slight Microcytosis Slight Sodium 144 (137-145) mmol/L Potassium 4.2 (3.5-5.1) mmol/L Chloride 107 (98-107) mmol/L Carbon Dioxide 23 (22-30) mmol/L Anion Gap 14 mmol/L BUN 14 (7-17) mg/dL Creatinine 0.85 (0.52-1.04) mg/dL Est GFR (CKD-EPI)AfAm >90 (>60 ml/min/1.73 sqM) Est GFR (CKD-EPI)NonAf 84 (>60 ml/min/1.73 sqM) Glucose 88 (74-99) mg/dL Calcium 9.8 (8.4-10.2) mg/dL Total Bilirubin 0.3 (0.2-1.3) mg/dL AST 47 H (14-36) U/L ALT 40 H (4-34) U/L Alkaline Phosphatase 64 (38-126) U/L Total Protein 8.0 (6.3-8.2) g/dL Albumin 4.7 (3.5-5.0) g/dL Amylase 84 (30-110) U/L Lipase 541 H (23-300) U/L Serum Alcohol 328 H* mg/dL Disposition Clinical Impression: Alcohol intoxication, Seizure Disposition: ADMITTED IP TO THIS HOSP Condition: Fair Instructions (If sedation given, give patient instructions): Recurrent Seizures in Adults (ED) Is patient prescribed a controlled substance at d/c from ED?: No Referrals: Lico Bañuelos MD [Primary Care Provider] - 1-2 days
[2020-09-07 05:32] LABS: ALT 40 U/L (4-34); AST 47 U/L (14-36); African American GFR (CKD) >90 (>60 ml/min/1.73 sqM); Albumin 4.7 g/dL (3.5-5.0); Alkaline Phosphatase 64 U/L (38-126); Amylase 84 U/L (30-110); Anion Gap 14 mmol/L; Blood Urea Nitrogen 14 mg/dL (7-17); Calcium 9.8 mg/dL (8.4-10.2); Carbon Dioxide 23 mmol/L (22-30); Chloride 107 mmol/L (98-107); Glucose 88 mg/dL (74-99); Lipase 541 U/L (23-300); Non-African American GFR(CKD) 84 (>60 ml/min/1.73 sqM); Potassium 4.2 mmol/L (3.5-5.1); Sodium 144 mmol/L (137-145); Total Bilirubin 0.3 mg/dL (0.2-1.3)
[2020-09-07 06:13] LABS: Alcohol 328 mg/dL
[2020-09-07 06:39] VITALS: BP 113/87; PULSE 108; RESP 17
[2020-09-07] MEDS ORDERED: NALOXONE 0.4 MG/ML 1 ML VIAL IV PRN (06:56)
[2020-09-07] MEDS ORDERED: LORazepam 2 MG/ML INJ IV PRN ×3 (06:58)
[2020-09-07] MEDS ORDERED: SODIUM CHLORIDE 0.9% 1,000 ML IV SCH (07:00)
[2020-09-07] MEDS ORDERED: amLODIPine 10 MG TAB PO SCH (09:00)
[2020-09-07] MEDS ORDERED: FAMOTIDINE 20 MG TAB PO SCH (09:00)
[2020-09-07] MEDS ORDERED: THIAMINE 100 MG TAB PO SCH (09:00)
[2020-09-07] MEDS ORDERED: lisinopriL 20 MG TAB PO SCH (09:00)
--- NOTE | 2020-09-07 20:46 | HP ---
HISTORY AND PHYSICAL DATE OF SERVICE: 09/07/2020 CHIEF COMPLAINT: Acute alcohol intoxication and seizure. HISTORY OF PRESENT ILLNESS: This lady returns once again after having a seizure while drinking heavily. She has been in the hospital 3 different times in the last 5 or 6 days and has signed out each time. REVIEW OF SYSTEMS: Review of systems was not obtained. Past medical history, family history, and personal and social histories were not obtained and are otherwise presumed unchanged. PHYSICAL EXAMINATION: Her blood pressure is 135/90 with a pulse of 104, respirations of 36, and she is afebrile. She was admitted to the emergency room and signed out before further exam could be obtained. FINAL DIAGNOSES: 1. Acute alcohol intoxication. 2. Chronic alcoholism. 3. Alcohol-induced seizure. OPERATIONS: None. CONSULTATIONS: None. She left AGAINST MEDICAL ADVICE. MMODL / IJN: [id number] /
--- NOTE | 2020-09-08 07:02 | DS ---
DISCHARGE SUMMARY CHIEF COMPLAINT: Acute alcohol intoxication, alcoholism and seizure. HISTORY OF PRESENT ILLNESS AND PHYSICAL EXAMINATION: Details of this lady's history and physical can be found in the initial workup. LABORATORY STUDIES: While she was in a hospital she had laboratory studies in the emergency room. COURSE IN HOSPITAL: An IV was started and she was to be admitted and treated for her seizure and alcoholism and she signed out once again against medical advice. FINAL DIAGNOSIS: 1. Acute alcohol intoxication. 2. Alcohol induced seizures. 3. Chronic alcoholism. OPERATIONS: None. CONSULTATION: None. She signed out AMA. MMAJAY / NICHOLAS: [id number] /
== END 2020-09-07 07:23 | disposition left against medical advice (07) ==
LOC: EC 03:37 → 6NMEDSUR 06:56
PROVIDERS: ADMIT Family Medicine; ATTEND Family Medicine
DX: F10.229 Alcohol dependence with intoxication, unspecified (principal); F10.288 Alcohol dependence with other alcohol-induced disorder; G40.909 Epilepsy, unspecified, not intractable, without status epilepticus; S00.03XA Contusion of scalp, initial encounter; I10 Essential (primary) hypertension; J45.909 Unspecified asthma, uncomplicated; F41.9 Anxiety disorder, unspecified; F17.200 Nicotine dependence, unspecified, uncomplicated; Z53.29 Procedure and treatment not carried out because of patient's decision for other reasons; Y90.8 Blood alcohol level of 240 mg/100 ml or more; W22.8XXA Striking against or struck by other objects, initial encounter; Z79.899 Other long term (current) drug therapy; Z88.5 Allergy status to narcotic agent; Z91.013 Allergy to seafood; Z91.018 Allergy to other foods; Z90.710 Acquired absence of both cervix and uterus; Z98.51 Tubal ligation status
CPT/HCPCS: 99285; 36415; 93005; 80053; 82150; 83690; 85025; 70450; G0480; 80320

== ENCOUNTER 2020-09-24 03:24 | Emergency (ER) | payer OTHER ==
[2020-09-24 03:35] VITALS: BP 160/109; PULSE 98; RESP 20; TEMP 97.7
--- NOTE | 2020-09-24 03:44 | ED ---
General Adult HPI - General Chief complaint: Shortness of Breath Stated complaint: weakness Time Seen by Provider: 09/24/20 03:28 Source: EMS Mode of arrival: EMS Limitations: no limitations - History of Present Illness Initial comments: Patient states "I did too much olga out". Patient explains that this is a dance show on television and then she was dancing and then became short of breath. Onset/Timin -: hour(s) Location: chest Radiation: non-radiation Consistency: constant Improves with: none Worsens with: none Treatments Prior to Arrival: none - Related Data Home Medications Medication Instructions Recorded Confirmed amLODIPine [Norvasc] 10 mg PO DAILY 12/19/17 09/07/20 Ergocalciferol [Vitamin D2 50,000 unit PO QMONTHLY 09/26/19 09/07/20 (DRISDOL)] levETIRAcetam [Keppra] 750 mg PO BID 06/19/20 09/07/20 lisinopriL 40 mg PO DAILY 09/05/20 09/07/20 Previous Rx's Medication Instructions Recorded Thiamine [Vitamin B-1] 100 mg PO DAILY #30 tablet 09/03/20 Allergies Allergy/AdvReac Type Severity Reaction Status Date / Time shellfish derived [Shellfish] Allergy Anaphylaxis Verified 09/24/20 03:35 wheat Allergy Anaphylaxis Verified 09/24/20 03:35 tramadol AdvReac Seizure Verified 09/24/20 03:35 Review of Systems ROS Statement: Those systems with pertinent positive or pertinent negative responses have been documented in the HPI. ROS Other: All systems not noted in ROS Statement are negative. Constitutional: Denies: fever, chills Respiratory: Reports: dyspnea. Denies: cough, wheezes Cardiovascular: Denies: chest pain, palpitations, dyspnea on exertion, edema Gastrointestinal: Denies: abdominal pain, vomiting, diarrhea Genitourinary: Denies: dysuria Musculoskeletal: Denies: back pain Skin: Denies: rash Neurological: Denies: headache, weakness, numbness Past Medical History Past Medical History: Asthma, Hypertension, Seizure Disorder Additional Past Medical History / Comment(s): had a seizure approx 2 weeks ago, brain tumor History of Any Multi-Drug Resistant Organisms: None Reported Past Surgical History: Hysterectomy, Tubal Ligation Past Anesthesia/Blood Transfusion Reactions: No Reported Reaction Past Psychological History: Anxiety Smoking Status: Current every day smoker Past Alcohol Use History: Abuse, Daily Past Drug Use History: Marijuana General Exam Limitations: no limitations General appearance: alert, in no apparent distress, appears intoxicated Head exam: Present: atraumatic, normocephalic Eye exam: Present: normal appearance. Absent: scleral icterus, conjunctival injection ENT exam: Present: normal oropharynx Neck exam: Present: normal inspection Respiratory exam: Present: normal lung sounds bilaterally. Absent: respiratory distress, wheezes, rales, rhonchi, stridor Cardiovascular Exam: Present: regular rate, normal rhythm, normal heart sounds. Absent: systolic murmur, diastolic murmur, rubs, gallop GI/Abdominal exam: Present: soft. Absent: distended, tenderness, guarding, rebound, rigid, mass Extremities exam: Present: normal inspection, normal capillary refill. Absent: pedal edema, calf tenderness Back exam: Present: normal inspection. Absent: CVA tenderness (R), CVA tenderness (L) Neurological exam: Present: alert, oriented X3, other (Mild dysarthria and mild ataxia). Absent: motor sensory deficit Skin exam: Present: warm, dry, intact, normal color. Absent: rash Course Vital Signs 09/24/20 03:29 Temperature 97.7 F Pulse Rate 98 Respiratory 20 Rate Blood Pressure 160/109 O2 Sat by Pulse 100 Oximetry EKG Findings - EKG Comments: EKG Findings:: Possible old septal infarct. - EKG Results: EKG: interpreted by TEJ, sinus rhythm (Rate 95 bpm), normal axis, normal ST/T Medical Decision Making - Lab Data Result diagrams: 09/24/20 03:46 09/24/20 03:46 Lab Results 09/24/20 09/24/20 09/24/20 Range/Units 03:46 03:46 03:46 WBC 5.3 (3.8-10.6) k/uL RBC 4.82 (3.80-5.40) m/uL Hgb 12.2 (11.4-16.0) gm/dL Hct 38.0 (34.0-46.0) % MCV 78.9 L (80.0-100.0) fL MCH 25.4 (25.0-35.0) pg MCHC 32.2 (31.0-37.0) g/dL RDW 17.1 H (11.5-15.5) % Plt Count 321 (150-450) k/uL MPV 6.5 Neutrophils % 50 % Lymphocytes % 36 % Monocytes % 5 % Eosinophils % 4 % Basophils % 1 % Neutrophils # 2.7 (1.3-7.7) k/uL Lymphocytes # 1.9 (1.0-4.8) k/uL Monocytes # 0.3 (0-1.0) k/uL Eosinophils # 0.2 (0-0.7) k/uL Basophils # 0.0 (0-0.2) k/uL Anisocytosis Slight Microcytosis Slight Sodium 141 (137-145) mmol/L Potassium 5.6 H (3.5-5.1) mmol/L Chloride 106 (98-107) mmol/L Carbon Dioxide 22 (22-30) mmol/L Anion Gap 13 mmol/L BUN 10 (7-17) mg/dL Creatinine 0.67 (0.52-1.04) mg/dL Est GFR (CKD-EPI)AfAm >90 (>60 ml/min/1.73 sqM) Est GFR (CKD-EPI)NonAf >90 (>60 ml/min/1.73 sqM) Glucose 85 (74-99) mg/dL Calcium 10.1 (8.4-10.2) mg/dL Troponin I <0.012 (0.000-0.034) ng/mL Serum Alcohol 256 H* mg/dL Disposition Clinical Impression: Fall, Hyperkalemia, Alcohol intoxication Disposition: HOME SELF-CARE Condition: Fair Instructions (If sedation given, give patient instructions): Alcohol Intoxication (ED) Additional Instructions: As we discussed, drink plenty of water today and follow-up in 2 days to have her potassium rechecked. Is patient prescribed a controlled substance at d/c from ED?: No Referrals: Lico Bañuelos MD [Primary Care Provider] - 1-2 days
[2020-09-24 04:09] LABS: Anisocytosis Slight; Basophils % (A) 1 %; Eosinophils # (A) 0.2 k/uL (0-0.7); Eosinophils % (A) 4 %; HGB 12.2 gm/dL (11.4-16.0); Lymphocytes # (A) 1.9 k/uL (1.0-4.8); Lymphocytes % (A) 36 %; MCH 25.4 pg (25.0-35.0); MCHC 32.2 g/dL (31.0-37.0); MCV 78.9 fL (80.0-100.0); Mean Platelet Volume 6.5; Microcytosis Slight; Monocytes # (A) 0.3 k/uL (0-1.0); Monocytes % (A) 5 %; Neutrophils # (A) 2.7 k/uL (1.3-7.7); Neutrophils % (A) 50 %; Platelet Count 321 k/uL (150-450); RBC 4.82 m/uL (3.80-5.40); RDW 17.1 % (11.5-15.5); WBC 5.3 k/uL (3.8-10.6)
[2020-09-24 04:18] LABS: African American GFR (CKD) >90 (>60 ml/min/1.73 sqM); Anion Gap 13 mmol/L; Blood Urea Nitrogen 10 mg/dL (7-17); Calcium 10.1 mg/dL (8.4-10.2); Carbon Dioxide 22 mmol/L (22-30); Chloride 106 mmol/L (98-107); Glucose 85 mg/dL (74-99); Non-African American GFR(CKD) >90 (>60 ml/min/1.73 sqM); Potassium 5.6 mmol/L (3.5-5.1); Sodium 141 mmol/L (137-145)
[2020-09-24 04:22] LABS: Alcohol 256 mg/dL
--- NOTE | 2020-09-24 04:48 | CT ---
EXAM: CT Head Without Intravenous Contrast CLINICAL HISTORY: ITS.REASON CT Reason: injury TECHNIQUE: Axial computed tomography images of the head/brain without intravenous contrast. CTDI is 45.37 mGy and DLP is 1029 mGy-cm. This CT exam was performed using one or more of the following dose reduction techniques: automated exposure control, adjustment of the mA and/or kV according to patient size, and/or use of iterative reconstruction technique. COMPARISON: No relevant prior studies available. FINDINGS: No acute intracranial hemorrhage. No midline shift or mass effect. The territorial pimentel-white matter differentiation is maintained throughout. The ventricles and sulci are commensurate with age. The visualized orbits appear grossly unremarkable. The calvarium is intact. The visualized paranasal sinuses and mastoid air cells are grossly clear. IMPRESSION: No acute intracranial hemorrhage, midline shift, or mass effect. EXAM: CT Cervical Spine Without Intravenous Contrast CLINICAL HISTORY: ITS.REASON CT Reason: injury TECHNIQUE: Axial computed tomography images of the cervical spine without intravenous contrast. CTDI is 11.7 mGy and DLP is 358.3 mGy-cm. This CT exam was performed using one or more of the following dose reduction techniques: automated exposure control, adjustment of the mA and/or kV according to patient size, and/or use of iterative reconstruction technique. COMPARISON: No relevant prior studies available. FINDINGS: The vertebral body heights are maintained. There is no spondylolisthesis. The craniocervical junction is intact. The atlanto-dens interval is maintained. The dens is intact. Reversal of the cervical lordosis. Mild multilevel degenerative endplate changes. No high-grade spinal canal stenosis. No high-grade foraminal stenosis. The unenhanced neck soft tissues are grossly unremarkable. The visualized lung apices are grossly clear. IMPRESSION: No acute fracture or subluxation of the cervical spine.
[2020-09-24] MEDS ORDERED: SODIUM POLYSTYRENE SULFONATE 15 GM/60 ML BOTTLE PO STA (05:16)
== END 2020-09-24 05:23 | disposition home or self-care (01) ==
LOC: EC 03:24
DX: F10.129 Alcohol abuse with intoxication, unspecified (principal); E87.5 Hyperkalemia; I10 Essential (primary) hypertension; J45.909 Unspecified asthma, uncomplicated; G40.909 Epilepsy, unspecified, not intractable, without status epilepticus; F17.200 Nicotine dependence, unspecified, uncomplicated; Z79.899 Other long term (current) drug therapy; Z91.013 Allergy to seafood; Z91.018 Allergy to other foods; Z88.5 Allergy status to narcotic agent
CPT/HCPCS: 36415; 70450; 72125; 80048; 80320; 84484; 85025; 93005; 99285

== ENCOUNTER 2020-10-01 21:06 | Emergency (ER) | payer OTHER ==
[2020-10-01] MEDS ORDERED: SODIUM CHLORIDE 0.9% 1,000 ML IV STA (21:28)
[2020-10-01 22:50] LABS: Anisocytosis Slight; Basophils % (A) 0 %; Eosinophils # (A) 0.3 k/uL (0-0.7); Eosinophils % (A) 3 %; HCT 34.2 % (34.0-46.0); HGB 11.2 gm/dL (11.4-16.0); Lymphocytes # (A) 0.8 k/uL (1.0-4.8); Lymphocytes % (A) 8 %; MCH 25.7 pg (25.0-35.0); MCHC 32.8 g/dL (31.0-37.0); MCV 78.3 fL (80.0-100.0); Mean Platelet Volume 8.1; Microcytosis Slight; Monocytes # (A) 0.4 k/uL (0-1.0); Monocytes % (A) 4 %; Neutrophils # (A) 8.3 k/uL (1.3-7.7); Neutrophils % (A) 84 %; Platelet Count 202 k/uL (150-450); RBC 4.36 m/uL (3.80-5.40); RDW 16.6 % (11.5-15.5); WBC 9.8 k/uL (3.8-10.6)
[2020-10-01 22:57] LABS: Potassium 3.7 mmol/L (3.5-5.1)
[2020-10-01 22:58] LABS: ALT 15 U/L (4-34); AST 26 U/L (14-36); African American GFR (CKD) >90 (>60 ml/min/1.73 sqM); Albumin 4.5 g/dL (3.5-5.0); Alcohol <10 mg/dL; Alkaline Phosphatase 61 U/L (38-126); Anion Gap 11 mmol/L; Blood Urea Nitrogen 11 mg/dL (7-17); Carbon Dioxide 23 mmol/L (22-30); Chloride 102 mmol/L (98-107); Glucose 101 mg/dL (74-99); Non-African American GFR(CKD) >90 (>60 ml/min/1.73 sqM); Sodium 136 mmol/L (137-145); Total Bilirubin 0.4 mg/dL (0.2-1.3)
[2020-10-01 23:30] VITALS: RESP 16
[2020-10-01 23:33] VITALS: TEMP 99.4
[2020-10-01] MEDS ORDERED: METOCLOPRAMIDE 5 MG/ML 2 ML VIAL IVP STA (23:34)
[2020-10-01] MEDS ORDERED: KETOROLAC 15 MG/ML 1 ML VIAL IVP STA (23:34)
[2020-10-01] MEDS ORDERED: diphenhydrAMINE 50 MG/ML 1 ML VIAL IVP STA (23:34)
[2020-10-01] MEDS ORDERED: ACETAMINOPHEN TAB 325 MG TAB PO STA (23:34)
[2020-10-02 00:30] LABS: Appearance,Urine Cloudy (Clear); Bacteria,Urine Rare /hpf; Bilirubin,Urine Negative (Negative); Blood,Urine Trace (Negative); Color,Urine Yellow; Glucose,Urine (UA) Negative (Negative); Ketones,Urine Trace (Negative); Leukocyte Esterase,Urine Negative (Negative); Mucus,Urine Many /hpf; Nitrite,Urine Negative (Negative); PH, Urine 6.5 (5.0-8.0); Protein,Urine 1+ (Negative); RBC,Urine 1 /hpf (0-5); Specific Gravity,Urine 1.029 (1.001-1.035); Squamous Epithelial Cell,Urine 8 /hpf (0-4); WBC,Urine 3 /hpf (0-5)
--- NOTE | 2020-10-02 00:40 | ED ---
Seizure HPI - General Chief Complaint: Seizure Stated Complaint: Seizure Time Seen by Provider: 10/01/20 21:19 Source: patient Mode of arrival: wheelchair Limitations: no limitations - History of Present Illness Initial Comments: 44 year-old female patient with past history of chronic alcohol abuse and brain tumor presents to the emergency department for evaluation of headache. States she had a seizure last night and has had a headache since. States she does get headaches frequently. Denies any blurred or double vision. Denies numbness, tingling, or weakness to the extremities. She did bite her lip yesterday during the seizure. She was in her bed when the seizure occurred, denies any falls. She did have a low grade fever in triage, patient was unaware of this. Denies any cough or congestion. Denies vomiting or diarrhea. Denies rash. Denies any known sick contacts. Last drink was September 26. Patient denies any recent rash, chest pain, abdominal pain, back pain, dizziness, hematuria, dysuria, urinary urgency, urinary frequency, or any other complaints. - Related Data Home Medications Medication Instructions Recorded Confirmed amLODIPine [Norvasc] 10 mg PO DAILY 12/19/17 09/07/20 Ergocalciferol [Vitamin D2 50,000 unit PO QMONTHLY 09/26/19 09/07/20 (DRISDOL)] levETIRAcetam [Keppra] 750 mg PO BID 06/19/20 09/07/20 lisinopriL 40 mg PO DAILY 09/05/20 09/07/20 Previous Rx's Medication Instructions Recorded Thiamine [Vitamin B-1] 100 mg PO DAILY #30 tablet 09/03/20 Allergies Allergy/AdvReac Type Severity Reaction Status Date / Time shellfish derived [Shellfish] Allergy Anaphylaxis Verified 10/01/20 21:11 wheat Allergy Anaphylaxis Verified 10/01/20 21:11 tramadol AdvReac Seizure Verified 10/01/20 21:11 Review of Systems ROS Statement: Those systems with pertinent positive or pertinent negative responses have been documented in the HPI. ROS Other: All systems not noted in ROS Statement are negative. Past Medical History Past Medical History: Asthma, Hypertension, Seizure Disorder Additional Past Medical History / Comment(s): had a seizure approx 2 weeks ago, brain tumor History of Any Multi-Drug Resistant Organisms: None Reported Past Surgical History: Hysterectomy, Tubal Ligation Past Anesthesia/Blood Transfusion Reactions: No Reported Reaction Past Psychological History: Anxiety Smoking Status: Current every day smoker Past Alcohol Use History: Occasional Past Drug Use History: Marijuana General Exam Limitations: no limitations General appearance: alert, in no apparent distress, other (This is a well- developed, well-nourished adult female patient in no acute distress. Vital signs on presentation her temperature 100.2F, pulse 105, respirations 18, blood pressure 143/101, pulse ox 99% on room air.) Eye exam: Present: normal appearance, PERRL, EOMI. Absent: scleral icterus, conjunctival injection, periorbital swelling ENT exam: Present: normal exam, normal oropharynx, mucous membranes moist Respiratory exam: Present: normal lung sounds bilaterally. Absent: respiratory distress, wheezes, rales, rhonchi, stridor Cardiovascular Exam: Present: normal rhythm, tachycardia, normal heart sounds. Absent: systolic murmur, diastolic murmur, rubs, gallop, clicks GI/Abdominal exam: Present: soft, normal bowel sounds. Absent: distended, tenderness, guarding, rebound, rigid Neurological exam: Present: alert, oriented X3, CN II-XII intact Expanded Speech: Present: fluid speech Cranial nerves: EOM's Intact: Normal, Tongue Deviation: Normal Motor strength exam: RUE: 5, LUE: 5, RLE: 5, LLE: 5 Psychiatric exam: Present: normal affect Skin exam: Present: warm, dry, intact, normal color. Absent: rash Course Vital Signs 10/01/20 10/01/20 21:11 23:29 Temperature 100.2 F H 99.4 F Pulse Rate 105 H 80 Respiratory 18 16 Rate Blood Pressure 143/101 150/103 O2 Sat by Pulse 99 100 Oximetry Medical Decision Making - Medical Decision Making 44-year-old female patient presents to the emergency department today for evaluation of headache, not feeling well. Physical examination did reveal swelling to the lower lip, patient that this during a seizure yesterday. She is neurologically intact with no focal deficits. IV fluids were given. Labs reviewed and are unremarkable. EKG is unremarkable. I did discuss findings and results with the patient. She did stop drinking approximately 6 days ago. She'll be discharged follow up with her primary care physician for recheck in 1- 2 days. Return parameters were discussed in detail. She verbalizes understanding and agrees with this plan. Case discussed with my attending Dr. Tavarez. - Lab Data Result diagrams: 10/01/20 22:22 10/01/20 22:22 Lab Results 10/01/20 10/01/20 10/01/20 Range/Units 22:22 22:22 22:22 WBC 9.8 (3.8-10.6) k/uL RBC 4.36 (3.80-5.40) m/uL Hgb 11.2 L (11.4-16.0) gm/dL Hct 34.2 (34.0-46.0) % MCV 78.3 L (80.0-100.0) fL MCH 25.7 (25.0-35.0) pg MCHC 32.8 (31.0-37.0) g/dL RDW 16.6 H (11.5-15.5) % Plt Count 202 (150-450) k/uL MPV 8.1 Neutrophils % 84 % Lymphocytes % 8 % Monocytes % 4 % Eosinophils % 3 % Basophils % 0 % Neutrophils # 8.3 H (1.3-7.7) k/uL Lymphocytes # 0.8 L (1.0-4.8) k/uL Monocytes # 0.4 (0-1.0) k/uL Eosinophils # 0.3 (0-0.7) k/uL Basophils # 0.0 (0-0.2) k/uL Anisocytosis Slight Microcytosis Slight Sodium 136 L (137-145) mmol/L Potassium 3.7 (3.5-5.1) mmol/L Chloride 102 (98-107) mmol/L Carbon Dioxide 23 (22-30) mmol/L Anion Gap 11 mmol/L BUN 11 (7-17) mg/dL Creatinine 0.71 (0.52-1.04) mg/dL Est GFR (CKD-EPI)AfAm >90 (>60 ml/min/1.73 sqM) Est GFR (CKD-EPI)NonAf >90 (>60 ml/min/1.73 sqM) Glucose 101 H (74-99) mg/dL Calcium 10.0 (8.4-10.2) mg/dL Total Bilirubin 0.4 (0.2-1.3) mg/dL AST 26 (14-36) U/L ALT 15 (4-34) U/L Alkaline Phosphatase 61 (38-126) U/L Total Protein 8.0 (6.3-8.2) g/dL Albumin 4.5 (3.5-5.0) g/dL Urine Color Urine Appearance (Clear) Urine pH (5.0-8.0) Ur Specific [place] (1.001-1.035) Urine Protein (Negative) Urine Glucose (UA) (Negative) Urine Ketones (Negative) Urine Blood (Negative) Urine Nitrite (Negative) Urine Bilirubin (Negative) Urine Urobilinogen (<2.0) mg/dL Ur Leukocyte Esterase (Negative) Urine RBC (0-5) /hpf Urine WBC (0-5) /hpf Ur Squamous Epith Cells (0-4) /hpf Urine Bacteria (None) /hpf Urine Mucus (None) /hpf Urine HCG, Qual (Not Detectd) Serum Alcohol <10 mg/dL Influenza Type A (PCR) Not Detected (Not Detectd) Influenza Type B (PCR) Not Detected (Not Detectd) RSV (PCR) Not Detected (Not Detectd) SARS-CoV-2 (PCR) Not Detected (Not Detectd) 10/02/20 10/02/20 Range/Units 00:11 00:11 WBC (3.8-10.6) k/uL RBC (3.80-5.40) m/uL Hgb (11.4-16.0) gm/dL Hct (34.0-46.0) % MCV (80.0-100.0) fL MCH (25.0-35.0) pg MCHC (31.0-37.0) g/dL RDW (11.5-15.5) % Plt Count (150-450) k/uL MPV Neutrophils % % Lymphocytes % % Monocytes % % Eosinophils % % Basophils % % Neutrophils # (1.3-7.7) k/uL Lymphocytes # (1.0-4.8) k/uL Monocytes # (0-1.0) k/uL Eosinophils # (0-0.7) k/uL Basophils # (0-0.2) k/uL Anisocytosis Microcytosis Sodium (137-145) mmol/L Potassium (3.5-5.1) mmol/L Chloride (98-107) mmol/L Carbon Dioxide (22-30) mmol/L Anion Gap mmol/L BUN (7-17) mg/dL Creatinine (0.52-1.04) mg/dL Est GFR (CKD-EPI)AfAm (>60 ml/min/1.73 sqM) Est GFR (CKD-EPI)NonAf (>60 ml/min/1.73 sqM) Glucose (74-99) mg/dL Calcium (8.4-10.2) mg/dL Total Bilirubin (0.2-1.3) mg/dL AST (14-36) U/L ALT (4-34) U/L Alkaline Phosphatase (38-126) U/L Total Protein (6.3-8.2) g/dL Albumin (3.5-5.0) g/dL Urine Color Yellow Urine Appearance Cloudy H (Clear) Urine pH 6.5 (5.0-8.0) Ur Specific [place] 1.029 (1.001-1.035) Urine Protein 1+ H (Negative) Urine Glucose (UA) Negative (Negative) Urine Ketones Trace H (Negative) Urine Blood Trace H (Negative) Urine Nitrite Negative (Negative) Urine Bilirubin Negative (Negative) Urine Urobilinogen 2.0 (<2.0) mg/dL Ur Leukocyte Esterase Negative (Negative) Urine RBC 1 (0-5) /hpf Urine WBC 3 (0-5) /hpf Ur Squamous Epith Cells 8 H (0-4) /hpf Urine Bacteria Rare H (None) /hpf Urine Mucus Many H (None) /hpf Urine HCG, Qual Not Detected (Not Detectd) Serum Alcohol mg/dL Influenza Type A (PCR) (Not Detectd) Influenza Type B (PCR) (Not Detectd) RSV (PCR) (Not Detectd) SARS-CoV-2 (PCR) (Not Detectd) - EKG Data -: EKG Interpreted by Pa EKG Comments: EKG obtained at 2230 shows normal sinus rhythm with a ventricular rate of 85, UT interval 180, QRS duration 80, QT 368, QTC 437. No evidence of ST elevation or depression. Disposition Clinical Impression: Headache, Fever Disposition: HOME SELF-CARE Condition: Good Instructions (If sedation given, give patient instructions): Fever in Adults (ED), Acute Headache (ED) Additional Instructions: Follow-up with your primary care physician for recheck in 1-2 days. Return to the emergency department for any new, worsening, or concerning symptoms. Is patient prescribed a controlled substance at d/c from ED?: No Referrals: Lico Bañuelos MD [Primary Care Provider] - 1-2 days Time of Disposition: 00:52
[2020-10-02] MEDS ORDERED: HYDROmorphone 0.5 MG/0.5 ML SYRINGE IVP STA (00:51)
[2020-10-02 01:11] VITALS: BP 153/98; PULSE 86
== END 2020-10-02 01:00 | disposition home or self-care (01) ==
LOC: EC 21:06
DX: R51.9 Headache, unspecified (principal); R50.9 Fever, unspecified; J45.909 Unspecified asthma, uncomplicated; I10 Essential (primary) hypertension; G40.909 Epilepsy, unspecified, not intractable, without status epilepticus; F17.200 Nicotine dependence, unspecified, uncomplicated
CPT/HCPCS: 36415; 93005; 80053; 80177; 85025; 81001; 81025; 87040; 87636; 99285; 96374; 96375 ×3; 96361 ×2; G0480; J1200; J2765; J1885; J1170; 80320; 99282

== ENCOUNTER 2020-11-01 22:41 | Inpatient (IN) | payer OTHER ==
[2020-11-01] MEDS ORDERED: DIAZEPAM 5 MG/ML 2 ML INJ IVP STA (22:55)
[2020-11-01] MEDS ORDERED: LORazepam 2 MG/ML INJ IV PRN ×3 (22:55)
[2020-11-01] MEDS ORDERED: LORazepam 2 MG/ML INJ IV STA (22:55)
[2020-11-01] MEDS ORDERED: SODIUM CHLORIDE 0.9% 1,000 ML IV STA (22:55)
--- NOTE | 2020-11-01 22:55 | ED ---
Seizure HPI - General Stated Complaint: Seizure Time Seen by Provider: 11/01/20 22:45 Source: RN notes reviewed, old records reviewed Mode of arrival: EMS Limitations: no limitations - History of Present Illness Initial Comments: This is a 45-year-old female DF for evaluation patient Dese for evaluation regards to seizure activity. Patient has history of seizure history of alcohol withdrawal seizure presenting some altered mental status. Patient denies active drinking today. Denies any headache or injury. Patient has been taking her seizure medication MD Complaint: seizure -: minutes(s) Description of Episode: loss of consciousness, tonic-clonic movement -: second(s) Witnessed: yes - by bystander Trauma: Yes Seizure History: known seizure disorder, history of withdrawal seizures, history of non-compliance with treatment Place: home Possible Precipitating Event: none Associated Symptoms: denies other symptoms Treatments Prior to Arrival: none - Related Data Home Medications Medication Instructions Recorded Confirmed amLODIPine [Norvasc] 10 mg PO DAILY 12/19/17 11/02/20 Ergocalciferol [Vitamin D2 1,250 mcg PO Q30D 09/26/19 11/02/20 (DRISDOL)] levETIRAcetam [Keppra] 750 mg PO BID 06/19/20 11/02/20 lisinopriL 40 mg PO DAILY 09/05/20 11/02/20 Previous Rx's Medication Instructions Recorded Lidocaine Viscous 2% [Xylocaine 5 ml MUCOUS MEM ONCE 10 Days #2 oz 11/04/20 Viscous] Thiamine [Vitamin B-1] 100 mg PO BID-W/MEALS #20 tab 11/04/20 traZODone HCL [Desyrel] 150 mg PO HS #10 tab 11/04/20 Allergies Allergy/AdvReac Type Severity Reaction Status Date / Time shellfish derived [Shellfish] Allergy Anaphylaxis Verified 11/09/20 19:23 wheat Allergy Anaphylaxis Verified 11/09/20 19:23 tramadol AdvReac Seizure Verified 11/09/20 19:23 Review of Systems ROS Statement: Those systems with pertinent positive or pertinent negative responses have been documented in the HPI. ROS Other: All systems not noted in ROS Statement are negative. Past Medical History Past Medical History: Asthma, Hypertension, Seizure Disorder Additional Past Medical History / Comment(s): had a seizure approx 2 weeks ago, brain tumor History of Any Multi-Drug Resistant Organisms: None Reported Past Surgical History: Hysterectomy, Tubal Ligation Past Anesthesia/Blood Transfusion Reactions: No Reported Reaction Past Psychological History: Anxiety Smoking Status: Current every day smoker Past Alcohol Use History: Occasional Past Drug Use History: Marijuana - Past Family History Mother Family Medical History: Diabetes Mellitus General Exam General appearance: alert, in no apparent distress Head exam: Present: atraumatic, normocephalic, normal inspection Eye exam: Present: normal appearance, PERRL, EOMI. Absent: scleral icterus, conjunctival injection, periorbital swelling ENT exam: Present: normal exam, mucous membranes moist Neck exam: Present: normal inspection. Absent: tenderness, meningismus, lymphadenopathy Respiratory exam: Present: normal lung sounds bilaterally. Absent: respiratory distress, wheezes, rales, rhonchi, stridor Cardiovascular Exam: Present: regular rate, normal rhythm, normal heart sounds. Absent: systolic murmur, diastolic murmur, rubs, gallop, clicks GI/Abdominal exam: Present: soft, normal bowel sounds. Absent: distended, tenderness, guarding, rebound, rigid Extremities exam: Present: normal inspection, full ROM, normal capillary refill. Absent: tenderness, pedal edema, joint swelling, calf tenderness Back exam: Present: normal inspection Neurological exam: Present: alert, oriented X3, CN II-XII intact Psychiatric exam: Present: normal affect, normal mood Skin exam: Present: warm, dry, intact, normal color. Absent: rash Course Vital Signs 11/01/20 11/01/20 11/02/20 22:51 22:57 00:00 Temperature 98.5 F 98.3 F Pulse Rate 86 101 H Respiratory 16 16 16 Rate Blood Pressure 141/111 148/98 O2 Sat by Pulse 100 100 Oximetry 11/02/20 11/02/20 11/02/20 00:51 02:08 05:59 Temperature Pulse Rate 93 88 99 Respiratory 18 18 18 Rate Blood Pressure 152/96 147/90 159/94 O2 Sat by Pulse 100 98 97 Oximetry 11/02/20 11/02/20 12:47 14:14 Temperature Pulse Rate Respiratory 17 18 Rate Blood Pressure O2 Sat by Pulse Oximetry - Reevaluation(s) Reevaluation #1: Medical record is reviewed Patient symptoms are improved here in the ER Patient informed results questions answered Medical Decision Making - Medical Decision Making 44 female DF for evaluation patient has seizure activity. Patient will be admitted for signs and symptoms of alcohol withdrawal - Lab Data Result diagrams: 11/03/20 06:16 11/03/20 06:16 Lab Results 11/01/20 11/01/20 Range/Units 23:32 23:32 WBC 6.4 (3.8-10.6) k/uL RBC 4.62 (3.80-5.40) m/uL Hgb 11.3 L (11.4-16.0) gm/dL Hct 36.7 (34.0-46.0) % MCV 79.5 L (80.0-100.0) fL MCH 24.5 L (25.0-35.0) pg MCHC 30.8 L (31.0-37.0) g/dL RDW 15.5 (11.5-15.5) % Plt Count 227 (150-450) k/uL MPV 7.1 Neutrophils % 79 % Lymphocytes % 12 % Monocytes % 4 % Eosinophils % 3 % Basophils % 0 % Neutrophils # 5.1 (1.3-7.7) k/uL Lymphocytes # 0.8 L (1.0-4.8) k/uL Monocytes # 0.2 (0-1.0) k/uL Eosinophils # 0.2 (0-0.7) k/uL Basophils # 0.0 (0-0.2) k/uL Hypochromasia Slight Sodium 132 L (137-145) mmol/L Potassium 3.6 (3.5-5.1) mmol/L Chloride 100 (98-107) mmol/L Carbon Dioxide 22 (22-30) mmol/L Anion Gap 10 mmol/L BUN 4 L (7-17) mg/dL Creatinine 0.61 (0.52-1.04) mg/dL Est GFR (CKD-EPI)AfAm >90 (>60 ml/min/1.73 sqM) Est GFR (CKD-EPI)NonAf >90 (>60 ml/min/1.73 sqM) Glucose 134 H (74-99) mg/dL Calcium 9.6 (8.4-10.2) mg/dL Magnesium 1.1 L (1.6-2.3) mg/dL Total Bilirubin 0.4 (0.2-1.3) mg/dL AST 28 (14-36) U/L ALT 19 (4-34) U/L Alkaline Phosphatase 67 (38-126) U/L Total Protein 7.5 (6.3-8.2) g/dL Albumin 4.5 (3.5-5.0) g/dL Salicylates <1.0 mg/dL Acetaminophen <10.0 ug/mL Serum Alcohol <10 mg/dL - EKG Data -: EKG Interpreted by Me (EKG is sinus rhythm 82 TX 190 QRS 88 QTc 453) Disposition Clinical Impression: Seizure, Alcohol withdrawal seizure, Status epilepticus Disposition: ADMITTED IP TO THIS HOSP Condition: Fair Is patient prescribed a controlled substance at d/c from ED?: No
[2020-11-01] MEDS ORDERED: levETIRAcetam IV 1,000 MG in SALINE 1 100ML.BAG IVPB ONE (23:00)
[2020-11-01] MEDS ORDERED: THIAMINE 100 MG/ML 2 ML VIAL IM ONE ×2 (23:00)
[2020-11-01 23:50] LABS: Basophils % (A) 0 %; Eosinophils # (A) 0.2 k/uL (0-0.7); Eosinophils % (A) 3 %; HCT 36.7 % (34.0-46.0); HGB 11.3 gm/dL (11.4-16.0); Hypochromasia Slight; Lymphocytes # (A) 0.8 k/uL (1.0-4.8); Lymphocytes % (A) 12 %; MCH 24.5 pg (25.0-35.0); MCHC 30.8 g/dL (31.0-37.0); MCV 79.5 fL (80.0-100.0); Mean Platelet Volume 7.1; Monocytes # (A) 0.2 k/uL (0-1.0); Monocytes % (A) 4 %; Neutrophils # (A) 5.1 k/uL (1.3-7.7); Neutrophils % (A) 79 %; Platelet Count 227 k/uL (150-450); RBC 4.62 m/uL (3.80-5.40); RDW 15.5 % (11.5-15.5); WBC 6.4 k/uL (3.8-10.6)
[2020-11-02] MEDS ORDERED: ONDANSETRON 4 MG/2 ML VIAL IVP PRN (00:02)
[2020-11-02] MEDS ORDERED: NALOXONE 0.4 MG/ML 1 ML VIAL IV PRN (00:02)
[2020-11-02 00:03] LABS: ALT 19 U/L (4-34); AST 28 U/L (14-36); Acetaminophen <10.0 ug/mL; African American GFR (CKD) >90 (>60 ml/min/1.73 sqM); Albumin 4.5 g/dL (3.5-5.0); Alcohol <10 mg/dL; Alkaline Phosphatase 67 U/L (38-126); Anion Gap 10 mmol/L; Blood Urea Nitrogen 4 mg/dL (7-17); Calcium 9.6 mg/dL (8.4-10.2); Carbon Dioxide 22 mmol/L (22-30); Chloride 100 mmol/L (98-107); Glucose 134 mg/dL (74-99); Magnesium 1.1 mg/dL (1.6-2.3); Non-African American GFR(CKD) >90 (>60 ml/min/1.73 sqM); Potassium 3.6 mmol/L (3.5-5.1); Salicylate <1.0 mg/dL; Sodium 132 mmol/L (137-145); Total Bilirubin 0.4 mg/dL (0.2-1.3); Total Protein 7.5 g/dL (6.3-8.2)
[2020-11-02] MEDS ORDERED: POTASSIUM CHLORIDE 20 MEQ in WATER FOR INJECTION 1 100ML.BAG IVPB ONE (00:15)
[2020-11-02] MEDS: THIAMINE 100 MG TAB PO SCH ×3 (00:21→17:51)
[2020-11-02] MEDS: MAGNESIUM SULFATE-D5W PMX 1 GM in DEXTROSE/WATER 1 100ML.BAG IVPB SCH ×4 (00:53→03:12)
[2020-11-02 02:22] LABS: Appearance,Urine Clear (Clear); Bacteria,Urine Rare /hpf; Bilirubin,Urine Negative (Negative); Blood,Urine Negative (Negative); Color,Urine Light Yellow; Glucose,Urine (UA) Trace (Negative); Hyaline Casts,Urine 3 /lpf (0-2); Ketones,Urine Negative (Negative); Leukocyte Esterase,Urine Negative (Negative); Mucus,Urine Rare /hpf; Nitrite,Urine Negative (Negative); PH, Urine 5.5 (5.0-8.0); Protein,Urine 1+ (Negative); RBC,Urine <1 /hpf (0-5); Specific Gravity,Urine 1.006 (1.001-1.035); Squamous Epithelial Cell,Urine 2 /hpf (0-4); Urobilinogen,Urine <2.0 mg/dL (<2.0); WBC,Urine 1 /hpf (0-5)
[2020-11-02 02:35] LABS: Amphetamine Screen,Urine Not Detected (NotDetected); Benzodiazepines Screen,Urine Not Detected (NotDetected); Cocaine Screen,Urine Not Detected (NotDetected); Opiate Screen,Urine Not Detected (NotDetected); Phencyclidine Screen,Urine Not Detected (NotDetected); Tricyclic Antidepressant,Urine Not Detected (NotDetected)
[2020-11-02 02:36] LABS: Barbiturate Screen,Urine Not Detected (NotDetected); Methadone Screen, Urine Not Detected (NotDetected); Oxycodone Screen, Urine Not Detected (NotDetected); Urn Cannabinoid Scrn Not Detected (NotDetected)
[2020-11-02] MEDS ORDERED: MAGNESIUM OXIDE 400 MG TAB PO STA (03:14)
[2020-11-02] MEDS ORDERED: ACETAMINOPHEN TAB 500 MG TAB PO STA (05:59)
[2020-11-02] MEDS: MORPHINE SULFATE 4 MG/ML SYRINGE IV PRN ×2 (09:24→14:52)
--- NOTE | 2020-11-02 13:30 | HP ---
HISTORY AND PHYSICAL CHIEF COMPLAINT: Seizure. HISTORY OF PRESENT ILLNESS: This is another admission for this 44-year-old female who has had seizure problems in the past. She takes Keppra. She apparently had a seizure at home, was brought to the emergency room. She either fell or bit her lip. At the present time she has no neurologic problems, lethargy, headache, etc. She does have a history of a brain tumor and she has been followed at [facility] for this. REVIEW OF SYSTEMS: She denies any diplopia, change in vision or hearing, chest pain, shortness of breath, abdominal pain, nausea, vomiting, diarrhea, renal failure, diabetes, etc. Past medical history, family history, personal and social histories reveal that she is ALLERGIC to tramadol. Surgically she has had a hysterectomy. She does smoke and she has abused alcohol in the past but states she has been drinking less. PHYSICAL EXAMINATION: Blood pressure 144/111. Pulse is 83, respirations of 24, and she is afebrile. In general, she appeared to be well developed, well nourished, in no acute distress. Skin color is normal. Skin is warm and dry. Lymph nodes are not enlarged. Head, ears, eyes, nose, mouth and throat were normal. Chest is clear. Cardiac exam is normal. Abdomen is soft, nontender without any visceromegaly or masses. Bowel sounds are present. Extremities: Normal. Neurologically she was awake and alert. She had no nuchal rigidity, lateralizing signs or symptoms, etc. IMPRESSION: She is admitted to the hospital with diagnoses: 1. Grand mal seizure disorder. 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 3. History of alcohol abuse. 4. Hypertension. PLAN: 1. Bedrest. 2. IV fluids. 3. Seizure precautions. 4. Monitor vital signs and blood pressure. 5. Neurology consult. 6. Keppra level. MMODL / IJN: [id number] /
[2020-11-02] MEDS ORDERED: ZOLPIDEM 5 MG TAB PO PRN (16:15)
[2020-11-02] MEDS: IBUPROFEN 800 MG TAB PO PRN (16:38)
[2020-11-02] MEDS: lisinopriL 20 MG TAB PO SCH (16:45)
[2020-11-02] MEDS: amLODIPine 10 MG TAB PO SCH (16:46)
[2020-11-03] MEDS: IBUPROFEN 800 MG TAB PO PRN ×3 (04:52→20:54)
[2020-11-03 07:18] LABS: Basophils % (A) 0 %; Eosinophils # (A) 0.2 k/uL (0-0.7); Eosinophils % (A) 3 %; HGB 10.6 gm/dL (11.4-16.0); Hypochromasia Slight; Lymphocytes # (A) 1.1 k/uL (1.0-4.8); Lymphocytes % (A) 16 %; MCH 24.7 pg (25.0-35.0); MCHC 30.3 g/dL (31.0-37.0); MCV 81.3 fL (80.0-100.0); Mean Platelet Volume 7.3; Monocytes # (A) 0.5 k/uL (0-1.0); Monocytes % (A) 8 %; Neutrophils # (A) 4.9 k/uL (1.3-7.7); Neutrophils % (A) 72 %; Platelet Count 215 k/uL (150-450); RDW 15.7 % (11.5-15.5); WBC 6.8 k/uL (3.8-10.6)
[2020-11-03] MEDS: lisinopriL 20 MG TAB PO SCH (07:49)
[2020-11-03] MEDS: THIAMINE 100 MG TAB PO SCH ×2 (07:50→17:22)
[2020-11-03] MEDS: amLODIPine 10 MG TAB PO SCH (07:50)
[2020-11-03] MEDS ORDERED: levETIRAcetam 250 MG TAB PO STA (11:27)
[2020-11-03] MEDS: levETIRAcetam 500 MG TAB PO SCH ×2 (11:30→20:32)
--- NOTE | 2020-11-03 11:30 | P.CNNES ---
History of Present Illness Consult date: 11/03/20 Requesting physician: Lico Bañuelos Reason for Consult: Seizure History of Present Illness: This is a 44-year-old female came to the hospital on 11/01/2009 1 at 10:41 PM by ambulance for a seizure. As per EMS flow sheet, when they arrived, found patient complaining of possible seizure. Patient was home alone but will remembers making noodle with the microwave and then she was on the floor in the living room. Patient was bleeding from her lower lip and had significantly bitten her tongue. Patient states she has been having seizures since last year when she was diagnosed with a brain tumor. Upon EMS arrival patient was sitting in the front porch of her home very lethargic but awake and alert and able to answer all questions. Patient's vital signs at the scene blood pressure 181/110, pulse rate 82, r espiration 18 and saturation 96%. Blood sugar 152. Repeat blood pressure was 176/105. On arrival to the ER her blood pressure was still 141/111 temperature 98.5. Computed tomography scan of the head from 09/24/2020 showed no acute intracranial processes midline shift or mass effect. CT of the cervical spine from 09/24/2020 shows no acute fracture or subluxation of the cervical spine. Her blood test shows normal CBC, Chem-7, hepatic panel. UA is negative. Urine drug screen negative. Blood alcohol level negative. Prone a virus PCR negative. Her last Keppra level was 42.6 (3-60) on 10/01/2020. Patient states that her seizures started in around September 2020. She was diagnosed with meningioma after her hysterectomy in 02/03/2020. She follows up with neurosurgeon Dr. Galvan. Patient states that the neurosurgeon and has told her that he can take out the meningioma or he can keep an eye on it. Patient had 2 MRIs done and there was no change in the size. Patient states that sometimes she gets a seizure aura consisting of a feeling of euphoria, or "out of body experience". Sometimes she feels a different smell which she has never smell, sometimes like a flower. Usually the next thing is she finds herself getting self up off the floor with a bitten tongue then she realizes that she just had a seizure. Patient states that since June until now, she had about less than 10 seizures. She has not tried any other seizure medications besides Keppra. Patient has been seen by Dr. Praveen Lopez recently on 09/03/2020, has mentioned patient has history of epilepsy, meningioma involving the midline floor of the anterior cranial fossa and chronic alcohol use had a seizure also on 09/03/2020. She has been having seizure for at least last 1 year prior to the seizure, she sometimes has aura consisting of brain fog or sometimes euphoria prior to the seizure. Patient follows up with Dr. Sophia Vaughan for her seizures. She follows up with a neurosurgeon at [facility] Dr. Galvan and undergoes serial MRIs for surveillance. Patient had an MRI of the brain on 09/30/2019 which revealed a 1.5 x 1.2 x 0.7 cm enhancing extra-axial lesion along the midline floor to the anterior cranial fossa. A meningioma is suspected. Mild scattered burden of bright white matter change. Nonspecific and probably related to early changes of small vessel ischemic disease. Chronic migraines, vasculitis, Lyme disease or demyelinating disease are some additional differential considerations. Clinically correlate. MRA of the head showed tiny 1 mm infundibulum along the anterior margin of P1/P2 junction of the left BILLET INSPECTOR. Consider one-year follow-up exam to reassess. Otherwise no intracranial arterial occlusion, significant stenosis, or aneurysmal change. MRA of the neck showed preserved flow related enhancement within the carotid and vertebral arteries of the neck. Patient is currently on Keppra 750 mg twice a day. Patient had an EEG performed previously on 09/27/2019 which revealed abnormal EEG due to the burst episode of photic stimulation induced epileptiform activity lateralized to the left occipital lobe followed by brief bursts of generalized polyspike discharges. Patient has history of alcoholism. Patient states that she has not been drinking any alcohol for the last 1 week. Does not do any drugs. She occasionally smokes tobacco. Review of Systems Complains of tiredness, fatigue. History of tongue bite. Past Medical History Past Medical History: Asthma, Hypertension, Seizure Disorder Additional Past Medical History / Comment(s): had a seizure approx 2 weeks ago, brain tumor diagnosed 2019, insomnia History of Any Multi-Drug Resistant Organisms: None Reported Past Surgical History: Hysterectomy, Tubal Ligation Past Anesthesia/Blood Transfusion Reactions: No Reported Reaction Past Psychological History: Anxiety Additional Psychological History / Comment(s): takes xanax for anxiety and sleep Smoking Status: Current some day smoker Past Alcohol Use History: Occasional Past Drug Use History: Marijuana Additional Drug Use History / Comment(s): . - Past Family History Mother Family Medical History: Diabetes Mellitus Medications and Allergies Home Medications Medication Instructions Recorded Confirmed Type amLODIPine [Norvasc] 10 mg PO DAILY 12/19/17 11/02/20 History Ergocalciferol [Vitamin D2 1,250 mcg PO Q30D 09/26/19 11/02/20 History (DRISDOL)] levETIRAcetam [Keppra] 750 mg PO BID 06/19/20 11/02/20 History lisinopriL 40 mg PO DAILY 09/05/20 11/02/20 History Allergies Allergy/AdvReac Type Severity Reaction Status Date / Time shellfish derived [Shellfish] Allergy Anaphylaxis Verified 11/02/20 07:43 wheat Allergy Anaphylaxis Verified 11/02/20 07:43 tramadol AdvReac Seizure Verified 11/02/20 07:43 Physical Examination - Vital Signs Vital Signs: Vital Signs Temp Pulse Resp BP Pulse Ox 11/03/20 05:00 98.5 F 63 18 117/75 99 11/02/20 19:56 98.1 F 62 16 116/71 99 11/02/20 15:19 98.4 F 67 17 158/100 100 11/02/20 14:14 18 11/02/20 12:47 17 Intake and Output 11/02/20 11/03/20 11/03/20 22:59 06:59 14:59 Intake Total 360 Balance 360 Intake: Oral 360 Other: # Voids 1 Patient is a middle aged Afro-[place] female, in no acute distress. Patient is alert awake oriented to time place and person. Speech and language functions are normal. Attention, concentration and fund of knowledge is adequate. On cranial examination, pupils are round and reacting to light, visual hawkins are full on confrontation, extraocular muscles are intact with no nystagmus. Face is symmetric, tongue protrudes to the midline. Palatal elevation and sensation normal, hearing and shoulder shrug normal, facial sensation normal. Shoulder shrug normal. Patient has history of oral trauma with significant tongue bite evelyn and lip bite evelyn. On muscle strength testing, there is no pronator drift and the strength is normal in arms and legs distally and proximally. Deep tendon reflexes are symmetric 1+ to 2 and plantars downgoing. Sensory to touch is equal with no neglect. Cerebellar function showed no ataxia for [id number] testing. No dysdiadochokinesia. Tone and bulk of muscles normal. Gait normal. On general examination, there is no carotid bruit or murmur, S1-S2 audible. Abdomen is soft nontender. Chest is clear. Peripheral pulses are present. No edema. Results - Laboratory Findings CBC and BMP: 11/03/20 06:16 11/01/20 23:32 Abnormal Lab Findings: Abnormal Labs 11/01/20 11/01/20 11/02/20 23:32 23:32 02:08 Hgb 11.3 L MCV 79.5 L MCH 24.5 L MCHC 30.8 L RDW Lymphocytes # 0.8 L Sodium 132 L BUN 4 L Glucose 134 H Magnesium 1.1 L Urine Protein 1+ H Urine Glucose (UA) Trace H Urine Bacteria Rare H Hyaline Casts 3 H Urine Mucus Rare H 11/03/20 06:16 Hgb 10.6 L MCV MCH 24.7 L MCHC 30.3 L RDW 15.7 H Lymphocytes # Sodium BUN Glucose Magnesium Urine Protein Urine Glucose (UA) Urine Bacteria Hyaline Casts Urine Mucus Assessment and Plan Assessment: * Seizure disorder, came with breakthrough seizure. Patient is compliant with medication. She does have a history of mild alcoholism, but has not been in drinking any alcohol for the last 1 week. * Cerebral meningioma involving the midline falx. Plan: * Patient is having frequent seizures. We will increase Keppra to 1000 mg twice a day. * If she has any recurrence of seizures, would consider adding or switching to another antiepileptic medication, as Keppra may not be working. * We will check EEG. * Patient will continue follow up with her neurologist and neurosurgeon as outpatient. The neurosurgeon perform surveillance MRIs for her meningioma. * Patient informed of [place] state law of no driving unless seizure free for 6 months, climbing ladders, operating dangerous machinery or unsupervised swimming.
[2020-11-03 11:39] LABS: African American GFR (CKD) 103.9 (60.0-200.0); Anion Gap 8.5 mmol/L (4.00-12.00); BUN/Creat Ratio 13.75 Ratio (12.00-20.00); Calcium 8.9 mg/dL (8.7-10.3); Carbon Dioxide 23.5 mmol/L (21.6-31.8); Non-African American GFR(CKD) 89.7 (60.0-200.0); Potassium 4.1 mmol/L (3.5-5.5)
--- NOTE | 2020-11-03 16:15 | EEG ---
ELECTROENCEPHALOGRAM REPORT DATE OF SERVICE: 11/03/2020 PREAMBLE: This is a 44-year-old female with a history of seizure disorder. This study is performed to evaluate for any epileptiform activity. EEG FINDINGS: A 21 channel routine EEG recording patient utilizing 10/20 international system with referential and bipolar montages. Background consists of well developed, well regulated, moderate voltage activity in 9- 10 hertz alpha. Background is posterior dominant and reactive to eye opening and closing. Photic driving response was not seen. Mild drowsiness was seen with appearance of bilaterally symmetric theta frequency rhythm. Deeper stages of sleep were not seen. No focal or generalized epileptiform activity was seen. EKG channel showed no arrhythmia. IMPRESSION: This is a normal awake and drowsy EEG. No focal, lateralized, or epileptiform activity was seen. If your suspicion for seizures is high, suggest prolonged, sleep-deprived EEG. MMODL / IJN: [id number] /
[2020-11-03 20:01] VITALS: RESP 16
--- NOTE | 2020-11-03 20:59 | PN ---
PROGRESS NOTE DATE OF SERVICE: 11/03/2020. CHIEF COMPLAINT: Seizure disorder. HISTORY OF PRESENT ILLNESS: This lady has been stable and she has had no further problems. She has had a slight headache. She has had no seizure activity, diplopia, etc. PHYSICAL EXAMINATION: Chest is clear. Cardiac exam is normal. Abdomen is soft, nontender and she is fully awake and alert. IMPRESSION: Grand mal seizure disorder. PLAN: Await further recommendations from Neurology. MMODL / IJN: [id number] /
[2020-11-03] MEDS ORDERED: traZODone HCL 50 MG TAB PO SCH (21:00)
[2020-11-04 04:51] VITALS: BP 121/80; PULSE 75; TEMP 98.5
[2020-11-04] MEDS: IBUPROFEN 800 MG TAB PO PRN (04:52)
[2020-11-04] MEDS: levETIRAcetam 500 MG TAB PO SCH (07:55)
[2020-11-04] MEDS: THIAMINE 100 MG TAB PO SCH (07:55)
[2020-11-04] MEDS: amLODIPine 10 MG TAB PO SCH (07:55)
[2020-11-04] MEDS: lisinopriL 20 MG TAB PO SCH (07:55)
[2020-11-04] MEDS ORDERED: IBUPROFEN 400 MG TAB PO PRN (08:00)
[2020-11-04] MEDS ORDERED: LIDOCAINE VISCOUS 2% 15 ML CUP MUCOUS MEM ONE (10:09)
[2020-11-04] MEDS ORDERED: traZODone HCL 50 MG TAB PO SCH (21:00)
--- NOTE | 2020-11-06 08:34 | DS ---
DISCHARGE SUMMARY DATE OF SERVICE: 11/04/2020. CHIEF COMPLAINT: Grand mal seizure. HISTORY OF PRESENT ILLNESS AND PHYSICAL EXAMINATION: Details of this lady's history and physical can be found in the initial workup. LABORATORY STUDIES: While she was in the hospital, she had laboratory studies, details of which can be found in the laboratory section of her chart. COURSE IN THE HOSPITAL: After admission, she was placed on bedrest on seizure precautions and she had no further issues or problems. She was seen by Neurology. She was stable and it was felt that she could be discharged and she will go home on the . We will follow her up in the office in several days. She will be given a prescription for Xylocaine, buspirone, and trazodone. We will follow her discharge. FINAL DIAGNOSES: 1. Grand mal seizure disorder. 2. Laceration of the tongue. 3. History of central nervous system neoplasm. OPERATION: None. CONSULTATION: Neurology. She is improved. MMODL / IJN: [id number] /
== END 2020-11-04 10:40 | disposition home or self-care (01) | DRG 101 ==
LOC: EC 22:41 → SUPCPDRO 22:41 → 4SSUR 11-02 00:02 → 5NMEDONC 11-02 13:29
PROVIDERS: ADMIT Family Medicine; ATTEND Family Medicine
DX: G40.401 Other generalized epilepsy and epileptic syndromes, not intractable, with status epilepticus (principal); I10 Essential (primary) hypertension; F41.9 Anxiety disorder, unspecified; D49.7 Neoplasm of unspecified behavior of endocrine glands and other parts of nervous system; F10.20 Alcohol dependence, uncomplicated; G43.909 Migraine, unspecified, not intractable, without status migrainosus; J45.909 Unspecified asthma, uncomplicated; Z79.899 Other long term (current) drug therapy; Z90.710 Acquired absence of both cervix and uterus; Z91.19 Patient's noncompliance with other medical treatment and regimen; S01.512A Laceration without foreign body of oral cavity, initial encounter; X58.XXXA Exposure to other specified factors, initial encounter; F17.200 Nicotine dependence, unspecified, uncomplicated
CPT/HCPCS: 36415; 80048; 80053; 80143; 80179; 80306; 80320; 81001; 83735; 85025; 87635; 93005; 95816; 96365; 99285

== ENCOUNTER 2020-11-09 19:09 | Emergency (ER) | payer OTHER ==
[2020-11-09] MEDS ORDERED: LORazepam 2 MG/ML INJ IV STA (19:16)
[2020-11-09] MEDS ORDERED: levETIRAcetam IV 1,000 MG in SALINE 1 100ML.BAG IVPB STA (19:16)
[2020-11-09 19:18] LABS: Glucose,Whole Blood 75 mg/dL (75-99)
[2020-11-09 19:22] VITALS: TEMP 98
--- NOTE | 2020-11-09 19:24 | ED ---
General Adult HPI - General Stated complaint: seizure Time Seen by Provider: 11/09/20 19:14 Source: patient, EMS, RN notes reviewed Mode of arrival: EMS Limitations: no limitations - History of Present Illness Initial comments: This is a 44-year-old female presents emergency Department chief complaint of possible seizure. Patient states she feels like she can have a seizure. P atient states she has not had one. Patient states he has known history and takes Keppra twice daily. Patient states she was recently hospitalized had a normal EEG. Patient denies any headache dizziness. Vision nausea vomiting diarrhea constipation. - Related Data Home Medications Medication Instructions Recorded Confirmed amLODIPine [Norvasc] 10 mg PO DAILY 12/19/17 11/02/20 Ergocalciferol [Vitamin D2 1,250 mcg PO Q30D 09/26/19 11/02/20 (DRISDOL)] levETIRAcetam [Keppra] 750 mg PO BID 06/19/20 11/02/20 lisinopriL 40 mg PO DAILY 09/05/20 11/02/20 Previous Rx's Medication Instructions Recorded Lidocaine Viscous 2% [Xylocaine 5 ml MUCOUS MEM ONCE 10 Days #2 oz 11/04/20 Viscous] Thiamine [Vitamin B-1] 100 mg PO BID-W/MEALS #20 tab 11/04/20 traZODone HCL [Desyrel] 150 mg PO HS #10 tab 11/04/20 Allergies Allergy/AdvReac Type Severity Reaction Status Date / Time shellfish derived [Shellfish] Allergy Anaphylaxis Verified 11/09/20 19:23 wheat Allergy Anaphylaxis Verified 11/09/20 19:23 tramadol AdvReac Seizure Verified 11/09/20 19:23 Review of Systems ROS Statement: Those systems with pertinent positive or pertinent negative responses have been documented in the HPI. ROS Other: All systems not noted in ROS Statement are negative. Past Medical History Past Medical History: Asthma, Hypertension, Seizure Disorder Additional Past Medical History / Comment(s): had a seizure approx 2 weeks ago, brain tumor diagnosed 2020, insomnia History of Any Multi-Drug Resistant Organisms: None Reported Past Surgical History: Hysterectomy, Tubal Ligation Past Anesthesia/Blood Transfusion Reactions: No Reported Reaction Past Psychological History: Anxiety Additional Psychological History / Comment(s): takes xanax for anxiety and sleep Smoking Status: Current some day smoker Past Alcohol Use History: Occasional Past Drug Use History: Marijuana Additional Drug Use History / Comment(s): . - Past Family History Mother Family Medical History: Diabetes Mellitus General Exam Limitations: no limitations General appearance: alert, in no apparent distress Head exam: Present: atraumatic, normocephalic, normal inspection Eye exam: Present: normal appearance, PERRL, EOMI. Absent: scleral icterus, conjunctival injection, periorbital swelling ENT exam: Present: normal exam, normal oropharynx, mucous membranes moist Neck exam: Present: normal inspection, full ROM. Absent: tenderness, m eningismus, lymphadenopathy Respiratory exam: Present: normal lung sounds bilaterally. Absent: respiratory distress, wheezes, rales, rhonchi, stridor Cardiovascular Exam: Present: regular rate, normal rhythm, normal heart sounds. Absent: systolic murmur, diastolic murmur, rubs, gallop, clicks Neurological exam: Present: alert, oriented X3, CN II-XII intact, reflexes normal. Absent: motor sensory deficit Skin exam: Present: warm, dry, intact, normal color. Absent: rash Course Vital Signs 11/09/20 11/09/20 19:17 20:22 Temperature 98.0 F Pulse Rate 90 90 Respiratory 18 18 Rate Blood Pressure 139/95 129/90 O2 Sat by Pulse 99 96 Oximetry Medical Decision Making - Medical Decision Making Patient presented stating that she fell issues and anesthesia. Patient had no seizures today. Patient was given her Keppra will be discharged stable condition. - Lab Data Result diagrams: 11/09/20 19:38 11/09/20 19:38 Lab Results 11/09/20 11/09/20 11/09/20 Range/Units 19:16 19:38 19:38 WBC 6.5 (3.8-10.6) k/uL RBC 4.31 (3.80-5.40) m/uL Hgb 10.9 L (11.4-16.0) gm/dL Hct 34.3 (34.0-46.0) % MCV 79.4 L (80.0-100.0) fL MCH 25.3 (25.0-35.0) pg MCHC 31.8 (31.0-37.0) g/dL RDW 15.4 (11.5-15.5) % Plt Count 340 (150-450) k/uL MPV 6.8 Neutrophils % 53 % Lymphocytes % 36 % Monocytes % 4 % Eosinophils % 3 % Basophils % 1 % Neutrophils # 3.4 (1.3-7.7) k/uL Lymphocytes # 2.3 (1.0-4.8) k/uL Monocytes # 0.3 (0-1.0) k/uL Eosinophils # 0.2 (0-0.7) k/uL Basophils # 0.1 (0-0.2) k/uL Hypochromasia Slight Sodium 146 H (137-145) mmol/L Potassium 3.6 (3.5-5.1) mmol/L Chloride 113 H (98-107) mmol/L Carbon Dioxide 17 L (22-30) mmol/L Anion Gap 16 mmol/L BUN 9 (7-17) mg/dL Creatinine 0.74 (0.52-1.04) mg/dL Est GFR (CKD-EPI)AfAm >90 (>60 ml/min/1.73 sqM) Est GFR (CKD-EPI)NonAf >90 (>60 ml/min/1.73 sqM) Glucose 71 L (74-99) mg/dL POC Glucose (mg/dL) 75 (75-99) mg/dL POC Glu Technology Assistant ID Srini Sanches Calcium 9.4 (8.4-10.2) mg/dL Magnesium (1.6-2.3) mg/dL Total Bilirubin 0.1 L (0.2-1.3) mg/dL AST 21 (14-36) U/L ALT 11 (4-34) U/L Alkaline Phosphatase 51 (38-126) U/L Total Protein 7.3 (6.3-8.2) g/dL Albumin 4.4 (3.5-5.0) g/dL 11/09/20 Range/Units 19:38 WBC (3.8-10.6) k/uL RBC (3.80-5.40) m/uL Hgb (11.4-16.0) gm/dL Hct (34.0-46.0) % MCV (80.0-100.0) fL MCH (25.0-35.0) pg MCHC (31.0-37.0) g/dL RDW (11.5-15.5) % Plt Count (150-450) k/uL MPV Neutrophils % % Lymphocytes % % Monocytes % % Eosinophils % % Basophils % % Neutrophils # (1.3-7.7) k/uL Lymphocytes # (1.0-4.8) k/uL Monocytes # (0-1.0) k/uL Eosinophils # (0-0.7) k/uL Basophils # (0-0.2) k/uL Hypochromasia Sodium (137-145) mmol/L Potassium (3.5-5.1) mmol/L Chloride (98-107) mmol/L Carbon Dioxide (22-30) mmol/L Anion Gap mmol/L BUN (7-17) mg/dL Creatinine (0.52-1.04) mg/dL Est GFR (CKD-EPI)AfAm (>60 ml/min/1.73 sqM) Est GFR (CKD-EPI)NonAf (>60 ml/min/1.73 sqM) Glucose (74-99) mg/dL POC Glucose (mg/dL) (75-99) mg/dL POC Glu Technology Assistant ID Calcium (8.4-10.2) mg/dL Magnesium 1.7 (1.6-2.3) mg/dL Total Bilirubin (0.2-1.3) mg/dL AST (14-36) U/L ALT (4-34) U/L Alkaline Phosphatase (38-126) U/L Total Protein (6.3-8.2) g/dL Albumin (3.5-5.0) g/dL Disposition Clinical Impression: History of seizures Disposition: HOME SELF-CARE Condition: Stable Instructions (If sedation given, give patient instructions): Recurrent Seizures in Adults (ED) Additional Instructions: Please return to the Emergency Department if symptoms worsen or any other concerns. Is patient prescribed a controlled substance at d/c from ED?: No Referrals: None,Stated [Primary Care Provider] - 1-2 days Time of Disposition: 20:41
[2020-11-09 19:46] LABS: Basophils # (A) 0.1 k/uL (0-0.2); Basophils % (A) 1 %; Eosinophils # (A) 0.2 k/uL (0-0.7); Eosinophils % (A) 3 %; HCT 34.3 % (34.0-46.0); HGB 10.9 gm/dL (11.4-16.0); Hypochromasia Slight; Lymphocytes # (A) 2.3 k/uL (1.0-4.8); Lymphocytes % (A) 36 %; MCH 25.3 pg (25.0-35.0); MCHC 31.8 g/dL (31.0-37.0); MCV 79.4 fL (80.0-100.0); Mean Platelet Volume 6.8; Monocytes # (A) 0.3 k/uL (0-1.0); Monocytes % (A) 4 %; Neutrophils # (A) 3.4 k/uL (1.3-7.7); Neutrophils % (A) 53 %; Platelet Count 340 k/uL (150-450); RBC 4.31 m/uL (3.80-5.40); RDW 15.4 % (11.5-15.5); WBC 6.5 k/uL (3.8-10.6)
[2020-11-09 19:58] LABS: ALT 11 U/L (4-34); AST 21 U/L (14-36); African American GFR (CKD) >90 (>60 ml/min/1.73 sqM); Albumin 4.4 g/dL (3.5-5.0); Alkaline Phosphatase 51 U/L (38-126); Anion Gap 16 mmol/L; Blood Urea Nitrogen 9 mg/dL (7-17); Calcium 9.4 mg/dL (8.4-10.2); Carbon Dioxide 17 mmol/L (22-30); Chloride 113 mmol/L (98-107); Glucose 71 mg/dL (74-99); Non-African American GFR(CKD) >90 (>60 ml/min/1.73 sqM); Potassium 3.6 mmol/L (3.5-5.1); Sodium 146 mmol/L (137-145); Total Bilirubin 0.1 mg/dL (0.2-1.3); Total Protein 7.3 g/dL (6.3-8.2)
[2020-11-09 21:02] VITALS: BP 110/86; PULSE 89; RESP 15
== END 2020-11-09 21:02 | disposition home or self-care (01) ==
LOC: EC 19:09
DX: G40.909 Epilepsy, unspecified, not intractable, without status epilepticus (principal); I10 Essential (primary) hypertension; J45.909 Unspecified asthma, uncomplicated; F41.9 Anxiety disorder, unspecified; F17.200 Nicotine dependence, unspecified, uncomplicated; F12.90 Cannabis use, unspecified, uncomplicated
CPT/HCPCS: 36415; 93005; 80053; 83735; 85025; 99284; 96374; 96375; J2060; J1953

== ENCOUNTER 2020-11-26 18:12 | Emergency (ER) | payer OTHER ==
[2020-11-26 18:38] VITALS: TEMP 98
[2020-11-26] MEDS ORDERED: SODIUM CHLORIDE 0.9% 500 ML 500 ML IV STA (19:11)
[2020-11-26] MEDS ORDERED: LORazepam 1 MG TAB PO STA (19:11)
[2020-11-26 19:34] LABS: Basophils % (A) 1 %; Eosinophils # (A) 0.2 k/uL (0-0.7); Eosinophils % (A) 3 %; HCT 34.3 % (34.0-46.0); Hypochromasia Slight; Lymphocytes # (A) 2.4 k/uL (1.0-4.8); Lymphocytes % (A) 40 %; MCH 25.6 pg (25.0-35.0); MCHC 32.1 g/dL (31.0-37.0); MCV 79.6 fL (80.0-100.0); Mean Platelet Volume 6.9; Monocytes # (A) 0.3 k/uL (0-1.0); Monocytes % (A) 5 %; Neutrophils # (A) 2.9 k/uL (1.3-7.7); Neutrophils % (A) 48 %; Platelet Count 281 k/uL (150-450); RBC 4.31 m/uL (3.80-5.40); RDW 15.6 % (11.5-15.5); WBC 6.1 k/uL (3.8-10.6)
--- NOTE | 2020-11-26 19:36 | ED ---
Seizure HPI - General Chief Complaint: Seizure Stated Complaint: seizures Time Seen by Provider: 11/26/20 19:02 Source: patient, EMS Mode of arrival: EMS Limitations: altered mental status - History of Present Illness Initial Comments: 44 year-old female patient presents to the emergency department for evaluation after having a seizure. Patient states that she woke up confused and with a sore tongue which usually means she had a seizure. Patient states she does take keppra and has been taking it as directed. States she did have alcohol today. She states she does drink a lot though not as much as she used to. She is out of her ativan which she takes after a seizure, she is requesting a prescription. She reports headache but states she always has a headache. Denies any injuries. Patient denies any recent rash, fever, chills, cough, shortness of breath, chest pain, abdominal pain, nausea, vomiting, diarrhea, constipation, back pain, numbness, tingling, dizziness, weakness, hematuria, dysuria, urinary urgency, urinary frequency, or any other complaints. - Related Data Home Medications Medication Instructions Recorded Confirmed amLODIPine [Norvasc] 10 mg PO DAILY 12/19/17 11/02/20 Ergocalciferol [Vitamin D2 1,250 mcg PO Q30D 09/26/19 11/02/20 (DRISDOL)] levETIRAcetam [Keppra] 750 mg PO BID 06/19/20 11/02/20 lisinopriL 40 mg PO DAILY 09/05/20 11/02/20 Previous Rx's Medication Instructions Recorded Lidocaine Viscous 2% [Xylocaine 5 ml MUCOUS MEM ONCE 10 Days #2 oz 11/04/20 Viscous] Thiamine [Vitamin B-1] 100 mg PO BID-W/MEALS #20 tab 11/04/20 traZODone HCL [Desyrel] 150 mg PO HS #10 tab 11/04/20 Allergies Allergy/AdvReac Type Severity Reaction Status Date / Time shellfish derived [Shellfish] Allergy Anaphylaxis Verified 11/09/20 19:23 wheat Allergy Anaphylaxis Verified 11/09/20 19:23 tramadol AdvReac Seizure Verified 11/09/20 19:23 Review of Systems ROS Statement: Those systems with pertinent positive or pertinent negative responses have been documented in the HPI. ROS Other: All systems not noted in ROS Statement are negative. Past Medical History Past Medical History: Seizure Disorder Additional Past Medical History / Comment(s): had a seizure approx 2 weeks ago, brain tumor diagnosed 2020, insomnia History of Any Multi-Drug Resistant Organisms: None Reported Past Surgical History: Hysterectomy, Tubal Ligation Past Anesthesia/Blood Transfusion Reactions: No Reported Reaction Past Psychological History: Anxiety Smoking Status: Current some day smoker Past Alcohol Use History: Abuse, Daily - Past Family History Mother Family Medical History: Diabetes Mellitus General Exam Limitations: altered mental status General appearance: alert, in no apparent distress, other (This is a well- developed, well-nourished adult female patient in no acute distress. Vital signs upon presentation temperature 98.0F, pulse 95, respirations 20, blood pressure 122/79, pulse ox 100% on room air.) Eye exam: Present: normal appearance, PERRL, EOMI. Absent: scleral icterus, conjunctival injection, nystagmus, periorbital swelling ENT exam: Present: normal exam, normal oropharynx, mucous membranes moist Respiratory exam: Present: normal lung sounds bilaterally. Absent: respiratory distress, wheezes, rales, rhonchi, stridor Cardiovascular Exam: Present: regular rate, normal rhythm, normal heart sounds. Absent: systolic murmur, diastolic murmur, rubs, gallop, clicks GI/Abdominal exam: Present: soft, normal bowel sounds. Absent: distended, tenderness, guarding, rebound, rigid Neurological exam: Present: alert, oriented X3, CN II-XII intact Expanded Speech: Present: fluid speech Motor strength exam: RUE: 5, LUE: 5, RLE: 5, LLE: 5 Eye Response: (4) open spontaneously Motor Response: (6) obeys commands Verbal Response: (5) oriented Mal Total: 15 Psychiatric exam: Present: normal affect, normal mood Skin exam: Present: warm, dry, intact, normal color. Absent: rash Course Vital Signs 11/26/20 11/26/20 18:30 20:23 Temperature 98.0 F Pulse Rate 95 102 H Respiratory 12 18 Rate Blood Pressure 122/79 139/99 O2 Sat by Pulse 100 100 Oximetry Medical Decision Making - Medical Decision Making 44-year-old female patient with past medical she significant for brain tumor, seizures, chronic alcohol abuse presents the emergency department today for evaluation after having a seizure possibly. Physical examination is unremarkable. She is neurologically intact no focal deficits. Does seem intoxicated. Labs reviewed and did reveal mildly decreased hemoglobin at 11.0. She does not elevated alcohol level 299. Remainder of labs are unremarkable. No further seizure activity while in the department. She'll be discharged to follow up with her primary care physician for recheck on Monday. Return paramet ers were discussed in detail patient verbalizes understanding and agrees with this plan. Case discussed with my attending Dr. Oh. - Lab Data Result diagrams: 11/26/20 19:11 11/26/20 19:11 Lab Results 11/26/20 11/26/20 11/26/20 Range/Units 19:11 19:11 19:20 WBC 6.1 (3.8-10.6) k/uL RBC 4.31 (3.80-5.40) m/uL Hgb 11.0 L (11.4-16.0) gm/dL Hct 34.3 (34.0-46.0) % MCV 79.6 L (80.0-100.0) fL MCH 25.6 (25.0-35.0) pg MCHC 32.1 (31.0-37.0) g/dL RDW 15.6 H (11.5-15.5) % Plt Count 281 (150-450) k/uL MPV 6.9 Neutrophils % 48 % Lymphocytes % 40 % Monocytes % 5 % Eosinophils % 3 % Basophils % 1 % Neutrophils # 2.9 (1.3-7.7) k/uL Lymphocytes # 2.4 (1.0-4.8) k/uL Monocytes # 0.3 (0-1.0) k/uL Eosinophils # 0.2 (0-0.7) k/uL Basophils # 0.0 (0-0.2) k/uL Hypochromasia Slight Sodium 146 H (137-145) mmol/L Potassium 4.1 (3.5-5.1) mmol/L Chloride 113 H (98-107) mmol/L Carbon Dioxide 17 L (22-30) mmol/L Anion Gap 16 mmol/L BUN 17 (7-17) mg/dL Creatinine 0.81 (0.52-1.04) mg/dL Est GFR (CKD-EPI)AfAm >90 (>60 ml/min/1.73 sqM) Est GFR (CKD-EPI)NonAf 89 (>60 ml/min/1.73 sqM) Glucose 90 (74-99) mg/dL Calcium 9.4 (8.4-10.2) mg/dL Magnesium 1.9 (1.6-2.3) mg/dL Total Bilirubin 0.2 (0.2-1.3) mg/dL AST 30 (14-36) U/L ALT 14 (4-34) U/L Alkaline Phosphatase 70 (38-126) U/L Total Protein 7.3 (6.3-8.2) g/dL Albumin 4.3 (3.5-5.0) g/dL Urine Color Light Yellow Urine Appearance Clear (Clear) Urine pH 5.5 (5.0-8.0) Ur Specific Reading 1.008 (1.001-1.035) Urine Protein Negative (Negative) Urine Glucose (UA) Negative (Negative) Urine Ketones Negative (Negative) Urine Blood Negative (Negative) Urine Nitrite Negative (Negative) Urine Bilirubin Negative (Negative) Urine Urobilinogen <2.0 (<2.0) mg/dL Ur Leukocyte Esterase Negative (Negative) Serum Alcohol 299 H* mg/dL - EKG Data -: EKG Interpreted by Md EKG Comments: EKG obtained at 2000 shows normal sinus rhythm with ventricular rate of 91, [place] interval 202, QRS duration 78, QT 380, QTc 467. No evidence of ST elevation or depression. Disposition Clinical Impression: Seizure, Alcohol intoxication Disposition: HOME SELF-CARE Condition: Good Instructions (If sedation given, give patient instructions): Alcohol Intoxication (ED), Recurrent Seizures in Adults (ED) Additional Instructions: Follow-up with your primary care physician for recheck on Monday. Return to the emergency department for any new, worsening, or concerning symptoms. Is patient prescribed a controlled substance at d/c from ED?: No Referrals: Lico Bañuelos MD [Primary Care Provider] - 1-2 days Time of Disposition: 20:16
[2020-11-26 19:44] LABS: ALT 14 U/L (4-34); AST 30 U/L (14-36); African American GFR (CKD) >90 (>60 ml/min/1.73 sqM); Albumin 4.3 g/dL (3.5-5.0); Alkaline Phosphatase 70 U/L (38-126); Anion Gap 16 mmol/L; Blood Urea Nitrogen 17 mg/dL (7-17); Calcium 9.4 mg/dL (8.4-10.2); Carbon Dioxide 17 mmol/L (22-30); Chloride 113 mmol/L (98-107); Glucose 90 mg/dL (74-99); Magnesium 1.9 mg/dL (1.6-2.3); Non-African American GFR(CKD) 89 (>60 ml/min/1.73 sqM); Potassium 4.1 mmol/L (3.5-5.1); Sodium 146 mmol/L (137-145); Total Bilirubin 0.2 mg/dL (0.2-1.3); Total Protein 7.3 g/dL (6.3-8.2)
[2020-11-26 19:54] LABS: Alcohol 299 mg/dL
[2020-11-26 19:59] LABS: Appearance,Urine Clear (Clear); Bilirubin,Urine Negative (Negative); Blood,Urine Negative (Negative); Color,Urine Light Yellow; Glucose,Urine (UA) Negative (Negative); Ketones,Urine Negative (Negative); Leukocyte Esterase,Urine Negative (Negative); Nitrite,Urine Negative (Negative); PH, Urine 5.5 (5.0-8.0); Protein,Urine Negative (Negative); Specific Gravity,Urine 1.008 (1.001-1.035); Urobilinogen,Urine <2.0 mg/dL (<2.0)
[2020-11-26] MEDS ORDERED: KETOROLAC 15 MG/ML 1 ML VIAL IVP STA (20:15)
[2020-11-26 20:24] VITALS: BP 139/99; PULSE 102; RESP 18
== END 2020-11-26 20:49 | disposition home or self-care (01) ==
LOC: EC 18:12
DX: G40.909 Epilepsy, unspecified, not intractable, without status epilepticus (principal); F10.129 Alcohol abuse with intoxication, unspecified; F41.9 Anxiety disorder, unspecified; F17.200 Nicotine dependence, unspecified, uncomplicated; Y90.8 Blood alcohol level of 240 mg/100 ml or more; Z79.899 Other long term (current) drug therapy; Z83.3 Family history of diabetes mellitus
CPT/HCPCS: 99284; 96374; 36415; 93005; 80053; 83735; 85025; 81003; G0480; J1885; 80320

== ENCOUNTER 2020-12-09 | Emergency (ER) | payer OTHER | END 2020-12-09 07:06 | disposition home or self-care (01) | CPT/HCPCS: 96361; 96374; 96375; 99284 ==

== ENCOUNTER 2020-12-25 02:51 | Emergency (ER) | payer OTHER ==
[2020-12-25] MEDS ORDERED: MORPHINE SULFATE 4 MG/ML SYRINGE IM STA (03:07)
--- NOTE | 2020-12-25 03:08 | ED ---
Fall HPI - General Chief Complaint: Fall Stated Complaint: Fall, ETOH Time Seen by Provider: 12/25/20 02:56 Source: patient, EMS, RN notes reviewed, old records reviewed Mode of arrival: EMS Limitations: no limitations - History of Present Illness Initial Comments: This is a 45-year-old female to the ER today. She presents today for evaluation regards to fall. Patient of fall from standing, does admit to drinking tonight. Patient also has history of seizures but no seizure activity tonight. Norco she may have a seizure prior to arrival. Patient is complaining of left shoulder pain left arm pain. No triadic injury noted did not hit her head did not lose consciousness. MD Complaint: fall -: hour(s) Fall From: standing When Fall Occurred: [address] [employer] [address] Fall Occurred: home Loss of Consciousness: none Prolonged Down Time?: no Symptoms Prior to Fall: none Location - Extremities: Left: Shoulder Severity: moderate Context: tripped/slipped Associated Symptoms: denies - Related Data Home Medications Medication Instructions Recorded Confirmed amLODIPine [Norvasc] 10 mg PO DAILY 12/19/17 11/02/20 Ergocalciferol [Vitamin D2 1,250 mcg PO Q30D 09/26/19 11/02/20 (DRISDOL)] levETIRAcetam [Keppra] 750 mg PO BID 06/19/20 11/02/20 lisinopriL 40 mg PO DAILY 09/05/20 11/02/20 Previous Rx's Medication Instructions Recorded Lidocaine Viscous 2% [Xylocaine 5 ml MUCOUS MEM ONCE 10 Days #2 oz 11/04/20 Viscous] Thiamine [Vitamin B-1] 100 mg PO BID-W/MEALS #20 tab 11/04/20 traZODone HCL [Desyrel] 150 mg PO HS #10 tab 11/04/20 LORazepam [Ativan] 1 mg PO HS 3 Days #3 tab 12/09/20 Allergies Allergy/AdvReac Type Severity Reaction Status Date / Time shellfish derived [Shellfish] Allergy Anaphylaxis Verified 11/09/20 19:23 wheat Allergy Anaphylaxis Verified 11/09/20 19:23 tramadol AdvReac Seizure Verified 11/09/20 19:23 Review of Systems ROS Statement: Those systems with pertinent positive or pertinent negative responses have been documented in the HPI. ROS Other: All systems not noted in ROS Statement are negative. Past Medical History Past Medical History: Seizure Disorder Additional Past Medical History / Comment(s): had a seizure approx 2 weeks ago, brain tumor diagnosed 2020, insomnia History of Any Multi-Drug Resistant Organisms: None Reported Past Surgical History: Hysterectomy, Tubal Ligation Past Anesthesia/Blood Transfusion Reactions: No Reported Reaction Past Psychological History: Anxiety Smoking Status: Current some day smoker Past Alcohol Use History: Abuse, Daily - Past Family History Mother Family Medical History: Diabetes Mellitus General Exam Limitations: altered mental status General appearance: alert, in no apparent distress Head exam: Present: atraumatic, normocephalic, normal inspection Eye exam: Present: normal appearance, PERRL, EOMI. Absent: scleral icterus, conjunctival injection, periorbital swelling ENT exam: Present: normal exam, mucous membranes moist Neck exam: Present: normal inspection. Absent: tenderness, meningismus, lymphadenopathy Respiratory exam: Present: normal lung sounds bilaterally. Absent: respiratory distress, wheezes, rales, rhonchi, stridor Cardiovascular Exam: Present: regular rate, normal rhythm, normal heart sounds. Absent: systolic murmur, diastolic murmur, rubs, gallop, clicks GI/Abdominal exam: Present: soft, normal bowel sounds. Absent: distended, te nderness, guarding, rebound, rigid Extremities exam: Present: normal inspection, full ROM, normal capillary refill. Absent: tenderness, pedal edema, joint swelling, calf tenderness Back exam: Present: normal inspection Neurological exam: Present: alert, oriented X3, CN II-XII intact Psychiatric exam: Present: normal affect, normal mood Skin exam: Present: warm, dry, intact, normal color. Absent: rash Course Vital Signs 12/25/20 02:52 Temperature 98.3 F Pulse Rate 120 H Respiratory 18 Rate Blood Pressure 170/115 O2 Sat by Pulse 98 Oximetry - Reevaluation(s) Reevaluation #1: 12/25/20 03:45 medical record is reviewed record is reviewed Reevaluation #2: 12/25/20 03:45 Patient currently does have pain control Reevaluation #3: 12/25/20 03:45 Patient informed of results and questions answered Medical Decision Making - Medical Decision Making 45 female to the ER for evaluation of fall. Alcohol intoxication fall left shoulder pain. No traumatic injuries noted and patient can be discharged home - Radiology Data Radiology results: report reviewed (X-ray shoulder x-ray chest is negative for traumatic injury), image reviewed Disposition Clinical Impression: Fall, Contusion of left shoulder Disposition: HOME SELF-CARE Condition: Good Instructions (If sedation given, give patient instructions): Shoulder Sprain (ED), Contusion in Adults (ED) Is patient prescribed a controlled substance at d/c from ED?: No Referrals: Lico Bañuelos MD [Primary Care Provider] - 1-2 days
--- NOTE | 2020-12-25 03:41 | XR ---
EXAMINATION TYPE: XR chest 1V DATE OF EXAM: 12/25/2020 COMPARISON: July 07, 2020 HISTORY: Chest pain TECHNIQUE: FINDINGS: Heart and mediastinum are normal. Lungs are clear. Diaphragm is normal. There are chest andriy ds. Bony thorax is intact. IMPRESSION: Normal chest. No change.
--- NOTE | 2020-12-25 03:42 | XR ---
EXAMINATION TYPE: XR shoulder complete LT DATE OF EXAM: 12/25/2020 COMPARISON: NONE HISTORY: Shoulder pain TECHNIQUE: 3 views FINDINGS: I see no fracture nor dislocation. Joint spaces are normal. There are no pathologic calcifi cations. IMPRESSION: Negative left shoulder exam. No fracture.
[2020-12-25] MEDS ORDERED: HYDROmorphone 0.5 MG/0.5 ML SYRINGE IM STA (03:56)
[2020-12-25] MEDS ORDERED: IBUPROFEN 600 MG STARTER PACK 4 TAB BTL PO STA (04:18)
[2020-12-25 04:32] VITALS: BP 173/114; PULSE 101; RESP 16; TEMP 98.2
== END 2020-12-25 04:40 | disposition home or self-care (01) ==
LOC: EC 02:51
DX: S40.012A Contusion of left shoulder, initial encounter (principal); G40.909 Epilepsy, unspecified, not intractable, without status epilepticus; F41.9 Anxiety disorder, unspecified; F17.200 Nicotine dependence, unspecified, uncomplicated; Z79.899 Other long term (current) drug therapy; Z83.3 Family history of diabetes mellitus; Z88.5 Allergy status to narcotic agent; Z88.8 Allergy status to other drugs, medicaments and biological substances; W01.0XXA Fall on same level from slipping, tripping and stumbling without subsequent striking against object, initial encounter; Y92.009 Unspecified place in unspecified non-institutional (private) residence as the place of occurrence of the external cause
CPT/HCPCS: 73030; 71045; 96372 ×2; 99284; J2270; J1170

== ENCOUNTER 2021-01-31 03:09 | Emergency (ER) | payer OTHER ==
[2021-01-31 03:17] VITALS: TEMP 98.7
[2021-01-31] MEDS ORDERED: ACETAMINOPHEN TAB 325 MG TAB PO STA (03:24)
[2021-01-31] MEDS ORDERED: IBUPROFEN 600 MG TAB PO STA (03:24)
--- NOTE | 2021-01-31 03:54 | CT ---
EXAMINATION TYPE: CT brain cspine wo con DATE OF EXAM: 01/31/2021 COMPARISON: 09/24/2020 HISTORY: fall CT DLP: 1236.2 mGycm Automated exposure control for dose reduction was used. Ventricles and sulci appear normal. There is no mass effect nor midline shift. There is no evidence o f intracranial hemorrhage. The calvarium is intact. There is no evidence of cerebral edema. Sella tur cica appears normal. The cervical vertebra have normal alignment. Disc spaces are fairly normal. There is minor spurring a nteriorly at C5-6. Facet joints are intact there is no evidence of a fracture. Prevertebral soft tiss ues are intact. IMPRESSION: Mild degenerative spurring. No fracture. Negative CT scan of the brain. No significant change compared to old exam.
[2021-01-31 03:59] VITALS: BP 126/82; PULSE 90; RESP 20
--- NOTE | 2021-01-31 04:12 | ED ---
Seizure HPI - General Chief Complaint: Seizure Stated Complaint: Possible Seizure Time Seen by Provider: 01/31/21 03:14 Source: EMS Mode of arrival: EMS Limitations: no limitations - Related Data Home Medications Medication Instructions Recorded Confirmed amLODIPine [Norvasc] 10 mg PO DAILY 12/19/17 11/02/20 Ergocalciferol [Vitamin D2 1,250 mcg PO Q30D 09/26/19 11/02/20 (DRISDOL)] levETIRAcetam [Keppra] 750 mg PO BID 06/19/20 11/02/20 lisinopriL 40 mg PO DAILY 09/05/20 11/02/20 Previous Rx's Medication Instructions Recorded Lidocaine Viscous 2% [Xylocaine 5 ml MUCOUS MEM ONCE 10 Days #2 oz 11/04/20 Viscous] Thiamine [Vitamin B-1] 100 mg PO BID-W/MEALS #20 tab 11/04/20 traZODone HCL [Desyrel] 150 mg PO HS #10 tab 11/04/20 LORazepam [Ativan] 1 mg PO HS 3 Days #3 tab 12/09/20 Allergies Allergy/AdvReac Type Severity Reaction Status Date / Time shellfish derived [Shellfish] Allergy Anaphylaxis Verified 11/09/20 19:23 wheat Allergy Anaphylaxis Verified 11/09/20 19:23 tramadol AdvReac Seizure Verified 11/09/20 19:23 Review of Systems ROS Statement: Those systems with pertinent positive or pertinent negative responses have been documented in the HPI. ROS Other: All systems not noted in ROS Statement are negative. Past Medical History Past Medical History: Seizure Disorder Additional Past Medical History / Comment(s): had a seizure approx 2 weeks ago, brain tumor diagnosed 2019, insomnia History of Any Multi-Drug Resistant Organisms: None Reported Past Surgical History: Hysterectomy, Tubal Ligation Past Anesthesia/Blood Transfusion Reactions: No Reported Reaction Past Psychological History: Anxiety Smoking Status: Current some day smoker Past Alcohol Use History: Abuse, Daily Past Drug Use History: None Reported - Past Family History Mother Family Medical History: Diabetes Mellitus General Exam Limitations: no limitations Course Vital Signs 01/31/21 01/31/21 03:12 03:58 Temperature 98.7 F Pulse Rate 101 H 90 Respiratory 18 20 Rate Blood Pressure 157/99 126/82 O2 Sat by Pulse 98 100 Oximetry Disposition Clinical Impression: Seizure Disposition: HOME SELF-CARE Condition: Good Instructions (If sedation given, give patient instructions): Recurrent Seizures in Adults (ED) Is patient prescribed a controlled substance at d/c from ED?: No Referrals: Lico Bañuelos MD [Primary Care Provider] - 1-2 days
[2021-01-31] MEDS ORDERED: LORazepam 1 MG TAB PO STA (04:18)
== END 2021-01-31 04:26 | disposition home or self-care (01) ==
LOC: EC 03:09
DX: G40.909 Epilepsy, unspecified, not intractable, without status epilepticus (principal); Z79.899 Other long term (current) drug therapy; F17.200 Nicotine dependence, unspecified, uncomplicated; Z83.3 Family history of diabetes mellitus; Z88.5 Allergy status to narcotic agent
CPT/HCPCS: 70450; 72125; 99284

== ENCOUNTER 2021-03-02 04:47 | Emergency (ER) | payer OTHER ==
[2021-03-02 04:56] VITALS: RESP 18; TEMP 98.9
[2021-03-02] MEDS ORDERED: HYDROmorphone 1 MG/ML 1 ML SYRINGE IM STA (05:19)
[2021-03-02] MEDS ORDERED: levETIRAcetam 500 MG TAB PO STA (05:19)
[2021-03-02] MEDS ORDERED: LORazepam 1 MG TAB PO STA (05:19)
--- NOTE | 2021-03-02 05:19 | ED ---
Seizure HPI - General Chief Complaint: Seizure Stated Complaint: ETOH Time Seen by Provider: 03/02/21 05:04 Source: patient, EMS Mode of arrival: EMS Limitations: no limitations - Related Data Home Medications Medication Instructions Recorded Confirmed amLODIPine [Norvasc] 10 mg PO DAILY 12/19/17 11/02/20 Ergocalciferol [Vitamin D2 1,250 mcg PO Q30D 09/26/19 11/02/20 (DRISDOL)] levETIRAcetam [Keppra] 750 mg PO BID 06/19/20 11/02/20 lisinopriL 40 mg PO DAILY 09/05/20 11/02/20 Previous Rx's Medication Instructions Recorded Lidocaine Viscous 2% [Xylocaine 5 ml MUCOUS MEM ONCE 10 Days #2 oz 11/04/20 Viscous] Thiamine [Vitamin B-1] 100 mg PO BID-W/MEALS #20 tab 11/04/20 traZODone HCL [Desyrel] 150 mg PO HS #10 tab 11/04/20 LORazepam [Ativan] 1 mg PO HS 3 Days #3 tab 12/09/20 Allergies Allergy/AdvReac Type Severity Reaction Status Date / Time shellfish derived [Shellfish] Allergy Anaphylaxis Verified 03/02/21 04:56 wheat Allergy Anaphylaxis Verified 03/02/21 04:56 tramadol AdvReac Seizure Verified 03/02/21 04:56 Review of Systems ROS Statement: Those systems with pertinent positive or pertinent negative responses have been documented in the HPI. ROS Other: All systems not noted in ROS Statement are negative. Past Medical History Past Medical History: Seizure Disorder Additional Past Medical History / Comment(s): had a seizure approx 2 weeks ago, brain tumor diagnosed 2019, insomnia History of Any Multi-Drug Resistant Organisms: None Reported Past Surgical History: Hysterectomy, Tubal Ligation Past Anesthesia/Blood Transfusion Reactions: No Reported Reaction Past Psychological History: Anxiety Smoking Status: Current some day smoker Past Alcohol Use History: Abuse, Daily Past Drug Use History: None Reported - Past Family History Mother Family Medical History: Diabetes Mellitus General Exam Limitations: no limitations Course Vital Signs 03/02/21 04:53 Temperature 98.9 F Pulse Rate 104 H Respiratory 18 Rate Blood Pressure 152/111 O2 Sat by Pulse 100 Oximetry Disposition Clinical Impression: Seizure, Alcohol withdrawal Disposition: HOME SELF-CARE Condition: Fair Instructions (If sedation given, give patient instructions): Recurrent Seizures in Adults (ED) Is patient prescribed a controlled substance at d/c from ED?: No Referrals: Lico Bañuelos MD [Primary Care Provider] - 1-2 days
[2021-03-02 06:16] VITALS: BP 151/100; PULSE 78
== END 2021-03-02 06:17 | disposition home or self-care (01) ==
LOC: EC 04:47
DX: R56.9 Unspecified convulsions (principal); F10.239 Alcohol dependence with withdrawal, unspecified; F41.9 Anxiety disorder, unspecified; F17.200 Nicotine dependence, unspecified, uncomplicated; Y90.9 Presence of alcohol in blood, level not specified
CPT/HCPCS: 99284; 96372; J1170

== ENCOUNTER 2021-05-17 15:40 | Emergency (ER) | payer OTHER ==
[2021-05-17 15:51] VITALS: TEMP 98.7
[2021-05-17] MEDS ORDERED: SODIUM CHLORIDE 0.9% 1,000 ML IV STA (16:37)
[2021-05-17] MEDS ORDERED: KETOROLAC 15 MG/ML 1 ML VIAL IVP STA (16:38)
[2021-05-17] MEDS ORDERED: ONDANSETRON 4 MG/2 ML VIAL IVP STA (16:38)
[2021-05-17] MEDS ORDERED: LORazepam 2 MG/ML INJ IV STA ×2 (16:42→17:05)
--- NOTE | 2021-05-17 16:42 | ED ---
General Adult HPI - General Chief complaint: Seizure Stated complaint: seizure Time Seen by Provider: 05/17/21 16:35 Source: patient, EMS, RN notes reviewed, old records reviewed Mode of arrival: EMS - History of Present Illness Initial comments: 45-year-old female presents to the emergency room after having a seizure today lasting 2-3 minutes per EMS witnessed by her son. Patient states that she does have a history of seizures. She also has history of EtOH abuse. She states that she did drink about a half pint last night. She states that she has a frontal headache at this time is 10 out of 10 and her bottom lip and tongue are swollen and painful. There are no lacerations noted. She is nauseated at this time. She states that she sees Dr. Bañuelos and is on Keppra and had recent increase in her Keppra dosing. Location: head (frontal), mouth (bottom lip) Severity scale (1-10): 10 Quality: aching Consistency: constant Improves with: none Worsens with: none Associated Symptoms: seizure Treatments Prior to Arrival: other (IV) - Related Data Home Medications Medication Instructions Recorded Confirmed amLODIPine [Norvasc] 10 mg PO HS 12/19/17 05/17/21 lisinopriL 40 mg PO HS 09/05/20 05/17/21 LORazepam [Ativan] 1 mg PO TID PRN 05/17/21 05/17/21 hydroCHLOROthiazide 50 mg PO HS 05/17/21 05/17/21 levETIRAcetam [Keppra] 1,000 mg PO BID 05/17/21 05/17/21 Allergies Allergy/AdvReac Type Severity Reaction Status Date / Time shellfish derived [Shellfish] Allergy Anaphylaxis Verified 05/17/21 17:49 wheat Allergy Anaphylaxis Verified 05/17/21 17:49 tramadol AdvReac Seizure Verified 05/17/21 17:49 Review of Systems ROS Statement: Those systems with pertinent positive or pertinent negative responses have been documented in the HPI. ROS Other: All systems not noted in ROS Statement are negative. Past Medical History Past Medical History: Seizure Disorder Additional Past Medical History / Comment(s): had a seizure approx 2 weeks ago, brain tumor diagnosed 2020, insomnia History of Any Multi-Drug Resistant Organisms: None Reported Past Surgical History: Hysterectomy, Tubal Ligation Past Anesthesia/Blood Transfusion Reactions: No Reported Reaction Past Psychological History: Anxiety Smoking Status: Current some day smoker Past Alcohol Use History: Abuse, Daily Past Drug Use History: None Reported - Past Family History Mother Family Medical History: Diabetes Mellitus General Exam Limitations: no limitations General appearance: alert, in no apparent distress Head exam: Present: other (Lower right side lip swelling) Eye exam: Present: normal appearance, PERRL, EOMI. Absent: scleral icterus, conjunctival injection, nystagmus, periorbital swelling Pupils: Present: normal accommodation ENT exam: Present: normal exam, normal oropharynx, mucous membranes moist Neck exam: Present: normal inspection, full ROM. Absent: tenderness, meningismus, lymphadenopathy, thyromegaly Respiratory exam: Present: normal lung sounds bilaterally. Absent: respiratory distress, wheezes, rales, rhonchi, stridor Cardiovascular Exam: Present: regular rate, normal rhythm, normal heart sounds. Absent: systolic murmur, diastolic murmur, rubs, gallop, clicks, JVD GI/Abdominal exam: Present: soft, normal bowel sounds. Absent: distended, tenderness, guarding, rebound, rigid Extremities exam: Present: normal inspection, full ROM, normal capillary refill. Absent: tenderness, pedal edema, joint swelling, calf tenderness Neurological exam: Present: alert, oriented X3 Expanded Patient oriented to: Present: person, place, time Speech: Present: fluid speech Cranial nerves: EOM's Intact: Normal, Gag Reflex: Normal, Tongue Deviation: Normal Eye Response: (4) open spontaneously Motor Response: (6) obeys commands Verbal Response: (5) oriented Tarrs Total: 15 Psychiatric exam: Present: normal affect, normal mood Skin exam: Present: warm, dry, intact, normal color. Absent: rash Course Vital Signs 05/17/21 05/17/21 05/17/21 15:42 17:54 19:40 Temperature 98.7 F 98.7 F Pulse Rate 95 92 83 Respiratory 16 16 18 Rate Blood Pressure 144/94 141/92 141/87 O2 Sat by Pulse 100 100 98 Oximetry - Reevaluation(s) Reevaluation #1: 05/17/21 16:44 Upon initial exam, patient stated that she felt like she was going to have another seizure and states that she normally gets Ativan. Within 3 minutes patient had a seizure lasting about 15 seconds. Biting her lower lip with bleeding from the mouth. Arms were extended upward and flexed at the elbow, legs remained straight. Eyes were open. Time: 16:44 Medical Decision Making - Medical Decision Making 45-year-old female presents to the emergency room after having a seizure today lasting 2-3 minutes per EMS witnessed by her son. She had another seizure lasting approximately 15 seconds witnessed by me. Patient states that she does have a history of seizures. She states that she sees Dr. Bañuelos and is on Keppra and had recent increase in her Keppra dosing. Patient had a CT of the brain and C-spine in January 2021 showing no mass, and no significant change compared to 09/24/2020. Patient was given 1 g of Keppra, 400 mg of Mag-ox, a liter of normal saline in the emergency room. She is ambulatory with a steady gait at discharge and vital signs are stable. Case discussed with Dr. Aguilar. She will be discharged home to follow up with her primary care doctor or return to the emergency room with any new or worsening symptoms. Continue her medications as previously prescribed. - Lab Data Result diagrams: 05/17/21 17:54 05/17/21 17:54 Lab Results 05/17/21 05/17/21 05/17/21 Range/Units 17:54 17:54 17:54 WBC 9.7 (3.8-10.6) k/uL RBC 4.33 (3.80-5.40) m/uL Hgb 11.5 (11.4-16.0) gm/dL Hct 37.6 (34.0-46.0) % MCV 86.8 (80.0-100.0) fL MCH 26.7 (25.0-35.0) pg MCHC 30.7 L (31.0-37.0) g/dL RDW 15.2 (11.5-15.5) % Plt Count 135 L (150-450) k/uL MPV 9.1 Neutrophils % 87 % Lymphocytes % 6 % Monocytes % 4 % Eosinophils % 2 % Basophils % 0 % Neutrophils # 8.5 H (1.3-7.7) k/uL Lymphocytes # 0.6 L (1.0-4.8) k/uL Monocytes # 0.4 (0-1.0) k/uL Eosinophils # 0.2 (0-0.7) k/uL Basophils # 0.0 (0-0.2) k/uL Hypochromasia Slight Sodium 132 L (137-145) mmol/L Potassium 4.9 (3.5-5.1) mmol/L Chloride 98 (98-107) mmol/L Carbon Dioxide 12 L (22-30) mmol/L Anion Gap 22 mmol/L BUN 9 (7-17) mg/dL Creatinine 0.80 (0.52-1.04) mg/dL Est GFR (CKD-EPI)AfAm >90 (>60 ml/min/1.73 sqM) Est GFR (CKD-EPI)NonAf 90 (>60 ml/min/1.73 sqM) Glucose 118 H (74-99) mg/dL Calcium 9.8 (8.4-10.2) mg/dL Magnesium 1.1 L (1.6-2.3) mg/dL Total Bilirubin 0.8 (0.2-1.3) mg/dL AST 61 H (14-36) U/L ALT 33 (4-34) U/L Alkaline Phosphatase 47 (38-126) U/L Total Protein 8.6 H (6.3-8.2) g/dL Albumin 4.9 (3.5-5.0) g/dL Serum Alcohol <10 mg/dL Disposition Clinical Impression: Seizure Disposition: HOME SELF-CARE Condition: Good Instructions (If sedation given, give patient instructions): Recurrent Seizures in Adults (ED) Additional Instructions: Continue taking your Keppra as previously prescribed. Follow-up with the primary care doctor this week. Return to the emergency room with any new or worsening symptoms. Is patient prescribed a controlled substance at d/c from ED?: No Referrals: Lico Bañuelos MD [Primary Care Provider] - 1-2 days Time of Disposition: 19:16
[2021-05-17] MEDS ORDERED: levETIRAcetam IV 1,000 MG in SALINE 1 100ML.BAG IVPB STA (16:48)
[2021-05-17 18:07] LABS: Basophils % (A) 0 %; Eosinophils # (A) 0.2 k/uL (0-0.7); Eosinophils % (A) 2 %; HCT 37.6 % (34.0-46.0); HGB 11.5 gm/dL (11.4-16.0); Hypochromasia Slight; Lymphocytes # (A) 0.6 k/uL (1.0-4.8); Lymphocytes % (A) 6 %; MCH 26.7 pg (25.0-35.0); MCHC 30.7 g/dL (31.0-37.0); MCV 86.8 fL (80.0-100.0); Mean Platelet Volume 9.1; Monocytes # (A) 0.4 k/uL (0-1.0); Monocytes % (A) 4 %; Neutrophils # (A) 8.5 k/uL (1.3-7.7); Neutrophils % (A) 87 %; Platelet Count 135 k/uL (150-450); RBC 4.33 m/uL (3.80-5.40); RDW 15.2 % (11.5-15.5); WBC 9.7 k/uL (3.8-10.6)
[2021-05-17 18:19] LABS: AST 61 U/L (14-36); African American GFR (CKD) >90 (>60 ml/min/1.73 sqM); Albumin 4.9 g/dL (3.5-5.0); Alcohol <10 mg/dL; Alkaline Phosphatase 47 U/L (38-126); Anion Gap 22 mmol/L; Blood Urea Nitrogen 9 mg/dL (7-17); Calcium 9.8 mg/dL (8.4-10.2); Carbon Dioxide 12 mmol/L (22-30); Chloride 98 mmol/L (98-107); Glucose 118 mg/dL (74-99); Non-African American GFR(CKD) 90 (>60 ml/min/1.73 sqM); Sodium 132 mmol/L (137-145); Total Bilirubin 0.8 mg/dL (0.2-1.3); Total Protein 8.6 g/dL (6.3-8.2)
[2021-05-17 18:22] LABS: Potassium 4.9 mmol/L (3.5-5.1)
[2021-05-17] MEDS ORDERED: MAGNESIUM OXIDE 400 MG TAB PO STA (18:23)
[2021-05-17 18:27] LABS: ALT 33 U/L (4-34)
[2021-05-17] MEDS ORDERED: ACETAMINOPHEN TAB 325 MG TAB PO STA (19:02)
[2021-05-17 20:10] VITALS: BP 141/87; PULSE 83; RESP 18
== END 2021-05-17 19:40 | disposition home or self-care (01) ==
LOC: EC 15:40
DX: G40.909 Epilepsy, unspecified, not intractable, without status epilepticus (principal); F17.200 Nicotine dependence, unspecified, uncomplicated; Z79.899 Other long term (current) drug therapy
CPT/HCPCS: 36415; 80053; 83735; 85025; 99284; 96374; 96375 ×3; 96361 ×2; G0480; J2060; J2405; J1885; J1953; 80320

== ENCOUNTER 2021-06-04 20:09 | Emergency (ER) | payer OTHER ==
[2021-06-04 20:14] VITALS: TEMP 99.3
--- NOTE | 2021-06-04 20:14 | ED ---
General Adult HPI - General Stated complaint: SOB Time Seen by Provider: 06/04/21 20:13 Source: patient, EMS, RN notes reviewed Mode of arrival: EMS Limitations: no limitations - History of Present Illness Initial comments: 45-year-old female presents emergency Department with chief complaint of nasal drainage, cough, chest tightness,"preseizure feeling". Patient states that she is achy all over. Patient states that she's been coughing. No prior COVID-19 infection. Patient EKG last which was unremarkable. Patient denies any vomiting states that she's has nausea, just was not feeling well. Patient had mild shortness of breath. - Related Data Home Medications Medication Instructions Recorded Confirmed amLODIPine [Norvasc] 10 mg PO HS 12/19/17 05/17/21 lisinopriL 40 mg PO HS 09/05/20 05/17/21 LORazepam [Ativan] 1 mg PO TID PRN 05/17/21 05/17/21 hydroCHLOROthiazide 50 mg PO HS 05/17/21 05/17/21 levETIRAcetam [Keppra] 1,000 mg PO BID 05/17/21 05/17/21 Previous Rx's Medication Instructions Recorded Azithromycin [Zithromax Z-pack (6 0 mg PO DIRECTED #1 packet 06/05/21 tabs)] predniSONE 50 mg PO DAILY #5 tab 06/05/21 Allergies Allergy/AdvReac Type Severity Reaction Status Date / Time shellfish derived [Shellfish] Allergy Anaphylaxis Verified 05/17/21 17:49 wheat Allergy Anaphylaxis Verified 05/17/21 17:49 tramadol AdvReac Seizure Verified 05/17/21 17:49 Review of Systems ROS Statement: Those systems with pertinent positive or pertinent negative responses have been documented in the HPI. ROS Other: All systems not noted in ROS Statement are negative. Past Medical History Past Medical History: Seizure Disorder Additional Past Medical History / Comment(s): had a seizure approx 2 weeks ago, brain tumor diagnosed 2020, insomnia History of Any Multi-Drug Resistant Organisms: None Reported Past Surgical History: Hysterectomy, Tubal Ligation Past Anesthesia/Blood Transfusion Reactions: No Reported Reaction Past Psychological History: Anxiety Smoking Status: Current some day smoker Past Alcohol Use History: Abuse, Daily Past Drug Use History: None Reported - Past Family History Mother Family Medical History: Diabetes Mellitus General Exam Limitations: no limitations General appearance: alert, in no apparent distress Head exam: Present: atraumatic, normocephalic, normal inspection Eye exam: Present: normal appearance, PERRL, EOMI. Absent: scleral icterus, conjunctival injection, periorbital swelling ENT exam: Present: normal exam, normal oropharynx, mucous membranes moist Neck exam: Present: normal inspection. Absent: tenderness, meningismus, lymphadenopathy Respiratory exam: Present: normal lung sounds bilaterally. Absent: respiratory distress, wheezes, rales, rhonchi, stridor Cardiovascular Exam: Present: regular rate, normal rhythm, normal heart sounds. Absent: systolic murmur, diastolic murmur, rubs, gallop, clicks Course Vital Signs 06/04/21 20:10 Temperature 99.3 F Pulse Rate 91 Respiratory 18 Rate Blood Pressure 149/89 O2 Sat by Pulse 100 Oximetry Medical Decision Making - Medical Decision Making Chest x-ray, labs reviewedand abnormality. Patient does have notable wheezing, more consistent with asthmatic bronchitis. Patient discharged to discharged return parameters discussed. - Lab Data Result diagrams: 06/04/21 21:33 06/04/21 21:33 Lab Results 06/04/21 06/04/21 06/04/21 Range/Units 20:15 21:33 21:33 WBC 5.0 (3.8-10.6) k/uL RBC 4.24 (3.80-5.40) m/uL Hgb 11.1 L (11.4-16.0) gm/dL Hct 36.5 (34.0-46.0) % MCV 86.2 (80.0-100.0) fL MCH 26.1 (25.0-35.0) pg MCHC 30.4 L (31.0-37.0) g/dL RDW 15.5 (11.5-15.5) % Plt Count 236 (150-450) k/uL MPV 7.4 Neutrophils % 69 % Lymphocytes % 18 % Monocytes % 8 % Eosinophils % 1 % Basophils % 0 % Neutrophils # 3.5 (1.3-7.7) k/uL Lymphocytes # 0.9 L (1.0-4.8) k/uL Monocytes # 0.4 (0-1.0) k/uL Eosinophils # 0.1 (0-0.7) k/uL Basophils # 0.0 (0-0.2) k/uL Hypochromasia Slight Sodium 134 L (137-145) mmol/L Potassium 4.2 (3.5-5.1) mmol/L Chloride 96 L (98-107) mmol/L Carbon Dioxide 19 L (22-30) mmol/L Anion Gap 19 mmol/L BUN 18 H (7-17) mg/dL Creatinine 0.71 (0.52-1.04) mg/dL Est GFR (CKD-EPI)AfAm >90 (>60 ml/min/1.73 sqM) Est GFR (CKD-EPI)NonAf >90 (>60 ml/min/1.73 sqM) Glucose 74 (74-99) mg/dL Calcium 9.6 (8.4-10.2) mg/dL Total Bilirubin 0.7 (0.2-1.3) mg/dL AST 65 H (14-36) U/L ALT 61 H (4-34) U/L Alkaline Phosphatase 62 (38-126) U/L Troponin I (0.000-0.034) ng/mL Total Protein 8.0 (6.3-8.2) g/dL Albumin 4.7 (3.5-5.0) g/dL Coronavirus (PCR) Not Detected (Not Detectd) 06/04/21 Range/Units 21:33 WBC (3.8-10.6) k/uL RBC (3.80-5.40) m/uL Hgb (11.4-16.0) gm/dL Hct (34.0-46.0) % MCV (80.0-100.0) fL MCH (25.0-35.0) pg MCHC (31.0-37.0) g/dL RDW (11.5-15.5) % Plt Count (150-450) k/uL MPV Neutrophils % % Lymphocytes % % Monocytes % % Eosinophils % % Basophils % % Neutrophils # (1.3-7.7) k/uL Lymphocytes # (1.0-4.8) k/uL Monocytes # (0-1.0) k/uL Eosinophils # (0-0.7) k/uL Basophils # (0-0.2) k/uL Hypochromasia Sodium (137-145) mmol/L Potassium (3.5-5.1) mmol/L Chloride (98-107) mmol/L Carbon Dioxide (22-30) mmol/L Anion Gap mmol/L BUN (7-17) mg/dL Creatinine (0.52-1.04) mg/dL Est GFR (CKD-EPI)AfAm (>60 ml/min/1.73 sqM) Est GFR (CKD-EPI)NonAf (>60 ml/min/1.73 sqM) Glucose (74-99) mg/dL Calcium (8.4-10.2) mg/dL Total Bilirubin (0.2-1.3) mg/dL AST (14-36) U/L ALT (4-34) U/L Alkaline Phosphatase (38-126) U/L Troponin I <0.012 (0.000-0.034) ng/mL Total Protein (6.3-8.2) g/dL Albumin (3.5-5.0) g/dL Coronavirus (PCR) (Not Detectd) Disposition Clinical Impression: Acute bronchitis Disposition: HOME SELF-CARE Condition: Stable Instructions (If sedation given, give patient instructions): Acute Bronchitis (ED) Additional Instructions: Please return to the Emergency Department if symptoms worsen or any other concerns. Prescriptions: predniSONE 50 mg PO DAILY #5 tab Azithromycin [Zithromax Z-pack (6 tabs)] 0 mg PO DIRECTED #1 packet Is patient prescribed a controlled substance at d/c from ED?: No Referrals: None,Stated [Primary Care Provider] - 1-2 days Time of Disposition: 02:50
--- NOTE | 2021-06-04 20:37 | XR ---
EXAMINATION TYPE: XR chest 2V DATE OF EXAM: 06/04/2021 COMPARISON: 12/25/2020 HISTORY: Chest pain. Cough TECHNIQUE: FINDINGS: Heart and mediastinum are normal. Lungs are clear. Diaphragm is normal. Bony thorax is inta ct. IMPRESSION: Normal chest. No change.
[2021-06-04 21:57] LABS: Basophils % (A) 0 %; Eosinophils # (A) 0.1 k/uL (0-0.7); Eosinophils % (A) 1 %; HCT 36.5 % (34.0-46.0); HGB 11.1 gm/dL (11.4-16.0); Hypochromasia Slight; Lymphocytes # (A) 0.9 k/uL (1.0-4.8); Lymphocytes % (A) 18 %; MCH 26.1 pg (25.0-35.0); MCHC 30.4 g/dL (31.0-37.0); MCV 86.2 fL (80.0-100.0); Mean Platelet Volume 7.4; Monocytes # (A) 0.4 k/uL (0-1.0); Monocytes % (A) 8 %; Neutrophils # (A) 3.5 k/uL (1.3-7.7); Neutrophils % (A) 69 %; Platelet Count 236 k/uL (150-450); RBC 4.24 m/uL (3.80-5.40); RDW 15.5 % (11.5-15.5)
[2021-06-04 22:01] LABS: Anion Gap 19 mmol/L; Blood Urea Nitrogen 18 mg/dL (7-17); Carbon Dioxide 19 mmol/L (22-30); Chloride 96 mmol/L (98-107); Glucose 74 mg/dL (74-99); Potassium 4.2 mmol/L (3.5-5.1); Sodium 134 mmol/L (137-145)
[2021-06-04 22:02] LABS: ALT 61 U/L (4-34); AST 65 U/L (14-36); African American GFR (CKD) >90 (>60 ml/min/1.73 sqM); Albumin 4.7 g/dL (3.5-5.0); Alkaline Phosphatase 62 U/L (38-126); Calcium 9.6 mg/dL (8.4-10.2); Non-African American GFR(CKD) >90 (>60 ml/min/1.73 sqM); Total Bilirubin 0.7 mg/dL (0.2-1.3)
[2021-06-05] MEDS ORDERED: AZITHROMYCIN 250 MG TAB PO STA (02:48)
[2021-06-05] MEDS ORDERED: predniSONE 50 MG TAB PO STA (02:48)
[2021-06-05 03:13] VITALS: BP 174/98; PULSE 75; RESP 16
== END 2021-06-05 03:13 | disposition home or self-care (01) ==
LOC: EC 20:09
DX: J20.9 Acute bronchitis, unspecified (principal); G40.909 Epilepsy, unspecified, not intractable, without status epilepticus; F41.9 Anxiety disorder, unspecified; F17.200 Nicotine dependence, unspecified, uncomplicated; F10.10 Alcohol abuse, uncomplicated
CPT/HCPCS: 36415; 93005; 80053; 84484; 85025; 87635; 71046; 99285; J7512

== ENCOUNTER 2021-06-27 20:56 | Emergency (ER) | payer OTHER ==
[2021-06-27 21:03] VITALS: BP 178/101; PULSE 89; RESP 16; TEMP 98.1
--- NOTE | 2021-06-27 21:42 | ED ---
General Adult HPI - General Chief complaint: Nausea/Vomiting/Diarrhea Stated complaint: NVD Time Seen by Provider: 06/27/21 21:10 Source: patient, EMS Mode of arrival: EMS - History of Present Illness Initial comments: 45-year-old female patient presents to the emergency department today for evaluation of chest tightness and diarrhea. States symptoms started yesterday. States that she also had feel like her back is cold and sweaty. She denies any increased pain with breathing. Denies any shortness of breath or cough. Denies nasal congestion or drainage. States she is feeling somewhat nauseated. Denies any vomiting. States she has been eating and drinking well today. Patient denies any recent rash, abdominal pain, constipation, back pain, numbness, tingling, dizziness, weakness, hematuria, dysuria, urinary urgency, urinary frequency, headache, visual changes, or any other complaints. - Related Data Home Medications Medication Instructions Recorded Confirmed amLODIPine [Norvasc] 10 mg PO DAILY 12/19/17 06/27/21 lisinopriL 40 mg PO DAILY 09/05/20 06/27/21 LORazepam [Ativan] 1 mg PO TID PRN 05/17/21 06/27/21 hydroCHLOROthiazide 50 mg PO DAILY PRN 05/17/21 06/27/21 levETIRAcetam [Keppra] 1,000 mg PO BID 05/17/21 06/27/21 Ergocalciferol (Vitamin D2) 1,250 mcg PO QMONTHLY 06/27/21 06/27/21 [Drisdol (50,000 Iu)] Naproxen 500 mg PO BID PRN 06/27/21 06/27/21 Potassium Chloride ER [K-Dur 20] 20 meq PO DAILY 06/27/21 06/27/21 Previous Rx's Medication Instructions Recorded Dicyclomine [Bentyl] 20 mg PO QID #12 tablet 06/28/21 Allergies Allergy/AdvReac Type Severity Reaction Status Date / Time shellfish derived [Shellfish] Allergy Anaphylaxis Verified 06/27/21 23:31 wheat Allergy Anaphylaxis Verified 06/27/21 23:31 tramadol AdvReac Seizure Verified 06/27/21 23:31 Review of Systems ROS Statement: Those systems with pertinent positive or pertinent negative responses have been documented in the HPI. ROS Other: All systems not noted in ROS Statement are negative. Past Medical History Past Medical History: Hypertension, Seizure Disorder Additional Past Medical History / Comment(s): had a seizure approx 2 weeks ago, brain tumor diagnosed 2020, insomnia History of Any Multi-Drug Resistant Organisms: None Reported Past Surgical History: Hysterectomy, Tubal Ligation Past Anesthesia/Blood Transfusion Reactions: No Reported Reaction Past Psychological History: Anxiety Smoking Status: Current some day smoker Past Alcohol Use History: Abuse, Daily Past Drug Use History: None Reported - Past Family History Mother Family Medical History: Diabetes Mellitus General Exam General appearance: alert, in no apparent distress, other (This is a well- developed, well-nourished adult female in no acute distress.) Eye exam: Present: normal appearance, PERRL, EOMI. Absent: scleral icterus, conjunctival injection, nystagmus, periorbital swelling ENT exam: Present: normal exam, normal oropharynx, mucous membranes moist Respiratory exam: Present: normal lung sounds bilaterally. Absent: respiratory distress, wheezes, rales, rhonchi, stridor Cardiovascular Exam: Present: regular rate, normal rhythm, normal heart sounds. Absent: systolic murmur, diastolic murmur, rubs, gallop, clicks GI/Abdominal exam: Present: soft, normal bowel sounds. Absent: distended, tenderness, guarding, rebound, rigid Neurological exam: Present: alert, oriented X3, CN II-XII intact Psychiatric exam: Present: normal affect, normal mood Skin exam: Present: warm, dry, intact, normal color. Absent: rash Course Vital Signs 06/27/21 21:00 Temperature 98.1 F Pulse Rate 89 Respiratory 16 Rate Blood Pressure 178/101 O2 Sat by Pulse 98 Oximetry EKG Findings - EKG Comments: EKG Findings:: EKG obtained at 2151 shows normal sinus rhythm with a ventricular rate of 72, WA interval 180, QRS duration 80, QT 392, QTc 429. No evidence of ST elevation or depression. Medical Decision Making - Medical Decision Making 45-year-old female patient presented to the emergency department today for evaluation of chest tightness and diarrhea. Physical examination is unremar kable. Abdomen soft and nontender. Labs reviewed and were unremarkable. Troponin negative. EKG unremarkable. She tested negative for COVID-19. She'll be discharged from the primary care physician for recheck in 1-2 days. Return parameters were discussed in detail. She verbalizes understanding and agrees this plan. My attending is Dr. Tavarez. - Lab Data Result diagrams: 06/27/21 23:21 06/27/21 23:21 Lab Results 06/27/21 06/27/21 06/27/21 Range/Units 21:30 21:35 23:21 WBC 6.7 (3.8-10.6) k/uL RBC 3.94 (3.80-5.40) m/uL Hgb 10.5 L (11.4-16.0) gm/dL Hct 33.7 L (34.0-46.0) % MCV 85.7 (80.0-100.0) fL MCH 26.8 (25.0-35.0) pg MCHC 31.3 (31.0-37.0) g/dL RDW 14.7 (11.5-15.5) % Plt Count 226 (150-450) k/uL MPV 7.6 Neutrophils % 74 % Lymphocytes % 17 % Monocytes % 5 % Eosinophils % 3 % Basophils % 0 % Neutrophils # 4.9 (1.3-7.7) k/uL Lymphocytes # 1.2 (1.0-4.8) k/uL Monocytes # 0.3 (0-1.0) k/uL Eosinophils # 0.2 (0-0.7) k/uL Basophils # 0.0 (0-0.2) k/uL Hypochromasia Slight Sodium (137-145) mmol/L Potassium (3.5-5.1) mmol/L Chloride (98-107) mmol/L Carbon Dioxide (22-30) mmol/L Anion Gap mmol/L BUN (7-17) mg/dL Creatinine (0.52-1.04) mg/dL Est GFR (CKD-EPI)AfAm (>60 ml/min/1.73 sqM) Est GFR (CKD-EPI)NonAf (>60 ml/min/1.73 sqM) Glucose (74-99) mg/dL Calcium (8.4-10.2) mg/dL Total Bilirubin (0.2-1.3) mg/dL AST (14-36) U/L ALT (4-34) U/L Alkaline Phosphatase (38-126) U/L Troponin I (0.000-0.034) ng/mL Total Protein (6.3-8.2) g/dL Albumin (3.5-5.0) g/dL Urine Color Light Yellow Urine Appearance Clear (Clear) Urine pH 7.0 (5.0-8.0) Ur Specific [place] 1.018 (1.001-1.035) Urine Protein Trace H (Negative) Urine Glucose (UA) Negative (Negative) Urine Ketones Negative (Negative) Urine Blood Negative (Negative) Urine Nitrite Negative (Negative) Urine Bilirubin Negative (Negative) Urine Urobilinogen <2.0 (<2.0) mg/dL Ur Leukocyte Esterase Negative (Negative) Coronavirus (PCR) Not Detected (Not Detectd) 06/27/21 06/27/21 Range/Units 23:21 23:21 WBC (3.8-10.6) k/uL RBC (3.80-5.40) m/uL Hgb (11.4-16.0) gm/dL Hct (34.0-46.0) % MCV (80.0-100.0) fL MCH (25.0-35.0) pg MCHC (31.0-37.0) g/dL RDW (11.5-15.5) % Plt Count (150-450) k/uL MPV Neutrophils % % Lymphocytes % % Monocytes % % Eosinophils % % Basophils % % Neutrophils # (1.3-7.7) k/uL Lymphocytes # (1.0-4.8) k/uL Monocytes # (0-1.0) k/uL Eosinophils # (0-0.7) k/uL Basophils # (0-0.2) k/uL Hypochromasia Sodium 135 L (137-145) mmol/L Potassium 3.9 (3.5-5.1) mmol/L Chloride 105 (98-107) mmol/L Carbon Dioxide 22 (22-30) mmol/L Anion Gap 8 mmol/L BUN 11 (7-17) mg/dL Creatinine 0.72 (0.52-1.04) mg/dL Est GFR (CKD-EPI)AfAm >90 (>60 ml/min/1.73 sqM) Est GFR (CKD-EPI)NonAf >90 (>60 ml/min/1.73 sqM) Glucose 98 (74-99) mg/dL Calcium 9.3 (8.4-10.2) mg/dL Total Bilirubin 0.4 (0.2-1.3) mg/dL AST 30 (14-36) U/L ALT 21 (4-34) U/L Alkaline Phosphatase 61 (38-126) U/L Troponin I <0.012 (0.000-0.034) ng/mL Total Protein 7.6 (6.3-8.2) g/dL Albumin 4.3 (3.5-5.0) g/dL Urine Color Urine Appearance (Clear) Urine pH (5.0-8.0) Ur Specific [place] (1.001-1.035) Urine Protein (Negative) Urine Glucose (UA) (Negative) Urine Ketones (Negative) Urine Blood (Negative) Urine Nitrite (Negative) Urine Bilirubin (Negative) Urine Urobilinogen (<2.0) mg/dL Ur Leukocyte Esterase (Negative) Coronavirus (PCR) (Not Detectd) - Radiology Data Radiology results: report reviewed, image reviewed Two-view x-ray of the chest is obtained. Report was reviewed in its entirety. Impression by Dr. Sapp shows normal chest. No change. Disposition Clinical Impression: Diarrhea, Chest tightness Disposition: HOME SELF-CARE Condition: Good Instructions (If sedation given, give patient instructions): Acute Diarrhea (ED), Shortness of Breath (ED) Additional Instructions: Take medications as directed. Follow-up with primary care physician for recheck in 1-2 days. Return for any new, worsening, or concerning symptoms. Prescriptions: Dicyclomine [Bentyl] 20 mg PO QID #12 tablet Is patient prescribed a controlled substance at d/c from ED?: No Referrals: Lico Bañuelos MD [Primary Care Provider] - 1-2 days Time of Disposition: 00:18
--- NOTE | 2021-06-27 21:48 | XR ---
EXAMINATION TYPE: XR chest 2V DATE OF EXAM: 06/27/2021 COMPARISON: 06/04/2021 HISTORY: Chest tightness TECHNIQUE: FINDINGS: Heart and mediastinum are normal. Lungs are clear. Diaphragm is normal. Bony thorax appears intact. IMPRESSION: Normal chest. No change.
[2021-06-27 21:52] LABS: Appearance,Urine Clear (Clear); Bilirubin,Urine Negative (Negative); Blood,Urine Negative (Negative); Color,Urine Light Yellow; Glucose,Urine (UA) Negative (Negative); Ketones,Urine Negative (Negative); Leukocyte Esterase,Urine Negative (Negative); Nitrite,Urine Negative (Negative); Protein,Urine Trace (Negative); Specific Gravity,Urine 1.018 (1.001-1.035); Urobilinogen,Urine <2.0 mg/dL (<2.0)
[2021-06-27 23:39] LABS: Basophils % (A) 0 %; Eosinophils # (A) 0.2 k/uL (0-0.7); Eosinophils % (A) 3 %; HCT 33.7 % (34.0-46.0); HGB 10.5 gm/dL (11.4-16.0); Hypochromasia Slight; Lymphocytes # (A) 1.2 k/uL (1.0-4.8); Lymphocytes % (A) 17 %; MCH 26.8 pg (25.0-35.0); MCHC 31.3 g/dL (31.0-37.0); MCV 85.7 fL (80.0-100.0); Mean Platelet Volume 7.6; Monocytes # (A) 0.3 k/uL (0-1.0); Monocytes % (A) 5 %; Neutrophils # (A) 4.9 k/uL (1.3-7.7); Neutrophils % (A) 74 %; Platelet Count 226 k/uL (150-450); RBC 3.94 m/uL (3.80-5.40); RDW 14.7 % (11.5-15.5); WBC 6.7 k/uL (3.8-10.6)
[2021-06-27 23:46] LABS: ALT 21 U/L (4-34); AST 30 U/L (14-36); African American GFR (CKD) >90 (>60 ml/min/1.73 sqM); Albumin 4.3 g/dL (3.5-5.0); Alkaline Phosphatase 61 U/L (38-126); Anion Gap 8 mmol/L; Blood Urea Nitrogen 11 mg/dL (7-17); Calcium 9.3 mg/dL (8.4-10.2); Carbon Dioxide 22 mmol/L (22-30); Chloride 105 mmol/L (98-107); Glucose 98 mg/dL (74-99); Non-African American GFR(CKD) >90 (>60 ml/min/1.73 sqM); Potassium 3.9 mmol/L (3.5-5.1); Sodium 135 mmol/L (137-145); Total Bilirubin 0.4 mg/dL (0.2-1.3); Total Protein 7.6 g/dL (6.3-8.2)
[2021-06-28] MEDS ORDERED: DICYCLOMINE 10 MG/ML 2 ML AMP IM STA (00:17)
[2021-06-28] MEDS ORDERED: ONDANSETRON 4 MG/2 ML VIAL IVP STA (00:49)
== END 2021-06-28 00:51 | disposition home or self-care (01) ==
LOC: EC 20:56
DX: R07.89 Other chest pain (principal); R19.7 Diarrhea, unspecified; R11.2 Nausea with vomiting, unspecified; F17.200 Nicotine dependence, unspecified, uncomplicated; I10 Essential (primary) hypertension; G40.909 Epilepsy, unspecified, not intractable, without status epilepticus; Z91.013 Allergy to seafood; Z91.018 Allergy to other foods; Z88.6 Allergy status to analgesic agent; Z79.899 Other long term (current) drug therapy
CPT/HCPCS: 36415; 93005; 80053; 84484; 85025; 81003; 87635; 71046; 99285; 96374; 96372; J0500; J2405

== ENCOUNTER → 2021-09-15 | Outpatient (CLI) | payer OTHER ==
--- NOTE | 2021-09-16 02:40 | MR ---
EXAMINATION TYPE: MR brain wo/w con DATE OF EXAM: 09/15/2021 COMPARISON: None HISTORY: Brain lesion CONTRAST: Standard multiplanar, multisequence MRI departmental protocol images were obtained without contrast a nd with 6.5 mL intravenous Gadavist gadolinium contrast. Ventricles have normal size. There is no mass effect or midline shift. There is no sign of intracrani al hemorrhage. Corpus callosum is intact. Sella turcica appears normal. On the T2 and FLAIR images there are a few s cattered areas of white matter increased signal around the lateral ventricles. These are more at the occipital horns of the lateral ventricles and measure up to 6 mm. Portal numbers less than 10. Most o f the lesions are less than 3 mm. Diffusion images show no evidence of an acute infarct. There is a 12 x 6 mm area of extra-axial enhancement at the midline anterior cranial fossa at the bas e of the frontal lobes. This is consistent with meningioma. Lesion appears not changed compared to ol d exam. IMPRESSION: Stable extra-axial mass consistent with meningioma at the anterior cranial fossa in the midline. White matter foci consistent with demyelinating disease or microvascular ischemia and not significant ly different than last exam.
== END | disposition home or self-care (01) ==
LOC: RADMRIMAIN 11:59
PROVIDERS: ATTEND Neurological Surgery
DX: D32.0 Benign neoplasm of cerebral meninges (principal); G37.9 Demyelinating disease of central nervous system, unspecified
CPT/HCPCS: 70553; A9585

== ENCOUNTER 2021-12-18 00:11 | Emergency (ER) | payer OTHER ==
[2021-12-18] MEDS ORDERED: MORPHINE SULFATE 4 MG/ML SYRINGE IV STA (00:14)
[2021-12-18] MEDS ORDERED: ONDANSETRON 4 MG/2 ML VIAL IVP STA (00:14)
[2021-12-18] MEDS ORDERED: PANTOPRAZOLE 40 MG/10 ML VIAL IVP STA (00:14)
[2021-12-18] MEDS ORDERED: SODIUM CHLORIDE 0.9% 1,000 ML IV STA (00:14)
[2021-12-18 00:18] VITALS: RESP 20
--- NOTE | 2021-12-18 00:20 | ED ---
Abdominal Pain HPI - General Chief Complaint: Abdominal Pain Stated Complaint: Abdominal pain Time Seen by Provider: 12/18/21 00:14 Source: patient, RN notes reviewed, old records reviewed Mode of arrival: ambulatory Limitations: no limitations - History of Present Illness MD Complaint: abdominal pain -: hour(s) Location: diffuse, suprapubic Radiation: epigastric, suprapubic Migration to: suprapubic Severity: moderate Severity scale (1-10): 7 Quality: aching, dull Consistency: constant Improves With: nothing Worsens With: nothing Associated Symptoms: nausea, constipation Treatments Prior to Arrival: other (0) - Related Data Home Medications Medication Instructions Recorded Confirmed amLODIPine [Norvasc] 10 mg PO DAILY 12/19/17 06/27/21 lisinopriL 40 mg PO DAILY 09/05/20 06/27/21 LORazepam [Ativan] 1 mg PO TID PRN 05/17/21 06/27/21 hydroCHLOROthiazide 50 mg PO DAILY PRN 05/17/21 06/27/21 levETIRAcetam [Keppra] 1,000 mg PO BID 05/17/21 06/27/21 Ergocalciferol (Vitamin D2) 1,250 mcg PO QMONTHLY 06/27/21 06/27/21 [Drisdol (50,000 Iu)] Naproxen 500 mg PO BID PRN 06/27/21 06/27/21 Potassium Chloride ER [K-Dur 20] 20 meq PO DAILY 06/27/21 06/27/21 Previous Rx's Medication Instructions Recorded Dicyclomine [Bentyl] 20 mg PO QID #12 tablet 06/28/21 Allergies Allergy/AdvReac Type Severity Reaction Status Date / Time shellfish derived [Shellfish] Allergy Anaphylaxis Verified 12/18/21 00:18 wheat Allergy Anaphylaxis Verified 12/18/21 00:18 tramadol AdvReac Seizure Verified 12/18/21 00:18 Review of Systems ROS Statement: Those systems with pertinent positive or pertinent negative responses have been documented in the HPI. ROS Other: All systems not noted in ROS Statement are negative. Past Medical History Past Medical History: Hypertension, Seizure Disorder Additional Past Medical History / Comment(s): had a seizure approx 2 weeks ago, brain tumor diagnosed 2019, insomnia History of Any Multi-Drug Resistant Organisms: None Reported Past Surgical History: Hysterectomy, Tubal Ligation Past Anesthesia/Blood Transfusion Reactions: No Reported Reaction Past Psychological History: Anxiety Smoking Status: Current some day smoker Past Alcohol Use History: Abuse, Daily Past Drug Use History: None Reported - Past Family History Mother Family Medical History: Diabetes Mellitus General Exam Limitations: no limitations General appearance: alert, in no apparent distress Head exam: Present: atraumatic, normocephalic, normal inspection Eye exam: Present: normal appearance, PERRL, EOMI. Absent: scleral icterus, conjunctival injection, periorbital swelling ENT exam: Present: normal exam, mucous membranes moist Neck exam: Present: normal inspection. Absent: tenderness, meningismus, lymphadenopathy Respiratory exam: Present: normal lung sounds bilaterally. Absent: respiratory distress, wheezes, rales, rhonchi, stridor Cardiovascular Exam: Present: normal rhythm, tachycardia, normal heart sounds. Absent: systolic murmur, diastolic murmur, rubs, gallop, clicks GI/Abdominal exam: Present: soft, normal bowel sounds. Absent: distended, tenderness, guarding, rebound, rigid Extremities exam: Present: normal inspection, full ROM, normal capillary refill. Absent: tenderness, pedal edema, joint swelling, calf tenderness Back exam: Present: normal inspection Neurological exam: Present: alert, oriented X3, CN II-XII intact Psychiatric exam: Present: normal affect, normal mood Skin exam: Present: warm, dry, intact, normal color. Absent: rash Course Vital Signs 12/18/21 00:12 Temperature 98.5 F Pulse Rate 104 H Respiratory 20 Rate Blood Pressure 117/79 O2 Sat by Pulse 98 Oximetry Medical Decision Making - Lab Data Lab Results 12/18/21 Range/Units 00:45 Urine Color Colorless Urine Appearance Clear (Clear) Urine pH 5.5 (5.0-8.0) Ur Specific [place] 1.004 (1.001-1.035) Urine Protein Negative (Negative) Urine Glucose (UA) Negative (Negative) Urine Ketones Negative (Negative) Urine Blood Negative (Negative) Urine Nitrite Negative (Negative) Urine Bilirubin Negative (Negative) Urine Urobilinogen <2.0 (<2.0) mg/dL Ur Leukocyte Esterase Negative (Negative) Disposition Clinical Impression: Abdominal pain Disposition: HOME SELF-CARE Condition: Good Instructions (If sedation given, give patient instructions): Abdominal Pain (ED) Is patient prescribed a controlled substance at d/c from ED?: No Referrals: Lico Bañuelos MD [Primary Care Provider] - 1-2 days
[2021-12-18] MEDS ORDERED: PROCHLORPERAZINE 5 MG TAB PO STA (00:41)
[2021-12-18] MEDS ORDERED: HYDROcodone/APAP 5-325MG 1 EACH TAB PO STA (00:42)
[2021-12-18 01:17] LABS: Appearance,Urine Clear (Clear); Bilirubin,Urine Negative (Negative); Blood,Urine Negative (Negative); Color,Urine Colorless; Glucose,Urine (UA) Negative (Negative); Ketones,Urine Negative (Negative); Leukocyte Esterase,Urine Negative (Negative); Nitrite,Urine Negative (Negative); PH, Urine 5.5 (5.0-8.0); Protein,Urine Negative (Negative); Specific Gravity,Urine 1.004 (1.001-1.035); Urobilinogen,Urine <2.0 mg/dL (<2.0)
--- NOTE | 2021-12-18 01:34 | CT ---
EXAMINATION TYPE: CT abdomen pelvis wo con DATE OF EXAM: 12/18/2021 COMPARISON: 04/01/2020 HISTORY: all over abd pain CT DLP: 423.8 mGycm Automated exposure control for dose reduction was used. Images obtained from the diaphragm to the floor the pelvis with no contrast. Lung bases are clear. No pleural effusion. Heart size is normal. No pericardial effusion. Liver spleen and stomach pancreas appear intact. Flexor not dilated. Gallbladder appears normal. There is no adrenal mass. Kidneys of normal size. There is 1 mm calculus posterior left kidney. No hy dronephrosis. There is 2.7 cm cortical cyst anterior left kidney. The ureters are not dilated. No re troperitoneal adenopathy. Bladder distends smoothly. There are phleboliths in the pelvis. No inguinal hernia. No pelvic mass. There is hysterectomy. Lumbar spine is intact. No compression fracture. Bony pelvis is intact. Hip joints are intact. No mesenteric edema. No ascites or free air. No bowel obstr uction. There is 1.3 cm cyst near the left labia at the floor of the pelvis. Unchanged. IMPRESSION: Negative CT scan abdomen and pelvis. Tiny left renal calculus. No adverse change compared to old exam .
[2021-12-18] MEDS ORDERED: ACET/COD 300 MG/30 MG STARTER PACK 6 TAB BTL PO STA (01:38)
[2021-12-18] MEDS ORDERED: ONDANSETRON 4 MG ODT STARTER PACK 2 TAB BTL PO STA (01:38)
[2021-12-18 02:08] VITALS: BP 132/78; PULSE 78; TEMP 98
== END 2021-12-18 02:08 | disposition home or self-care (01) ==
LOC: EC 00:11
DX: F17.200 Nicotine dependence, unspecified, uncomplicated (principal); R11.0 Nausea; K59.00 Constipation, unspecified; I10 Essential (primary) hypertension; Z79.899 Other long term (current) drug therapy; Z88.5 Allergy status to narcotic agent; Z91.013 Allergy to seafood; Z91.018 Allergy to other foods
CPT/HCPCS: 81003; 74176; 99284; S0183; S0119

== ENCOUNTER 2022-01-21 01:01 | Emergency (ER) | payer OTHER ==
[2022-01-21 01:08] VITALS: BP 144/95; PULSE 97; RESP 16; TEMP 97.5
[2022-01-21] MEDS ORDERED: diphenhydrAMINE 50 MG/ML 1 ML VIAL IM STA (01:49)
[2022-01-21] MEDS ORDERED: METOCLOPRAMIDE 5 MG/ML 2 ML VIAL IM STA (01:49)
[2022-01-21] MEDS ORDERED: KETOROLAC 15 MG/ML 1 ML VIAL IM STA (01:50)
--- NOTE | 2022-01-21 03:40 | ED ---
Headache HPI - General Chief Complaint: Headache Stated Complaint: Headache Time Seen by Provider: 01/21/22 01:08 Mode of arrival: EMS - History of Present Illness Initial Comments: Patient is a 46-year-old woman who presents with chronic headache but states that she had run out of her usual pain medication. She does report she tried using alcohol to develop pain. No neurologic symptoms. No fever or chills. No neck stiffness. MD Complaint: headache Onset/Timin -: month(s) Onset Description: gradual Location: diffuse Severity: moderate Quality: aching Consistency: constant Improves With: nothing Worsens With: none Context: occurred at rest - Related Data Home Medications Medication Instructions Recorded Confirmed amLODIPine [Norvasc] 10 mg PO DAILY 12/19/17 06/27/21 lisinopriL 40 mg PO DAILY 09/05/20 06/27/21 LORazepam [Ativan] 1 mg PO TID PRN 05/17/21 06/27/21 hydroCHLOROthiazide 50 mg PO DAILY PRN 05/17/21 06/27/21 levETIRAcetam [Keppra] 1,000 mg PO BID 05/17/21 06/27/21 Ergocalciferol (Vitamin D2) 1,250 mcg PO QMONTHLY 06/27/21 06/27/21 [Drisdol (50,000 Iu)] Naproxen 500 mg PO BID PRN 06/27/21 06/27/21 Potassium Chloride ER [K-Dur 20] 20 meq PO DAILY 06/27/21 06/27/21 Previous Rx's Medication Instructions Recorded Dicyclomine [Bentyl] 20 mg PO QID #12 tablet 06/28/21 Allergies Allergy/AdvReac Type Severity Reaction Status Date / Time shellfish derived [Shellfish] Allergy Anaphylaxis Verified 12/18/21 00:18 wheat Allergy Anaphylaxis Verified 12/18/21 00:18 tramadol AdvReac Seizure Verified 12/18/21 00:18 Review of Systems ROS Statement: Those systems with pertinent positive or pertinent negative responses have been documented in the HPI. ROS Other: All systems not noted in ROS Statement are negative. Constitutional: Denies: fever, chills, weakness Eyes: Denies: vision change Respiratory: Denies: cough, dyspnea Cardiovascular: Denies: chest pain Gastrointestinal: Denies: abdominal pain, vomiting Skin: Denies: rash Neurological: Reports: headache. Denies: weakness, numbness, paresthesias, confusion Past Medical History Past Medical History: Hypertension, Seizure Disorder Additional Past Medical History / Comment(s): had a seizure approx 2 weeks ago, brain tumor diagnosed 2019, insomnia History of Any Multi-Drug Resistant Organisms: None Reported Past Surgical History: Hysterectomy, Tubal Ligation Past Anesthesia/Blood Transfusion Reactions: No Reported Reaction Past Psychological History: Anxiety Smoking Status: Current some day smoker Past Alcohol Use History: Abuse, Daily Past Drug Use History: None Reported - Past Family History Mother Family Medical History: Diabetes Mellitus General Exam General appearance: alert, in no apparent distress Head exam: Present: atraumatic, normocephalic Eye exam: Present: normal appearance. Absent: scleral icterus, conjunctival injection Neck exam: Present: normal inspection, full ROM. Absent: tenderness Neurological exam: Present: alert, oriented X3, CN II-XII intact. Absent: motor sensory deficit Skin exam: Present: warm, dry, intact, normal color. Absent: rash Course Vital Signs 01/21/22 01:02 Temperature 97.5 F L Pulse Rate 97 Respiratory 16 Rate Blood Pressure 144/95 O2 Sat by Pulse 100 Oximetry Disposition Clinical Impression: Headache Disposition: HOME SELF-CARE Condition: Good Instructions (If sedation given, give patient instructions): Acute Headache (ED) Is patient prescribed a controlled substance at d/c from ED?: No Referrals: Lico Bañuelos MD [Primary Care Provider] - 1-2 days
== END 2022-01-21 04:22 | disposition home or self-care (01) ==
LOC: EC 01:01
DX: R51.9 Headache, unspecified (principal); I10 Essential (primary) hypertension; F17.200 Nicotine dependence, unspecified, uncomplicated; Z91.013 Allergy to seafood; Z91.018 Allergy to other foods; Z88.8 Allergy status to other drugs, medicaments and biological substances
CPT/HCPCS: 99284; 96372; J1200; J2765; J1885

== ENCOUNTER 2022-02-28 00:01 | Emergency (ER) | payer OTHER ==
--- NOTE | 2022-02-28 00:22 | ED ---
Seizure HPI - General Stated Complaint: Seizure Time Seen by Provider: 02/28/22 00:05 - History of Present Illness Initial Comments: 46 showed female past medical history of hypertension, seizure disorder presents to the emergency department after she had a seizure at home. He states that she had 2 seizures today. She states it's likely because she did not take her afternoon dose of Keppra. Also reports to drinking alcohol. She denies hurting herself the seizure. States she bit her tongue. No incontinence. Her son called EMS even though she did not want to be treated at the hospital. Patient arrives awake, alert and not clinically intoxicated. She denies any headaches or visual changes. No nausea or vomiting. No chest pain or shortness of breath. States her last seizure was 5 months ago. Follows with a neurologist out of [facility]. No fevers or chills. No other alleviating, precipitating or modifying factors - Related Data Home Medications Medication Instructions Recorded Confirmed amLODIPine [Norvasc] 10 mg PO DAILY 12/19/17 06/27/21 lisinopriL 40 mg PO DAILY 09/05/20 06/27/21 LORazepam [Ativan] 1 mg PO TID PRN 05/17/21 06/27/21 hydroCHLOROthiazide 50 mg PO DAILY PRN 05/17/21 06/27/21 levETIRAcetam [Keppra] 1,000 mg PO BID 05/17/21 06/27/21 Ergocalciferol (Vitamin D2) 1,250 mcg PO QMONTHLY 06/27/21 06/27/21 [Drisdol (50,000 Iu)] Naproxen 500 mg PO BID PRN 06/27/21 06/27/21 Potassium Chloride ER [K-Dur 20] 20 meq PO DAILY 06/27/21 06/27/21 Previous Rx's Medication Instructions Recorded Dicyclomine [Bentyl] 20 mg PO QID #12 tablet 06/28/21 Allergies Allergy/AdvReac Type Severity Reaction Status Date / Time shellfish derived [Shellfish] Allergy Anaphylaxis Verified 12/18/21 00:18 wheat Allergy Anaphylaxis Verified 12/18/21 00:18 tramadol AdvReac Seizure Verified 12/18/21 00:18 Review of Systems ROS Statement: Those systems with pertinent positive or pertinent negative responses have been documented in the HPI. ROS Other: All systems not noted in ROS Statement are negative. Past Medical History Past Medical History: Hypertension, Seizure Disorder Additional Past Medical History / Comment(s): had a seizure approx 2 weeks ago, brain tumor diagnosed 2020, insomnia History of Any Multi-Drug Resistant Organisms: None Reported Past Surgical History: Hysterectomy, Tubal Ligation Past Anesthesia/Blood Transfusion Reactions: No Reported Reaction Past Psychological History: Anxiety Smoking Status: Current some day smoker Past Alcohol Use History: Abuse, Daily Past Drug Use History: None Reported - Past Family History Mother Family Medical History: Diabetes Mellitus General Exam General appearance: alert, in no apparent distress Head exam: Present: atraumatic, normocephalic, normal inspection Eye exam: Present: normal appearance, PERRL, EOMI. Absent: scleral icterus, conjunctival injection, periorbital swelling ENT exam: Present: normal exam, mucous membranes moist Neck exam: Present: normal inspection. Absent: tenderness, meningismus, lymphadenopathy Respiratory exam: Present: normal lung sounds bilaterally. Absent: respiratory distress, wheezes, rales, rhonchi, stridor Cardiovascular Exam: Present: regular rate, normal rhythm, normal heart sounds. Absent: systolic murmur, diastolic murmur, rubs, gallop, clicks GI/Abdominal exam: Present: soft, normal bowel sounds. Absent: distended, tenderness, guarding, rebound, rigid Extremities exam: Present: normal inspection, full ROM, normal capillary refill. Absent: tenderness, pedal edema, joint swelling, calf tenderness Back exam: Present: normal inspection Neurological exam: Present: alert, oriented X3, CN II-XII intact Psychiatric exam: Present: normal affect, normal mood Skin exam: Present: warm, dry, intact, normal color. Absent: rash Medical Decision Making - Medical Decision Making Upon arrival patient is placed into room 9. Thorough history and physical exam was performed. Patient is awake, alert and does not appear to be under the influence of any intoxicating substances at this time. Patient is requesting discharge home. States that she did not want be evaluated in the ER however came because of her son. Patient does not want a workup. States that she had a seizure because she did not take her medications. At this time I will honor the patient's request. She will be discharged home. Instructed to take her medications as directed. Recommend that she does not drink alcohol as this may lower her seizure threshold. Follow up with her neurologist for further evaluation and return for any worsening symptoms. Patient was agreeable and discharged home in stable condition Disposition Clinical Impression: Breakthrough seizure Disposition: HOME SELF-CARE Condition: Stable Instructions (If sedation given, give patient instructions): Seizure/Epilepsy Discharge Instructions & Follow-Up Additional Instructions: Please take your medications as directed. Follow up with your primary care doctor in 2-4 days and return for any new or worsening symptoms. Is patient prescribed a controlled substance at d/c from ED?: No Referrals: Lico Bañuelos MD [Primary Care Provider] - 1-2 days Time of Disposition: 00:22
== END 2022-02-28 00:50 | disposition home or self-care (01) ==
LOC: EC 00:01
DX: G40.909 Epilepsy, unspecified, not intractable, without status epilepticus (principal); I10 Essential (primary) hypertension; F17.200 Nicotine dependence, unspecified, uncomplicated; Z91.013 Allergy to seafood; Z88.5 Allergy status to narcotic agent; Z91.018 Allergy to other foods; Z79.899 Other long term (current) drug therapy
CPT/HCPCS: 99284

== ENCOUNTER 2022-03-27 23:42 | Emergency (ER) | payer OTHER ==
[2022-03-27 23:52] VITALS: RESP 18; TEMP 97.8
[2022-03-27] MEDS ORDERED: HYDROmorphone 1 MG/ML 1 ML SYRINGE IM STA (23:58)
--- NOTE | 2022-03-27 23:59 | ED ---
Fall HPI - General Chief Complaint: Fall Stated Complaint: Fall Time Seen by Provider: 03/27/22 23:48 Source: patient, EMS, RN notes reviewed, old records reviewed Mode of arrival: EMS Limitations: no limitations - History of Present Illness Initial Comments: This is a 46 show female DF for evaluation. Patient comes in after mechanical slip and fall with alcohol use. Patient was at a [employer] tripped on some water. She did hit her head complaining of some head neck pain. Patient has mild headache no nausea vomiting. No other injury MD Complaint: fall -: minutes(s) Fall From: standing When Fall Occurred: 1 hour [employer] Fall Witnessed: yes, by family Place Fall Occurred: home Loss of Consciousness: none Prolonged Down Time?: no Symptoms Prior to Fall: none Location: head, neck Severity: moderate Context: tripped/slipped Associated Symptoms: denies - Related Data Home Medications Medication Instructions Recorded Confirmed amLODIPine [Norvasc] 10 mg PO DAILY 12/19/17 06/27/21 lisinopriL 40 mg PO DAILY 09/05/20 06/27/21 LORazepam [Ativan] 1 mg PO TID PRN 05/17/21 06/27/21 hydroCHLOROthiazide 50 mg PO DAILY PRN 05/17/21 06/27/21 levETIRAcetam [Keppra] 1,000 mg PO BID 05/17/21 06/27/21 Ergocalciferol (Vitamin D2) 1,250 mcg PO QMONTHLY 06/27/21 06/27/21 [Drisdol (50,000 Iu)] Naproxen 500 mg PO BID PRN 06/27/21 06/27/21 Potassium Chloride ER [K-Dur 20] 20 meq PO DAILY 06/27/21 06/27/21 Previous Rx's Medication Instructions Recorded Dicyclomine [Bentyl] 20 mg PO QID #12 tablet 06/28/21 Allergies Allergy/AdvReac Type Severity Reaction Status Date / Time shellfish derived [Shellfish] Allergy Anaphylaxis Verified 03/27/22 23:53 wheat Allergy Anaphylaxis Verified 03/27/22 23:53 tramadol AdvReac Seizure Verified 03/27/22 23:53 Review of Systems ROS Statement: Those systems with pertinent positive or pertinent negative responses have been documented in the HPI. ROS Other: All systems not noted in ROS Statement are negative. Past Medical History Past Medical History: Hypertension, Seizure Disorder Additional Past Medical History / Comment(s): had a seizure approx 2 weeks ago, brain tumor diagnosed 2020, insomnia History of Any Multi-Drug Resistant Organisms: None Reported Past Surgical History: Hysterectomy, Tubal Ligation Past Anesthesia/Blood Transfusion Reactions: No Reported Reaction Past Psychological History: Anxiety Smoking Status: Current some day smoker Past Alcohol Use History: Occasional Past Drug Use History: None Reported - Past Family History Mother Family Medical History: Diabetes Mellitus General Exam Limitations: no limitations General appearance: alert, in no apparent distress, appears intoxicated Head exam: Present: atraumatic, normocephalic, normal inspection Eye exam: Present: normal appearance, PERRL, EOMI. Absent: scleral icterus, conjunctival injection, periorbital swelling ENT exam: Present: normal exam, mucous membranes moist Neck exam: Present: normal inspection. Absent: tenderness, meningismus, lymphadenopathy Respiratory exam: Present: normal lung sounds bilaterally. Absent: respiratory distress, wheezes, rales, rhonchi, stridor Cardiovascular Exam: Present: regular rate, normal rhythm, normal heart sounds. Absent: systolic murmur, diastolic murmur, rubs, gallop, clicks GI/Abdominal exam: Present: soft, normal bowel sounds. Absent: distended, tenderness, guarding, rebound, rigid Extremities exam: Present: normal inspection, full ROM, normal capillary refill. Absent: tenderness, pedal edema, joint swelling, calf tenderness Back exam: Present: normal inspection Neurological exam: Present: alert, oriented X3, CN II-XII intact Psychiatric exam: Present: normal affect, normal mood Skin exam: Present: warm, dry, intact, normal color. Absent: rash Course Vital Signs 03/27/22 23:49 Temperature 97.8 F Pulse Rate 101 H Respiratory 18 Rate Blood Pressure 128/89 O2 Sat by Pulse 98 Oximetry - Reevaluation(s) Reevaluation #1: 03/28/22 00:44 Medical records reviewed Reevaluation #2: 03/28/22 00:44 Patient's pain is improved Reevaluation #3: 03/28/22 00:44 Patient informed results and questions have been answered Reevaluation #4: 03/28/22 00:44 Patient ambulatory able to walk without difficulty, not clinically intoxicated Medical Decision Making - Medical Decision Making 46 female to the emergency department for evaluation patient presents for fall. He drinks fall states she slipped on water mechanical fall no traumatic injury noted and patient can be discharged home - Radiology Data Radiology results: report reviewed (CT brain C-spine chest and pelvis x-ray negative for traumatic injury), image reviewed Disposition Clinical Impression: Fall, Alcohol intoxication, Head injury Disposition: HOME SELF-CARE Condition: Fair Instructions (If sedation given, give patient instructions): Fall Prevention for Older Adults (ED) Is patient prescribed a controlled substance at d/c from ED?: No Referrals: Lico Bañuelos MD [Primary Care Provider] - 1-2 days Time of Disposition: 00:45
--- NOTE | 2022-03-28 00:28 | CT ---
EXAMINATION TYPE: CT brain cspine wo con DATE OF EXAM: 03/28/2022 COMPARISON: 09/09/2021 HISTORY: FALL, HIT HEAD ON COUNTER, UNSURE OF LOC, H/O BRAIN TUMOR. PT IN C-COLLAR, UNABLE TO REMOVE NECKLACE CT DLP: 1256.2 mGycm Automated exposure control for dose reduction was used. Ventricles and sulci appear normal. There is no mass effect normal and shift. No sign of intracranial hemorrhage. The calvarium is intact. The skull base is intact. There is normal aeration of the masto id sinuses. The cervical vertebra have mild straightening. Disc spaces are fairly normal. Posterior elements are intact. No compression fracture. Prevertebral soft tissues appear normal. IMPRESSION: Mild straightening of the cervical spine. No significant change compared to old exam. No fracture. Negative CT scan of the brain. No change.
--- NOTE | 2022-03-28 00:32 | XR ---
EXAMINATION TYPE: XR pelvis AP view DATE OF EXAM: 03/28/2022 COMPARISON: NONE HISTORY: Fall. Pain TECHNIQUE: Single view FINDINGS: Pelvic ring is intact. Proximal femurs and hip joints are intact. Sacroiliac joints are int act IMPRESSION: Normal pelvis.
--- NOTE | 2022-03-28 00:33 | XR ---
EXAMINATION TYPE: XR chest 1V DATE OF EXAM: 03/28/2022 COMPARISON: 09/09/2021 HISTORY: Fall. Pain TECHNIQUE: FINDINGS: Heart and mediastinum are normal. Lungs are clear. Diaphragm is normal. Bony thorax appears normal. IMPRESSION: Normal chest. No change.
[2022-03-28 01:55] VITALS: BP 99/66; PULSE 86
== END 2022-03-28 01:55 | disposition home or self-care (01) ==
LOC: EC 23:42
DX: S09.90XA Unspecified injury of head, initial encounter (principal); F10.129 Alcohol abuse with intoxication, unspecified; I10 Essential (primary) hypertension; F17.200 Nicotine dependence, unspecified, uncomplicated; Z91.013 Allergy to seafood; Z91.018 Allergy to other foods; Z88.8 Allergy status to other drugs, medicaments and biological substances; W01.0XXA Fall on same level from slipping, tripping and stumbling without subsequent striking against object, initial encounter
CPT/HCPCS: 72170; 71045; 72125; 70450; 96372; 99285; J1170

== ENCOUNTER 2022-04-18 04:06 | Emergency (ER) | payer OTHER ==
[2022-04-18 04:14] VITALS: BP 132/96; PULSE 108; RESP 18; TEMP 98.5
[2022-04-18] MEDS ORDERED: ACETAMINOPHEN TAB 325 MG TAB PO STA (04:27)
[2022-04-18] MEDS ORDERED: HYDROcodone/APAP 5-325MG 1 EACH TAB PO STA (04:41)
[2022-04-18 04:57] LABS: ALT 17 U/L (4-34); African American GFR (CKD) >90 (>60 ml/min/1.73 sqM); Albumin 5.1 g/dL (3.5-5.0); Anion Gap 17 mmol/L; Blood Urea Nitrogen 15 mg/dL (7-17); Calcium 9.8 mg/dL (8.4-10.2); Carbon Dioxide 17 mmol/L (22-30); Chloride 113 mmol/L (98-107); Glucose 88 mg/dL (74-99); Non-African American GFR(CKD) >90 (>60 ml/min/1.73 sqM); Sodium 147 mmol/L (137-145); Total Bilirubin 0.5 mg/dL (0.2-1.3); Total Protein 8.7 g/dL (6.3-8.2)
[2022-04-18 04:59] LABS: Alcohol 265 mg/dL; Potassium 4.4 mmol/L (3.5-5.1)
[2022-04-18 05:00] LABS: AST 28 U/L (14-36); Alkaline Phosphatase 46 U/L (38-126)
[2022-04-18 05:11] LABS: HCT 41.5 % (34.0-46.0); HGB 13.1 gm/dL (11.4-16.0); Hypochromasia Moderate; MCH 25.4 pg (25.0-35.0); MCHC 31.6 g/dL (31.0-37.0); MCV 80.6 fL (80.0-100.0); Mean Platelet Volume 7.2; Platelet Count 376 k/uL (150-450); RBC 5.15 m/uL (3.80-5.40); RDW 14.7 % (11.5-15.5); WBC 9.7 k/uL (3.8-10.6)
--- NOTE | 2022-04-18 05:30 | ED ---
Seizure HPI - General Chief Complaint: Seizure Stated Complaint: Seizure Time Seen by Provider: 04/18/22 04:13 Source: patient Mode of arrival: EMS Limitations: no limitations - History of Present Illness Initial Comments: This patient's 46-year-old woman here after she had a generalized tonic-clonic seizure. Patient concerned because she is feeling somewhat anxious. Patient concerned because she may have struck her head. She feels as if there is a little bit of swelling and tenderness at the left frontal scalp. She states that there is also a brain tumor that she is concerned about. MD Complaint: seizure -: minutes(s) Description of Episode: loss of consciousness, tonic-clonic movement -: second(s) Witnessed: yes - by bystander Seizure History: history of withdrawal seizures Place: home Possible Precipitating Event: none Associated Symptoms: denies other symptoms Treatments Prior to Arrival: none - Related Data Home Medications Medication Instructions Recorded Confirmed amLODIPine [Norvasc] 10 mg PO DAILY 12/19/17 06/27/21 lisinopriL 40 mg PO DAILY 09/05/20 06/27/21 LORazepam [Ativan] 1 mg PO TID PRN 05/17/21 06/27/21 hydroCHLOROthiazide 50 mg PO DAILY PRN 05/17/21 06/27/21 levETIRAcetam [Keppra] 1,000 mg PO BID 05/17/21 06/27/21 Ergocalciferol (Vitamin D2) 1,250 mcg PO QMONTHLY 06/27/21 06/27/21 [Drisdol (50,000 Iu)] Naproxen 500 mg PO BID PRN 06/27/21 06/27/21 Potassium Chloride ER [K-Dur 20] 20 meq PO DAILY 06/27/21 06/27/21 Previous Rx's Medication Instructions Recorded Dicyclomine [Bentyl] 20 mg PO QID #12 tablet 06/28/21 chlordiazePOXIDE HCl [Librium] 25 mg PO TID 3 Days #9 capsule 04/18/22 Allergies Allergy/AdvReac Type Severity Reaction Status Date / Time shellfish derived [Shellfish] Allergy Anaphylaxis Verified 03/27/22 23:53 wheat Allergy Anaphylaxis Verified 03/27/22 23:53 tramadol AdvReac Seizure Verified 03/27/22 23:53 Review of Systems ROS Statement: Those systems with pertinent positive or pertinent negative responses have been documented in the HPI. ROS Other: All systems not noted in ROS Statement are negative. Constitutional: Denies: fever, chills Eyes: Denies: eye pain, vision change ENT: Denies: ear pain, hearing loss Respiratory: Denies: cough, dyspnea Cardiovascular: Denies: chest pain, syncope Gastrointestinal: Denies: abdominal pain, vomiting, diarrhea Genitourinary: Denies: dysuria, hematuria Musculoskeletal: Denies: back pain Skin: Denies: rash Neurological: Reports: headache. Denies: weakness, numbness, paresthesias, confusion Past Medical History Past Medical History: Hypertension, Seizure Disorder Additional Past Medical History / Comment(s): had a seizure approx 2 weeks ago, brain tumor diagnosed 2020, insomnia History of Any Multi-Drug Resistant Organisms: None Reported Past Surgical History: Hysterectomy, Tubal Ligation Past Anesthesia/Blood Transfusion Reactions: No Reported Reaction Past Psychological History: Anxiety Smoking Status: Current some day smoker Past Alcohol Use History: Occasional Past Drug Use History: None Reported - Past Family History Mother Family Medical History: Diabetes Mellitus General Exam Limitations: no limitations General appearance: alert, in no apparent distress Head exam: Present: normocephalic, other (There is mild swelling and tenderness left frontal scalp. No palpable deformity) Eye exam: Present: normal appearance, PERRL, EOMI, nystagmus. Absent: scleral icterus, conjunctival injection Neck exam: Present: normal inspection, full ROM. Absent: tenderness Respiratory exam: Present: normal lung sounds bilaterally. Absent: respiratory distress, wheezes, rales, rhonchi, stridor, accessory muscle use Cardiovascular Exam: Present: regular rate, normal rhythm, normal heart sounds. Absent: systolic murmur, diastolic murmur, rubs, gallop GI/Abdominal exam: Present: soft. Absent: distended, tenderness, guarding, rebound, rigid, mass Extremities exam: Present: normal inspection, normal capillary refill. Absent: pedal edema, calf tenderness Back exam: Present: normal inspection. Absent: vertebral tenderness Neurological exam: Present: alert, oriented X3, CN II-XII intact, other (There is very mild ataxia and very mild dysarthria). Absent: motor sensory deficit Skin exam: Present: warm, dry, intact, normal color. Absent: rash Course Vital Signs 04/18/22 04:12 Temperature 98.5 F Pulse Rate 108 H Respiratory 18 Rate Blood Pressure 132/96 O2 Sat by Pulse 100 Oximetry Medical Decision Making - Medical Decision Making Patient's 46-year-old woman here following seizure with low mechanism head injury. Given his intoxication and the tenderness CT ordered. No evidence of intracranial injury. Discussed alcohol cessation and patient given prescription for Librium to counte r withdrawal symptoms. Discussed appropriate follow-up and further care. - Lab Data Result diagrams: 04/18/22 04:39 04/18/22 04:39 Lab Results 04/18/22 04/18/22 Range/Units 04:39 04:39 WBC 9.7 (3.8-10.6) k/uL RBC 5.15 (3.80-5.40) m/uL Hgb 13.1 (11.4-16.0) gm/dL Hct 41.5 (34.0-46.0) % MCV 80.6 (80.0-100.0) fL MCH 25.4 (25.0-35.0) pg MCHC 31.6 (31.0-37.0) g/dL RDW 14.7 (11.5-15.5) % Plt Count 376 (150-450) k/uL MPV 7.2 Neutrophils % (Manual) 54 % Band Neuts % (Manual) 2 % Lymphocytes % (Manual) 40 % Monocytes % (Manual) 3 % Eosinophils % (Manual) 1 % Neutrophils # (Manual) 5.40 (1.3-7.7) k/uL Lymphocytes # (Manual) 3.88 (1.0-4.8) k/uL Monocytes # (Manual) 0.29 (0-1.0) k/uL Eosinophils # (Manual) 0.10 (0-0.7) k/uL Nucleated RBCs 0 (0-0) /100 WBC Manual Slide Review Performed Hypochromasia Moderate Sodium 147 H (137-145) mmol/L Potassium 4.4 (3.5-5.1) mmol/L Chloride 113 H (98-107) mmol/L Carbon Dioxide 17 L (22-30) mmol/L Anion Gap 17 mmol/L BUN 15 (7-17) mg/dL Creatinine 0.79 (0.52-1.04) mg/dL Est GFR (CKD-EPI)AfAm >90 (>60 ml/min/1.73 sqM) Est GFR (CKD-EPI)NonAf >90 (>60 ml/min/1.73 sqM) Glucose 88 (74-99) mg/dL Calcium 9.8 (8.4-10.2) mg/dL Total Bilirubin 0.5 (0.2-1.3) mg/dL AST 28 (14-36) U/L ALT 17 (4-34) U/L Alkaline Phosphatase 46 (38-126) U/L Total Protein 8.7 H (6.3-8.2) g/dL Albumin 5.1 H (3.5-5.0) g/dL Serum Alcohol 265 H* mg/dL Disposition Clinical Impression: Seizure, Alcohol intoxication Disposition: HOME SELF-CARE Condition: Good Instructions (If sedation given, give patient instructions): Recurrent Seizures in Adults (ED) Additional Instructions: Do not take the librium with alcohol. Do not drive until you are cleared by the neurologist. Prescriptions: chlordiazePOXIDE HCl [Librium] 25 mg PO TID 3 Days #9 capsule Is patient prescribed a controlled substance at d/c from ED?: No Referrals: Lico Bañuelos MD [Primary Care Provider] - 1-2 days
[2022-04-18 05:50] LABS: Band Neutrophils % 2 %; Lymphocytes # (M) 3.88 k/uL (1.0-4.8); Monocytes # (M) 0.29 k/uL (0-1.0); Neutrophils % (M) 54 %; Nucleated Red Blood Cells 0 /100 WBC (0-0); Total Cells Counted 100
== END 2022-04-18 05:53 | disposition home or self-care (01) ==
LOC: EC 04:06
DX: R56.9 Unspecified convulsions (principal); I10 Essential (primary) hypertension; F41.9 Anxiety disorder, unspecified; F17.200 Nicotine dependence, unspecified, uncomplicated; F10.129 Alcohol abuse with intoxication, unspecified; Z79.899 Other long term (current) drug therapy; Z79.84 Long term (current) use of oral hypoglycemic drugs; Z91.013 Allergy to seafood; Z88.5 Allergy status to narcotic agent
CPT/HCPCS: 36415; 80053; 85025; 99285; G0480; 80320

== ENCOUNTER 2022-08-19 06:11 | Emergency (ER) | payer OTHER ==
[2022-08-19 06:21] VITALS: TEMP 98
[2022-08-19] MEDS ORDERED: SODIUM CHLORIDE 0.9% 1,000 ML IV STA (06:32)
[2022-08-19] MEDS ORDERED: ONDANSETRON 4 MG/2 ML VIAL IVP STA (06:33)
[2022-08-19] MEDS ORDERED: KETOROLAC 15 MG/ML 1 ML VIAL IVP STA (06:33)
--- NOTE | 2022-08-19 07:09 | ED ---
Alcohol HPI - General Chief Complaint: Alcohol Stated Complaint: ETOH Time Seen by Provider: 08/19/22 06:32 Source: patient, EMS, RN notes reviewed Mode of arrival: EMS - History of Present Illness Initial Comments: Patient is a 46-year-old -Russian female presenting to the emergency room via EMS after she reports having a euphoric state concerning for an oncoming seizure after alcohol intake during the night. She reports drinking approximately 1 pint of liquor during the night last night. This is approximately her normal alcohol intake for the day. She is well known to the emergency department with a known history of EtOH and seizures. She is unsure when her last seizure was. She also reports a generalized headache without any new characteristics from her chronic headaches. She denies any chest pain, shortness of breath, focal neurological deficits, fevers or chills. In addition to her EtOH and seizure history she has a past medical history significant for hypertension. - Related Data Home Medications Medication Instructions Recorded Confirmed amLODIPine [Norvasc] 10 mg PO DAILY 12/19/17 06/27/21 lisinopriL 40 mg PO DAILY 09/05/20 06/27/21 LORazepam [Ativan] 1 mg PO TID PRN 05/17/21 06/27/21 hydroCHLOROthiazide 50 mg PO DAILY PRN 05/17/21 06/27/21 levETIRAcetam [Keppra] 1,000 mg PO BID 05/17/21 06/27/21 Ergocalciferol (Vitamin D2) 1,250 mcg PO QMONTHLY 06/27/21 06/27/21 [Drisdol (50,000 Iu)] Naproxen 500 mg PO BID PRN 06/27/21 06/27/21 Potassium Chloride ER [K-Dur 20] 20 meq PO DAILY 06/27/21 06/27/21 Previous Rx's Medication Instructions Recorded Dicyclomine [Bentyl] 20 mg PO QID #12 tablet 06/28/21 chlordiazePOXIDE HCl [Librium] 25 mg PO TID 3 Days #9 capsule 04/18/22 Allergies Allergy/AdvReac Type Severity Reaction Status Date / Time shellfish derived [Shellfish] Allergy Anaphylaxis Verified 03/27/22 23:53 wheat Allergy Anaphylaxis Verified 03/27/22 23:53 tramadol AdvReac Seizure Verified 03/27/22 23:53 Review of Systems ROS Statement: Those systems with pertinent positive or pertinent negative responses have been documented in the HPI. ROS Other: All systems not noted in ROS Statement are negative. Past Medical History Past Medical History: Hypertension, Seizure Disorder Additional Past Medical History / Comment(s): had a seizure approx 2 weeks ago, brain tumor diagnosed 2019, insomnia History of Any Multi-Drug Resistant Organisms: None Reported Past Surgical History: Hysterectomy, Tubal Ligation Past Anesthesia/Blood Transfusion Reactions: No Reported Reaction Past Psychological History: Anxiety Smoking Status: Current some day smoker Past Alcohol Use History: Occasional Past Drug Use History: None Reported - Past Family History Mother Family Medical History: Diabetes Mellitus General Exam General appearance: alert, appears intoxicated Head exam: Present: atraumatic, normocephalic, normal inspection Eye exam: Present: normal appearance, PERRL. Absent: scleral icterus, conjunctival injection, periorbital swelling, periorbital tenderness ENT exam: Present: normal exam, mucous membranes moist Neck exam: Present: normal inspection, full ROM Respiratory exam: Present: normal lung sounds bilaterally. Absent: respiratory distress, wheezes, rales, rhonchi, stridor Cardiovascular Exam: Present: regular rate, normal rhythm, normal heart sounds. Absent: systolic murmur, diastolic murmur, rubs, gallop, clicks GI/Abdominal exam: Present: soft, normal bowel sounds. Absent: distended, tenderness, guarding, rebound, rigid Extremities exam: Present: normal inspection. Absent: pedal edema, joint swelling Back exam: Present: normal inspection Neurological exam: Present: alert, oriented X3, CN II-XII intact Psychiatric exam: Present: normal affect, normal mood Skin exam: Present: warm, dry, intact, normal color. Absent: rash Course Vital Signs 08/19/22 06:18 Temperature 98 F Pulse Rate 98 Respiratory 15 Rate Blood Pressure 109/69 O2 Sat by Pulse 99 Oximetry Medical Decision Making - Medical Decision Making Was pt. sent in by a medical professional or institution (, PA, PRODUCT SAFETY CONSULTANT, urgent care, hospital, or senior living...) When possible be specific @ -No Did you speak to anyone other than the patient for history (EMS, parent, family, police, friend...)? What history was obtained from this source @ -No Did you review nursing and triage notes (agree or disagree)? Why? @ -I reviewed and agree with nursing and triage notes except patient reports just an aura concerning for a seizure but no seizure activity Were old charts reviewed (outside hosp., previous admission, EMS record, old EKG, old radiological studies, urgent care reports/EKG's, senior living records)? Report findings @ -No old charts were reviewed Differential Diagnosis (chest pain, altered mental status, abdominal pain women, abdominal pain men, vaginal bleeding, weakness, fever, dyspnea, syncope, hea dache, dizziness, GI bleed, back pain, seizure, CVA, palpatations, mental health, musculoskeletal)? @ -Differential Seizure: Recurrent seizure disorder, febrile seizure, alcohol withdrawal, stimulants, meningitis, encephalitis, intercranial hemorrhage, intracranial tumor, stroke, eclampsia, thyrotoxicosis, hypocalcemia, hyponatremia, hypernatremia, hypomagnesemia, psychogenic, this is not meant to be an all-inclusive list. EKG interpreted by me (3pts min.). @ -None done X-rays interpreted by me (1pt min.). @ -None done CT interpreted by me (1pt min.). @ -None done U/S interpreted by me (1pt. min.). @ -None done What testing was considered but not performed or refused? (CT, X-rays, U/S, labs)? Why? @ -None What meds were considered but not given or refused? Why? @ -None Did you discuss the management of the patient with other professionals (professionals i.e. , PA, PRODUCT SAFETY CONSULTANT, lab, RT, psych nurse, social staff worker, monotype mechanic, te acher, trust officer, transplant case manager)? Give summary @ -No Was smoking cessation discussed for >3mins.? @ -No Was critical care preformed (if so, how long)? @ -No Were there social determinants of health that impacted care today? How? (Homelessness, low income, unemployed, alcoholism, drug addiction, transportation, low edu. Level, literacy, decrease access to med. care, long-term, rehab)? @ -No Was there de-escalation of care discussed even if they declined (Discuss DNR or withdrawal of care, Hospice)? DNR status @ -No What co-morbidities impacted this encounter? (DM, HTN, Smoking, COPD, CAD, Cancer, CVA, ARF, Chemo, Hep., AIDS, mental health diagnosis, sleep apnea, morbid obesity)? @ -EtOH with seizure history Was patient admitted / discharged? Hospital course, mention meds given and route, prescriptions, significant lab abnormalities, going to OR and other pertinent info. @ -46-year-old -Russian female presenting to the emergency room via EMS with concern of oncoming seizure after alcohol intake during the night. No seizure activity at this point. Complaining of headache with chronic headaches. No indication for diagnostic imaging at this time. Will obtain laboratory studies CBC, CMP, amylase, lipase, serum alcohol level, magnesium and phosphorus levels. Will avoid narcotics in the setting of alcohol intoxication for headache. Will give Toradol along with Zofran and 1 L fluid bolus and monitor response. IV hydration and Zofran tolerated well. Patient initially refused Toradol requesting [place] for headache pain. Discussed at length the patient's serum alcohol level is 185 and opiates are not indicated due to increased risk for respiratory sedation. She is understanding of this information. She reports that she will contact her primary care provider for [place] prescription. No seizure activity during her stay here in the emergency department. CBC reveals no abnormalities. CMP chloride elevated 110 carbon dioxide low at 21 no other abnormalities magnesium and phosphorus normal. No indication for further diagnostic imaging or laboratory studies. Patient will be arranging ride or obtaining For transportation home. Questions and concerns answered. Return parameters to the emergency room discussed. We'll discharge patient home in stable condition with follow-up with her primary care provider for continued treatment of a chronic headache advising abstinence from alcohol. Undiagnosed new problem with uncertain prognosis? @ -No Drug Therapy requiring intensive monitoring for toxicity (Heparin, Nitro, Insulin, Cardizem)? @ -No Were any procedures done? @ -No Diagnosis/symptom? @ -Alcohol intoxication Acute, or Chronic, or Acute on Chronic? @ -Acute on chronic Uncomplicated (without systemic symptoms) or Complicated (systemic symptoms)? @ -default Side effects of treatment? @ -No Exacerbation, Progression, or Severe Exacerbation? @ -No Poses a threat to life or bodily function? How? (Chest pain, [place], [place], pneumonia, PE, COPD, DKA, ARF, appy, cholecystitis, CVA, Diverticulitis, Homicidal, Suicidal, threat to staff... and all critical care pts) @ -No Diagnosis/symptom? @ -Headache Acute, or Chronic, or Acute on Chronic? @ -Acute on chronic Uncomplicated (without systemic symptoms) or Complicated (systemic symptoms)? @ -Uncomplicated Side effects of treatment? @ -none Exacerbation, Progression, or Severe Exacerbation] @ -no Poses a threat to life or bodily function? @ -no. Case discussed with Dr. Khan. - Lab Data Result diagrams: 08/19/22 06:47 08/19/22 06:47 Lab Results 08/19/22 08/19/22 Range/Units 06:47 06:47 WBC 5.8 (3.8-10.6) k/uL RBC 4.68 (3.80-5.40) m/uL Hgb 11.8 (11.4-16.0) gm/dL Hct 37.4 (34.0-46.0) % MCV 79.8 L (80.0-100.0) fL MCH 25.3 (25.0-35.0) pg MCHC 31.6 (31.0-37.0) g/dL RDW 15.0 (11.5-15.5) % Plt Count 338 (150-450) k/uL MPV 6.8 Neutrophils % 54 % Lymphocytes % 34 % Monocytes % 5 % Eosinophils % 3 % Basophils % 0 % Neutrophils # 3.1 (1.3-7.7) k/uL Lymphocytes # 2.0 (1.0-4.8) k/uL Monocytes # 0.3 (0-1.0) k/uL Eosinophils # 0.2 (0-0.7) k/uL Basophils # 0.0 (0-0.2) k/uL Sodium 143 (137-145) mmol/L Potassium 3.8 (3.5-5.1) mmol/L Chloride 110 H (98-107) mmol/L Carbon Dioxide 21 L (22-30) mmol/L Anion Gap 12 mmol/L BUN 16 (7-17) mg/dL Creatinine 0.87 (0.52-1.04) mg/dL Est GFR (CKD-EPI)AfAm >90 (>60 ml/min/1.73 sqM) Est GFR (CKD-EPI)NonAf 80 (>60 ml/min/1.73 sqM) Glucose 97 (74-99) mg/dL Calcium 10.1 (8.4-10.2) mg/dL Phosphorus 3.7 (2.5-4.5) mg/dL Magnesium 1.9 (1.6-2.3) mg/dL Total Bilirubin 0.2 (0.2-1.3) mg/dL AST 19 (14-36) U/L ALT 18 (4-34) U/L Alkaline Phosphatase 45 (38-126) U/L Total Protein 7.8 (6.3-8.2) g/dL Albumin 4.5 (3.5-5.0) g/dL Serum Alcohol 185 mg/dL Disposition Clinical Impression: Alcohol intoxication, Headache Disposition: HOME SELF-CARE Condition: Stable Instructions (If sedation given, give patient instructions): Alcohol I ntoxication (ED) Additional Instructions: It is recommended that you abstain from alcohol. Utilize [id number] Tylenol or Motrin as needed for headache pain. Please follow-up with your primary care provider. Please return to the Emergency Department if symptoms w orsen or any other concerns. Is patient prescribed a controlled substance at d/c from ED?: No Referrals: Lico Bañuelos MD [Primary Care Provider] - 1-2 days Time of Disposition: 08:28
[2022-08-19 07:14] LABS: Basophils % (A) 0 %; Eosinophils # (A) 0.2 k/uL (0-0.7); Eosinophils % (A) 3 %; HCT 37.4 % (34.0-46.0); HGB 11.8 gm/dL (11.4-16.0); Lymphocytes % (A) 34 %; MCH 25.3 pg (25.0-35.0); MCHC 31.6 g/dL (31.0-37.0); MCV 79.8 fL (80.0-100.0); Mean Platelet Volume 6.8; Monocytes # (A) 0.3 k/uL (0-1.0); Monocytes % (A) 5 %; Neutrophils # (A) 3.1 k/uL (1.3-7.7); Neutrophils % (A) 54 %; Platelet Count 338 k/uL (150-450); RBC 4.68 m/uL (3.80-5.40); WBC 5.8 k/uL (3.8-10.6)
[2022-08-19 07:41] LABS: ALT 18 U/L (4-34); AST 19 U/L (14-36); African American GFR (CKD) >90 (>60 ml/min/1.73 sqM); Albumin 4.5 g/dL (3.5-5.0); Alkaline Phosphatase 45 U/L (38-126); Anion Gap 12 mmol/L; Blood Urea Nitrogen 16 mg/dL (7-17); Calcium 10.1 mg/dL (8.4-10.2); Carbon Dioxide 21 mmol/L (22-30); Chloride 110 mmol/L (98-107); Glucose 97 mg/dL (74-99); Magnesium 1.9 mg/dL (1.6-2.3); Non-African American GFR(CKD) 80 (>60 ml/min/1.73 sqM); Phosphorus 3.7 mg/dL (2.5-4.5); Potassium 3.8 mmol/L (3.5-5.1); Sodium 143 mmol/L (137-145); Total Bilirubin 0.2 mg/dL (0.2-1.3); Total Protein 7.8 g/dL (6.3-8.2)
[2022-08-19 07:49] LABS: Alcohol 185 mg/dL
[2022-08-19] MEDS ORDERED: KETOROLAC 15 MG/ML 1 ML VIAL IM STA (08:16)
[2022-08-19 08:42] VITALS: BP 134/78; PULSE 78; RESP 18
== END 2022-08-19 08:42 | disposition home or self-care (01) ==
LOC: EC 06:11
DX: F10.129 Alcohol abuse with intoxication, unspecified (principal); R51.9 Headache, unspecified; I10 Essential (primary) hypertension; F17.200 Nicotine dependence, unspecified, uncomplicated; Y90.6 Blood alcohol level of 120-199 mg/100 ml; Z91.018 Allergy to other foods; Z88.6 Allergy status to analgesic agent; Z90.710 Acquired absence of both cervix and uterus; Z98.51 Tubal ligation status
CPT/HCPCS: 36415; 80053; 83735; 84100; 85025; 99284; 96360; 96361; 96372; G0480; J1885; 80320

== ENCOUNTER 2022-08-25 02:36 | Emergency (ER) | payer OTHER ==
[2022-08-25 02:43] VITALS: BP 117/82; PULSE 101; RESP 18; TEMP 97.9
[2022-08-25] MEDS ORDERED: KETOROLAC 15 MG/ML 1 ML VIAL IM STA (03:26)
--- NOTE | 2022-08-25 03:29 | ED ---
General Adult HPI - General Chief complaint: Headache Stated complaint: Seizure Time Seen by Provider: 08/25/22 02:42 Source: patient, EMS Mode of arrival: EMS - History of Present Illness Initial comments: This is a 46-year-old female who is well-known to the emergency department presented to the emergency department for EtOH intoxication and possible seizure. The patient stated that she was on face time with her aunt and did pass out momentarily and the patient's aunt thoughts that the patient had a seizure so she advised the patient to call EMS and her to be evaluated. The patient on arrival was ANO 4 and did admit to drinking. The aunt was contacted on the phone and stated that the patient was able to speak coherently throughout the episode and was never confused. The patient likely did not have a seizure and instead momentarily passed out. The patient denied any acute pain or distress and stated that she did not plan to come to the emergency department but only came because "her aunt wanted her to." - Related Data Home Medications Medication Instructions Recorded Confirmed amLODIPine [Norvasc] 10 mg PO DAILY 12/19/17 06/27/21 lisinopriL 40 mg PO DAILY 09/05/20 06/27/21 LORazepam [Ativan] 1 mg PO TID PRN 05/17/21 06/27/21 hydroCHLOROthiazide 50 mg PO DAILY PRN 05/17/21 06/27/21 levETIRAcetam [Keppra] 1,000 mg PO BID 05/17/21 06/27/21 Ergocalciferol (Vitamin D2) 1,250 mcg PO QMONTHLY 06/27/21 06/27/21 [Drisdol (50,000 Iu)] Naproxen 500 mg PO BID PRN 06/27/21 06/27/21 Potassium Chloride ER [K-Dur 20] 20 meq PO DAILY 06/27/21 06/27/21 Previous Rx's Medication Instructions Recorded Dicyclomine [Bentyl] 20 mg PO QID #12 tablet 06/28/21 chlordiazePOXIDE HCl [Librium] 25 mg PO TID 3 Days #9 capsule 04/18/22 Allergies Allergy/AdvReac Type Severity Reaction Status Date / Time shellfish derived [Shellfish] Allergy Anaphylaxis Verified 03/27/22 23:53 wheat Allergy Anaphylaxis Verified 03/27/22 23:53 tramadol AdvReac Seizure Verified 03/27/22 23:53 Review of Systems ROS Statement: Those systems with pertinent positive or pertinent negative responses have been documented in the HPI. ROS Other: All systems not noted in ROS Statement are negative. Past Medical History Past Medical History: Hypertension, Seizure Disorder Additional Past Medical History / Comment(s): seizures, brain tumor diagnosed 2019, insomnia History of Any Multi-Drug Resistant Organisms: None Reported Past Surgical History: Hysterectomy, Tubal Ligation Past Anesthesia/Blood Transfusion Reactions: No Reported Reaction Past Psychological History: Anxiety Smoking Status: Current some day smoker Past Alcohol Use History: Occasional Past Drug Use History: None Reported - Past Family History Mother Family Medical History: Diabetes Mellitus General Exam Limitations: no limitations General appearance: alert, in no apparent distress Head exam: Present: atraumatic, normocephalic, normal inspection Eye exam: Present: normal appearance, PERRL Pupils: Present: normal accommodation ENT exam: Present: normal exam, normal oropharynx, mucous membranes moist Neck exam: Present: normal inspection, full ROM Respiratory exam: Present: normal lung sounds bilaterally Cardiovascular Exam: Present: regular rate, normal rhythm, normal heart sounds GI/Abdominal exam: Present: soft, normal bowel sounds Extremities exam: Present: normal inspection, full ROM Back exam: Present: normal inspection, full ROM Neurological exam: Present: alert, oriented X3, CN II-XII intact Psychiatric exam: Present: normal affect, normal mood Skin exam: Present: warm, dry Course Vital Signs 08/25/22 02:37 Temperature 97.9 F Pulse Rate 101 H Respiratory 18 Rate Blood Pressure 117/82 O2 Sat by Pulse 100 Oximetry Medical Decision Making - Medical Decision Making Was pt. sent in by a medical professional or institution (, PA, FLOOR LAYER APPRENTICE, urgent care, hospital, or prison...) When possible be specific @ -No Did you speak to anyone other than the patient for history (EMS, parent, family, police, friend...)? What history was obtained from this source @ -Yes, patient's aunt on the phone Did you review nursing and triage notes (agree or disagree)? Why? @ -I reviewed and agree with nursing and triage notes Were old charts reviewed (outside hosp., previous admission, EMS record, old EKG, old radiological studies, urgent care reports/EKG's, prison records)? Report findings @ -No old charts were reviewed Differential Diagnosis (chest pain, altered mental status, abdominal pain women, abdominal pain men, vaginal bleeding, weakness, fever, dyspnea, syncope, headache, dizziness, GI bleed, back pain, seizure, CVA, palpatations, mental health)? @ -EtOH intoxication, syncope EKG interpreted by me (3pts min.). @ -None X-rays interpreted by me (1pt min.). @ -None done CT interpreted by me (1pt min.). @ -None done U/S interpreted by me (1pt. min.). @ -None done What testing was considered but not performed or refused? (CT, X-rays, U/S, labs)? Why? @ -None What meds were considered but not given or refused? Why? @ -None Did you discuss the management of the patient with other professionals (professionals i.e. , PA, FLOOR LAYER APPRENTICE, lab, RT, psych nurse, elementary school social worker, insurance office supervisor, teacher, grants officer, case assistant)? Give summary @ -No Was smoking cessation discussed for >3mins.? @ -No Was critical care preformed (if so, how long)? @ -No Were there social determinants of health that impacted care today? How? (Homelessness, low income, unemployed, alcoholism, drug addiction, transportation, low edu. Level, literacy, decrease access to med. care, senior living, rehab)? @ -No Was there de-escalation of care discussed even if they declined (Discuss DNR or withdrawal of care, Hospice)? DNR status @ -No What co-morbidities impacted this encounter? (DM, HTN, Smoking, COPD, CAD, Cancer, CVA, ARF, Chemo, Hep., AIDS, mental health diagnosis, sleep apnea, morbid obesity)? @ -Previous intracranial tumor, EtOH abuse Was patient admitted / discharged? Hospital course, mention meds given and route, prescriptions, significant lab abnormalities, going to OR and other pertinent info. @ -The patient was seen and evaluated in the emergency department. Physical exam, the patient was resting in bed without any acute distress. The patient stated that she had any acute complaints and stated that she did not want to come to the emergency department. Once the patient was told that her symptoms were unlikely a seizure, the patient did not want any further laboratory workup or imaging. The patient requested medications for her headache and she was told that no narcotics would be given. The patient was given IM Toradol and stated that she would like to go home and would not like any further workup or evaluation. The patient was ANO 4 and was able to ambulate in the emergency department without any assistance. The patient was clinically sober. The patient was advised to follow-up back with her primary care physician for further workup and evaluation and to report back to the emergency department if her symptoms became acutely worse. The patient was agreeable to this and all her questions were answered. The patient was discharged home in stable condition. Undiagnosed new problem with uncertain prognosis? @ -No Drug Therapy requiring intensive monitoring for toxicity (Heparin, Nitro, Insulin, Cardizem)? @ -No Were any procedures done? @ -No Diagnosis/symptom? @ -EtOH intoxication Acute, or Chronic, or Acute on Chronic? @ -Acute on chronic Uncomplicated (without systemic symptoms) or Complicated (systemic symptoms)? @ -Uncomplicated Side effects of treatment? @ -No Exacerbation, Progression, or Severe Exacerbation? @ -No Poses a threat to life or bodily function? How? (Chest pain, [place], [place], pneumonia, PE, COPD, DKA, ARF, appy, cholecystitis, CVA, Diverticulitis, Homicidal, Suicidal, threat to staff... and all critical care pts) @ -No Diagnosis/symptom? @ -Headache, NOS Acute, or Chronic, or Acute on Chronic? @ -Chronic Uncomplicated (without systemic symptoms) or Complicated (systemic symptoms)? @ -Uncomplicated Side effects of treatment? @ -none Exacerbation, Progression, or Severe Exacerbation] @ -no Poses a threat to life or bodily function? @ -no Disposition Clinical Impression: ETOH abuse, Headache Disposition: HOME SELF-CARE Condition: Stable Instructions (If sedation given, give patient instructions): Alcohol Intoxication (DC), Acute Headache (ED) Is patient prescribed a controlled substance at d/c from ED?: No Referrals: Lico Bañuelos MD [Primary Care Provider] - 1-2 days Time of Disposition: 03:20
== END 2022-08-25 03:39 | disposition home or self-care (01) ==
LOC: EC 02:36
DX: F10.129 Alcohol abuse with intoxication, unspecified (principal); R51.9 Headache, unspecified; I10 Essential (primary) hypertension; F41.9 Anxiety disorder, unspecified; F17.200 Nicotine dependence, unspecified, uncomplicated; Z79.899 Other long term (current) drug therapy; Z91.013 Allergy to seafood; Z91.018 Allergy to other foods; Z88.5 Allergy status to narcotic agent; Z88.8 Allergy status to other drugs, medicaments and biological substances
CPT/HCPCS: 99284; 96372; J1885

== ENCOUNTER 2023-02-05 10:08 | Emergency (ER) | payer OTHER ==
--- NOTE | 2023-02-05 10:45 | ED ---
General Adult HPI - General Chief complaint: Headache Stated complaint: Headache Source: patient Mode of arrival: ambulatory Limitations: no limitations - History of Present Illness Initial comments: Dictation was produced using [employer] dictation software. please excuse any g rammatical, word or spelling errors. 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 She states that it's near the fibers of the optic nerve. She has known about this for 3 years. Patient told that she should not good candidate for surgery given the meningiomas location. Patient states that she is been in relatively good health. Last night she was having alcohol with a friend over video chat. States that she does not usually drink alcohol. She took several liquor shots. States that this morning she woke up with right-sided headache. Denies any numbness and paresthesias to the arms or legs. Patient does not have any recently updated dimensions of her ring 2. She was able to show me a previous image that showed that the mass is approximately 19 mm x 14 mm The ROS documented in this emergency department record has been reviewed and confirmed by me. Those systems with pertinent positive or negative responses have been documented in the HPI. All other systems are other negative and/or noncontributory. - Related Data Home Medications Medication Instructions Recorded Confirmed amLODIPine [Norvasc] 10 mg PO DAILY 12/19/17 06/27/21 lisinopriL 40 mg PO DAILY 09/05/20 06/27/21 LORazepam [Ativan] 1 mg PO TID PRN 05/17/21 06/27/21 hydroCHLOROthiazide 50 mg PO DAILY PRN 05/17/21 06/27/21 levETIRAcetam [Keppra] 1,000 mg PO BID 05/17/21 06/27/21 Ergocalciferol (Vitamin D2) 1,250 mcg PO QMONTHLY 06/27/21 06/27/21 [Drisdol (50,000 Iu)] Naproxen 500 mg PO BID PRN 06/27/21 06/27/21 Potassium Chloride ER [K-Dur 20] 20 meq PO DAILY 06/27/21 06/27/21 Previous Rx's Medication Instructions Recorded Dicyclomine [Bentyl] 20 mg PO QID #12 tablet 06/28/21 chlordiazePOXIDE HCl [Librium] 25 mg PO TID 3 Days #9 capsule 04/18/22 Allergies Allergy/AdvReac Type Severity Reaction Status Date / Time shellfish derived [Shellfish] Allergy Anaphylaxis Verified 02/05/23 10:11 wheat Allergy Anaphylaxis Verified 02/05/23 10:11 tramadol AdvReac Seizure Verified 02/05/23 10:11 Review of Systems ROS Statement: Those systems with pertinent positive or pertinent negative responses have been documented in the HPI. ROS Other: All systems not noted in ROS Statement are negative. Past Medical History Past Medical History: Hypertension, Seizure Disorder Additional Past Medical History / Comment(s): seizures, brain tumor diagnosed 2020, insomnia History of Any Multi-Drug Resistant Organisms: None Reported Past Surgical History: Hysterectomy, Tubal Ligation Past Anesthesia/Blood Transfusion Reactions: No Reported Reaction Past Psychological History: Anxiety Smoking Status: Current some day smoker Past Alcohol Use History: Occasional Past Drug Use History: None Reported - Past Family History Mother Family Medical History: Diabetes Mellitus General Exam - General Exam Comments Initial Comments: PHYSICAL EXAM: General Impression: Alert and oriented x3, not in acute distress HEENT: Normocephalic atraumatic, extra-ocular movements intact, pupils equal and reactive to light bilaterally, mucous membranes moist. Cardiovascular: Heart regular rate and rhythm Chest: Able to complete full sentences, no retractions, no tachypnea Abdomen: abdomen soft, non-tender, non-distended, no organomegaly Musculoskeletal: Pulses present and equal in all extremities, no peripheral edema Motor: no focal deficits noted Neurological: CN II-XII grossly intact, no focal motor or sensory deficits noted Skin: Intact with no visualized rashes Psych: Normal affect and mood Limitations: no limitations Course Vital Signs 02/05/23 02/05/23 10:09 11:50 Temperature 98.4 F 97.9 F Pulse Rate 122 H Respiratory 22 Rate Blood Pressure 143/93 124/89 O2 Sat by Pulse 99 100 Oximetry Medical Decision Making - Medical Decision Making Was pt. sent in by a medical professional or institution (, PA, RESCUE BOAT OPERATOR, urgent care, hospital, or custodial...) When possible be specific @ -No Did you speak to anyone other than the patient for history (EMS, parent, family, police, friend...)? What history was obtained from this source @ -No Did you review nursing and triage notes (agree or disagree)? Why? @ -I reviewed and agree with nursing and triage notes Were old charts reviewed (outside hosp., previous admission, EMS record, old EKG, old radiological studies, urgent care reports/EKG's, custodial records)? Report findings @ -No old charts were reviewed Differential Diagnosis (chest pain, altered mental status, abdominal pain women, abdominal pain men, vaginal bleeding, musculoskeletal, weakness, fever, dyspnea, syncope, headache, dizziness, GI bleed, back pain, seizure, CVA, palpatations, mental health)? @ -Differential Headache: Migraine, tension, cluster, carbon monoxide, central venous thrombosis, pension karma temporal arteritis, acute closure glaucoma, intercranial hemorrhage, mastoiditis, sinusitis, head injury, this is not meant to be an all-inclusive list. EKG interpreted by me (3pts min.). @ -None done X-rays interpreted by me (1pt min.). @ -None done CT interpreted by me (1pt min.). @ -Computed tomography scan of the brain is unremarkable U/S interpreted by me (1pt. min.). @ -None done What testing was considered but not performed or refused? (CT, X-rays, U/S, labs)? Why? @ -None What meds were considered but not given or refused? Why? @ -None Did you discuss the management of the patient with other professionals (professionals i.e. , PA, RESCUE BOAT OPERATOR, lab, RT, psych nurse, family welfare social work professor, cardiothoracic icu rn, teacher, security officer, case checker)? Give summary @ -No Was smoking cessation discussed for >3mins.? @ -No Was critical care preformed (if so, how long)? @ -No Were there social determinants of health that impacted care today? How? (Homelessness, low income, unemployed, alcoholism, drug addiction, transportation, low edu. Level, literacy, decrease access to med. care, intermediate, rehab)? @ -No Was there de-escalation of care discussed even if they declined (Discuss DNR or withdrawal of care, Hospice)? DNR status @ -No What co-morbidities impacted this encounter? (DM, HTN, Smoking, COPD, CAD, Cancer, CVA, ARF, Chemo, Hep., AIDS, mental health diagnosis, sleep apnea, morbid obesity)? @ -History of Meningioma Was patient admitted / discharged? Hospital course, mention meds given and route, prescriptions, significant lab abnormalities, going to OR and other pertinent info. @ -47-year-old female past medical history of small meningioma presents to the ER for headache. Patient had multiple alcoholic beverages yesterday. Laboratory evaluation shows mild acidosis likely secondary to alcohol intake recently. CT is unremarkable. Patient given headache cocktail with resolution of symptoms. She is requesting discharge. Patient told to follow-up with her headache specialist. Undiagnosed new problem with uncertain prognosis? @ -No Drug Therapy requiring intensive monitoring for toxicity (Heparin, Nitro, Insulin, Cardizem)? @ -No Were any procedures done? @ -No Diagnosis/symptom? Acute, or Chronic, or Acute on Chronic? Uncomplicated (without systemic symptoms) or Complicated (systemic symptoms)? @ -Headache Side effects of treatment? @ -No Exacerbation, Progression, or Severe Exacerbation? @ -No Poses a threat to life or bodily function? How? (Chest pain, [place], [place], pneumonia, PE, COPD, DKA, ARF, appy, cholecystitis, CVA, Diverticulitis, Homicidal, Suicidal, threat to staff... and all critical care pts) @ -No - Lab Data Result diagrams: 02/05/23 10:50 02/05/23 10:50 Lab Results 02/05/23 02/05/23 Range/Units 10:50 10:50 WBC 5.9 (3.8-10.6) k/uL RBC 4.32 (3.80-5.40) m/uL Hgb 11.0 L (11.4-16.0) gm/dL Hct 34.2 (34.0-46.0) % MCV 79.3 L (80.0-100.0) fL MCH 25.5 (25.0-35.0) pg MCHC 32.1 (31.0-37.0) g/dL RDW 15.6 H (11.5-15.5) % Plt Count 166 (150-450) k/uL MPV 8.2 Neutrophils % 60 % Lymphocytes % 28 % Monocytes % 4 % Eosinophils % 5 % Basophils % 0 % Neutrophils # 3.5 (1.3-7.7) k/uL Lymphocytes # 1.7 (1.0-4.8) k/uL Monocytes # 0.2 (0-1.0) k/uL Eosinophils # 0.3 (0-0.7) k/uL Basophils # 0.0 (0-0.2) k/uL Hypochromasia Slight Sodium 143 (137-145) mmol/L Potassium 4.3 (3.5-5.1) mmol/L Chloride 112 H (98-107) mmol/L Carbon Dioxide 15 L (22-30) mmol/L Anion Gap 16 mmol/L BUN 15 (7-17) mg/dL Creatinine 0.88 (0.52-1.04) mg/dL Est GFR (CKD-EPI)AfAm >90 (>60 ml/min/1.73 sqM) Est GFR (CKD-EPI)NonAf 79 (>60 ml/min/1.73 sqM) Glucose 90 (74-99) mg/dL Calcium 10.2 (8.4-10.2) mg/dL Disposition Clinical Impression: Headache Disposition: HOME SELF-CARE Condition: Good Instructions (If sedation given, give patient instructions): Acute Headache (ED) Is patient prescribed a controlled substance at d/c from ED?: No Referrals: Lico Bañuelos MD [Primary Care Provider] - 1-2 days Time of Disposition: 12:49
[2023-02-05] MEDS ORDERED: ONDANSETRON 4 MG/2 ML VIAL IVP STA (10:47)
[2023-02-05] MEDS ORDERED: KETOROLAC 15 MG/ML 1 ML VIAL IVP STA (10:47)
[2023-02-05] MEDS ORDERED: SODIUM CHLORIDE 0.9% 1,000 ML IV STA (10:47)
[2023-02-05] MEDS ORDERED: diphenhydrAMINE 50 MG/ML 1 ML VIAL IVP STA (10:47)
[2023-02-05 11:09] LABS: Basophils % (A) 0 %; Eosinophils # (A) 0.3 k/uL (0-0.7); Eosinophils % (A) 5 %; HCT 34.2 % (34.0-46.0); Hypochromasia Slight; Lymphocytes # (A) 1.7 k/uL (1.0-4.8); Lymphocytes % (A) 28 %; MCH 25.5 pg (25.0-35.0); MCHC 32.1 g/dL (31.0-37.0); MCV 79.3 fL (80.0-100.0); Mean Platelet Volume 8.2; Monocytes # (A) 0.2 k/uL (0-1.0); Monocytes % (A) 4 %; Neutrophils # (A) 3.5 k/uL (1.3-7.7); Neutrophils % (A) 60 %; Platelet Count 166 k/uL (150-450); RBC 4.32 m/uL (3.80-5.40); RDW 15.6 % (11.5-15.5); WBC 5.9 k/uL (3.8-10.6)
[2023-02-05 11:21] LABS: African American GFR (CKD) >90 (>60 ml/min/1.73 sqM); Anion Gap 16 mmol/L; Blood Urea Nitrogen 15 mg/dL (7-17); Calcium 10.2 mg/dL (8.4-10.2); Carbon Dioxide 15 mmol/L (22-30); Chloride 112 mmol/L (98-107); Glucose 90 mg/dL (74-99); Non-African American GFR(CKD) 79 (>60 ml/min/1.73 sqM); Sodium 143 mmol/L (137-145)
[2023-02-05 11:30] LABS: Potassium 4.3 mmol/L (3.5-5.1)
--- NOTE | 2023-02-05 11:44 | CT ---
EXAMINATION TYPE: CT brain wo con CT DLP: 1093.4 mGycm, Automated exposure control for dose reduction was used. DATE OF EXAM: 02/05/2023 11:36 AM COMPARISON: 03/28/2022. CLINICAL INDICATION:Female, 47 years old with history of headache, history of meningioma, Headache. H istory of meningoma. TECHNIQUE: Brain: Axial CT images of the brain were obtained with coronal and sagittal reformats created and rev iewed. Contrast used: None. Oral contrast used: None. FINDINGS: Brain: Extra-axial spaces: No abnormal extra-axial fluid collections. Ventricular system: Within normal limits Cerebral parenchyma: No acute intraparenchymal hemorrhage or mass effect. The pimentel-white junction is well differentiated. Cerebellum: Unremarkable. Mass effect: No evidence of midline shift. Intracranial vasculature: unremarkable Soft tissues: Normal. Calvarium/osseous structures: No depressed skull fracture. Paranasal sinuses and mastoid air cells: Mild scattered paranasal sinus disease. Visualized orbits: Orbital contents are intact. IMPRESSION: No acute intracranial process.
[2023-02-05 11:53] VITALS: TEMP 97.9
[2023-02-05] MEDS: MAGNESIUM SULFATE-D5W PMX 1 GM in DEXTROSE/WATER 1 100ML.BAG IVPB SCH ×2 (12:06→13:27)
[2023-02-05 13:28] VITALS: BP 123/91; PULSE 94; RESP 18
== END 2023-02-05 13:28 | disposition home or self-care (01) ==
LOC: EC 10:08
DX: R51.9 Headache, unspecified (principal); I10 Essential (primary) hypertension; F41.9 Anxiety disorder, unspecified; F17.200 Nicotine dependence, unspecified, uncomplicated; Z79.899 Other long term (current) drug therapy; Z91.013 Allergy to seafood; Z88.5 Allergy status to narcotic agent; Z91.018 Allergy to other foods
CPT/HCPCS: 36415; 80048; 85025; 70450; 99284; 96365; 96375 ×3; 96361; J1200; J2405; J3475; J1885

== ENCOUNTER 2023-04-22 01:25 | Emergency (ER) | payer OTHER ==
[2023-04-22] MEDS ORDERED: SODIUM CHLORIDE 0.9% 1,000 ML IV STA (01:35)
[2023-04-22 01:47] VITALS: RESP 18; TEMP 97.8
[2023-04-22] MEDS ORDERED: METOCLOPRAMIDE 5 MG/ML 2 ML VIAL IVP STA (02:24)
[2023-04-22] MEDS ORDERED: diphenhydrAMINE 50 MG/ML 1 ML VIAL IVP STA (02:24)
[2023-04-22] MEDS ORDERED: MORPHINE SULFATE 2 MG/ML SYRINGE IVP ONE (02:25)
--- NOTE | 2023-04-22 03:12 | ED ---
Seizure HPI - General Chief Complaint: Seizure Stated Complaint: Seizure Time Seen by Provider: 04/22/23 01:30 Source: EMS Mode of arrival: EMS - History of Present Illness Initial Comments: 47-year-old female with past medical history of seizure disorder, brain tumor, alcoholism who presents to the emergency department reporting headache. States that she has chronic headaches for which she takes Derby. She took a Derby today however it did not appear to help her symptoms. Patient thinks that she may have had a seizure. States that she was not feeling right at one point throughout the day. She has been taking her seizure medications regularly. Denies any missed doses. Patient does present intoxicated. No recent falls with blunt head trauma. Denies visual changes. No fevers. No neck pain. No other alleviating, precipitating or modifying factors - Related Data Home Medications Medication Instructions Recorded Confirmed amLODIPine [Norvasc] 10 mg PO DAILY 12/19/17 06/27/21 lisinopriL 40 mg PO DAILY 09/05/20 06/27/21 LORazepam [Ativan] 1 mg PO TID PRN 05/17/21 06/27/21 hydroCHLOROthiazide 50 mg PO DAILY PRN 05/17/21 06/27/21 levETIRAcetam [Keppra] 1,000 mg PO BID 05/17/21 06/27/21 Ergocalciferol (Vitamin D2) 1,250 mcg PO QMONTHLY 06/27/21 06/27/21 [Drisdol (50,000 Iu)] Naproxen 500 mg PO BID PRN 06/27/21 06/27/21 Potassium Chloride ER [K-Dur 20] 20 meq PO DAILY 06/27/21 06/27/21 Previous Rx's Medication Instructions Recorded Dicyclomine [Bentyl] 20 mg PO QID #12 tablet 06/28/21 chlordiazePOXIDE HCl [Librium] 25 mg PO TID 3 Days #9 capsule 04/18/22 Allergies Allergy/AdvReac Type Severity Reaction Status Date / Time shellfish derived [Shellfish] Allergy Anaphylaxis Verified 04/22/23 01:37 wheat Allergy Anaphylaxis Verified 04/22/23 01:37 tramadol AdvReac Seizure Verified 04/22/23 01:37 Review of Systems ROS Statement: Those systems with pertinent positive or pertinent negative responses have been documented in the HPI. ROS Other: All systems not noted in ROS Statement are negative. Past Medical History Past Medical History: Hypertension, Seizure Disorder Additional Past Medical History / Comment(s): seizures, brain tumor diagnosed 2020, insomnia History of Any Multi-Drug Resistant Organisms: None Reported Past Surgical History: Hysterectomy, Tubal Ligation Past Anesthesia/Blood Transfusion Reactions: No Reported Reaction Past Psychological History: Anxiety Smoking Status: Current some day smoker Past Alcohol Use History: Occasional Past Drug Use History: None Reported - Past Family History Mother Family Medical History: Diabetes Mellitus General Exam General appearance: in no apparent distress, appears intoxicated Head exam: Present: atraumatic, normocephalic, normal inspection Eye exam: Present: normal appearance, PERRL, EOMI. Absent: scleral icterus, conjunctival injection, periorbital swelling ENT exam: Present: normal exam, mucous membranes moist Neck exam: Present: normal inspection. Absent: tenderness, meningismus, lymphadenopathy Respiratory exam: Present: normal lung sounds bilaterally. Absent: respiratory distress, wheezes, rales, rhonchi, stridor Cardiovascular Exam: Present: regular rate, normal rhythm, normal heart sounds. Absent: systolic murmur, diastolic murmur, rubs, gallop, clicks GI/Abdominal exam: Present: soft, normal bowel sounds. Absent: distended, tenderness, guarding, rebound, rigid Extremities exam: Present: normal inspection, full ROM, normal capillary refill. Absent: tenderness, pedal edema, joint swelling, calf tenderness Back exam: Present: normal inspection Neurological exam: Present: alert, oriented X3, CN II-XII intact Psychiatric exam: Present: normal affect, normal mood Skin exam: Present: warm, dry, intact, normal color. Absent: rash Course Vital Signs 04/22/23 04/22/23 01:26 03:00 Temperature 97.8 F Pulse Rate 107 H 93 Respiratory 18 18 Rate Blood Pressure 114/93 128/93 O2 Sat by Pulse 100 100 Oximetry Medical Decision Making - Medical Decision Making Was pt. sent in by a medical professional or institution (, PA, SLURRY PLANT OPERATOR, urgent care, hospital, or snf...) When possible be specific @ -No Did you speak to anyone other than the patient for history (EMS, parent, family, police, friend...)? What history was obtained from this source @ -EMS Did you review nursing and triage notes (agree or disagree)? Why? @ -I reviewed and agree with nursing and triage notes Were old charts reviewed (outside hosp., previous admission, EMS record, old EKG, old radiological studies, urgent care reports/EKG's, snf records)? Report findings @ -Old charts were reviewed as patient has been here multiple times for same complaint Differential Diagnosis (chest pain, altered mental status, abdominal pain women, abdominal pain men, vaginal bleeding, weakness, fever, dyspnea, syncope, headache, dizziness, GI bleed, back pain, seizure, CVA, palpatations, mental health, musculoskeletal)? @ -Differential Headache: Migraine, tension, cluster, carbon monoxide, central venous thrombosis, pension karma temporal arteritis, acute closure glaucoma, intercranial hemorrhage, mastoiditis, sinusitis, head injury, this is not meant to be an all-inclusive list. EKG interpreted by me (3pts min.). @ -Yes and demonstrates sinus tachycardia with a rate of 108. WA interval of 185. QRS 86. QTC of 391. No acute ST segment elevations or depressions X-rays interpreted by me (1pt min.). @ -None done CT interpreted by me (1pt min.). @ -None done U/S interpreted by me (1pt. min.). @ -None done What testing was considered but not performed or refused? (CT, X-rays, U/S, labs)? Why? @ -None What meds were considered but not given or refused? Why? @ -None Did you discuss the management of the patient with other professionals (professionals i.e. , PA, SLURRY PLANT OPERATOR, lab, RT, psych nurse, social work associate, rolling machine operator, teacher, artillery officer, caser in)? Give summary @ -No Was smoking cessation discussed for >3mins.? @ -No Was critical care preformed (if so, how long)? @ -No Were there social determinants of health that impacted care today? How? (Homelessness, low income, unemployed, alcoholism, drug addiction, transportation, low edu. Level, literacy, decrease access to med. care, retirement, rehab)? @ -No Was there de-escalation of care discussed even if they declined (Discuss DNR or withdrawal of care, Hospice)? DNR status @ -No What co-morbidities impacted this encounter? (DM, HTN, Smoking, COPD, CAD, Cancer, CVA, ARF, Chemo, Hep., AIDS, mental health diagnosis, sleep apnea, morbid obesity)? @ -Brain mass, chronic headaches Was patient admitted / discharged? Hospital course, mention meds given and route, prescriptions, significant lab abnormalities, going to OR and other pertinent info. @ -Patient eloped without telling anyone. She was originally placed in room 11. IV was established. Laboratory studies were conducted. Patient was given pain medications. I did return to reevaluate the patient and it was determined that the patient had left with her IV in. Police were called due to protocol Undiagnosed new problem with uncertain prognosis? @ -Yes Drug Therapy requiring intensive monitoring for toxicity (Heparin, Nitro, Insulin, Cardizem)? @ -No Were any procedures done? @ -No Diagnosis/symptom? @ -Acute on chronic migraines, alcohol intoxication Acute, or Chronic, or Acute on Chronic? @ -Acute Uncomplicated (without systemic symptoms) or Complicated (systemic symptoms)? @ -Complicated Side effects of treatment? @ -No Exacerbation, Progression, or Severe Exacerbation? @ -Yes Poses a threat to life or bodily function? How? (Chest pain, [place], [place], pneumonia, PE, COPD, DKA, ARF, appy, cholecystitis, CVA, Diverticulitis, Homicidal, Suicidal, threat to staff... and all critical care pts) @ -No - Lab Data Result diagrams: 04/22/23 02:27 04/22/23 03:09 Lab Results 04/22/23 04/22/23 Range/Units 02:27 03:09 WBC 8.0 (3.8-10.6) k/uL RBC 5.37 (3.80-5.40) m/uL Hgb 13.6 (11.4-16.0) gm/dL Hct 43.1 (34.0-46.0) % MCV 80.3 (80.0-100.0) fL MCH 25.3 (25.0-35.0) pg MCHC 31.6 (31.0-37.0) g/dL RDW 14.7 (11.5-15.5) % Plt Count 256 (150-450) k/uL MPV 10.9 Neutrophils % 60 % Lymphocytes % 31 % Monocytes % 4 % Eosinophils % 2 % Basophils % 0 % Neutrophils # 4.8 (1.3-7.7) k/uL Lymphocytes # 2.5 (1.0-4.8) k/uL Monocytes # 0.3 (0-1.0) k/uL Eosinophils # 0.2 (0-0.7) k/uL Basophils # 0.0 (0-0.2) k/uL Hypochromasia Slight Sodium 144 (137-145) mmol/L Potassium 4.2 (3.5-5.1) mmol/L Chloride 106 (98-107) mmol/L Carbon Dioxide 18 L (22-30) mmol/L Anion Gap 20 mmol/L BUN 12 (7-17) mg/dL Creatinine 0.69 (0.52-1.04) mg/dL Est GFR (CKD-EPI)AfAm >90 (>60 ml/min/1.73 sqM) Est GFR (CKD-EPI)NonAf >90 (>60 ml/min/1.73 sqM) Glucose 86 (74-99) mg/dL Calcium 10.4 H (8.4-10.2) mg/dL Magnesium 1.7 (1.6-2.3) mg/dL Total Bilirubin 0.4 (0.2-1.3) mg/dL AST 30 (14-36) U/L ALT 30 (4-34) U/L Alkaline Phosphatase 59 (38-126) U/L Total Protein 8.8 H (6.3-8.2) g/dL Albumin 5.0 (3.5-5.0) g/dL Serum Alcohol 349 H* mg/dL Disposition Clinical Impression: Alcohol intoxication, Migraine Disposition: LEFT AGAINST MEDICAL ADVICE Condition: Undetermined Is patient prescribed a controlled substance at d/c from ED?: No Referrals: Lico Bañuelos MD [Primary Care Provider] - 1-2 days
[2023-04-22 03:26] LABS: Basophils % (A) 0 %; Eosinophils # (A) 0.2 k/uL (0-0.7); Eosinophils % (A) 2 %; HCT 43.1 % (34.0-46.0); HGB 13.6 gm/dL (11.4-16.0); Hypochromasia Slight; Lymphocytes # (A) 2.5 k/uL (1.0-4.8); Lymphocytes % (A) 31 %; MCH 25.3 pg (25.0-35.0); MCHC 31.6 g/dL (31.0-37.0); MCV 80.3 fL (80.0-100.0); Mean Platelet Volume 10.9; Monocytes # (A) 0.3 k/uL (0-1.0); Monocytes % (A) 4 %; Neutrophils # (A) 4.8 k/uL (1.3-7.7); Neutrophils % (A) 60 %; Platelet Count 256 k/uL (150-450); RBC 5.37 m/uL (3.80-5.40); RDW 14.7 % (11.5-15.5)
[2023-04-22 03:50] LABS: ALT 30 U/L (4-34); AST 30 U/L (14-36); African American GFR (CKD) >90 (>60 ml/min/1.73 sqM); Alkaline Phosphatase 59 U/L (38-126); Anion Gap 20 mmol/L; Blood Urea Nitrogen 12 mg/dL (7-17); Calcium 10.4 mg/dL (8.4-10.2); Carbon Dioxide 18 mmol/L (22-30); Chloride 106 mmol/L (98-107); Glucose 86 mg/dL (74-99); Magnesium 1.7 mg/dL (1.6-2.3); Non-African American GFR(CKD) >90 (>60 ml/min/1.73 sqM); Potassium 4.2 mmol/L (3.5-5.1); Sodium 144 mmol/L (137-145); Total Bilirubin 0.4 mg/dL (0.2-1.3); Total Protein 8.8 g/dL (6.3-8.2)
[2023-04-22 03:55] VITALS: BP 128/93; PULSE 93
[2023-04-22 05:15] LABS: Alcohol 349 mg/dL
== END 2023-04-22 04:48 | disposition left against medical advice (07) ==
LOC: EC 01:25
DX: G43.909 Migraine, unspecified, not intractable, without status migrainosus (principal); F10.129 Alcohol abuse with intoxication, unspecified; I10 Essential (primary) hypertension; F17.200 Nicotine dependence, unspecified, uncomplicated; F41.9 Anxiety disorder, unspecified; Z79.899 Other long term (current) drug therapy; Z88.5 Allergy status to narcotic agent; Z88.8 Allergy status to other drugs, medicaments and biological substances; Z91.013 Allergy to seafood; Z53.29 Procedure and treatment not carried out because of patient's decision for other reasons; Y90.8 Blood alcohol level of 240 mg/100 ml or more
CPT/HCPCS: 99284 ×2; 96374 ×2; 96375 ×3; 96361 ×2; 36415; 93005; 80053; 83735; 85025; G0480; J1200; J2765; J2270; 80320

== ENCOUNTER 2023-05-19 00:02 | Emergency (ER) | payer OTHER ==
[2023-05-19 00:39] VITALS: TEMP 98.4
[2023-05-19] MEDS ORDERED: dexAMETHasone 2 MG TAB PO STA (02:34)
--- NOTE | 2023-05-19 02:35 | ED ---
General Adult HPI - General Chief complaint: ENT Stated complaint: Sore Throat Time Seen by Provider: 05/19/23 00:27 Source: patient, RN notes reviewed Mode of arrival: ambulatory Limitations: no limitations - History of Present Illness Initial comments: 47-year-old -[place] female with a past medical history significant for EtOH abuse, seizures, brain tumor presents the emergency department with a chief complaint of sore throat. She reports that she's had a sinus throat that she describes as burning for the last 2 days. She has not been taking any at home remedies. She denies recent sick contacts. Denies any known fevers or headache, cough, nausea, vomiting, chest pain or shortness of breath. - Related Data Home Medications Medication Instructions Recorded Confirmed amLODIPine [Norvasc] 10 mg PO DAILY 12/19/17 06/27/21 lisinopriL 40 mg PO DAILY 09/05/20 06/27/21 LORazepam [Ativan] 1 mg PO TID PRN 05/17/21 06/27/21 hydroCHLOROthiazide 50 mg PO DAILY PRN 05/17/21 06/27/21 levETIRAcetam [Keppra] 1,000 mg PO BID 05/17/21 06/27/21 Ergocalciferol (Vitamin D2) 1,250 mcg PO QMONTHLY 06/27/21 06/27/21 [Drisdol (50,000 Iu)] Naproxen 500 mg PO BID PRN 06/27/21 06/27/21 Potassium Chloride ER [K-Dur 20] 20 meq PO DAILY 06/27/21 06/27/21 Previous Rx's Medication Instructions Recorded Dicyclomine [Bentyl] 20 mg PO QID #12 tablet 06/28/21 chlordiazePOXIDE HCl [Librium] 25 mg PO TID 3 Days #9 capsule 04/18/22 Allergies Allergy/AdvReac Type Severity Reaction Status Date / Time shellfish derived [Shellfish] Allergy Anaphylaxis Verified 05/19/23 00:09 wheat Allergy Anaphylaxis Verified 05/19/23 00:09 tramadol AdvReac Seizure Verified 05/19/23 00:09 Review of Systems ROS Statement: Those systems with pertinent positive or pertinent negative responses have been documented in the HPI. ROS Other: All systems not noted in ROS Statement are negative. Past Medical History Past Medical History: Hypertension, Seizure Disorder Additional Past Medical History / Comment(s): seizures, brain tumor diagnosed 2019, insomnia History of Any Multi-Drug Resistant Organisms: None Reported Past Surgical History: Hysterectomy, Tubal Ligation Past Anesthesia/Blood Transfusion Reactions: No Reported Reaction Past Psychological History: Anxiety Smoking Status: Current some day smoker Past Alcohol Use History: Occasional Past Drug Use History: None Reported - Past Family History Mother Family Medical History: Diabetes Mellitus General Exam - General Exam Comments Initial Comments: General: Alert, in no acute distress Head: atraumatic normocephalic. Eyes PERRL, EOMI intact, mucous membranes moist, throat without tonsilarmegaly or tonsillar exudate Respiratory: Lungs clear to auscultation bilaterally Cardiovascular: Regular rate and rhythm Abdominal: Soft without guarding or rebound Extremities: Normal inspection with full range of motion and normal capillary refill Neuroogic: alert and oriented 3, CN II-XII intact, able to ambulate with steady gait Skin: warm dry and intact with normal color Limitations: no limitations Course Vital Signs 05/19/23 05/19/23 00:06 03:04 Temperature 98.4 F Pulse Rate 100 90 Respiratory 20 17 Rate Blood Pressure 125/89 136/87 O2 Sat by Pulse 98 100 Oximetry Medical Decision Making - Medical Decision Making Was pt. sent in by a medical professional or institution (, PA, EMPLOYMENT INSTRUCTIONAL ASSOCIATE, urgent care, hospital, or senior living...) When possible be specific @ -[No] Did you speak to anyone other than the patient for history (EMS, parent, family, police, friend...)? What history was obtained from this source @ -[No] Did you review nursing and triage notes (agree or disagree)? Why? @ -[I reviewed and agree with nursing and triage notes] Were old charts reviewed (outside hosp., previous admission, EMS record, old EKG, old radiological studies, urgent care reports/EKG's, senior living records)? Report findings @ -[No old charts were reviewed] Differential Diagnosis (chest pain, altered mental status, abdominal pain women, abdominal pain men, vaginal bleeding, weakness, fever, dyspnea, syncope, he adache, dizziness, GI bleed, back pain, seizure, CVA, palpatations, mental health, musculoskeletal)? @ -[not applicable] EKG interpreted by me (3pts min.). @ -[As above] X-rays interpreted by me (1pt min.). @ -[None done] CT interpreted by me (1pt min.). @ -[None done] U/S interpreted by me (1pt. min.). @ -[None done] What testing was considered but not performed or refused? (CT, X-rays, U/S, labs)? Why? @ -[None] What meds were considered but not given or refused? Why? @ -[None] Did you discuss the management of the patient with other professionals (professionals i.e. , PA, EMPLOYMENT INSTRUCTIONAL ASSOCIATE, lab, RT, psych nurse, social service director, hepatologist, teacher, bomb squad officer, manager case)? Give summary @ -[No] Was smoking cessation discussed for >3mins.? @ -[No] Was critical care preformed (if so, how long)? @ -[No] Were there social determinants of health that impacted care today? How? (Homelessness, low income, unemployed, alcoholism, drug addiction, transportation, low edu. Level, literacy, decrease access to med. care, [facility], rehab)? @ -[No] Was there de-escalation of care discussed even if they declined (Discuss DNR or withdrawal of care, Hospice)? DNR status @ -[No] What co-morbidities impacted this encounter? (DM, HTN, Smoking, COPD, CAD, Cancer, CVA, ARF, Chemo, Hep., AIDS, mental health diagnosis, sleep apnea, morbid obesity)? @ -[None] Was patient admitted / discharged? Hospital course, mention meds given and route, prescriptions, significant lab abnormalities, going to OR and other pertinent info. @ -Discharged. This is a 47-year-old female who presents the emergency department with critical. Patient had a thorough history and physical exam performed. Physical exam is essentially unremarkable. Patient is afebrile. Vital signs stable. Fill without tonsillomegaly or tonsillar exudate. Viral swabs are negative. Patient be given Decadron. Return precautions discussed at length. Discharged in stable condition. Case discussed with Dr. Pryor Elizabeth who agrees with plan of care Undiagnosed new problem with uncertain prognosis? @ -[No] Drug Therapy requiring intensive monitoring for toxicity (Heparin, Nitro, Insulin, Cardizem)? @ -[No] Were any procedures done? @ -[No] Diagnosis/symptom? @ -Sore throat vs. Pharyngitis Acute, or Chronic, or Acute on Chronic? @ -Acute Uncomplicated (without systemic symptoms) or Complicated (systemic symptoms)? @ -Uncomplicated Side effects of treatment? @ -[No] Exacerbation, Progression, or Severe Exacerbation? @ -[No] Poses a threat to life or bodily function? How? (Chest pain, [place], [place], pneumonia, PE, COPD, DKA, ARF, appy, cholecystitis, CVA, Diverticulitis, Homicidal, Suicidal, threat to staff... and all critical care pts) @ -Low likelihood - Lab Data Lab Results 05/19/23 05/19/23 Range/Units 01:24 01:24 Influenza Type A (PCR) Not Detected (Not Detectd) Influenza Type B (PCR) Not Detected (Not Detectd) RSV (PCR) Not Detected (Not Detectd) SARS-CoV-2 (PCR) Not Detected (Not Detectd) Group A Strep (PCR) NOT DETECTED (Not Detectd) Disposition Clinical Impression: Sore throat Disposition: HOME SELF-CARE Condition: Stable Instructions (If sedation given, give patient instructions): Pharyngitis (ED) Additional Instructions: Please take Tylenol or Motrin for pain Please increase fluids over the next few days These return if any worsening symptoms develop Is patient prescribed a controlled substance at d/c from ED?: No Referrals: Lico Bañuelos MD [Primary Care Provider] - 1-2 days Forms: Area PCPs Time of Disposition: 02:35
[2023-05-19] MEDS ORDERED: LIDOCAINE 2% GLYDO JELLY 11 ML APPL MUCOUS MEM ONE (02:49)
[2023-05-19 03:11] VITALS: BP 136/87; PULSE 90; RESP 17
== END 2023-05-19 03:06 | disposition home or self-care (01) ==
LOC: EC 00:02
DX: J02.9 Acute pharyngitis, unspecified (principal); I10 Essential (primary) hypertension; F41.9 Anxiety disorder, unspecified; F17.200 Nicotine dependence, unspecified, uncomplicated; Z79.899 Other long term (current) drug therapy; Z20.822 Contact with and (suspected) exposure to COVID-19; Z91.013 Allergy to seafood; Z88.5 Allergy status to narcotic agent; Z88.8 Allergy status to other drugs, medicaments and biological substances
CPT/HCPCS: 87651; 87636; 99283; J8540

== ENCOUNTER 2023-09-06 16:59 | Emergency (ER) | payer OTHER ==
[2023-09-06 17:41] VITALS: TEMP 98.7
--- NOTE | 2023-09-06 17:52 | ED ---
General Adult HPI - General Stated complaint: Seizures Time Seen by Provider: 09/06/23 17:00 Source: patient, EMS, RN notes reviewed, old records reviewed Mode of arrival: EMS Limitations: no limitations - History of Present Illness Initial comments: 47-year-old female presents emergency department complaint of seizure. Patient has long history of seizures. Patient states she is having Brivacta, which she states she was on Keppra prior to this. Patient dates she had a recent MRI which was normal. Patient states she is followed by [facility] neurology. Patient denies any chest pain shortness of breath. This was an unwitnessed seizures no injury. Patient states she just knew she had 1 because she was tired and confused at home. Patient denies any complaints of headache no focal weakness no other complaints. - Related Data Home Medications Medication Instructions Recorded Confirmed amLODIPine [Norvasc] 10 mg PO DAILY 12/19/17 06/27/21 lisinopriL 40 mg PO DAILY 09/05/20 06/27/21 LORazepam [Ativan] 1 mg PO TID PRN 05/17/21 06/27/21 hydroCHLOROthiazide 50 mg PO DAILY PRN 05/17/21 06/27/21 levETIRAcetam [Keppra] 1,000 mg PO BID 05/17/21 06/27/21 Ergocalciferol (Vitamin D2) 1,250 mcg PO QMONTHLY 06/27/21 06/27/21 [Drisdol (50,000 Iu)] Naproxen 500 mg PO BID PRN 06/27/21 06/27/21 Potassium Chloride ER [K-Dur 20] 20 meq PO DAILY 06/27/21 06/27/21 Previous Rx's Medication Instructions Recorded Dicyclomine [Bentyl] 20 mg PO QID #12 tablet 06/28/21 chlordiazePOXIDE HCl [Librium] 25 mg PO TID 3 Days #9 capsule 04/18/22 Allergies Allergy/AdvReac Type Severity Reaction Status Date / Time shellfish derived [Shellfish] Allergy Anaphylaxis Verified 09/06/23 17:25 wheat Allergy Anaphylaxis Verified 09/06/23 17:25 tramadol AdvReac Seizure Verified 09/06/23 17:25 Review of Systems ROS Statement: Those systems with pertinent positive or pertinent negative responses have been documented in the HPI. ROS Other: All systems not noted in ROS Statement are negative. Past Medical History Past Medical History: Hypertension, Seizure Disorder Additional Past Medical History / Comment(s): seizures, brain tumor diagnosed 2020, insomnia History of Any Multi-Drug Resistant Organisms: None Reported Past Surgical History: Hysterectomy, Tubal Ligation Past Anesthesia/Blood Transfusion Reactions: No Reported Reaction Past Psychological History: Anxiety Smoking Status: Current some day smoker Past Alcohol Use History: Occasional Past Drug Use History: None Reported - Past Family History Mother Family Medical History: Diabetes Mellitus General Exam Limitations: no limitations General appearance: alert, in no apparent distress Head exam: Present: atraumatic, normocephalic, normal inspection Eye exam: Present: normal appearance, PERRL, EOMI. Absent: scleral icterus, conjunctival injection, periorbital swelling ENT exam: Present: normal exam, normal oropharynx, mucous membranes moist Neck exam: Present: normal inspection, full ROM. Absent: tenderness, meningismus, lymphadenopathy Respiratory exam: Present: normal lung sounds bilaterally. Absent: respiratory distress, wheezes, rales, rhonchi, stridor Cardiovascular Exam: Present: normal rhythm, tachycardia, normal heart sounds. Absent: systolic murmur, diastolic murmur, rubs, gallop, clicks GI/Abdominal exam: Present: soft, normal bowel sounds. Absent: distended, tenderness, guarding, rebound, rigid Neurological exam: Present: alert, oriented X3, CN II-XII intact, reflexes normal. Absent: motor sensory deficit Course Vital Signs 09/06/23 17:18 Temperature 98.7 F Pulse Rate 125 H Respiratory 20 Rate O2 Sat by Pulse 99 Oximetry EKG Findings - EKG Comments: EKG Findings:: EKG performed at 1759 sinus tachycardia rate of 107 LA 148 QRS 79 QT/QTc 327/390 - EKG Results: EKG: interpreted by ERMD Medical Decision Making - Medical Decision Making Was pt. sent in by a medical professional or institution (, PA, SYSTEMS DEVELOPMENT MANAGER, urgent care, hospital, or jail...) When possible be specific @ -No Did you speak to anyone other than the patient for history (EMS, parent, family, police, friend...)? What history was obtained from this source @ -No Did you review nursing and triage notes (agree or disagree)? Why? @ -I reviewed and agree with nursing and triage notes Were old charts reviewed (outside hosp., previous admission, EMS record, old EKG, old radiological studies, urgent care reports/EKG's, jail records)? Report findings @ -No old charts were reviewed Differential Diagnosis (chest pain, altered mental status, abdominal pain women, abdominal pain men, vaginal bleeding, weakness, fever, dyspnea, syncope, headache, dizziness, GI bleed, back pain, seizure, CVA, palpatations, mental health, musculoskeletal)? @ -Differential Seizure: Recurrent seizure disorder, febrile seizure, alcohol withdrawal, stimulants, meningitis, encephalitis, intercranial hemorrhage, intracranial tumor, stroke, eclampsia, thyrotoxicosis, hypocalcemia, hyponatremia, hypernatremia, hypomagnesemia, psychogenic, this is not meant to be an all-inclusive list. EKG interpreted by me (3pts min.). @ -As above X-rays interpreted by me (1pt min.). @ -None done CT interpreted by me (1pt min.). @ -None done U/S interpreted by me (1pt. min.). @ -None done What testing was considered but not performed or refused? (CT, X-rays, U/S, labs)? Why? @Consider CT though patient had recent MRI What meds were considered but not given or refused? Why? @ -None Did you discuss the management of the patient with other professionals (professionals i.e. , PA, SYSTEMS DEVELOPMENT MANAGER, lab, RT, psych nurse, social worker assistant, commissioner public works, teacher, chief strategy officer, telephonic case manager)? Give summary @ -No Was smoking cessation discussed for >3mins.? @ -No Was critical care preformed (if so, how long)? @ -No Were there social determinants of health that impacted care today? How? (Homelessness, low income, unemployed, alcoholism, drug addiction, transportation, low edu. Level, literacy, decrease access to med. care, [facility], rehab)? @ -No Was there de-escalation of care discussed even if they declined (Discuss DNR or withdrawal of care, Hospice)? DNR status @ -No What co-morbidities impacted this encounter? (DM, HTN, Smoking, COPD, CAD, Cancer, CVA, ARF, Chemo, Hep., AIDS, mental health diagnosis, sleep apnea, morbid obesity)? @ -Seizure Was patient admitted / discharged? Hospital course, mention meds given and route, prescriptions, significant lab abnormalities, going to OR and other pertinent info. @ -Discharge patient heart rate is improved after IV fluids, patient laboratory studies essentially unremarkable. Patient will follow-up with her neurologist return parameters discussed. Undiagnosed new problem with uncertain prognosis? @ -No Drug Therapy requiring intensive monitoring for toxicity (Heparin, Nitro, Insulin, Cardizem)? @ -No Were any procedures done? @ -No Diagnosis/symptom? @ -Seizure Acute, or Chronic, or Acute on Chronic? @ -Acute Uncomplicated (without systemic symptoms) or Complicated (systemic symptoms)? @ -Uncomplicated Side effects of treatment? @ -No Exacerbation, Progression, or Severe Exacerbation? @ -No Poses a threat to life or bodily function? How? (Chest pain, [place], NH, pneumonia, PE, COPD, DKA, ARF, appy, cholecystitis, CVA, Diverticulitis, Homicidal, Suicidal, threat to staff... and all critical care pts) @ -No - Lab Data Result diagrams: 09/06/23 17:59 09/06/23 17:59 Lab Results 09/06/23 09/06/23 Range/Units 17:59 17:59 WBC 8.3 (3.8-10.6) k/uL RBC 5.35 (3.80-5.40) m/uL Hgb 13.4 (11.4-16.0) gm/dL Hct 43.8 (34.0-46.0) % MCV 82.0 (80.0-100.0) fL MCH 25.0 (25.0-35.0) pg MCHC 30.5 L (31.0-37.0) g/dL RDW 14.9 (11.5-15.5) % Plt Count 322 (150-450) k/uL MPV 6.8 Neutrophils % 60 % Lymphocytes % 31 % Monocytes % 3 % Eosinophils % 1 % Basophils % 1 % Neutrophils # 5.0 (1.3-7.7) k/uL Lymphocytes # 2.6 (1.0-4.8) k/uL Monocytes # 0.3 (0-1.0) k/uL Eosinophils # 0.1 (0-0.7) k/uL Basophils # 0.0 (0-0.2) k/uL Hypochromasia Slight Sodium 146 H (137-145) mmol/L Potassium 4.0 (3.5-5.1) mmol/L Chloride 112 H (98-107) mmol/L Carbon Dioxide 19 L (22-30) mmol/L Anion Gap 15 mmol/L BUN 18 H (7-17) mg/dL Creatinine 0.73 (0.52-1.04) mg/dL Est GFR (CKD-EPI)AfAm >90 (>60 ml/min/1.73 sqM) Est GFR (CKD-EPI)NonAf >90 (>60 ml/min/1.73 sqM) Glucose 86 (74-99) mg/dL Calcium 9.8 (8.4-10.2) mg/dL Magnesium 1.7 (1.6-2.3) mg/dL Total Bilirubin 0.4 (0.2-1.3) mg/dL AST 31 (14-36) U/L ALT 29 (4-34) U/L Alkaline Phosphatase 63 (38-126) U/L Total Protein 8.4 H (6.3-8.2) g/dL Albumin 5.0 (3.5-5.0) g/dL Disposition Clinical Impression: Seizure Disposition: HOME SELF-CARE Condition: Stable Instructions (If sedation given, give patient instructions): Recurrent Seizures in Adults (ED) Additional Instructions: Please return to the Emergency Department if symptoms worsen or any other concerns. Is patient prescribed a controlled substance at d/c from ED?: No Referrals: Lico Bañuelos MD [Primary Care Provider] - 1-2 days Time of Disposition: 18:47
[2023-09-06 18:41] LABS: ALT 29 U/L (4-34); AST 31 U/L (14-36); African American GFR (CKD) >90 (>60 ml/min/1.73 sqM); Alkaline Phosphatase 63 U/L (38-126); Anion Gap 15 mmol/L; Blood Urea Nitrogen 18 mg/dL (7-17); Calcium 9.8 mg/dL (8.4-10.2); Carbon Dioxide 19 mmol/L (22-30); Chloride 112 mmol/L (98-107); Glucose 86 mg/dL (74-99); Magnesium 1.7 mg/dL (1.6-2.3); Non-African American GFR(CKD) >90 (>60 ml/min/1.73 sqM); Sodium 146 mmol/L (137-145); Total Bilirubin 0.4 mg/dL (0.2-1.3); Total Protein 8.4 g/dL (6.3-8.2)
[2023-09-06 18:44] LABS: Basophils % (A) 1 %; Eosinophils # (A) 0.1 k/uL (0-0.7); Eosinophils % (A) 1 %; HCT 43.8 % (34.0-46.0); HGB 13.4 gm/dL (11.4-16.0); Hypochromasia Slight; Lymphocytes # (A) 2.6 k/uL (1.0-4.8); Lymphocytes % (A) 31 %; MCHC 30.5 g/dL (31.0-37.0); Mean Platelet Volume 6.8; Monocytes # (A) 0.3 k/uL (0-1.0); Monocytes % (A) 3 %; Neutrophils % (A) 60 %; Platelet Count 322 k/uL (150-450); RBC 5.35 m/uL (3.80-5.40); RDW 14.9 % (11.5-15.5); WBC 8.3 k/uL (3.8-10.6)
[2023-09-06] MEDS: LORazepam 2 MG/ML INJ IV STA (18:45)
[2023-09-06] MEDS: SODIUM CHLORIDE 0.9% 1,000 ML IV ONE (18:45)
[2023-09-06] MEDS: SODIUM CHLORIDE 0.9% 500 ML 500 ML IV STA (18:47)
[2023-09-06 20:05] VITALS: BP 116/83; PULSE 101; RESP 18
== END 2023-09-06 19:41 | disposition home or self-care (01) ==
LOC: EC 16:59
DX: G40.409 Other generalized epilepsy and epileptic syndromes, not intractable, without status epilepticus (principal); F17.200 Nicotine dependence, unspecified, uncomplicated; Z91.018 Allergy to other foods; Z88.5 Allergy status to narcotic agent; Z91.013 Allergy to seafood
CPT/HCPCS: 36415; 93005; 80053; 83735; 85025; 99284; 96374; 96361; J2060

== ENCOUNTER 2023-09-24 11:59 | Emergency (ER) | payer OTHER ==
[2023-09-24] MEDS: PROPARACAINE 0.5% OPHTH DROPS 15 ML BTL LEFT EYE STA (12:49)
[2023-09-24] MEDS: FLUORESCEIN STRIPS 1 MG STRIP LEFT EYE ONE (12:49)
[2023-09-24 12:57] VITALS: RESP 18; TEMP 98.2
--- NOTE | 2023-09-24 13:29 | ED ---
Eye Problem HPI - General Chief complaint: Eye Problems Stated complaint: Eye Pain Time Seen by Provider: 09/24/23 12:37 Source: patient, RN notes reviewed Mode of arrival: ambulatory Limitations: no limitations - History of Present Illness Initial comments: This is a 47-year-old female who presents to the emergency department for left eye pain. Patient has a seizure disorder and had a seizure this morning. EMS was called to the house, however she was not transported to the hospital due to the history of seizures and feeling okay. She later called EMS back due to pain in the left eye. Unsure if she may have gotten something in the eye during the seizure. Denies any visual difficulties, but states that she feels like something is in it. MD chief complaint: eye pain - Related Data Home Medications Medication Instructions Recorded Confirmed amLODIPine [Norvasc] 10 mg PO DAILY 12/19/17 06/27/21 lisinopriL 40 mg PO DAILY 09/05/20 06/27/21 LORazepam [Ativan] 1 mg PO TID PRN 05/17/21 06/27/21 hydroCHLOROthiazide 50 mg PO DAILY PRN 05/17/21 06/27/21 levETIRAcetam [Keppra] 1,000 mg PO BID 05/17/21 06/27/21 Ergocalciferol (Vitamin D2) 1,250 mcg PO QMONTHLY 06/27/21 06/27/21 [Drisdol (50,000 Iu)] Naproxen 500 mg PO BID PRN 06/27/21 06/27/21 Potassium Chloride ER [K-Dur 20] 20 meq PO DAILY 06/27/21 06/27/21 Previous Rx's Medication Instructions Recorded Dicyclomine [Bentyl] 20 mg PO QID #12 tablet 06/28/21 chlordiazePOXIDE HCl [Librium] 25 mg PO TID 3 Days #9 capsule 04/18/22 Allergies Allergy/AdvReac Type Severity Reaction Status Date / Time shellfish derived [Shellfish] Allergy Anaphylaxis Verified 09/24/23 12:33 wheat Allergy Anaphylaxis Verified 09/24/23 12:33 tramadol AdvReac Seizure Verified 09/24/23 12:33 Review of Systems ROS Statement: Those systems with pertinent positive or pertinent negative responses have been documented in the HPI. ROS Other: All systems not noted in ROS Statement are negative. Past Medical History Past Medical History: Hypertension, Seizure Disorder Additional Past Medical History / Comment(s): seizures, brain tumor diagnosed 2019, insomnia History of Any Multi-Drug Resistant Organisms: None Reported Past Surgical History: Hysterectomy, Tubal Ligation Past Anesthesia/Blood Transfusion Reactions: No Reported Reaction Past Psychological History: Anxiety Smoking Status: Current some day smoker Past Alcohol Use History: Occasional Past Drug Use History: None Reported - Past Family History Mother Family Medical History: Diabetes Mellitus General Exam Limitations: no limitations General appearance: alert, in no apparent distress Head exam: Present: atraumatic, normocephalic, normal inspection Eye exam: Present: other (Corneal abrasion to the left eye. No foreign bodies visualized.) Respiratory exam: Present: normal lung sounds bilaterally. Absent: respiratory distress, wheezes, rales, rhonchi, stridor Cardiovascular Exam: Present: regular rate, normal rhythm, normal heart sounds. Absent: systolic murmur, diastolic murmur, rubs, gallop, clicks Neurological exam: Present: alert, oriented X3, CN II-XII intact Psychiatric exam: Present: normal affect, normal mood Skin exam: Present: warm, dry, intact, normal color. Absent: rash Course Vital Signs 09/24/23 09/24/23 12:22 14:09 Temperature 98.2 F Pulse Rate 88 80 Respiratory 18 18 Rate Blood Pressure 128/80 132/62 O2 Sat by Pulse 99 97 Oximetry Medical Decision Making - Medical Decision Making This is a 47-year-old female who presents to the emergency department for eye pain. Was pt. sent in by a medical professional or institution? @ -No Did you speak to anyone other than the patient for history? @ -No Did you review nursing and triage notes? @ -Yes, and I agree, it is accurate with regards to the patient's symptoms. Were old charts reviewed? @ -No Differential Diagnosis? @ -Differential Eye Pain: Conjuncitivitis (viral, bacterial, allergic), corneal abrasion, foreign body, iritis, uveitis, keratitis, acute angle closure glaucoma, this is not meant to be an all-inclusive list. EKG interpreted by me (3pts min.)? @ -Not obtained X-rays interpreted by me (1pt min.)? @ -Not obtained CT interpreted by me (1pt min.)? @ -Not obtained U/S interpreted by me (1pt. min.)? @ -Not obtained What testing was considered but not performed? (CT, X-rays, U/S, labs)? Why? @ -None What meds were considered but not given? Why? @ -None Did you discuss the management of the patient with other professionals? @ -No Did you reconcile home meds? @ -No Was smoking cessation discussed for >3mins.? @ -I discussed smoking cessation for greater than 3 minutes. The risk of smoking were discussed with the patient including but not limited to risks of cancer, stroke, coronary artery disease and COPD. Also discussed with patient were multiple methods of quitting smoking. Lastly we discussed the financial cost of smoking. Was critical care preformed (if so, how long)? @ -No Were there social determinants of health that impacted care today? How? (Homelessness, low income, unemployed, alcoholism, drug addiction, transportation, low edu. Level, literacy, decrease access to med. care, [facility], rehab)? @ -No Was there de-escalation of care discussed even if they declined? (Discuss DNR or withdrawal of care, Hospice)? @ -No What co-morbidities impacted this encounter? (DM, HTN, Smoking, COPD, CAD, Cancer, CVA, Hep., AIDS, mental health diagnosis, sleep apnea, morbid obesity)? @ -Seizure disorder Was patient admitted / discharged? @ -Discharged. Given the recurrent seizures, patient was not concerned about any workup regarding this. Noe lens was used to irrigate her left eye and fluorescein staining performed demonstrating a corneal abrasion. Patient given ciprofloxacin eyedrops in the emergency department. Dosing instructions re viewed. Advised ibuprofen and Tylenol as needed for pain relief and information for ophthalmology follow-up was provided. Patient discharged home in stable condition. Undiagnosed new problem with uncertain prognosis? @ -None Drug Therapy requiring intensive monitoring for toxicity (Heparin, Nitro, Insulin, Cardizem)? @ -None Were any procedures done? @ -None Diagnosis/symptom? @ -Corneal abrasion Acute, or Chronic, or Acute on Chronic? @ -Acute Uncomplicated (without systemic symptoms) or Complicated (systemic symptoms)? @ -Uncomplicated Side effects of treatment? @ -None Exacerbation, Progression, or Severe Exacerbation] @ -Not applicable Poses a threat to life or bodily function? @ -No Return precautions reviewed in depth, the patient is instructed to return to the emergency department with any new, worsening, or concerning symptoms. Patient verbalized understanding. This case was discussed in detail with the attending ED physician, Dr. Way. Presentation, findings, and treatment plan discussed in detail as well. Disposition Clinical Impression: Corneal abrasion, Nicotine dependence Disposition: HOME SELF-CARE Instructions (If sedation given, give patient instructions): Corneal Abrasion (ED) Additional Instructions: Return to the emergency department with any new, worsening, or concerning symptoms. Apply the ciprofloxacin eyedrops to the left eye as 2 drops 4 times daily for 5 days. Alternate with ibuprofen and Tylenol as needed for pain relief. Contact ophthalmology as listed below for a follow-up appointment if symptoms do not improve. Follow up with your primary care provider in 1-2 days. Is patient prescribed a controlled substance at d/c from ED?: No Referrals: Lico Bañuelos MD [Primary Care Provider] - 1-2 days Doni Sosa MD [STAFF PHYSICIAN] - 1-2 days Time of Disposition: 13:58
[2023-09-24] MEDS: KETOROLAC 0.5% OPHTH DROPS 5 ML BTL LEFT EYE STA (13:31)
[2023-09-24] MEDS: CIPROFLOXACIN 0.3% OPHTH SOLN 5 ML BTL LEFT EYE STA (13:31)
[2023-09-24 14:20] VITALS: BP 132/62; PULSE 80
== END 2023-09-24 14:10 | disposition home or self-care (01) ==
LOC: EC 11:59
DX: S05.02XA Injury of conjunctiva and corneal abrasion without foreign body, left eye, initial encounter (principal); Z88.5 Allergy status to narcotic agent; Z91.013 Allergy to seafood; Z88.8 Allergy status to other drugs, medicaments and biological substances; X58.XXXA Exposure to other specified factors, initial encounter
CPT/HCPCS: 99284; 99406

== ENCOUNTER 2023-10-30 18:46 | Emergency (ER) | payer OTHER ==
[2023-10-30 19:15] VITALS: TEMP 97.6
--- NOTE | 2023-10-30 19:29 | ED ---
Headache HPI - General Chief Complaint: Seizure Stated Complaint: Seizure Time Seen by Provider: 10/30/23 18:47 Source: RN notes reviewed, old records reviewed Mode of arrival: EMS Limitations: no limitations - History of Present Illness Initial Comments: This is a 47-year-old female to the ER for evaluation of headache multiple ER visits for headaches in the past with seizures as well, patient comes in for intoxication was here earlier today for intoxication and did leave AGAINST MEDICAL ADVICE Complaint: headache, "migraine" -: days(s) Onset Description: sudden, gradual Location: frontal Severity: moderate Severity scale (1-10): 4 Quality: aching, throbbing, pulsatile Consistency: constant Improves With: nothing Worsens With: none - Related Data Home Medications Medication Instructions Recorded Confirmed amLODIPine [Norvasc] 10 mg PO DAILY 12/19/17 06/27/21 lisinopriL 40 mg PO DAILY 09/05/20 06/27/21 LORazepam [Ativan] 1 mg PO TID PRN 05/17/21 06/27/21 hydroCHLOROthiazide 50 mg PO DAILY PRN 05/17/21 06/27/21 levETIRAcetam [Keppra] 1,000 mg PO BID 05/17/21 06/27/21 Ergocalciferol (Vitamin D2) 1,250 mcg PO QMONTHLY 06/27/21 06/27/21 [Drisdol (50,000 Iu)] Naproxen 500 mg PO BID PRN 06/27/21 06/27/21 Potassium Chloride ER [K-Dur 20] 20 meq PO DAILY 06/27/21 06/27/21 Previous Rx's Medication Instructions Recorded Dicyclomine [Bentyl] 20 mg PO QID #12 tablet 06/28/21 chlordiazePOXIDE HCl [Librium] 25 mg PO TID 3 Days #9 capsule 04/18/22 Allergies Allergy/AdvReac Type Severity Reaction Status Date / Time shellfish derived [Shellfish] Allergy Anaphylaxis Verified 11/12/23 18:12 wheat Allergy Anaphylaxis Verified 11/12/23 18:12 tramadol AdvReac Seizure Verified 11/12/23 18:12 Review of Systems ROS Statement: Those systems with pertinent positive or pertinent negative responses have been documented in the HPI. ROS Other: All systems not noted in ROS Statement are negative. Past Medical History Past Medical History: Hypertension, Seizure Disorder Additional Past Medical History / Comment(s): seizures, brain tumor diagnosed 2019, insomnia History of Any Multi-Drug Resistant Organisms: None Reported Past Surgical History: Hysterectomy, Tubal Ligation Past Anesthesia/Blood Transfusion Reactions: No Reported Reaction Past Psychological History: Anxiety Smoking Status: Current some day smoker Past Alcohol Use History: Occasional Past Drug Use History: None Reported - Past Family History Mother Family Medical History: Diabetes Mellitus General Exam Limitations: no limitations General appearance: alert, in no apparent distress Head exam: Present: atraumatic, normocephalic, normal inspection Eye exam: Present: normal appearance, PERRL, EOMI. Absent: scleral icterus, conjunctival injection, periorbital swelling ENT exam: Present: normal exam, mucous membranes moist Neck exam: Present: normal inspection. Absent: tenderness, meningismus, lymphadenopathy Respiratory exam: Present: normal lung sounds bilaterally. Absent: respiratory distress, wheezes, rales, rhonchi, stridor Cardiovascular Exam: Present: regular rate, normal rhythm, normal heart sounds. Absent: systolic murmur, diastolic murmur, rubs, gallop, clicks GI/Abdominal exam: Present: soft, normal bowel sounds. Absent: distended, tenderness, guarding, rebound, rigid Extremities exam: Present: normal inspection, full ROM, normal capillary refill. Absent: tenderness, pedal edema, joint swelling, calf tenderness Back exam: Present: normal inspection Neurological exam: Present: alert, oriented X3, CN II-XII intact Psychiatric exam: Present: normal affect, normal mood Skin exam: Present: warm, dry, intact, normal color. Absent: rash Course Vital Signs 10/30/23 10/30/23 18:52 19:35 Temperature 97.6 F Pulse Rate 101 H 87 Respiratory 18 19 Rate Blood Pressure 149/101 136/89 O2 Sat by Pulse 99 100 Oximetry - Reevaluation(s) Reevaluation #1: 10/30/23 19:27 Records reviewed Reevaluation #2: 10/30/23 19:27 Patient symptoms unchanged Reevaluation #3: 10/30/23 19:27 Patient informed of results and questions answered Reevaluation #4: Was pt. sent in by a medical professional or institution (, PA, MEMBERSHIP DIRECTOR, urgent care, hospital, or retirement...) When possible be specific @ -no Did you speak to anyone other than the patient for history (EMS, parent, family, police, friend...)? What history was obtained from this source @ -no Did you review nursing and triage notes (agree or disagree)? Why? @ -agree Are old charts reviewed (outside hosp., previous admission, EMS record, old EKG, old radiological studies, urgent care reports/EKG's, retirement records)? Report findings @ -yes Differential Diagnosis (chest pain, altered mental status, abdominal pain women, abdominal pain men, vaginal bleeding, weakness, fever, dyspnea, syncope, headache, dizziness, GI bleed, back pain, seizure, CVA, palpatations, mental health, musculoskeletal)? @ -prior EKG interpreted by me (3pts min.). @ -no X-rays interpreted by me (1pt min.). @ -no CT interpreted by me (1pt min.). @ -no U/S interpreted by me (1pt. min.). @ -no What testing was considered but not performed or refused? (CT, X-rays, U/S, labs)? Why? @ -none What meds were considered but not given or refused? Why? @ -none Did you discuss the management of the patient with other professionals (professionals i.e. , PA, MEMBERSHIP DIRECTOR, lab, RT, psych nurse, transition social worker, technology trainer, teacher, armored vehicle officer, pillowcase folder)? Give summary @ -no Was smoking cessation discussed for >3mins.? @ -no Was critical care preformed (if so, how long)? @ -no Were there social determinants of health that impacted care today? How? (Homelessness, low income, unemployed, alcoholism, drug addiction, transportation, low edu. Level, literacy, decrease access to med. care, long term, rehab)? @ -none Was there de-escalation of care discussed even if they declined (Discuss DNR or withdrawal of care, Hospice)? DNR status @ -no What co-morbidities impacted this encounter? (DM, HTN, Smoking, COPD, CAD, Cancer, CVA, ARF, Chemo, Hep., AIDS, mental health diagnosis, sleep apnea, morbid obesity)? @ -none Was patient admitted / discharged? Hospital course, mention meds given and route, prescriptions, significant lab abnormalities, going to OR and other pertinent info. @ - 47 female for reevaluation headache with multiple seizures today. Patient has no acute findings here in the ER and can be discharged home Discharge Undiagnosed new problem with uncertain prognosis? @ -no Drug Therapy requiring intensive monitoring for toxicity (Heparin, Nitro, Insulin, Cardizem)? @ -no Were any procedures done? @ -no Diagnosis/symptom? @ -Recurrent seizure Acute, or Chronic, or Acute on Chronic? @ -Acute Uncomplicated (without systemic symptoms) or Complicated (systemic symptoms)? @ -Complicated Side effects of treatment? @ -no Exacerbation, Progression, or Severe Exacerbation? @ -exacerbation Poses a threat to life or bodily function? How? (Chest pain, USA, LA, pneumonia, PE, COPD, DKA, ARF, appy, cholecystitis, CVA, Diverticulitis, Homicidal, Suicidal, threat to staff... and all critical care pts) @ -yes seizure with seizure history Reevaluation #5: Differential Headache: Migraine, tension, cluster, carbon monoxide, central venous thrombosis, pension karma temporal arteritis, acute closure glaucoma, intercranial hemorrhage, mastoiditis, sinusitis, head injury, this is not meant to be an all-inclusive list. Medical Decision Making - Medical Decision Making 47 female for reevaluation headache with multiple seizures today. Patient has no acute findings here in the ER and can be discharged home Disposition Clinical Impression: Seizure, Acute headache Disposition: HOME SELF-CARE Condition: Good Instructions (If sedation given, give patient instructions): Recurrent Seizures in Adults (ED) Is patient prescribed a controlled substance at d/c from ED?: No Referrals: Lico Bañuelos MD [Primary Care Provider] - 1-2 days Time of Disposition: 19:30
[2023-10-30] MEDS: LORazepam 1 MG TAB PO STA (19:36)
[2023-10-30] MEDS: diphenhydrAMINE 25 MG CAP PO STA (19:36)
[2023-10-30] MEDS: HYDROmorphone 1 MG/ML 1 ML SYRINGE IM STA (19:37)
[2023-10-30 20:01] VITALS: BP 136/89; PULSE 87; RESP 19
== END 2023-10-30 20:08 | disposition home or self-care (01) ==
LOC: EC 18:46
DX: G40.909 Epilepsy, unspecified, not intractable, without status epilepticus (principal); R51.9 Headache, unspecified; F17.200 Nicotine dependence, unspecified, uncomplicated; Z91.013 Allergy to seafood; Z88.5 Allergy status to narcotic agent; Z91.018 Allergy to other foods
CPT/HCPCS: 99284; 96372; J1170

== ENCOUNTER 2023-11-02 01:29 | Emergency (ER) | payer OTHER ==
--- NOTE | 2023-11-02 01:38 | ED ---
General Adult HPI - General Chief complaint: Neuro Symptoms/Deficit Stated complaint: Seizures Time Seen by Provider: 11/02/23 01:36 Source: patient Mode of arrival: EMS Limitations: no limitations - History of Present Illness Initial comments: This patient is 47-year-old woman with history of seizure disorder who presents to evaluation after having had seizure tonight. The patient states that it feels like she may have struck her shoulder during a seizure and she indicates pain to the anterolateral aspect. Patient states she can move the shoulder. No distal numbness or weakness Onset/Timin -: hour(s) Location: left, upper extremity Radiation: non-radiation Quality: aching Consistency: constant Improves with: none Worsens with: none Associated Symptoms: denies other symptoms Treatments Prior to Arrival: none - Related Data Home Medications Medication Instructions Recorded Confirmed amLODIPine [Norvasc] 10 mg PO DAILY 12/19/17 06/27/21 lisinopriL 40 mg PO DAILY 09/05/20 06/27/21 LORazepam [Ativan] 1 mg PO TID PRN 05/17/21 06/27/21 hydroCHLOROthiazide 50 mg PO DAILY PRN 05/17/21 06/27/21 levETIRAcetam [Keppra] 1,000 mg PO BID 05/17/21 06/27/21 Ergocalciferol (Vitamin D2) 1,250 mcg PO QMONTHLY 06/27/21 06/27/21 [Drisdol (50,000 Iu)] Naproxen 500 mg PO BID PRN 06/27/21 06/27/21 Potassium Chloride ER [K-Dur 20] 20 meq PO DAILY 06/27/21 06/27/21 Previous Rx's Medication Instructions Recorded Dicyclomine [Bentyl] 20 mg PO QID #12 tablet 06/28/21 chlordiazePOXIDE HCl [Librium] 25 mg PO TID 3 Days #9 capsule 04/18/22 Allergies Allergy/AdvReac Type Severity Reaction Status Date / Time shellfish derived [Shellfish] Allergy Anaphylaxis Verified 11/19/23 13:14 wheat Allergy Anaphylaxis Verified 11/19/23 13:14 tramadol AdvReac Seizure Verified 11/19/23 13:14 Review of Systems ROS Statement: Those systems with pertinent positive or pertinent negative responses have been documented in the HPI. ROS Other: All systems not noted in ROS Statement are negative. Constitutional: Denies: fever, chills, weakness Respiratory: Denies: cough, dyspnea Cardiovascular: Denies: chest pain, palpitations, edema Gastrointestinal: Denies: abdominal pain, nausea, vomiting Genitourinary: Denies: dysuria, hematuria Musculoskeletal: Reports: as per HPI, arthralgia. Denies: back pain Skin: Denies: rash Neurological: Denies: headache, weakness, numbness Past Medical History Past Medical History: Hypertension, Seizure Disorder Additional Past Medical History / Comment(s): seizures, brain tumor diagnosed 2019, insomnia History of Any Multi-Drug Resistant Organisms: None Reported Past Surgical History: Hysterectomy, Tubal Ligation Past Anesthesia/Blood Transfusion Reactions: No Reported Reaction Past Psychological History: Anxiety Smoking Status: Current some day smoker Past Alcohol Use History: Occasional Past Drug Use History: None Reported - Past Family History Mother Family Medical History: Diabetes Mellitus General Exam Limitations: no limitations General appearance: alert, in no apparent distress Head exam: Present: atraumatic, normocephalic Eye exam: Present: normal appearance. Absent: scleral icterus, conjunctival injection Neck exam: Present: normal inspection, full ROM. Absent: tenderness Respiratory exam: Present: normal lung sounds bilaterally. Absent: respiratory distress, wheezes, rales, rhonchi, stridor, accessory muscle use Cardiovascular Exam: Present: regular rate, normal rhythm, normal heart sounds. Absent: systolic murmur, diastolic murmur, rubs, gallop GI/Abdominal exam: Present: soft. Absent: distended, tenderness, guarding, rebound Extremities exam: Present: normal inspection, full ROM, tenderness, normal ca pillary refill. Absent: pedal edema, calf tenderness Back exam: Present: normal inspection. Absent: vertebral tenderness Neurological exam: Present: alert, oriented X3, CN II-XII intact, other (Mild dysarthria). Absent: motor sensory deficit Skin exam: Present: warm, dry, intact, normal color. Absent: rash Course Vital Signs 11/02/23 11/02/23 01:31 02:58 Temperature 97.6 F Pulse Rate 120 H 95 Respiratory 18 16 Rate Blood Pressure 176/120 149/101 O2 Sat by Pulse 100 100 Oximetry EKG Findings - EKG Results: EKG: sinus rhythm, normal axis, normal ST/T EKG shows: tachycardia (Rate 116 bpm) - Dysrhythmias: Sinus rhythms and dysrhythmias: sinus tachycardia (Rate 116 bpm) - MD, Pacemaker, Normal: Myocardial infarction: septal MD (old age or indeterminate) (Possible old septal infarct, Q waves V1 and V2) Medical Decision Making - Medical Decision Making Patient had shoulder x-ray that I interpreted as negative for acute fracture or dislocation Was pt. sent in by a medical professional or institution (REE Muñoz, NURSE ANESTHESIA PROGRAM DIRECTOR, urgent care, hospital, or group home...) When possible be specific @ -[No] Did you speak to anyone other than the patient for history (EMS, parent, family, police, friend...)? What history was obtained from this source @ -[No] Did you review nursing and triage notes (agree or disagree)? Why? @ -[I reviewed and agree with nursing and triage notes] Were old charts reviewed (outside hosp., previous admission, EMS record, old EKG, old radiological studies, urgent care reports/EKG's, group home records)? Report findings @ -[No old charts were reviewed] Differential Diagnosis (chest pain, altered mental status, abdominal pain women, abdominal pain men, vaginal bleeding, weakness, fever, dyspnea, syncope, headache, dizziness, GI bleed, back pain, seizure, CVA, palpatations, mental health, musculoskeletal)? @ -[Differential Seizure: Recurrent seizure disorder, febrile seizure, alcohol withdrawal, stimulants, meningitis, encephalitis, intercranial hemorrhage, intracranial tumor, stroke, eclampsia, thyrotoxicosis, hypocalcemia, hyponatremia, hypernatremia, hypomagnesemia, psychogenic, this is not meant to be an all-inclusive list. EKG interpreted by me (3pts min.). @ -[As above] X-rays interpreted by me (1pt min.). @ -I interpreted as above CT interpreted by me (1pt min.). @ -[None done] U/S interpreted by me (1pt. min.). @ -[None done] What testing was considered but not performed or refused? (CT, X-rays, U/S, labs)? Why? @ -[None] What meds were considered but not given or refused? Why? @ -[None] Did you discuss the management of the patient with other professionals (professionals i.e. REE Muñoz, NURSE ANESTHESIA PROGRAM DIRECTOR, lab, RT, psych nurse, marriage and family social worker, hand singer, teacher, [employer] officer, telephonic nurse case manager)? Give summary @ -[No] Was smoking cessation discussed for >3mins.? @ -[No] Was critical care preformed (if so, how long)? @ -[No] Were there social determinants of health that impacted care today? How? (Homelessness, low income, unemployed, alcoholism, drug addiction, transporta tion, low edu. Level, literacy, decrease access to med. care, [facility], rehab)? @ -[No] Was there de-escalation of care discussed even if they declined (Discuss DNR or withdrawal of care, Hospice)? DNR status @ -[No] What co-morbidities impacted this encounter? (DM, HTN, Smoking, COPD, CAD, Cancer, CVA, ARF, Chemo, Hep., AIDS, mental health diagnosis, sleep apnea, morbid obesity)? @ -[None] Was patient admitted / discharged? Hospital course, mention meds given and route, prescriptions, significant lab abnormalities, going to OR and other pertinent info. @ -[Patient is 47-year-old woman with seizures tonight. She does have history of seizure as well as chronic alcohol use. The patient did have some shoulder pain and tenderness and therefore had x-ray which I interpreted as negative. The patient was demanding of narcotic pain medicine but does have high alcohol level and due to risk of interactions is not given narcotic medicine. The patient then wanted to go she did have a family member who took responsibility for her. Undiagnosed new problem with uncertain prognosis? @ -[No] Drug Therapy requiring intensive monitoring for toxicity (Heparin, Nitro, Insulin, Cardizem)? @ -[No] Were any procedures done? @ -[No] Diagnosis/symptom? @ -[Acute on chronic seizure disorder Left shoulder injury, acute Alcohol intoxication Acute, or Chronic, or Acute on Chronic? @ -[default] Uncomplicated (without systemic symptoms) or Complicated (systemic symptoms)? @ -[Uncomplicated Side effects of treatment? @ -[No] Exacerbation, Progression, or Severe Exacerbation? @ -[No] Poses a threat to life or bodily function? How? (Chest pain, USA, MD, pneumonia, PE, COPD, DKA, ARF, appy, cholecystitis, CVA, Diverticulitis, Homicidal, Suicidal, threat to staff... and all critical care pts) @ -[No] - Lab Data Result diagrams: 11/02/23 01:45 11/02/23 01:45 Lab Results 11/02/23 11/02/23 11/02/23 Range/Units 01:45 01:45 01:45 WBC 6.1 (3.8-10.6) k/uL RBC 5.34 (3.80-5.40) m/uL Hgb 13.1 (11.4-16.0) gm/dL Hct 42.8 (34.0-46.0) % MCV 80.1 (80.0-100.0) fL MCH 24.5 L (25.0-35.0) pg MCHC 30.6 L (31.0-37.0) g/dL RDW 15.0 (11.5-15.5) % Plt Count 285 (150-450) k/uL MPV 7.4 Neutrophils % (Manual) 41 % Lymphocytes % (Manual) 55 % Monocytes % (Manual) 3 % Eosinophils % (Manual) 1 % Neutrophils # (Manual) 2.50 (1.3-7.7) k/uL Lymphocytes # (Manual) 3.36 (1.0-4.8) k/uL Monocytes # (Manual) 0.18 (0-1.0) k/uL Eosinophils # (Manual) 0.06 (0-0.7) k/uL Nucleated RBCs 0 (0-0) /100 WBC Manual Slide Review Performed Tear Drop Cells Present Sodium 144 (137-145) mmol/L Potassium 3.9 (3.5-5.1) mmol/L Chloride 111 H (98-107) mmol/L Carbon Dioxide 18 L (22-30) mmol/L Anion Gap 15 mmol/L BUN 11 (7-17) mg/dL Creatinine 0.70 (0.52-1.04) mg/dL Est GFR (CKD-EPI)AfAm >90 (>60 ml/min/1.73 sqM) Est GFR (CKD-EPI)NonAf >90 (>60 ml/min/1.73 sqM) Glucose 83 (74-99) mg/dL Plasma Lactic Acid Regan 2.7 H* (0.7-2.0) mmol/L Calcium 10.1 (8.4-10.2) mg/dL Total Bilirubin 0.4 (0.2-1.3) mg/dL AST 40 H (14-36) U/L ALT 35 H (4-34) U/L Alkaline Phosphatase 67 (38-126) U/L Total Protein 8.3 H (6.3-8.2) g/dL Albumin 4.8 (3.5-5.0) g/dL Serum Alcohol 275 H* mg/dL Disposition Clinical Impression: Alcohol intoxication, Seizure, Shoulder contusion Disposition: HOME SELF-CARE Condition: Good Instructions (If sedation given, give patient instructions): Recurrent Seizures in Adults (ED) Additional Instructions: As we discussed you may not drive until you are cleared by neurology to do so Is patient prescribed a controlled substance at d/c from ED?: No Referrals: Lico Bañuelos MD [Primary Care Provider] - 1-2 days
[2023-11-02 02:01] VITALS: TEMP 97.6
[2023-11-02] MEDS: HYDROcodone/APAP 5-325MG 1 EACH TAB PO STA (02:14)
[2023-11-02] MEDS: SODIUM CHLORIDE 0.9% 500 ML 500 ML IV STA (02:18)
[2023-11-02 02:58] LABS: ALT 35 U/L (4-34); AST 40 U/L (14-36); African American GFR (CKD) >90 (>60 ml/min/1.73 sqM); Albumin 4.8 g/dL (3.5-5.0); Alkaline Phosphatase 67 U/L (38-126); Anion Gap 15 mmol/L; Blood Urea Nitrogen 11 mg/dL (7-17); Calcium 10.1 mg/dL (8.4-10.2); Carbon Dioxide 18 mmol/L (22-30); Chloride 111 mmol/L (98-107); Glucose 83 mg/dL (74-99); Non-African American GFR(CKD) >90 (>60 ml/min/1.73 sqM); Potassium 3.9 mmol/L (3.5-5.1); Sodium 144 mmol/L (137-145); Total Bilirubin 0.4 mg/dL (0.2-1.3); Total Protein 8.3 g/dL (6.3-8.2)
[2023-11-02 02:59] LABS: HCT 42.8 % (34.0-46.0); HGB 13.1 gm/dL (11.4-16.0); MCH 24.5 pg (25.0-35.0); MCHC 30.6 g/dL (31.0-37.0); MCV 80.1 fL (80.0-100.0); Mean Platelet Volume 7.4; Platelet Count 285 k/uL (150-450); RBC 5.34 m/uL (3.80-5.40); WBC 6.1 k/uL (3.8-10.6)
[2023-11-02 03:32] VITALS: BP 149/101; PULSE 95; RESP 16
[2023-11-02 03:40] LABS: Eosinophils # (M) 0.06 k/uL (0-0.7); Lymphocytes # (M) 3.36 k/uL (1.0-4.8); Monocytes # (M) 0.18 k/uL (0-1.0); Neutrophils % (M) 41 %; Nucleated Red Blood Cells 0 /100 WBC (0-0); Total Cells Counted 100
[2023-11-02 03:41] LABS: Alcohol 275 mg/dL
[2023-11-02 03:43] LABS: Tear Drop Cells Present
--- NOTE | 2023-11-02 04:09 | XR ---
EXAM: XR Left Shoulder Complete, 2 or More Views CLINICAL HISTORY: ITS.REASON XR Reason: fall injury TECHNIQUE: 3 views of the left shoulder. COMPARISON: 12/25/20 FINDINGS: Bones/joints: No fracture or dislocation. Soft tissues: Unremarkable. IMPRESSION: No fracture
== END 2023-11-02 03:44 | disposition home or self-care (01) ==
LOC: EC 01:29
DX: S40.012A Contusion of left shoulder, initial encounter (principal); G40.909 Epilepsy, unspecified, not intractable, without status epilepticus; F10.129 Alcohol abuse with intoxication, unspecified; F17.200 Nicotine dependence, unspecified, uncomplicated; Z91.013 Allergy to seafood; Z91.018 Allergy to other foods; Z88.5 Allergy status to narcotic agent; Z53.29 Procedure and treatment not carried out because of patient's decision for other reasons; Y90.8 Blood alcohol level of 240 mg/100 ml or more; X58.XXXA Exposure to other specified factors, initial encounter
CPT/HCPCS: 99284; 96360; 36415; 93005; 80053; 83605; 85025; 73030; G0480; 80320

== ENCOUNTER 2023-11-07 02:27 | Emergency (ER) | payer OTHER ==
[2023-11-07 02:36] VITALS: BP 146/103; PULSE 106; RESP 17; TEMP 98.2
[2023-11-07] MEDS: KETOROLAC 15 MG/ML 1 ML VIAL IM STA (03:45)
--- NOTE | 2023-11-07 03:46 | ED ---
General Adult HPI - General Chief complaint: Fall Stated complaint: Fall Time Seen by Provider: 11/07/23 02:54 Source: patient, EMS, RN notes reviewed, old records reviewed Mode of arrival: EMS Limitations: no limitations - History of Present Illness Initial comments: 47-year-old female with left barnard injury. Patient states she was doing the shower and fell onto the anterior portion of her left barnard. She has been able to ambulate but has had significant pain. No other injury, no head or neck trauma. - Related Data Home Medications Medication Instructions Recorded Confirmed amLODIPine [Norvasc] 10 mg PO DAILY 12/19/17 06/27/21 lisinopriL 40 mg PO DAILY 09/05/20 06/27/21 LORazepam [Ativan] 1 mg PO TID PRN 05/17/21 06/27/21 hydroCHLOROthiazide 50 mg PO DAILY PRN 05/17/21 06/27/21 levETIRAcetam [Keppra] 1,000 mg PO BID 05/17/21 06/27/21 Ergocalciferol (Vitamin D2) 1,250 mcg PO QMONTHLY 06/27/21 06/27/21 [Drisdol (50,000 Iu)] Naproxen 500 mg PO BID PRN 06/27/21 06/27/21 Potassium Chloride ER [K-Dur 20] 20 meq PO DAILY 06/27/21 06/27/21 Previous Rx's Medication Instructions Recorded Dicyclomine [Bentyl] 20 mg PO QID #12 tablet 06/28/21 chlordiazePOXIDE HCl [Librium] 25 mg PO TID 3 Days #9 capsule 04/18/22 Allergies Allergy/AdvReac Type Severity Reaction Status Date / Time shellfish derived [Shellfish] Allergy Anaphylaxis Verified 11/07/23 02:35 wheat Allergy Anaphylaxis Verified 11/07/23 02:35 tramadol AdvReac Seizure Verified 11/07/23 02:35 Review of Systems ROS Statement: Those systems with pertinent positive or pertinent negative responses have been documented in the HPI. ROS Other: All systems not noted in ROS Statement are negative. Past Medical History Past Medical History: Hypertension, Seizure Disorder Additional Past Medical History / Comment(s): seizures, brain tumor diagnosed 2020, insomnia History of Any Multi-Drug Resistant Organisms: None Reported Past Surgical History: Hysterectomy, Tubal Ligation Past Anesthesia/Blood Transfusion Reactions: No Reported Reaction Past Psychological History: Anxiety Smoking Status: Current some day smoker Past Alcohol Use History: Occasional Past Drug Use History: None Reported - Past Family History Mother Family Medical History: Diabetes Mellitus General Exam General appearance: alert, in no apparent distress Head exam: Present: atraumatic, normocephalic Eye exam: Present: normal appearance, PERRL ENT exam: Present: normal exam Neck exam: Present: normal inspection Respiratory exam: Present: normal lung sounds bilaterally. Absent: respiratory distress Cardiovascular Exam: Present: regular rate, normal rhythm GI/Abdominal exam: Present: soft. Absent: distended, tenderness Extremities exam: Present: other (Abrasion to the anterior barnard) Neurological exam: Present: alert, oriented X3, CN II-XII intact. Absent: motor sensory deficit Psychiatric exam: Present: normal affect, normal mood Skin exam: Present: warm, dry, abrasion Course Vital Signs 11/07/23 02:29 Temperature 98.2 F Pulse Rate 106 H Respiratory 17 Rate Blood Pressure 146/103 O2 Sat by Pulse 99 Oximetry Medical Decision Making - Medical Decision Making Was pt. sent in by a medical professional or institution (, PA, DIETICIAN, urgent care, hospital, or skilled nursing...) When possible be specific @ -No Did you speak to anyone other than the patient for history (EMS, parent, family, police, friend...)? What history was obtained from this source @ -No Did you review nursing and triage notes (agree or disagree)? Why? @ -I reviewed and agree with nursing and triage notes Were old charts reviewed (outside hosp., previous admission, EMS record, old EKG, old radiological studies, urgent care reports/EKG's, skilled nursing records)? Report findings @ -No old charts were reviewed Differential Musculoskeletal Muscular strain, contusion, ligament sprain, fracture, arthritis, septic arthritis, bursitis, cellulitis, muscle spasm, nerve compression, DVT, arterial occlusion, herpes zoster, electrolyte abnormality, tumor.... This is not meant to be in all inclusive list EKG interpreted by me (3pts min.). @ -As above X-rays interpreted by me (1pt min.). @X-ray of the left tib-fib is unremarkable, no displaced fracture CT interpreted by me (1pt min.). @ -None done U/S interpreted by me (1pt. min.). @ -None done What testing was considered but not performed or refused? (CT, X-rays, U/S, labs)? Why? @ -None What meds were considered but not given or refused? Why? @ -None Did you discuss the management of the patient with other professionals (professionals i.e. , PA, DIETICIAN, lab, RT, psych nurse, bilingual social worker, job developer for deaf adults, teacher, campus safety officer, pillowcase sewer)? Give summary @ -No Was smoking cessation discussed for >3mins.? @ -No Was critical care preformed (if so, how long)? @ -No Were there social determinants of health that impacted care today? How? (Homelessness, low income, unemployed, alcoholism, drug addiction, transportation, low edu. Level, literacy, decrease access to med. care, prison, rehab)? @ -No Was there de-escalation of care discussed even if they declined (Discuss DNR or withdrawal of care, Hospice)? DNR status @ -No What co-morbidities impacted this encounter? (DM, HTN, Smoking, COPD, CAD, Cancer, CVA, ARF, Chemo, Hep., AIDS, mental health diagnosis, sleep apnea, morbid obesity)? @ -None Was patient admitted / discharged? Hospital course, mention meds given and route, prescriptions, significant lab abnormalities, going to OR and other pertinent info. @ -Three 7-year-old female with injury to the left barnard, x-rays are negative, she has an abrasion without laceration. Patient is instructed on local wound care and will follow-up with her primary care provider. Undiagnosed new problem with uncertain prognosis? @ -No Drug Therapy requiring intensive monitoring for toxicity (Heparin, Nitro, Insulin, Cardizem)? @ -No Were any procedures done? @ -No Diagnosis/symptom? @ -Abrasion contusion Acute, or Chronic, or Acute on Chronic? @ -[Acute Uncomplicated (without systemic symptoms) or Complicated (systemic symptoms)? @ -Default Side effects of treatment? @ -No Exacerbation, Progression, or Severe Exacerbation? @ -No Poses a threat to life or bodily function? How? (Chest pain, [place], [place], pneumonia, PE, COPD, DKA, ARF, appy, cholecystitis, CVA, Diverticulitis, Homicidal, Suicidal, threat to staff... and all critical care pts) @ -No Disposition Clinical Impression: Fall, Leg abrasion Disposition: HOME SELF-CARE Condition: Fair Instructions (If sedation given, give patient instructions): Abrasion (ED), Fall Prevention (ED) Is patient prescribed a controlled substance at d/c from ED?: No Referrals: Lico Bañuelos MD [Primary Care Provider] - 1-2 days Time of Disposition: 04:30
--- NOTE | 2023-11-07 05:41 | XR ---
EXAMINATION TYPE: XR tibia fibula LT DATE OF EXAM: 11/07/2023 CLINICAL HISTORY: Fall with anterior middle leg pain TECHNIQUE: Two views of the left leg are obtained. COMPARISON: None. FINDINGS: There is no acute fracture or dislocation seen in the left tibia or fibula. Bony projectio n or enthesopathy anterior superior patella at the distal quadriceps tendon insertion. Overlying soft tissue is unremarkable. IMPRESSION: There is no acute fracture or dislocation seen in the left tibia or fibula.
== END 2023-11-07 05:16 | disposition home or self-care (01) ==
LOC: EC 02:27
DX: S80.812A Abrasion, left lower leg, initial encounter (principal); F17.200 Nicotine dependence, unspecified, uncomplicated; Z88.5 Allergy status to narcotic agent; Z91.013 Allergy to seafood; Z91.018 Allergy to other foods; W18.30XA Fall on same level, unspecified, initial encounter; Y93.E1 Activity, personal bathing and showering
CPT/HCPCS: 73590; 99284; 96372; J1885

== ENCOUNTER 2023-11-12 18:02 | Emergency (ER) | payer OTHER ==
[2023-11-12 18:12] VITALS: BP 120/79; PULSE 98; RESP 18
[2023-11-12] MEDS ORDERED: HYDROcodone/APAP 5-325MG 1 EACH TAB PO STA (19:02)
== END 2023-11-12 19:24 | disposition home or self-care (01) ==
LOC: EC 18:02
DX: R56.9 Unspecified convulsions (principal); Z53.21 Procedure and treatment not carried out due to patient leaving prior to being seen by health care provider
CPT/HCPCS: 99499

== ENCOUNTER 2023-11-19 12:49 | Emergency (ER) | payer OTHER ==
--- NOTE | 2023-11-19 14:06 | ED ---
General Adult HPI - General Chief complaint: Shortness of Breath Stated complaint: RM Time Seen by Provider: 11/19/23 13:30 Source: patient, RN notes reviewed, old records reviewed Mode of arrival: ambulatory Limitations: no limitations - History of Present Illness Initial comments: This is a 47-year-old female who presents to the emergency department complaining of having had a panic attack. Patient states she got an argument with her boys and things escalated and she started having chest tightness. Patient states she also then felt short of breath. Patient states when she calm down everything subsided. Patient states she has had this before but it has been a while. Patient denies any chest pain pressure or difficulty breathing at this time. Patient has any recent fever chills or cough. Patient denies any back pain. Patient has any abdominal pain. - Related Data Home Medications Medication Instructions Recorded Confirmed amLODIPine [Norvasc] 10 mg PO DAILY 12/19/17 06/27/21 lisinopriL 40 mg PO DAILY 09/05/20 06/27/21 LORazepam [Ativan] 1 mg PO TID PRN 05/17/21 06/27/21 hydroCHLOROthiazide 50 mg PO DAILY PRN 05/17/21 06/27/21 levETIRAcetam [Keppra] 1,000 mg PO BID 05/17/21 06/27/21 Ergocalciferol (Vitamin D2) 1,250 mcg PO QMONTHLY 06/27/21 06/27/21 [Drisdol (50,000 Iu)] Naproxen 500 mg PO BID PRN 06/27/21 06/27/21 Potassium Chloride ER [K-Dur 20] 20 meq PO DAILY 06/27/21 06/27/21 Previous Rx's Medication Instructions Recorded Dicyclomine [Bentyl] 20 mg PO QID #12 tablet 06/28/21 chlordiazePOXIDE HCl [Librium] 25 mg PO TID 3 Days #9 capsule 04/18/22 Allergies Allergy/AdvReac Type Severity Reaction Status Date / Time shellfish derived [Shellfish] Allergy Anaphylaxis Verified 11/19/23 13:14 wheat Allergy Anaphylaxis Verified 11/19/23 13:14 tramadol AdvReac Seizure Verified 11/19/23 13:14 Review of Systems ROS Statement: Those systems with pertinent positive or pertinent negative responses have been documented in the HPI. ROS Other: All systems not noted in ROS Statement are negative. Past Medical History Past Medical History: Hypertension, Seizure Disorder Additional Past Medical History / Comment(s): seizures, brain tumor diagnosed 2020, insomnia History of Any Multi-Drug Resistant Organisms: None Reported Past Surgical History: Hysterectomy, Tubal Ligation Past Anesthesia/Blood Transfusion Reactions: No Reported Reaction Past Psychological History: Anxiety Smoking Status: Current some day smoker Past Alcohol Use History: Occasional Past Drug Use History: None Reported - Past Family History Mother Family Medical History: Diabetes Mellitus General Exam - General Exam Comments Initial Comments: GENERAL: Patient is well-developed and well-nourished. Patient is nontoxic and well- hydrated and is in no acute distress. ENT: Neck is soft and supple. No significant lymphadenopathy is noted. Oropharynx is clear. Moist mucous membranes. Neck has full range of motion without eliciting any pain. EYES: The sclera were anicteric and conjunctiva were pink and moist. Extraocular movements were intact and pupils were equal round and reactive to light. Eyelids were unremarkable. PULMONARY: Unlabored respirations. Good breath sounds bilaterally. No audible rales rhonchi or wheezing was noted. CARDIOVASCULAR: There is a regular rate and rhythm without any murmurs gallops or rubs. ABDOMEN: Soft and nontender with normal bowel sounds. SKIN: Skin is clear with no lesions or rashes and otherwise unremarkable. NEUROLOGIC: Patient is alert and oriented x3. Cranial nerves II through XII are grossly intact. Motor and sensory are also intact. Normal speech, volume and content. Symmetrical smile. MUSCULOSKELETAL: Normal extremities with adequate strength and full range of motion. No lower extremity swelling or edema. No calf tenderness. LYMPHATICS: No significant lymphadenopathy is noted PSYCHIATRIC: Normal psychiatric evaluation. Patient is laughing and smiling at this time Limitations: no limitations Course Vital Signs 11/19/23 13:12 Temperature 97.7 F Pulse Rate 93 Respiratory 20 Rate Blood Pressure 109/74 O2 Sat by Pulse 100 Oximetry Medical Decision Making - Medical Decision Making EKG is interpreted by myself but EKG shows a sinus rhythm at 93 bpm CO interval is 109 QRS of 78 QT interval 337 QTc is 388. Patient's EKG shows no ST segment elevation or depression. Was pt. sent in by a medical professional or institution (, PA, SOFTWARE DEVELOPMENT MANAGER, urgent care, hospital, or intermediate...) When possible be specific @ -No Did you speak to anyone other than the patient for history (EMS, parent, family, police, friend...)? What history was obtained from this source @ -No Did you review nursing and triage notes (agree or disagree)? Why? @ -I reviewed and agree with nursing and triage notes Were old charts reviewed (outside hosp., previous admission, EMS record, old EKG, old radiological studies, urgent care reports/EKG's, intermediate records)? Report findings @ -No old charts were reviewed Differential Diagnosis (chest pain, altered mental status, abdominal pain women, abdominal pain men, vaginal bleeding, weakness, fever, dyspnea, syncope, headache, dizziness, GI bleed, back pain, seizure, CVA, palpatations, mental health, musculoskeletal)? @ -Differential Mental Health Depression, anxiety, bipolar, psychosis, schizophrenia, borderline personality, situational depression, adjustment disorder, behavioral disorder, brain tumor, malingering, substance abuse, encephalopathy, medication reaction, dementia, hypothyroidism, degenerative neurologic disorder, lupus.... This is not meant to be all-inclusive list EKG interpreted by me (3pts min.). @ -As above X-rays interpreted by me (1pt min.). @ -None done CT interpreted by me (1pt min.). @ -None done U/S interpreted by me (1pt. min.). @ -None done What testing was considered but not performed or refused? (CT, X-rays, U/S, labs)? Why? @ -None What meds were considered but not given or refused? Why? @ -None Did you discuss the management of the patient with other professionals (professionals i.e. , PA, SOFTWARE DEVELOPMENT MANAGER, lab, RT, psych nurse, social welfare administrator, marine insurance claim examiner, teacher, workplace rehabilitation officer, family caseworker)? Give summary @ -No Was smoking cessation discussed for >3mins.? @ -No Was critical care preformed (if so, how long)? @ -No Were there social determinants of health that impacted care today? How? (Homelessness, low income, unemployed, alcoholism, drug addiction, transportation, low edu. Level, literacy, decrease access to med. care, [facility], rehab)? @ -No Was there de-escalation of care discussed even if they declined (Discuss DNR or withdrawal of care, Hospice)? DNR status @ -No What co-morbidities impacted this encounter? (DM, HTN, Smoking, COPD, CAD, Cancer, CVA, ARF, Chemo, Hep., AIDS, mental health diagnosis, sleep apnea, morbid obesity)? @ -None Was patient admitted / discharged? Hospital course, mention meds given and route, prescriptions, significant lab abnormalities, going to OR and other pertinent info. @ -On my initial interview of the patient she was asymptomatic and she was convinced that it was a panic attack. Patient did not want any workup but did not want any x-rays at this point just wanted something for her anxiety and she wanted to be discharged home Undiagnosed new problem with uncertain prognosis? @ -No Drug Therapy requiring intensive monitoring for toxicity (Heparin, Nitro, Insulin, Cardizem)? @ -No Were any procedures done? @ -No Diagnosis/symptom? @ -Default Acute, or Chronic, or Acute on Chronic? @ -Anxiety acute Uncomplicated (without systemic symptoms) or Complicated (systemic symptoms)? @ -Uncomplicated Side effects of treatment? @ -No Exacerbation, Progression, or Severe Exacerbation? @ -No Poses a threat to life or bodily function? How? (Chest pain, [place], [place], pneumonia, PE, COPD, DKA, ARF, appy, cholecystitis, CVA, Diverticulitis, Homicidal, Suicidal, threat to staff... and all critical care pts) @ -No Disposition Clinical Impression: Anxiety Disposition: HOME SELF-CARE Instructions (If sedation given, give patient instructions): Anxiety (ED) Is patient prescribed a controlled substance at d/c from ED?: No Referrals: Lico Bañuelos MD [Primary Care Provider] - 1-2 days Time of Disposition: 14:04
[2023-11-19] MEDS: LORazepam 2 MG/ML INJ IM STA (14:12)
[2023-11-19 14:29] VITALS: BP 105/70; PULSE 90; RESP 18; TEMP 97.6
== END 2023-11-19 14:31 | disposition home or self-care (01) ==
LOC: EC 12:49
DX: F41.9 Anxiety disorder, unspecified (principal); F17.200 Nicotine dependence, unspecified, uncomplicated; Z91.013 Allergy to seafood; Z88.5 Allergy status to narcotic agent; Z91.018 Allergy to other foods
CPT/HCPCS: 99285; 96372; J2060

== ENCOUNTER 2023-11-21 00:46 | Emergency (ER) | payer OTHER ==
[2023-11-21 00:55] VITALS: TEMP 97.9
[2023-11-21] MEDS: ALPRAZolam 1 MG TAB PO STA (01:15)
[2023-11-21] MEDS: IPRATROPIUM-ALBUTEROL 3 ML NEB INHALATION STA (01:23)
[2023-11-21] MEDS: methylPREDNISolone SOD SUCCI 125 MG/2 ML VIAL IV STA (02:51)
[2023-11-21] MEDS: SODIUM CHLORIDE 0.9% 1,000 ML IV STA (02:53)
[2023-11-21 03:24] LABS: Basophils % (A) 1 %; Eosinophils # (A) 0.3 k/uL (0-0.7); Eosinophils % (A) 5 %; HCT 35.3 % (34.0-46.0); HGB 10.7 gm/dL (11.4-16.0); Hypochromasia Slight; Lymphocytes # (A) 2.3 k/uL (1.0-4.8); Lymphocytes % (A) 40 %; MCH 24.7 pg (25.0-35.0); MCHC 30.3 g/dL (31.0-37.0); MCV 81.4 fL (80.0-100.0); Mean Platelet Volume 7.3; Monocytes # (A) 0.4 k/uL (0-1.0); Monocytes % (A) 6 %; Neutrophils # (A) 2.7 k/uL (1.3-7.7); Neutrophils % (A) 46 %; Platelet Count 243 k/uL (150-450); RBC 4.34 m/uL (3.80-5.40); RDW 14.8 % (11.5-15.5); WBC 5.9 k/uL (3.8-10.6)
[2023-11-21 03:37] LABS: African American GFR (CKD) >90 (>60 ml/min/1.73 sqM); Anion Gap 12 mmol/L; Blood Urea Nitrogen 16 mg/dL (7-17); Carbon Dioxide 21 mmol/L (22-30); Chloride 110 mmol/L (98-107); Glucose 100 mg/dL (74-99); Non-African American GFR(CKD) 86 (>60 ml/min/1.73 sqM); Sodium 143 mmol/L (137-145)
[2023-11-21 03:42] LABS: Magnesium 1.5 mg/dL (1.6-2.3); Potassium 3.7 mmol/L (3.5-5.1)
--- NOTE | 2023-11-21 04:12 | XR ---
EXAM: XR Chest, 2 Views CLINICAL HISTORY: ITS.REASON XR Reason: cough TECHNIQUE: Frontal and lateral views of the chest. COMPARISON: No relevant prior studies available. FINDINGS: Lungs: Unremarkable. No consolidation. Pleural space: Unremarkable. No pneumothorax. Heart: Unremarkable. No cardiomegaly. Mediastinum: Unremarkable. Normal mediastinal contour. Bones/joints: Unremarkable. No acute fracture. IMPRESSION: No consolidation.
--- NOTE | 2023-11-21 04:36 | ED ---
General Adult HPI - General Chief complaint: Anxiety Stated complaint: anxiety,asthma, chest pain Time Seen by Provider: 11/21/23 01:05 Source: patient, EMS, RN notes reviewed, old records reviewed Mode of arrival: EMS Limitations: no limitations - History of Present Illness Initial comments: Patient is a 47-year-old female presents emergency department complaining of anxiety as well as suspected asthma. Has history of both as well as hyper tension and seizure disorder. States her asthma has been flaring more up with the weather changes as well as her acute anxiety. Is requesting a dose of Xanax. She has been having some increased shortness of breath and wheezing with nonproductive cough. No fevers. No nausea or vomiting. No diarrhea. No chest pain. No abdominal pain. Presents for further evaluation at this time. - Related Data Home Medications Medication Instructions Recorded Confirmed amLODIPine [Norvasc] 10 mg PO DAILY 12/19/17 06/27/21 lisinopriL 40 mg PO DAILY 09/05/20 06/27/21 LORazepam [Ativan] 1 mg PO TID PRN 05/17/21 06/27/21 hydroCHLOROthiazide 50 mg PO DAILY PRN 05/17/21 06/27/21 levETIRAcetam [Keppra] 1,000 mg PO BID 05/17/21 06/27/21 Ergocalciferol (Vitamin D2) 1,250 mcg PO QMONTHLY 06/27/21 06/27/21 [Drisdol (50,000 Iu)] Naproxen 500 mg PO BID PRN 06/27/21 06/27/21 Potassium Chloride ER [K-Dur 20] 20 meq PO DAILY 06/27/21 06/27/21 Previous Rx's Medication Instructions Recorded Dicyclomine [Bentyl] 20 mg PO QID #12 tablet 06/28/21 chlordiazePOXIDE HCl [Librium] 25 mg PO TID 3 Days #9 capsule 04/18/22 Albuterol Inhaler [Ventolin Hfa 1 - 2 puff INHALATION Q6H PRN #1 11/21/23 Inhaler] each Azithromycin [Zithromax] 250 mg PO DAILY 4 Days #4 tab 11/21/23 predniSONE [Deltasone] 40 mg PO DAILY 5 Days #10 tab 11/21/23 Allergies Allergy/AdvReac Type Severity Reaction Status Date / Time shellfish derived [Shellfish] Allergy Anaphylaxis Verified 11/19/23 13:14 wheat Allergy Anaphylaxis Verified 11/19/23 13:14 tramadol AdvReac Seizure Verified 11/19/23 13:14 Review of Systems ROS Statement: Those systems with pertinent positive or pertinent negative responses have been documented in the HPI. Review of Systems: CONST: Denies fever EYES: Denies blurry vision ENT: Denies nasal congestion C/V: Denies Chest pain RESP: Endorses shortness of breath, cough GI: Denies abdominal pain : Denies dysuria SKIN: Denies rash. MSK: Denies joint pain. NEURO: Denies headache ROS Other: All systems not noted in ROS Statement are negative. Past Medical History Past Medical History: Hypertension, Seizure Disorder Additional Past Medical History / Comment(s): seizures, brain tumor diagnosed 2019, insomnia History of Any Multi-Drug Resistant Organisms: None Reported Past Surgical History: Hysterectomy, Tubal Ligation Past Anesthesia/Blood Transfusion Reactions: No Reported Reaction Past Psychological History: Anxiety Smoking Status: Current some day smoker Past Alcohol Use History: Occasional Past Drug Use History: None Reported - Past Family History Mother Family Medical History: Diabetes Mellitus General Exam - General Exam Comments Initial Comments: General: Appears anxious HEAD: Normal with no signs of head trauma. EYES: PERRLA, EOMI, conjunctiva normal, no discharge. ENT: Hearing grossly intact, normal oropharynx. RESPIRATORY: Mild end expiratory wheezing bilaterally significant hypoxia C/V: Tachycardic with regular rhythm. S1 and S2 auscultated, no edema, peripheral pulses 2+ and intact throughout ABD: Abd is soft, nontender, nondistended EXT: Normal range of motion, no obvious deformity SKIN: No rashes or lesions observed on exposed skin. NEURO: Alert and oriented x 4. Limitations: no limitations Course Vital Signs 11/21/23 11/21/23 11/21/23 00:48 01:23 01:34 Temperature 97.9 F Pulse Rate 112 H 104 H 107 H Respiratory 18 Rate Blood Pressure 115/74 O2 Sat by Pulse 100 Oximetry 11/21/23 11/21/23 02:54 04:58 Temperature Pulse Rate 106 H 115 H Respiratory 16 20 Rate Blood Pressure 104/64 114/71 O2 Sat by Pulse 99 99 Oximetry Medical Decision Making - Medical Decision Making Was pt. sent in by a medical professional or institution (REE Muñoz, DESTINATION SIGN REPAIRER, urgent ca re, hospital, or skilled nursing...) When possible be specific @ -No Did you speak to anyone other than the patient for history (EMS, parent, family, police, friend...)? What history was obtained from this source @ -No Did you review nursing and triage notes (agree or disagree)? Why? @ -I reviewed and agree with nursing and triage notes Were old charts reviewed (outside hosp., previous admission, EMS record, old EKG, old radiological studies, urgent care reports/EKG's, skilled nursing records)? Report findings @ -No old charts were reviewed Differential Diagnosis (chest pain, altered mental status, abdominal pain women, abdominal pain men, vaginal bleeding, weakness, fever, dyspnea, syncope, headache, dizziness, GI bleed, back pain, seizure, CVA, palpatations, mental health, musculoskeletal)? @ -Asthma, pneumonia, anxiety. This list is not all inclusive. EKG interpreted by me (3pts min.). @ -As above X-rays interpreted by me (1pt min.). @ -Chest x-ray reveals no obvious acute cardiopulmonary process. CT interpreted by me (1pt min.). @ -None done U/S interpreted by me (1pt. min.). @ -None done What testing was considered but not performed or refused? (CT, X-rays, U/S, labs)? Why? @ -None What meds were considered but not given or refused? Why? @ -None Did you discuss the management of the patient with other professionals (professionals i.e. REE Muñoz, DESTINATION SIGN REPAIRER, lab, RT, psych nurse, social sciences chair, other sports official, teacher, chief quality officer, dependency case manager)? Give summary @ -No Was smoking cessation discussed for >3mins.? @ -No Was critical care preformed (if so, how long)? @ -No Were there social determinants of health that impacted care today? How? (Homelessness, low income, unemployed, alcoholism, drug addiction, transportation, low edu. Level, literacy, decrease access to med. care, detention, rehab)? @ -No Was there de-escalation of care discussed even if they declined (Discuss DNR or withdrawal of care, Hospice)? DNR status @ -No What co-morbidities impacted this encounter? (DM, HTN, Smoking, COPD, CAD, Cancer, CVA, ARF, Chemo, Hep., AIDS, mental health diagnosis, sleep apnea, morbid obesity)? @ -Anxiety, asthma Was patient admitted / discharged? Hospital course, mention meds given and route, prescriptions, significant lab abnormalities, going to OR and other pertinent info. @ -Based on patient's presentation and physical exam, presents emergency department complaining of anxiety as well as suspected asthma exacerbation. We will obtain pulmonary workup. Screening EKG will also be obtained. Patient was in agreement this plan. She will be symptomatically treated with oral Xanax as well as IV steroids, breathing treatment, and fluids. EKG shows no signs of acute ischemia. Chest x-ray shows no obvious acute cardiopulmonary process. Laboratory studies returned unremarkable. On reevaluation, she is resting comfortably. We discussed her workup. She will be discharged home at this time with prescription for her asthma. She was in agreement this plan. I will provide the patient with a prescription for albuterol, azithromycin, prednisone. I instructed the patient to follow up with their PCP in the next 1-3 days.. I explained that the patient should return to the emergency department if they experience any worsening symptoms. Strict return precautions were discussed with the patient. The patient expressed understanding of these instructions. I answered all questions that the patient had. The patient was discharged home in good condition with their prescriptions and follow up information. Undiagnosed new problem with uncertain prognosis? @ -No Drug Therapy requiring intensive monitoring for toxicity (Heparin, Nitro, Insulin, Cardizem)? @ -No Were any procedures done? @ -No Diagnosis/symptom? @ -Asthma, anxiety Acute, or Chronic, or Acute on Chronic? @ -Acute on chronic Uncomplicated (without systemic symptoms) or Complicated (systemic symptoms)? @ -Complicated Side effects of treatment? @ -No Exacerbation, Progression, or Severe Exacerbation? @ -No Poses a threat to life or bodily function? How? (Chest pain, [place], [place], pneumonia, PE, COPD, DKA, ARF, appy, cholecystitis, CVA, Diverticulitis, Homicidal, Suicidal, threat to staff... and all critical care pts) @ -Unlikely - Lab Data Result diagrams: 11/21/23 02:46 11/21/23 02:46 Lab Results 11/21/23 11/21/23 11/21/23 Range/Units 02:46 02:46 02:46 WBC 5.9 (3.8-10.6) k/uL RBC 4.34 (3.80-5.40) m/uL Hgb 10.7 L (11.4-16.0) gm/dL Hct 35.3 (34.0-46.0) % MCV 81.4 (80.0-100.0) fL MCH 24.7 L (25.0-35.0) pg MCHC 30.3 L (31.0-37.0) g/dL RDW 14.8 (11.5-15.5) % Plt Count 243 (150-450) k/uL MPV 7.3 Neutrophils % 46 % Lymphocytes % 40 % Monocytes % 6 % Eosinophils % 5 % Basophils % 1 % Neutrophils # 2.7 (1.3-7.7) k/uL Lymphocytes # 2.3 (1.0-4.8) k/uL Monocytes # 0.4 (0-1.0) k/uL Eosinophils # 0.3 (0-0.7) k/uL Basophils # 0.0 (0-0.2) k/uL Hypochromasia Slight Sodium 143 (137-145) mmol/L Potassium 3.7 (3.5-5.1) mmol/L Chloride 110 H (98-107) mmol/L Carbon Dioxide 21 L (22-30) mmol/L Anion Gap 12 mmol/L BUN 16 (7-17) mg/dL Creatinine 0.82 (0.52-1.04) mg/dL Est GFR (CKD-EPI)AfAm >90 (>60 ml/min/1.73 sqM) Est GFR (CKD-EPI)NonAf 86 (>60 ml/min/1.73 sqM) Glucose 100 H (74-99) mg/dL Calcium 10.0 (8.4-10.2) mg/dL Magnesium 1.5 L (1.6-2.3) mg/dL Influenza Type A (PCR) Not Detected (Not Detectd) Influenza Type B (PCR) Not Detected (Not Detectd) RSV (PCR) Not Detected (Not Detectd) SARS-CoV-2 (PCR) Not Detected (Not Detectd) - EKG Data -: EKG Interpreted by Me EKG Comments: 12-lead Electrocardiogram Interpretation Note EKG was reviewed and interpreted by myself. 12-lead ECG performed at 0053 is interpreted by me as revealing sinus tachycardia at a rate of 116 beats per minute. [place] is normal. [place] interval is 168 ms, QRS duration is 84 ms, QTc is 394 ms.. There were no ST or T wave abnormalities to suggest myocardial ischemia or injury. R wave progression across the precordium was satisfactory. By my interpretation this EKG is non-diagnostic for acute ischemia. Disposition Clinical Impression: Acute anxiety, Asthma Disposition: HOME SELF-CARE Condition: Good Instructions (If sedation given, give patient instructions): Asthma (ED), Generalized Anxiety Disorder (ED) Prescriptions: predniSONE [Deltasone] 40 mg PO DAILY 5 Days #10 tab Albuterol Inhaler [Ventolin Hfa Inhaler] 1 - 2 puff INHALATION Q6H PRN #1 each PRN Reason: Dyspnea Azithromycin [Zithromax] 250 mg PO DAILY 4 Days #4 tab Is patient prescribed a controlled substance at d/c from ED?: No Referrals: Lico Bañuelos MD [Primary Care Provider] - 1-2 days Time of Disposition: 04:36
[2023-11-21] MEDS: KETOROLAC 15 MG/ML 1 ML VIAL IVP STA (04:52)
[2023-11-21] MEDS: AZITHROMYCIN 500 MG TAB PO STA (04:56)
[2023-11-21 05:02] VITALS: BP 114/71; PULSE 115; RESP 20
== END 2023-11-21 04:58 | disposition home or self-care (01) ==
LOC: EC 00:46
DX: F41.9 Anxiety disorder, unspecified (principal); J45.909 Unspecified asthma, uncomplicated; F17.200 Nicotine dependence, unspecified, uncomplicated; Z91.013 Allergy to seafood; Z91.018 Allergy to other foods; Z88.5 Allergy status to narcotic agent
CPT/HCPCS: 36415; 94640; 93005; 80048; 83735; 85025; 87636; 71046; 99284; 96374; 96375; 96361; J1885; J2919